=== PATIENT | male | born 1955 | race Caucasian/White ===

== ENCOUNTER → 2017-03-07 | Day surgery (SDC) | payer OTHER ==
[~2017-03-07] VITALS: Ht 182.9 cm; Wt 75.0 kg
[~2017-03-07] MED LIST: AMLO10TA2 PO; AMPICILLIN/SULBAC 3 GM/NS 100 ML IV SCH; ASPI81TA23 PO; CHLORHEXIDINE GLUCONATE 2 % 1 PACK (2 CLOTHS) TOPICAL PRN; FAMOTIDINE 20 MG/2 ML VIAL ONE; FISH500C PO; IBUP200T47 PO; INSULIN HUMAN REGULAR 1,000 UNITS/10 ML VIAL SQ PRN; LACTATED RINGER'S 1000 ML IV PRN; LIPI40TA PO; METOPROLOL TARTRATE 25 MG TAB PO PRN; MIDAZOLAM HCL 2 MG/2 ML VIAL ONE; OXYMETAZOLINE HCL 0.05% 15 ML NASAL SPRAY ONE; POVIDONE IODINE 5% (ANTISEPSIS KIT) 4 APPLICATIONS EACH NARE PRN; SODIUM CHLORID 0.9% 500 ML IV PRN
[2017-03-07 09:01] VITALS: PULSE 84
[2017-03-07 10:00] VITALS: BP 104/58; PULSE 66; RESP 16; TEMP 98.2; O2SAT 92
--- NOTE | 2017-03-07 14:02 | EKG ---
Date Performed: 03/07/2017 Time Performed: 07:44:49 PTAGE: 61 years EKG: Sinus rhythm WITH FIRST DEGREE AV BLOCK ABNORMAL ECG PREVIOUS TRACING : 12/04/2009 11.01 Compared to prior tracing no significant change DOCTOR: Clint Taylor Interpretating Date/Time 03/07/2017 13:59:42
--- NOTE | 2017-03-09 09:09 | MP ---
cc: SUSAN COELLO M.D. DATE OF SURGERY March 07, [address] Susan Coello PREOPERATIVE DIAGNOSIS Lesion of right pyriform sinus. POSTOPERATIVE DIAGNOSIS Lesion of right pyriform sinus. OPERATION PERFORMED Direct laryngoscopy with biopsies. INDICATIONS Documented in the history and physical. DESCRIPTION OF OPERATION The patient was taken to OR #2 and placed in the supine position. Following induction of general anesthesia and intubation, a shoulder roll and a Matthew head drape were put in place and dental guard was placed in. Using an anterior commissure scope the hypopharynx and larynx were brought into view. The lesion of the apex of the right pyriform sinus was immediately identified. There was neoplastic lesion developing in this location. Biopsy was obtained in three sites from this lesion and were passed off the field for histological examination. Inspection of the remainder the hypopharynx and larynx showed no evidence of other neoplastic changes. The scope was then removed and the procedure was terminated. The patient was reversed from anesthesia and taken to recovery in good condition. There were no complications. Blood loss was less than 10 mL. Susan Coello MD [facility] /7:46 AM /9:05 AM
== END | disposition home or self-care (01) ==
LOC: PHSDC 06:32
PROVIDERS: ATTEND Otolaryngology
DX: C32.9 Malignant neoplasm of larynx, unspecified (principal); R94.31 Abnormal electrocardiogram [ECG] [EKG]
CPT/HCPCS: 00320; 31535; 88305; 88311; 93005; J0295; J2250; J3010; J7120

== ENCOUNTER 2017-09-01 08:47 | Day surgery (SDC) | payer OTHER ==
[~2017-09-01] VITALS: Ht 182.9 cm; Wt 59.1 kg
[~2017-09-01 08:47] MED LIST changes: -AMPICILLIN/SULBAC 3 GM/NS 100 ML IV SCH; -CHLORHEXIDINE GLUCONATE 2 % 1 PACK (2 CLOTHS) TOPICAL PRN; -FAMOTIDINE 20 MG/2 ML VIAL ONE; -INSULIN HUMAN REGULAR 1,000 UNITS/10 ML VIAL SQ PRN; -LACTATED RINGER'S 1000 ML IV PRN; -METOPROLOL TARTRATE 25 MG TAB PO PRN; -MIDAZOLAM HCL 2 MG/2 ML VIAL ONE; -OXYMETAZOLINE HCL 0.05% 15 ML NASAL SPRAY ONE; -POVIDONE IODINE 5% (ANTISEPSIS KIT) 4 APPLICATIONS EACH NARE PRN; -SODIUM CHLORID 0.9% 500 ML IV PRN
[2017-09-01] MEDS ORDERED: IOHEXOL 350 MG/ML 50 ML BTL (for RAD DIAG) G-TUBE ONE (08:48)
[2017-09-01] MEDS ORDERED: SODIUM CHLORIDE 0.9% 1000 ML IV SCH (09:00)
[2017-09-01 09:43] VITALS: BP 123/58; PULSE 75; RESP 18; TEMP 98.1; O2SAT 95
[2017-09-01 10:00] LABS: AUTOMATED NEUTROPHIL # 9.4 TH/MM3 (1.8-7.7); BASOPHIL # 0.1 TH/MM3 (0-0.2); BASOPHIL % 0.5 % (0.0-2.0); EOSINOPHIL % 0.2 % (0.0-4.0); HEMATOCRIT 36.9 % (39.0-51.0); HEMOGLOBIN 12.6 GM/DL (13.0-17.0); LYMPH % 4.3 % (9.0-44.0); LYMPHOCYTE # 0.5 TH/MM3 (1.0-4.8); MEAN CELL VOLUME 83.4 FL (80.0-100.0); MEAN CORPUSCULAR HEMOGLOBIN 28.4 PG (27.0-34.0); MEAN PLATELET VOLUME 7.3 FL (7.0-11.0); MONO % 9.3 % (0.0-8.0); NEUT % 85.7 % (16.0-70.0); PLATELET COUNT 379 TH/MM3 (150-450); RED BLOOD COUNT 4.43 MIL/MM3 (4.50-5.90); RED CELL DISTRIBUTION WIDTH 13.7 % (11.6-17.2); WHITE BLOOD COUNT 10.9 TH/MM3 (4.0-11.0)
[2017-09-01] MEDS ORDERED: AMLO10TA2 PO (10:03)
[2017-09-01 10:08] LABS: INTERNATIONAL NORMALIZED RATIO 1.1 RATIO; PROTHROMBIN TIME - PATIENT 11.4 SEC (9.8-11.6)
[2017-09-01] MEDS ORDERED: NAPR220C22 PO (10:08)
[2017-09-01] MEDS ORDERED: PENT400T PO (10:09)
[2017-09-01] MEDS ORDERED: HYDR1SOL3 PO (10:10)
[2017-09-01] MEDS ORDERED: CEFP250T PO (10:11)
[2017-09-01] MEDS ORDERED: fentaNYL CITRATE 250 MCG/5 ML AMP ONE (10:31)
[2017-09-01] MEDS ORDERED: GLUCAGON 1 MG/ML VIAL ONE (10:31)
[2017-09-01] MEDS ORDERED: MIDAZOLAM HCL 5 MG/5 ML VIAL ONE (10:31)
--- NOTE | 2017-09-01 11:10 | PD.RAD ---
Post Procedure Progress Note Pre Procedure Diagnosis: (1) Post radiation pharyngitis (2) Head and neck cancer Post Procedure Diagnosis: (1) Head and neck cancer (2) Post radiation pharyngitis Procedure Date: September 01, 2017 Supervising Radiologist: Kavon Malik Proceduralist/Assist: Mary Aguilar, RT(R)(WILVER), Colleen Delgado, RT(R), Other (Valeriy) Anesthesia: Local, Analgesia, Conscious Sedation Plan of Activity Patient to Unit: [facility] Patient Condition: Good See PACS Report for procedural detail/treatment Feeding Tube Gastrostomy Placement [place] Citizen: 16 Kavon Malik MD September 01, 2017 11:10
[2017-09-01 11:15] VITALS: BP 110/57; PULSE 80; RESP 18; TEMP 98.2; O2SAT 94
[2017-09-01 11:30] VITALS: BP 97/51; PULSE 73; RESP 18; O2SAT 93
[2017-09-01] MEDS: ceFAZolin 2 GM PREMIX 50 ML - gastrostomy and jejunostomy initial insertion IV SCH ×2 (11:50→12:33)
[2017-09-01 12:00] VITALS: BP 94/51; PULSE 67; RESP 18; O2SAT 93
[2017-09-01 12:30] VITALS: BP 111/36; PULSE 70; RESP 18; O2SAT 93
[2017-09-01 13:00] VITALS: BP 108/57; PULSE 70; RESP 18; O2SAT 93
--- NOTE | 2017-09-01 13:50 | RADRPT ---
EXAM DATE/TIME: 09/01/2017 10:34 [facility] COMPARISON: No previous studies available for comparison. INDICATIONS : Patient presents with sinus cancer in need of gastrostomy tube placement for nutrition. MEDICAL HISTORY : Arthritis HTN Hypercholesterolemia ETOH Remote smoking SURGICAL HISTORY : Radiation Right Piriform Sinus ENCOUNTER: Initial ACUITY: 4-6 months PAIN SCORE: 2/10 LOCATION: sinus FLUORO TIME: 4.6 minutes IMAGE SERIES: 1 SEDATION TIME: 30 minutes CONTRAST: 15 cc Omnipaque (iohexol) 350 MEDICATION(S): 1.) 3 mg midazolam (Versed) IV 2.) 150 mcg Fentanyl (Sublimaze) IV DEVICE(S): 1.) 18 Fr gastrostomy tube PROCEDURE : 1. Limited abdominal ultrasound. 2. Fluoroscopically guided gastrostomy tube placement. 3. Conscious sedation with continuous EKG and oximetry monitoring. The risks, benefits and alternatives to the procedure were explained and verbal and written consent w as obtained. The site was prepped in sterile fashion. Full sterile technique was used, including ca p, mask, sterile gloves and gown and a large sterile sheet. Hand hygiene and 2% chlorhexidine and/or betadine/alcohol prep was utilized per protocol for cutaneous antisepsis. The skin and subcutaneous tissues were infiltrated with local anesthetic solution. Sterile gel and sterile probe cover were u tilized for ultrasound guidance. Ultrasound was used to matias the position of the liver. The stomach was insufflated with room air. Th ree percutaneous fasteners were placed to secure the anterior gastric wall. A small incision was made between the fasteners. The stomach was accessed with an 18 gauge needle. A n 0.035 wire was advanced into the small bowel. The tract was dilated. The gastrostomy tube was int roduced through a peel-away sheath. The position was confirmed with an injection of contrast. Conscious sedation was performed with the prescribed dosages and duration as above in the presence of an independent trained radiology nurse to assist in the monitoring of the patient. EKG and oximetry remained stable throughout the procedure. The patient tolerated the procedure well and there were n o complications. The patient was sent to post anesthesia recovery in stable condition. CONCLUSION: Uncomplicated gastrostomy tube placement as above. Kavon Malik MD on September 01, 2017 at 13:48 Board Certified Radiologist. This report was verified electronically.
== END 2017-09-01 13:15 | disposition home or self-care (01) ==
LOC: HROP 08:47 → HRIP 08:49 → HROP 13:15
PROVIDERS: ATTEND Radiology Radiation Oncology
DX: C12 Malignant neoplasm of pyriform sinus (principal); I10 Essential (primary) hypertension; E78.00 Pure hypercholesterolemia, unspecified
CPT/HCPCS: 49440; 85025; 85610; 85730; 99152; 99153; C1769; C1887; J0690; J1610; J2250; J3010; Q9967

== ENCOUNTER 2017-09-22 07:42 | Inpatient (IN) | payer OTHER ==
[~2017-09-22] VITALS: Ht 182.9 cm; Wt 56.8 kg
[2017-09-22] VITALS (10 sets, daily range): BP systolic 120–130; BP diastolic 55–62; PULSE 78–104; RESP 16–22; TEMP 97.6–98.1; O2SAT 93–100
[~2017-09-22 07:42] MED LIST changes: +CEFP250T PO; +HYDR1SOL3 PO; -IBUP200T47 PO; +NAPR220C22 PO; +PENT400T PO
[2017-09-22] MEDS ORDERED: IOHEXOL 350 MG/ML 10 ML VIAL (for RAD DIAG) IVCONTRAST ONE (07:43)
[2017-09-22] MEDS ORDERED: HYDR1SOL3 PO (08:02)
[2017-09-22] MEDS ORDERED: SODIUM CHLOR 0.9% 1000 ML INJ 1,000 ML IV ONE (08:15)
--- NOTE | 2017-09-22 08:57 | PD ---
HPI Chief Complaint: Respiratory Symptoms Time Seen by Provider: 08:08 Travel History International Travel<30 days: No Contact w/Intl Traveler<30days: No Traveled to known affect area: No History of Present Illness HPI This is a 62-year-old male with history of throat cancer, presents today with complaints of shortness of breath and worsening difficulty of swallowing. The patient is status post radiation treatment 2 months ago. He had a recent PET scan and swallowing study done a week and a half ago. The swallowing study showed that he was aspirating. The PET scan showed questionable post radiation inflammation versus new mass. The patient was recommended to come to the ER by his radiation oncologist, Dr. Jake romeo. Dr. Romeo was gracious enough to come in and see the patient and discussed the case with me. Patient denies any fevers, chills. He denies any cough or productive phlegm. He states that he has pain and difficulty swallowing. He states the difficulty swallowing is slightly worse than previous. PFSH Past Medical History Arthritis: Yes Cancer: Yes (throat) Cardiovascular Problems: Yes (ELEV. CHOLESTEROL) High Cholesterol: Yes Diabetes: No Diminished Hearing: No ([place]) Endocrine: No Glaucoma: No Genitourinary: No Hepatitis: No Hiatal Hernia: No Hypertension: Yes Immune Disorder: No Medical other: Yes (NASAL CONGESTION AND DRAINAGE;HOARSENESS) Musculoskeletal: Yes (JOINT PAIN AND STIFFNESS) Neurologic: No Psychiatric: No Respiratory: Yes (INTRASTITUAL LUNG DISEASE; PRODUCTIVE COUGH, PULMONARY FIBROSIS) Thyroid Disease: No Influenza Vaccination: Yes Past Surgical History Abdominal Surgery: Yes (PEG tube) AICD: No Cardiac Surgery: No Ear Surgery: No Endocrine Surgery: No Eye Surgery: No Genitourinary Surgery: No Gynecologic Surgery: No Joint Replacement: No Oral Surgery: Yes (BX BASE OF TONGUE;MULT TOOTH EXT; WISDOM TEETH REMOVED) Pacemaker: No Thoracic Surgery: Yes (LUNG BIOPSY X 3) Other Surgery: Yes Social History Alcohol Use: No (hx of) Tobacco Use: No (2 OR 3 PER DAY X 1 WEEK/ PRIOR 1PPD) Substance Use: No Allergies-Medications (Allergen,Severity, Reaction): Coded Allergies: No Known Allergies (Verified Allergy, Unknown, 09/22/17) Reported Meds & Prescriptions Reported Meds & Active Scripts Active Reported Hydrocodone-Acetaminophen Liq 7.5-325 Mg/15 Ml Soln 15-30 Ml PO Q4-6H PRN Amlodipine (Amlodipine Besylate) 10 Mg Tab 10 Mg PO DAILY Lipitor (Atorvastatin Calcium) 40 Mg Tab 80 Mg PO HS Review of Systems Except as stated in HPI: all other systems reviewed are Neg General / Constitutional: No: Fever, Chills HENT: Positive: Sore Throat, Other, No: Headaches, Lightheadedness Cardiovascular: No: Chest Pain or Discomfort (Difficulty swallowing), Palpitations Respiratory: Positive: Shortness of Breath, No: Cough Gastrointestinal: No: Nausea, Vomiting, Abdominal Pain Genitourinary: No: Dysuria, Decreased Urinary Output Musculoskeletal: Positive: Weakness (Generalized), No: Pain Neurologic: Positive: Weakness, No: Headache Physical Exam Narrative GENERAL: Well-developed well-nourished male in no acute respiratory distress. Patient does have muffled speech. SKIN: Focused skin assessment warm/dry. HEAD: Atraumatic. Normocephalic. EYES: No scleral icterus. No injection or drainage. ENT: No nasal bleeding or discharge. Mucous membranes pink and dry. NECK: Trachea midline. There is some fullness in his neck consistent with previous cancer and previous radiation treatment. CARDIOVASCULAR: Sinus tachycardia with a rate of 101.. No murmur appreciated. RESPIRATORY: No accessory muscle use. Clear to auscultation. Breath sounds equal bilaterally. GASTROINTESTINAL: Abdomen soft, non-tender, nondistended. Hepatic and splenic margins not palpable. MUSCULOSKELETAL: No obvious deformities. No clubbing. No cyanosis. No edema. NEUROLOGICAL: Awake and alert. No obvious cranial nerve deficits. Motor grossly within normal limits. Normal speech. Data Data Last Documented VS Vital Signs Date Time Temp Pulse Resp B/P (MAP) Pulse Ox O2 Delivery O2 Flow Rate FiO2 09/22/17 10:13 84 16 124/61 (82) 99 Room Air 09/22/17 09:34 3.00 09/22/17 07:45 97.6 Orders Orders Complete Blood Count With Diff (09/22/17 08:08) Comprehensive Metabolic Panel (09/22/17 08:08) Iv Access Insert/Monitor (09/22/17 08:08) Ecg Monitoring (09/22/17 08:08) Oximetry (09/22/17 08:08) Sodium Chlor 0.9% 1000 Ml Inj (Ns 1000 M (09/22/17 08:15) Resp Respiratory Parameters (09/22/17 ) Ct Soft Tiss Neck W Iv Cont (09/22/17 ) Iohexol 350 Inj (Omnipaque 350 Inj) (09/22/17 07:43) Comprehensive Metabolic Panel (09/23/17 06:00) Free Thyroxine (T4) (09/23/17 06:00) Hemoglobin (Hgb) A1c (09/23/17 06:00) Magnesium (Mg) (09/23/17 06:00) Phosphorus (Po4) (09/23/17 06:00) Thyroid Stimulating Hormone (09/23/17 06:00) Complete Blood Count With Diff (09/23/17 06:00) Amlodipine (Norvasc) (09/23/17 09:00) Atorvastatin (Lipitor) (09/22/17 21:00) Admit Order (Ed Use Only) (09/22/17 11:04) Acetamin-Hydrocod 325-7.5 Liq (Hycet 325 (09/22/17 11:15) Admit To Inpatient (09/22/17 ) Code Status (09/22/17 11:04) Vital Signs (Adult) Q4H (09/22/17 11:04) Activity Oob With Assistance (09/22/17 11:04) Internal Controls Analyst / Telemetry .CONTINUOUS (09/22/17 11:04) Intake + Output MARY.QSHIFT (09/22/17 11:04) Sodium Chlor 0.9% 1000 Ml Inj (Ns 1000 M (09/22/17 11:04) Sodium Chloride 0.9% Flush (Ns Flush) (09/22/17 11:15) Sodium Chloride 0.9% Flush (Ns Flush) (09/22/17 21:00) Acetaminophen (Tylenol) (09/22/17 11:15) Ondansetron Inj (Zofran Inj) (09/22/17 11:15) Prochlorperazine Supp (Compazine Supp) (09/22/17 11:15) Resp Oxygen Brayden C Titrat 1-4 L (09/22/17 ) Pt Request For Service (09/22/17 11:04) Ot Request For Service (09/22/17 11:04) Speech Therapy Consult-Eval/Tx (09/22/17 11:04) Case Management Consult (09/22/17 11:04) Scd Bilateral/Knee High MARY.BID (09/22/17 11:04) Raul Bilateral/Knee High MARY.QSHIFT (09/22/17 11:15) Acetaminophen (Tylenol) (09/22/17 11:15) Morphine Inj (Morphine Inj) (09/22/17 11:15) Morphine Inj (Morphine Inj) (09/22/17 11:15) Morphine Inj (Morphine Inj) (09/22/17 11:15) Naloxone Inj (Narcan Inj) (09/22/17 11:15) Docusate Sodium-Senna (Nydia-Colace) (09/22/17 21:00) Magnesium Hydroxide Liq (Milk Of Magnesi (09/22/17 11:15) Sennosides (Senokot) (09/22/17 11:15) Bisacodyl Supp (Dulcolax Supp) (09/22/17 11:15) Lactulose Liq (Lactulose Liq) (09/22/17 11:15) Inpatient Certification (09/22/17 ) Consult Ent (09/22/17 11:04) Consult Radiation Oncology (09/22/17 11:04) Tube Feeding 08,20 (09/22/17 11:09) Labs Laboratory Tests Test 09/22/17 08:30 White Blood Count 11.5 TH/MM3 Red Blood Count 4.18 MIL/MM3 Hemoglobin 11.6 GM/DL Hematocrit 34.9 % Mean Corpuscular Volume 83.3 FL Mean Corpuscular Hemoglobin 27.6 PG Mean Corpuscular Hemoglobin Concent 33.2 % Red Cell Distribution Width 14.0 % Platelet Count 351 TH/MM3 Mean Platelet Volume 10.0 FL Neutrophils (%) (Auto) 87.3 % Lymphocytes (%) (Auto) 2.6 % Monocytes (%) (Auto) 9.3 % Eosinophils (%) (Auto) 0.2 % Basophils (%) (Auto) 0.6 % Neutrophils # (Auto) 10.1 TH/MM3 Lymphocytes # (Auto) 0.3 TH/MM3 Monocytes # (Auto) 1.1 TH/MM3 Eosinophils # (Auto) 0.0 TH/MM3 Basophils # (Auto) 0.1 TH/MM3 CBC Comment DIFF FINAL Differential Comment Blood Urea Nitrogen 24 MG/DL Creatinine 0.53 MG/DL Random Glucose 132 MG/DL Total Protein 7.8 GM/DL Albumin 2.5 GM/DL Calcium Level 9.3 MG/DL Alkaline Phosphatase 104 U/L Aspartate Amino Transf (AST/SGOT) 45 U/L Alanine Aminotransferase (ALT/SGPT) 94 U/L Total Bilirubin 0.3 MG/DL Sodium Level 141 MEQ/L Potassium Level 4.1 MEQ/L Chloride Level 105 MEQ/L Carbon Dioxide Level 25.0 MEQ/L Anion Gap 11 MEQ/L Estimat Glomerular Filtration Rate 157 ML/MIN MDM Medical Decision Making Medical Screen Exam Complete: Yes Emergency Medical Condition: Yes Differential Diagnosis Recurrent tumor versus inflammatory process versus infectious process Narrative Course 62-year-old male with history of throat cancer, status post radiation treatment , presents here with complaints of shortness of breath and painful swallowing. Patient had a recent PET scan that showed questionable inflammatory process versus new mass. The patient's called Dr. Jake romeo, patient's radiation oncologist who recommended he come to the emergency department. Dr. Romeo was here and discussed options for evaluation. We discussed that a CT scan of the soft tissue neck would be the best option at this point. He also recommended that we have ENT see the patient and possibly scope him to see if there is been any interval changes. CT scan of the neck shows prominence of the tissue. There is also a fluid collection 0.7 cm x 2 cm in the right paratracheal area. There is questionable necrotic tissue versus infectious tissue noted as well. Diagnosis Primary Impression: Dysphagia Additional Impressions: History of throat cancer Shortness of breath Admitting Information Admitting Physician Requests: Observation Narendra Brown MD Sep 22, 2017 08:57
[2017-09-22 08:58] LABS: AUTOMATED NEUTROPHIL # 10.1 TH/MM3 (1.8-7.7); BASOPHIL # 0.1 TH/MM3 (0-0.2); BASOPHIL % 0.6 % (0.0-2.0); EOSINOPHIL % 0.2 % (0.0-4.0); HEMATOCRIT 34.9 % (39.0-51.0); HEMOGLOBIN 11.6 GM/DL (13.0-17.0); LYMPH % 2.6 % (9.0-44.0); LYMPHOCYTE # 0.3 TH/MM3 (1.0-4.8); MEAN CELL VOLUME 83.3 FL (80.0-100.0); MEAN CORPUSCULAR HEMOGLOBIN 27.6 PG (27.0-34.0); MEAN CORPUSCULAR HGB CONC 33.2 % (32.0-36.0); MONO % 9.3 % (0.0-8.0); MONOCYTE # 1.1 TH/MM3 (0-0.9); NEUT % 87.3 % (16.0-70.0); PLATELET COUNT 351 TH/MM3 (150-450); RED BLOOD COUNT 4.18 MIL/MM3 (4.50-5.90); WHITE BLOOD COUNT 11.5 TH/MM3 (4.0-11.0)
[2017-09-22 09:18] LABS: ALT (GPT) 94 U/L (12-78)
[2017-09-22 09:21] LABS: ALKALINE PHOSPHATASE 104 U/L (45-117); TOTAL BILIRUBIN ADULT 0.3 MG/DL (0.2-1.0); TOTAL PROTEIN 7.8 GM/DL (6.4-8.2)
[2017-09-22 09:31] LABS: ALBUMIN 2.5 GM/DL (3.4-5.0); AST (GOT) 45 U/L (15-37); BLOOD UREA NITROGEN 24 MG/DL (7-18); CALCIUM 9.3 MG/DL (8.5-10.1); CHLORIDE 105 MEQ/L (98-107); CREATININE 0.53 MG/DL (0.60-1.30); GLOMERULAR FILTRATION RATE 157 ML/MIN (>89); GLUCOSE,RANDOM 132 MG/DL (74-106); SODIUM (NA) 141 MEQ/L (136-145)
--- NOTE | 2017-09-22 10:33 | RADRPT ---
EXAM DATE: 09/22/2017 10:15 AM EDT AGE/SEX: 62 years / Male INDICATIONS: Difficulty swallowing with history of throat cancer. CLINICAL DATA: This is the patient's initial encounter. Patient reports that signs and symptoms have been present for 1 day and indicates a pain score of 5/10. MEDICAL/SURGICAL HISTORY: Cardiovascular disease. throat cancer. None. RADIATION DOSE: 12.71 CTDI (mGy) COMPARISON: No prior [place] exams available for comparison. TECHNIQUE: Helical acquisition was performed using a multirow detector CT scanner during the adminis tration of 70 ml Omnipaque 350 (iohexol) nonionic water-soluble contrast as a single exam dose. Usi ng automated exposure control and adjustment of the mA and/or kV according to patient size, radiation dose was kept as low as reasonably achievable to obtain optimal diagnostic quality images. FINDINGS: The limited portion of brain parenchyma visualized is unremarkable. The soft tissues of the nasopharynx and oropharynx are intact. The parapharyngeal space is intact deirdre aterally. More inferiorly, the exam demonstrates abnormal soft tissue thickening diffusely throughout the larynx. There is a small amount of fluid and punctate bubbles of gas within the soft tissues adj acent to the thyroid cartilage on the right. There is moderate narrowing of the airway due to the thi ckening. Primary consideration would be necrotic tumor secondary to radiation and chemotherapy. No significant jugular or posterior cervical adenopathy is identified. The parotid and submandibular glands are intact. The thyroid gland is intact. The limited portion of lung apex visualized demonstrates advanced COPD changes. CONCLUSION: 1. There is a large amount of abnormal soft tissue concentrically within the larynx. There is diffus e soft tissue swelling with a small fluid collection measuring 0.7 x 2.0 cm along the right side of t he thyroid cartilage. There are punctate bubbles of gas within this. Primary consideration would be n ecrotic tumor however, in the appropriate clinical setting superimposed infection in this area could be a consideration. This does result in some moderate concentric narrowing of the trachea with likely mass effect on the upper esophagus as well. Electronically signed by: Vazquez Stearns MD 09/22/2017 10:32 AM EDT
[2017-09-22] MEDS ORDERED: ACETAMINOPHEN 325MG/HYDROcodone 7.5MG/15ML UDC PO PRN (11:15)
[2017-09-22] MEDS ORDERED: SENNOSIDES 8.6 MG TAB PO PRN (11:15)
[2017-09-22] MEDS ORDERED: MAGNESIUM HYDROXIDE SUSP 30 ML CUP PO PRN (11:15)
[2017-09-22] MEDS ORDERED: SODIUM CHLORIDE 0.9% FLUSH 10 ML FLUSH IV FLUSH PRN (11:15)
[2017-09-22] MEDS ORDERED: BISACODYL 10 MG SUPP RECTAL PRN (11:15)
[2017-09-22] MEDS ORDERED: NALOXONE HCL 0.4 MG/ML AMP IV PUSH PRN (11:15)
[2017-09-22] MEDS ORDERED: LACTULOSE SYRUP 20 GM/30 ML CUP PO PRN (11:15)
[2017-09-22] MEDS ORDERED: ACETAMINOPHEN 325 MG TAB PO PRN ×2 (11:15)
[2017-09-22] MEDS ORDERED: PROCHLORPERAZINE 25 MG SUPP RECTAL PRN (11:15)
[2017-09-22] MEDS ORDERED: ONDANSETRON ODT 4 MG TAB PO PRN (11:30)
[2017-09-22] MEDS ORDERED: MORPHINE SULFATE 4 MG/ML INJ IV PUSH PRN ×3 (11:45)
[2017-09-22] MEDS: SODIUM CHLOR 0.9% 1000 ML INJ 1,000 ML IV SCH (13:36)
--- NOTE | 2017-09-22 14:31 | RADRPT ---
EXAM DATE: 09/22/2017 2:26 PM EDT AGE/SEX: 62 years / Male INDICATIONS: Dysphagia. CLINICAL DATA: This is the patient's initial encounter. Patient reports that signs and symptoms have been present for 1 day and indicates a pain score of 0/10. MEDICAL/SURGICAL HISTORY: None. None. COMPARISON: No prior [facility] exams available for comparison. FLUORO TIME: 1.9 IMAGE COUNT: 0 FINDINGS: A modified barium swallow was performed with speech pathology. Patient was given a variety of liquids to swallow. For a full detailed report, see report by the speech pathologist. CONCLUSION: Modified barium swallow. Electronically signed by: Anam Boone MD 09/22/2017 2:30 PM EDT
--- NOTE | 2017-09-22 15:21 | HHI.HP ---
[facility] Amparo Ochoa MD Admission Diagnosis dysphagia, throat cancer, shortness of breath Diagnoses: Chief Complaint: INCREASING SHORTNESS OF BREATH Travel History International Travel<30 Days: No Contact w/Intl Traveler <30 Da: No Traveled to Known Affected Are: No History of Present Illness Patient is a 62-year-old male with a history of thyroid cancer that it was discovered last February. He presents today with shortness of breath and worsening difficulty in swallowing. Patient is status post 35 radiation treatments that finished in May. He had a recent PET scan and swallow study done last week and a half ago. He failed a swallow evaluation and had a PEG tube placed. The PET scan showed post radiation inflammation versus new mass. Patient was recommended to come to the emergency department by Dr. Jake romeo his radiation oncologist. Patient had a swallow evaluation and a barium swallow and failed grossly and is made completely n.p.o. except to use the PEG tube. Review of Systems Constitutional: COMPLAINS OF: Fatigue, Weight loss, Change in appetite, DENIES : Diaphoretic episodes, Fever, Weight gain, Chills, Dizziness, Night Sweats Endocrine: DENIES: Heat/cold intolerance, Polydipsia, Polyuria, Polyphagia Eyes: DENIES: Blurred vision, Diplopia, Eye inflammation, Eye pain, Vision loss , Photosensitivity, Double Vision Ears, nose, mouth, throat: COMPLAINS OF: Throat pain, Hoarseness, DENIES: Tinnitus, Hearing loss, Vertigo, Nasal discharge, Oral lesions, Ear Pain, Running Nose, Epistaxis, Sinus Pain, Toothache, Odynophagia Respiratory: COMPLAINS OF: Shortness of breath, DENIES: Apneas, Cough, Snoring , Wheezing, Hemoptysis, Sputum production Cardiovascular: DENIES: Chest pain, Palpitations, Syncope, Dyspnea on Exertion , PND, Lower Extremity Edema, Orthopnea, Claudication Gastrointestinal: COMPLAINS OF: Difficulty Swallowing, DENIES: Abdominal pain, Black stools, Bloody stools, Constipation, Diarrhea, Nausea, Vomiting, Anorexia Genitourinary: DENIES: Sexual dysfunction, Urinary frequency, Urinary incontinence Musculoskeletal: COMPLAINS OF: Neck pain, DENIES: Joint pain, Muscle aches, Stiffness, Joint Swelling, Back pain Integumentary: DENIES: Abnormal pigmentation, Nail changes, Pruritus, Rash Hematologic/lymphatic: DENIES: Bruising, Lymphadenopathy Immunologic/allergic: DENIES: Eczema, Urticaria Neurologic: COMPLAINS OF: Speech Problems, DENIES: Abnormal gait, Headache, Localized weakness, Paresthesias, Seizures, Tremor, Poor Balance Psychiatric: DENIES: Anxiety, Confusion, Mood changes, Depression, Hallucinations, Agitation, Suicidal Ideation, Homicidal Ideation, Delusions Except as stated in HPI: all other systems reviewed are Neg Past Family Social History Past Medical History Hard of hearing with hearing loss Has history of biopsy of the base of his tongue including multiple tooth extraction wisdom tooth removal Hypercholesterolemia Hypertension Interstitial lung disease Pulmonary fibrosis History of lung biopsies 3 negative for cancer history of PEG tube placement History of osteoarthritis History of alcohol use in the past Prior history of heavy tobacco abuse with 1 pack per day for many years Throat cancer/head and neck cancer Chronic hoarse voice Chronic nasal congestion and drainage Past Surgical History Base of tongue biopsy Recent ENT procedure PEG tube placement Lung biopsies 3 Reported Medications Reported Meds & Active Scripts Active Reported Hydrocodone-Acetaminophen Liq 7.5-325 Mg/15 Ml Soln 15-30 Ml PO Q4-6H PRN Amlodipine (Amlodipine Besylate) 10 Mg Tab 10 Mg PO DAILY Lipitor (Atorvastatin Calcium) 40 Mg Tab 80 Mg PO HS Allergies: Coded Allergies: No Known Allergies (Verified Allergy, Unknown, 09/22/17) Active Ordered Medications Current Medications Sodium Chloride 1,000 ml @ 999 mls/hr BOLUS ONCE IV Last administered on at 08:47; Start 09/22/17 at 08:15; Stop 09/22/17 at 09:15; Status DC Iohexol (Omnipaque 350 Inj) 70 ml STK-MED ONCE IVCONTRAST Last administered on 09/22/17at 10:14; Start 09/22/17 at 07:43; Stop 09/22/17 at 10:09; Status DC Amlodipine Besylate (Norvasc) 10 mg DAILY PO ; Start 09/23/17 at 09:00 Atorvastatin Calcium (Lipitor) 80 mg HS PO ; Start 09/23/17 at 21:00 Acetaminophen/ Hydrocodone Bitart (Hycet 325-7.5 Mg Liq) 15 ml Q4H PRN PO PAIN 3-10; Start 09/22/17 at 11:15 Sodium Chloride 1,000 ml @ 100 mls/hr Q10H IV Last administered on 09/22/17at 13 :36; Start 09/22/17 at 11:30 Sodium Chloride (NS Flush) 2 ml UNSCH PRN IV FLUSH FLUSH AFTER USING IV ACCESS ; Start 09/22/17 at 11:15 Sodium Chloride (NS Flush) 2 ml BID IV FLUSH ; Start 09/22/17 at 21:00 Acetaminophen (Tylenol) 650 mg Q4H PRN PO TEMP > 100.4; Start 09/22/17 at 11:15 Ondansetron HCl (Zofran Odt) 4 mg Q6H PRN PO NAUSEA OR VOMITING; Start at 11:30 Prochlorperazine (Compazine Supp) 25 mg Q12H PRN RECTAL NAUSEA OR VOMITING; Start 09/22/17 at 11:15 Acetaminophen (Tylenol) 650 mg Q6H PRN PO PAIN SCALE 1 TO 2; Start 09/22/17 at 11:15 Morphine Sulfate (Morphine Inj) 2 mg Q3H PRN IV PUSH Pain 3-5; if unable to take PO; Start 09/22/17 at 11:45 Morphine Sulfate (Morphine Inj) 4 mg Q3H PRN IV PUSH Pain 6-10;if unable to take PO; Start 09/22/17 at 11:45 Morphine Sulfate (Morphine Inj) 4 mg Q3H PRN IV PUSH BREAKTHROUGH PAIN; Start 09/22/17 at 11:45 Naloxone HCl (Narcan Inj) 0.4 mg UNSCH PRN IV PUSH SEE LABEL COMMENTS; Start at 11:15 Senna/Docusate Sodium (Nydia-Colace) 1 tab BID PO ; Start 09/22/17 at 21:00 Magnesium Hydroxide (Milk Of Magnesia Liq) 30 ml Q12H PRN PO Mild constipation ; Start 09/22/17 at 11:15 Sennosides (Senokot) 17.2 mg Q12H PRN PO Moderate constipation; Start 09/22/17 at 11:15 Bisacodyl (Dulcolax Supp) 10 mg DAILY PRN RECTAL SEVERE CONSITIPATION; Start at 11:15 Lactulose (Lactulose Liq) 30 ml DAILY PRN PO SEVERE CONSITIPATION; Start at 11:15 Family History Father had lung cancer Family history of tobacco abuse Social History History of alcohol abuse Still smoking a few cigarettes had previously smoked a pack per day for many years Denies any alcohol currently Denies any illicit drug use Physical Exam Vital Signs Vital Signs Date Time Temp Pulse Resp B/P (MAP) Pulse Ox O2 Delivery O2 Flow Rate FiO2 09/22/17 13:20 98.0 78 18 120/56 (77) 98 09/22/17 11:22 100 Nasal Cannula 3.00 09/22/17 10:13 84 16 124/61 (82) 99 Room Air 09/22/17 09:34 100 Nasal Cannula 3.00 09/22/17 09:15 97 Room Air 09/22/17 07:45 97.6 104 22 123/59 (80) 96 Physical Exam GENERAL: This is very thin and cachectic patient, not so well-developed patient , in no apparent distress. Muffled voice with hoarseness SKIN: No rashes, ecchymoses or lesions. Cool and dry. HEAD: Atraumatic. Normocephalic. No temporal or scalp tenderness. EYES: Pupils equal round and reactive. Extraocular motions intact. No scleral icterus. No injection or drainage. ENT: Nose without bleeding, purulent drainage or septal hematoma. Throat without erythema, tonsillar hypertrophy or exudate. Uvula midline. Airway patent. NECK: Trachea midline. No JVD or lymphadenopathy. Supple, nontender, no meningeal signs. CARDIOVASCULAR: Regular rate and rhythm without murmurs, gallops, or rubs. RESPIRATORY: . Breath sounds equal bilaterally. No wheezes, rales, or rhonchi. Coarse breath sounds bilaterally GASTROINTESTINAL: Abdomen soft, non-tender, nondistended. No hepato-splenomegaly , or palpable masses. No guarding. PEG tube in place MUSCULOSKELETAL: Extremities without clubbing, cyanosis, or edema. No joint tenderness, effusion, or edema noted. No calf tenderness. Negative Homans sign bilaterally. NEUROLOGICAL: Awake and alert. Cranial nerves II through XII intact. Motor and sensory grossly within normal limits. 4 out of 5 muscle strength in all muscle groups. ABNormal speech. With hoarseness of voice Insight and judgment is good Mood behaviors appropriate Laboratory Laboratory Tests Test 09/22/17 08:30 White Blood Count 11.5 Red Blood Count 4.18 Hemoglobin 11.6 Hematocrit 34.9 Mean Corpuscular Volume 83.3 Mean Corpuscular Hemoglobin 27.6 Mean Corpuscular Hemoglobin Concent 33.2 Red Cell Distribution Width 14.0 Platelet Count 351 Mean Platelet Volume 10.0 Neutrophils (%) (Auto) 87.3 Lymphocytes (%) (Auto) 2.6 Monocytes (%) (Auto) 9.3 Eosinophils (%) (Auto) 0.2 Basophils (%) (Auto) 0.6 Neutrophils # (Auto) 10.1 Lymphocytes # (Auto) 0.3 Monocytes # (Auto) 1.1 Eosinophils # (Auto) 0.0 Basophils # (Auto) 0.1 CBC Comment DIFF FINAL Differential Comment Blood Urea Nitrogen 24 Creatinine 0.53 Random Glucose 132 Total Protein 7.8 Albumin 2.5 Calcium Level 9.3 Alkaline Phosphatase 104 Aspartate Amino Transf (AST/SGOT) 45 Alanine Aminotransferase (ALT/SGPT) 94 Total Bilirubin 0.3 Sodium Level 141 Potassium Level 4.1 Chloride Level 105 Carbon Dioxide Level 25.0 Anion Gap 11 Estimat Glomerular Filtration Rate 157 Result Diagram: 09/22/17 0830 09/22/17 0830 Imaging Last Impressions Neck CT 09/22/17 0000 Addendum Impressions: CONCLUSION: 1. There is a large amount of abnormal soft tissue concentrically within the l arynx. There is diffuse soft tissue swelling with a small fluid collection marco uring 0.7 x 2.0 cm along the right side of the thyroid cartilage. There are pun ctate bubbles of gas within this. Primary consideration would be necrotic tumor however, in the appropriate clinical setting superimposed infection in this ar ea could be a consideration. This does result in some moderate concentric narro wing of the trachea with likely mass effect on the upper esophagus as well. Modified Barium Swallow 09/22/17 0000 Signed Impressions: CONCLUSION: Modified barium swallow. Caprini VTE Risk Assessment Caprini VTE Risk Assessment: Mod/High Risk (score >= 2) Caprini Risk Assessment Model Point Value = 1 Point Value = 2 Point Value = 3 Point Value = 5 Age 41-60 Minor surgery BMI > 25 kg/m2 Swollen legs Varicose veins or History of unexplained or recurrent spontaneous Oral contraceptives or hormone replacement Sepsis (< 1 month) Serious lung disease, including pneumonia (< 1 month) Abnormal pulmonary function Acute myocardial infarction Congestive heart failure (< 1 month) History of inflammatory bowel disease Medical patient at bed rest Age 61-74 Arthroscopic surgery Major open surgery (> 45 min) Laparoscopic surgery (> 45 min) Malignancy Confined to bed (> 72 hours) Immobilizing plaster cast Central venous access Age >= 75 History of VTE Family history of VTE Factor V Leiden Prothrombin [id number] Lupus anticoagulant Anticardiolipin antibodies Elevated serum homocysteine Heparin-induced thrombocytopenia Other congenital or acquired thrombophilia Stroke (< 1 month) Elective arthroplasty Hip, pelvis, or leg fracture Acute spinal cord injury (< 1 month) Prophylaxis Regimen Total Risk Factor Score Risk Level Prophylaxis Regimen 0-1 Low Early ambulation 2 Moderate Order ONE of the following: *Sequential Compression Device (SCD) *Heparin 5000 units SQ BID 3-4 Higher Order ONE of the following medications: *Heparin 5000 units SQ TID *Enoxaparin/Lovenox 40 mg SQ daily (WT < 150 kg, CrCl > 30 mL/min) *Enoxaparin/Lovenox 30 mg SQ daily (WT < 150 kg, CrCl > 10-29 mL/min) *Enoxaparin/Lovenox 30 mg SQ BID (WT < 150 kg, CrCl > 30 mL/min) AND/OR *Sequential Compression Device (SCD) 5 or more Highest Order ONE of the following medications: *Heparin 5000 units SQ TID (Preferred with Epidurals) *Enoxaparin/Lovenox 40 mg SQ daily (WT < 150 kg, CrCl > 30 mL/min) *Enoxaparin/Lovenox 30 mg SQ daily (WT < 150 kg, CrCl > 10-29 mL/min) *Enoxaparin/Lovenox 30 mg SQ BID (WT < 150 kg, CrCl > 30 mL/min) AND *Sequential Compression Device (SCD) Assessment and Plan Assessment and Plan Head and neck cancer with worsening dysphasia and shortness of breath ENT has been counseled regarding the worsening CAT scans of his head neck Throat cancer with history of extensive tobacco abuse and [address] Jake romeo Dysphasia secondary to the radiation status post PEG tube Completely failed swallow eval made n.p.o. Hypertension continue on his home medications may be crushed via PEG Hyperlipidemia continue on his home medications may be crushed via PEG Pain control continue his home medications via PEG as needed for pain and morphine as needed for breakthrough pain Continue fluids Nutrition to consult regarding tube feeds Cachexia continue on aggressive intake of calories via tube feeds A.m. labs Continue PT and OT Code Status Full code Discussed Condition With RN and patient and and the emergency room physician Physician Certification 2 Midnight Certification Type: Admission for Inpatient Services Order for Inpatient Services The services are ordered in accordance with Medicare regulations or non- Medicare payer requirements, as applicable. In the case of services not specified as inpatient-only, they are appropriately provided as inpatient services in accordance with the 2-midnight benchmark. Estimated LOS (days): 3 days is the estimated time the patient will need to remain in the hospital, assuming treatment plan goals are met and no additional complications. Post-Hospital Plan: Not yet determined Huan Londono DO Sep 22, 2017 15:21
--- NOTE | 2017-09-22 17:16 | HHI.PR ---
Subjective Remarks Prior xrt for pyriform sinus cancer. Concern of worse breathing . Discussed CT results with Dr. Stearns. DDx includes fistula, radiation necrosis, persistent cancer (least likely) Objective Vital Signs Date Time Temp Pulse Resp B/P (MAP) Pulse Ox O2 Delivery O2 Flow Rate FiO2 09/22/17 15:26 98.1 89 18 126/55 (78) 96 09/22/17 13:20 98.0 78 18 120/56 (77) 98 09/22/17 11:22 100 Nasal Cannula 3.00 09/22/17 10:13 84 16 124/61 (82) 99 Room Air 09/22/17 09:34 100 Nasal Cannula 3.00 09/22/17 09:15 97 Room Air 09/22/17 07:45 97.6 104 22 123/59 (80) 96 I/O 09/21/17 09/21/17 09/21/17 09/22/17 09/22/17 09/22/17 07:00 15:00 23:00 07:00 15:00 23:00 Intake Total 1000 ml Balance 1000 ml Intake IV Total 1000 ml Result Diagram: 09/22/17 0830 09/22/17 0830 Objective Remarks Noted vital signs. Breathing. Assessment and Plan Assessment and Plan consider steroids briefly, O2 monitoring. Present with dr oropeza. hold neck exercises for now. Jake Obregon MD Sep 22, 2017 17:16
[2017-09-22] MEDS ORDERED: DEXAMETHASONE SOD PHOS 4 MG/ML VIAL IV PUSH ONE (17:30)
[2017-09-22] MEDS ORDERED: PANTOPRAZOLE SODIUM 40 MG VIAL IV PUSH SCH (18:00)
[2017-09-22] MEDS: SODIUM CHLORIDE 0.9% FLUSH 10 ML FLUSH IV FLUSH SCH (21:00)
[2017-09-22] MEDS: DOCUSATE SODIUM 50 MG/SENNA 8.6 MG TAB PO SCH (21:00)
[2017-09-23] VITALS (9 sets, daily range): BP systolic 118–135; BP diastolic 59–68; PULSE 75–96; RESP 16–22; TEMP 97.8–98.9; O2SAT 95–98
[2017-09-23] MEDS: SODIUM CHLOR 0.9% 1000 ML INJ 1,000 ML IV SCH ×2 (00:05→10:11)
[2017-09-23 05:41] LABS: AUTOMATED NEUTROPHIL # 8.6 TH/MM3 (1.8-7.7); BASOPHIL % 0.4 % (0.0-2.0); HEMATOCRIT 32.6 % (39.0-51.0); HEMOGLOBIN 10.9 GM/DL (13.0-17.0); LYMPH % 2.6 % (9.0-44.0); LYMPHOCYTE # 0.2 TH/MM3 (1.0-4.8); MEAN CELL VOLUME 83.5 FL (80.0-100.0); MEAN CORPUSCULAR HEMOGLOBIN 27.8 PG (27.0-34.0); MEAN CORPUSCULAR HGB CONC 33.3 % (32.0-36.0); MONO % 2.4 % (0.0-8.0); MONOCYTE # 0.2 TH/MM3 (0-0.9); NEUT % 94.6 % (16.0-70.0); PLATELET COUNT 328 TH/MM3 (150-450); RED CELL DISTRIBUTION WIDTH 13.9 % (11.6-17.2); WHITE BLOOD COUNT 9.1 TH/MM3 (4.0-11.0)
[2017-09-23 05:59] LABS: ALBUMIN 2.2 GM/DL (3.4-5.0); ALT (GPT) 97 U/L (12-78); AST (GOT) 46 U/L (15-37); BICARBONATE 25.4 MEQ/L (21.0-32.0); BLOOD UREA NITROGEN 20 MG/DL (7-18); CALCIUM 8.9 MG/DL (8.5-10.1); CHLORIDE 109 MEQ/L (98-107); CREATININE 0.46 MG/DL (0.60-1.30); GLOMERULAR FILTRATION RATE 184 ML/MIN (>89); GLUCOSE,RANDOM 142 MG/DL (74-106); MAGNESIUM 2.5 MG/DL (1.5-2.5); PHOSPHORUS 3.2 MG/DL (2.5-4.9); SODIUM (NA) 144 MEQ/L (136-145)
[2017-09-23 06:07] LABS: ALKALINE PHOSPHATASE 104 U/L (45-117); FREE T4 1.09 NG/DL (0.76-1.46); TOTAL BILIRUBIN ADULT 0.2 MG/DL (0.2-1.0); TOTAL PROTEIN 7.2 GM/DL (6.4-8.2)
[2017-09-23] MEDS: DOCUSATE SODIUM 50 MG/SENNA 8.6 MG TAB PO SCH (09:00)
[2017-09-23] MEDS ORDERED: DEXAMETHASONE SOD PHOS 4 MG/ML VIAL IV PUSH SCH (09:00)
[2017-09-23] MEDS: SODIUM CHLORIDE 0.9% FLUSH 10 ML FLUSH IV FLUSH SCH (10:13)
--- NOTE | 2017-09-23 10:56 | MB ---
cc: Filemon Coello MD, Brad A MD DATE: 09/22/2017 DATE OF CONSULTATION: 09/22/2017 REQUESTING PROVIDER: Dr. Jake Obregon. REASON FOR ENT CONSULTATION: Dyspnea. 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 This was an incidental finding on an exam completed back in 05/2016. At that time, a CT scan that revealed some suspicious area in the nasopharynx, which proved to be nothing; however, hypopharynx revealed a previously unknown malignancy developing in the right piriform sinus. This underwent biopsy on 03/10, which confirmed the cancer diagnosis. He subsequently underwent radiation therapy with Dr. Obregon and no chemotherapy. He did well initially, although he had some throat pain and dysphagia. His initial post-treatment visit on 07/10 showed him to be in good condition, breathing easily. He had a followup on 08/25 following a few weeks of progressive difficulty with swallowing and with pain in his throat. A CT scan was obtained at that time, which had revealed some air in the soft tissue of the neck adjacent to the right side of the larynx suggestive of fistula or possible necrotic tissue in the hypopharynx. There was necrotic odor on his breath. He was begun on hyperbaric oxygen treatment on 09/15 and he subsequently had a PEG placed to assist him in his nutritional intake. He is presently unable to swallow anything. On 09/22,he presented to the emergency room complaining of difficulty with breathing. He is having no stridor. He states the pain in his neck has resolved. His O2 saturation on room air was around 95%. Mr. 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 PAST MEDICAL HISTORY: He has a history of hypertension, hypercholesterolemia, pulmonary fibrosis, osteoarthritis, heavy use of tobacco and alcohol in the past. PAST SURGICAL HISTORY: Includes tongue biopsy with a direct laryngoscopy and PEG tube placement. MEDICATIONS PRIOR TO ADMISSION: Include Lortab, amlodipine and Lipitor. ALLERGIES: HE HAS NO DRUG ALLERGIES. PHYSICAL EXAMINATION: GENERAL: He is alert and cooperative. He is breathing quietly. HEENT: Oral cavity: Mucous membranes are dry. No sign of neoplastic lesions. NECK: The larynx and trachea are midline. There is no significant post-radiation induration. The right neck is nontender. There is no redness or fluctuance. No subcutaneous air is noted. Flexible fiberoptic examination of the hypopharynx shows a very marked edema of the right piriform sinus area and right arytenoid. The swelling of the arytenoid compromises the supraglottic airway, however, it remains adequately patent. The glottis can be inspected through the available space and the vocal cords are mobile and glottis appears normal. CHEST: Auscultation of the neck shows clear air baltazar throughout. No rhonchi or rales noted. Auscultation of the neck reveals no stridor. ASSESSMENT: Post-radiation edema of hypopharynx and larynx with moderate airway compromise. PLAN: Discussed these findings today with the patient and with his radiation oncologist, Dr. Obregon. I advised him that the airway is clearly compromised, but appears safe at this time. Recommend a single dose of Decadron 8 mg IV push and continuous pulse oximetry. If he can maintain safe oximetry levels while asleep on room air, he should be able to be released from the hospital. He is cautioned, however, that any sign of stridor developing would be reason to return to the hospital. Discussed the possibility of tracheotomy if his airway should further deteriorate. MD ALEXIS Jeff/ANIYAH , 09:35 AM , 10:54 AM NEEL
--- NOTE | 2017-09-23 13:18 | HHI.DCPOC ---
Discharge Care Plan Diagnosis: (1) Laryngeal edema (2) Dysphagia (3) Shortness of breath Goals to Promote Your Health * To prevent worsening of your condition and complications * To maintain your health at the optimal level Directions to Meet Your Goals Take your medications as prescribed Follow your dietary instruction Follow activity as directed Keep your appointments as scheduled Take your immunizations and boosters as scheduled If your symptoms worsen call your PCP, if no PCP go to Urgent Care Center or Emergency Room Smoking is Dangerous to Your Health. Avoid second hand smoke Call the 24-hour hour crisis hotline for domestic abuse at Adele Connolly MD Sep 23, 2017 13:18
--- NOTE | 2017-09-23 13:18 | HHI.PR ---
Subjective Remarks Pt seen and examined. AFVSS. No acute events overnight. Maintaining adequate saturations on room air. Denies difficulty breathing. He wants to go home. He has follow-up with Dr. Coello this week. He denies CP, SOB, abdominal pain, N/ V. Endorses chronic cough, unchanged. Objective Vital Signs Date Time Temp Pulse Resp B/P (MAP) Pulse Ox O2 Delivery O2 Flow Rate FiO2 09/23/17 08:34 97.8 82 16 129/68 (88) 98 09/23/17 07:11 96 21 09/23/17 04:26 98.1 85 18 126/62 (83) 96 09/23/17 04:00 96 09/23/17 00:07 98.0 87 22 135/66 (89) 96 09/23/17 00:00 92 09/22/17 21:42 93 21 09/22/17 20:00 98.0 84 22 130/62 (84) 95 09/22/17 20:00 78 09/22/17 15:26 98.1 89 18 126/55 (78) 96 09/22/17 15:00 94 09/22/17 13:20 98.0 78 18 120/56 (77) 98 I/O 09/22/17 09/22/17 09/22/17 09/23/17 09/23/17 09/23/17 07:00 15:00 23:00 07:00 15:00 23:00 Intake Total 1000 ml Output Total 500 ml 875 ml Balance 1000 ml -500 ml -875 ml Intake IV Total 1000 ml Output Urine Total 500 ml 875 ml # Bowel Movements 0 Result Diagram: 09/23/17 0404 09/23/[address] 09/22/17 0000 Addendum Impressions: CONCLUSION: 1. There is a large amount of abnormal soft tissue concentrically within the l arynx. There is diffuse soft tissue swelling with a small fluid collection marco uring 0.7 x 2.0 cm along the right side of the thyroid cartilage. There are pun ctate bubbles of gas within this. Primary consideration would be necrotic tumor however, in the appropriate clinical setting superimposed infection in this ar ea could be a consideration. This does result in some moderate concentric narro wing of the trachea with likely mass effect on the upper esophagus as well. Modified Barium Swallow 09/22/17 0000 Signed Impressions: CONCLUSION: Modified barium swallow. Objective Remarks GENERAL: Thin male resting in bed in NAD. SKIN: Warm and dry. HEENT: AT/NC. Pupils equal and round. MMM. Hoarse voice. NECK: Supple no tender LAD or JVD. HEART: RRR no m/r/g. LUNGS: CTAB without wheezes or crackles. ABDOMEN: +BS, soft, NT, ND. PEG tube in place with no surrounding erythema or drainage. EXTREMITIES: No LE edema. NEURO: Awake and alert. A/P Problem List: (1) Laryngeal edema ICD Code: J38.4 - Edema of larynx (2) Dysphagia ICD Code: R13.10 - Dysphagia, unspecified Status: Acute (3) Shortness of breath ICD Code: R06.02 - Shortness of breath Status: Acute Assessment and Plan 62 YOWM with SCC of right piriform sinus, HTN, HLD, and COPD admitted 09/22 for dysphagia and dyspnea. 1. Post-radiation edema of hypopharynx and larynx with moderate airway compromise - CT neck demonstrating large amount of abnormal soft tissue concentrically within the larynx - S/P Decadron x 2 - Dyspnea has resolved - ST consulted and patient to remain completely NPO with meds and nutrition through PEG - ENT consulted, cleared since he is maintaining adequate oxygenation on room air - Counseled to return to the hospital if stridor develops - Home O2 walk test prior to discharge 2. R piriform sinus squamous cell carcinoma - Followed by Dr. Coello (ENT) and Dr. Obregon (rad onc) 3. HTN - Stable, continue home amlodipine 4. HLD - Continue home statin Discharge Planning D/C once home O2 walk test completed Adele Connolly MD Sep 23, 2017 13:17
[2017-09-23] MEDS ORDERED: ATORVASTATIN 80 MG TAB PO SCH (21:00)
[2017-09-24 10:04] LABS: HEMOGLOBIN A1C 6.5 % (4.3-6.0)
== END 2017-09-23 15:54 | disposition home or self-care (01) | DRG 155 ==
LOC: NEPE 07:42 → NEDA 11:07 → HCIN 13:16
PROVIDERS: ADMIT Family Medicine; ATTEND Family Medicine
DX: J38.4 Edema of larynx (principal); J84.9 Interstitial pulmonary disease, unspecified; R64 Cachexia; J84.10 Pulmonary fibrosis, unspecified; R13.19 Other dysphagia; Z93.1 Gastrostomy status; Z68.1 Body mass index [BMI] 19.9 or less, adult; C31.9 Malignant neoplasm of accessory sinus, unspecified; J44.9 Chronic obstructive pulmonary disease, unspecified; I10 Essential (primary) hypertension; E78.00 Pure hypercholesterolemia, unspecified; R49.0 Dysphonia; E78.5 Hyperlipidemia, unspecified; H91.90 Unspecified hearing loss, unspecified ear; M19.90 Unspecified osteoarthritis, unspecified site; F17.210 Nicotine dependence, cigarettes, uncomplicated; Y84.2 Radiological procedure and radiotherapy as the cause of abnormal reaction of the patient, or of later complication, without mention of misadventure at the time of the procedure; Z92.3 Personal history of irradiation
CPT/HCPCS: 70491; 74230; 80053; 83036; 83735; 84100; 84439; 84443; 85025; 94618; 96360; 96361; C9113; J1100; J7030; Q9967

== ENCOUNTER 2017-10-15 12:26 | Inpatient (IN) ==
[2017-10-22] MEDS ORDERED: Potassium Chlor 20 mEq Premix 20 MEQ/100 ML PIGGYBACK IV.SIG SCH
[2017-10-22] MEDS ORDERED: Potassium Phosphate 500 MG Soluble Tablet PO PRN ×2
[2017-10-22] MEDS ORDERED: Magnesium Oxide 400 MG Tablet PO ONE
[2017-10-22] MEDS ORDERED: Magnesium Sulfate Inj 2 GM in Sodium Chlor 0.9% Inj 96 ML IV.SIG ONE ×2
[2017-10-22] MEDS ORDERED: Dextrose 50% in Water 50 ML Vial IV.PUSH PRN
[2017-10-22] MEDS ORDERED: Chlorhexidine Gluconate 2% 1 Pack (2 Cloths) TOPICAL PRN
[2017-10-22] MEDS ORDERED: Sodium Phosphate Inj 30 MMOL in Sodium Chlor 0.9% Inj 250 ML IV.SIG ONE ×2
[2017-10-22] MEDS ORDERED: Magnesium Sulfate Inj 4 GM in Sodium Chlor 0.9% Inj 92 ML IV.SIG ONE ×2
[2017-10-22] MEDS ORDERED: Potassium Bicarbonate 25 MEQ Effervescent Tablet PO PRN
[2017-10-22] MEDS ORDERED: Potassium Phosphate Inj 30 MMOL in Sodium Chlor 0.9% Inj 250 ML IV.SIG ONE ×2
[2017-10-22] MEDS ORDERED: HYDROmorphone PF Inj 2 MG/ML Vial IV.PUSH PRN (00:01)
[2017-10-22] MEDS ORDERED: Labetalol HCl Inj 100 MG/20 ML Vial IV.PUSH PRN (00:01)
--- NOTE | 2017-10-22 05:10 | XR ---
EXAM DATE: 10/22/2017 4:41 AM EDT AGE/SEX: 62 years / Male INDICATIONS: Follow up respiratory status. CLINICAL DATA: This is the patient's subsequent encounter. Patient reports that signs and symptoms h ave been present for 3 days and indicates a pain score of 6/10. MEDICAL/SURGICAL HISTORY: None. None. COMPARISON: [facility] – [place], CHEST SINGLE AP, 10/20/2017. . FINDINGS: Tracheostomy in good position. Mild basilar airspace disease. No significant effusion. No pneumothora x. CONCLUSION: Basilar opacity similar to October 20. Stable interstitial prominence. Electronically signed by: Cristian Caldwell MD 10/22/2017 5:09 AM EDT
[2017-10-22 06:32] LABS: Baso % (Auto) 0.1 % (0.0-2.0); Hematocrit 34.2 % (39.0-51.0); Hemoglobin 10.9 gm/dL (13.0-17.0); Lymph # (Auto) 0.1 th/mm3 (1.0-4.8); Lymph % (Auto) 0.9 % (9.0-44.0); Mean Corpuscular Hemoglobin 27.1 pg (27.0-34.0); Mean Corpuscular Volume 84.9 fL (80.0-100.0); Mean Platelet Volume 9.2 fL (7.0-11.0); Mono # (Auto) 0.6 th/mm3 (0.0-0.9); Neut # (Auto) 13.1 th/mm3 (1.8-7.7); Platelet Count 276 th/mm3 (150-450); Red Blood Count 4.03 mil/mm3 (4.50-5.90); Red Cell Distribution Width 14.9 % (11.6-17.2); White Blood Count 13.8 th/mm3 (4.0-11.0)
[2017-10-22 06:35] LABS: Anion Gap 8 meq/L (5-15); Blood Urea Nitrogen 20 mg/dL (7-18); Calcium 8.3 mg/dL (8.5-10.1); Carbon Dioxide 29.7 meq/L (21.0-32.0); Chloride 106 meq/L (98-107); Glomerular Filtration Rate Greater Than 89 mL/min (>89); Glucose,Random 97 mg/dL (74-106); Magnesium 2.4 mg/dL (1.5-2.5); Potassium 3.5 meq/L (3.5-5.1); Sodium 144 meq/L (136-145)
[2017-10-22 06:36] LABS: Phosphorus 3.2 mg/dL (2.5-4.9)
[2017-10-22] MEDS: MethylPREDNISolone Sod Succinate Inj 125 MG/2 ML Vial IV.PUSH SCH ×3 (06:38→22:51)
[2017-10-22] MEDS: Piperacil/Tazo 3.375 GM Premix 50 ML IV.SIG SCH ×5 (07:35→22:51)
[2017-10-22] MEDS: Heparin - SQ 10,000 UNITS/ML Vial SQ SCH ×2 (10:13→20:50)
[2017-10-22] MEDS: Famotidine PF Inj 20 MG/2 ML Vial IV.PUSH SCH ×2 (10:13→20:50)
[2017-10-22] MEDS: Chlorhexidine Gluconate 0.12% Liq 15 ML UDC SWISH-SPIT SCH ×2 (10:14→20:50)
--- NOTE | 2017-10-22 10:52 | P.PNIM ---
Subjective Interval history: Deferred entry, the patient was seen earlier at 10:15 AM. As per RN report, the patient's PEG was dislodged overnight. The patient denies any chest pain, shortness of breath, abdominal pain. The patient is nonverbal due to current tracheostomy however can answer nodding with his head. The patient answers no to chest pain, shortness of breath or abdominal pain. Physical Exam Vital signs: Vital Signs 10/22/17 00:04 10/22/17 01:00 10/22/17 02:00 Pulse Rate 78 73 91 H Respiratory Rate Blood Pressure 133/67 Pulse Oximetry 92 L 97 98 10/22/17 02:17 10/22/17 03:00 10/22/17 04:00 Pulse Rate 79 71 68 Respiratory Rate Blood Pressure 126/67 141/67 H Pulse Oximetry 96 98 100 10/22/17 05:00 10/22/17 06:00 10/22/17 07:00 Pulse Rate 73 71 71 Respiratory Rate Blood Pressure 147/70 H 139/69 142/69 H Pulse Oximetry 97 97 98 10/22/17 08:26 10/22/17 10:09 Pulse Rate 76 Respiratory Rate 18 Blood Pressure Pulse Oximetry 93 L Intake & Output 10/21/17 10/22/17 10/22/17 18:59 06:59 18:59 Intake Total 480 / 480 Output Total 900 / 900 Balance -420 / -420 Intake: Oral 480 / 480 Output: Urine 900 / 900 Other: Date of Last Bowel Movement 10/22/17 # Bowel Movements 0 Narrative: General: Middle-aged gentleman, cachectic, chronically ill-appearing, tracheostomy with trach collar sitting up in chair HEENT: Pupils are equal, reactive, sclerae are anicteric, neck is supple, no rigidity, + JVD, no carotid bruit, 8 oh Shiley Insight CV: Regular heart sounds, no murmurs appreciated Chest: Scattered coarse breath sounds bilateral, no wheezes Abdomen: Soft, non-tender, cachectic, non-distended, BS present, PEG tube site does not show PEG tube looks C/D/I. Extremities: Warm and well perfused, no edema, + peripheral pulses, no clubbing Neuro: GCS 11 T, following commands x 4 extremities. Communication by mouthing words and shaking head to yes and no questions. Using a writing board to communicate. Results - Labs CBC & Chem 7: 10/22/17 04:16 10/22/17 04:16 Labs: Laboratory Results - last 24 hr 10/19/17 10/19/17 10/19/17 04:30 04:30 09:45 WBC 16.2 H RBC 3.58 L Hgb 9.6 L Hct 29.8 L MCV 83.4 MCH 26.7 L MCHC 32.1 RDW 14.9 Plt Count 324 MPV 9.7 Neut % (Auto) 95.6 H Lymph % (Auto) 0.8 L [place] % (Auto) 3.3 Eos % (Auto) 0.0 Baso % (Auto) 0.3 Neut # (Auto) 15.5 H Lymph # (Auto) 0.1 L [place] # (Auto) 0.5 Eos # (Auto) 0.0 Baso # (Auto) 0.0 CBC Comment DIFF FINAL WBC Differential Differential Comment Sodium 149 H Potassium 2.7 L* D Chloride 109 H Carbon Dioxide 31.0 Anion Gap 9 BUN 18 Creatinine 0.44 L Estimated GFR 194 Random Glucose 199 H Calcium 8.6 Phosphorus 1.6 L Magnesium 2.3 Total Bilirubin 0.3 AST 77 H ALT 67 Alkaline Phosphatase 92 Total Protein 6.5 Albumin 2.0 L Vancomycin Trough 10.5 H 10/19/17 10/20/17 10/20/17 20:00 06:07 06:07 WBC 17.8 H RBC 3.74 L Hgb 9.9 L Hct 30.8 L MCV 82.4 MCH 26.6 L MCHC 32.3 RDW 14.7 Plt Count 324 MPV 9.6 Neut % (Auto) 94.6 H Lymph % (Auto) 0.9 L [place] % (Auto) 4.2 Eos % (Auto) 0.0 Baso % (Auto) 0.3 Neut # (Auto) 16.8 H Lymph # (Auto) 0.2 L [place] # (Auto) 0.7 Eos # (Auto) 0.0 Baso # (Auto) 0.1 CBC Comment DIFF FINAL WBC Differential Differential Comment Sodium 147 H Potassium 3.1 L 4.1 D Chloride 108 H Carbon Dioxide 30.0 Anion Gap 9 BUN 19 H Creatinine 0.51 L Estimated GFR 164 Random Glucose 156 H Calcium 8.5 Phosphorus 2.5 2.5 Magnesium 2.2 Total Bilirubin 0.3 AST 57 H ALT 68 Alkaline Phosphatase 86 Total Protein 6.3 L Albumin 1.9 L Vancomycin Trough 10/20/17 10/20/17 10/21/17 10:33 10:33 03:45 WBC 13.5 H RBC 3.89 L Hgb 10.3 L Hct 32.4 L MCV 83.4 MCH 26.4 L MCHC 31.6 L RDW 15.2 Plt Count 315 MPV 9.3 Neut % (Auto) 93.5 H Lymph % (Auto) 1.3 L [place] % (Auto) 4.8 Eos % (Auto) 0.0 Baso % (Auto) 0.4 Neut # (Auto) 12.6 H Lymph # (Auto) 0.2 L [place] # (Auto) 0.6 Eos # (Auto) 0.0 Baso # (Auto) 0.1 CBC Comment DIFF FINAL WBC Differential Differential Comment Sodium Potassium 3.9 Chloride Carbon Dioxide Anion Gap BUN Creatinine Estimated GFR Random Glucose Calcium Phosphorus Magnesium Total Bilirubin AST ALT Alkaline Phosphatase Total Protein Albumin Vancomycin Trough 10.3 H 10/21/17 10/22/17 10/22/17 20:15 04:16 04:16 WBC 13.8 H RBC 4.03 L Hgb 10.9 L Hct 34.2 L MCV 84.9 MCH 27.1 MCHC 32.0 RDW 14.9 Plt Count 276 MPV 9.2 Neut % (Auto) 95.0 H Lymph % (Auto) 0.9 L [place] % (Auto) 4.0 Eos % (Auto) 0.0 Baso % (Auto) 0.1 Neut # (Auto) 13.1 H Lymph # (Auto) 0.1 L [place] # (Auto) 0.6 Eos # (Auto) 0.0 Baso # (Auto) 0.0 CBC Comment WBC Differential . Differential Comment Auto diff final Sodium 144 Potassium 3.5 Chloride 106 Carbon Dioxide 29.7 Anion Gap 8 BUN 20 H Creatinine 0.43 L Estimated GFR Greater than 89 Random Glucose 97 Calcium 8.3 L Phosphorus 3.2 Magnesium 2.4 Total Bilirubin AST ALT Alkaline Phosphatase Total Protein Albumin Vancomycin Trough 4.2 L - Imaging Imaging: Impressions Chest X-Ray 10/22/17 00:00 CONCLUSION: Basilar opacity similar to October 20. Stable interstitial prominence. - ABG ABG results: 10/15/17 10/15/17 10/16/17 12:42 16:00 07:35 ABG pH 7.31 L 7.38 ABG pCO2 58 H* 47 H ABG pO2 213 H 94 ABG O2 Content 13.1 14.5 ABG Carboxyhemoglobin 1.6 0.8 ABG Methemoglobin 0.6 1.2 VBG pH 7.24 L* VBG pCO2 75 H* VBG pO2 47 H VBG HCO3 31 H VBG O2 Saturation 69 L VBG Base Excess 4.4 H Assessment and Plan - Plan 1. Acute hypercapnic and hypoxic respiratory failure. 2. Acute COPD exacerbation due to severe emphysema. 3. Moderate to severe upper airway compromise. The patient was initially intubated by anesthesia in the emergency department. The patient then was admitted to the intensive care unit under the care of the director of counterintelligence who treated the patient with IV steroids, supplemental oxygen, ventilation bundle. The patient is status post tracheostomy in OR on 10/17 by general surgery. Continue supplemental oxygen Continue IV steroid taper Continue IV antibiotics as per ID. 4. 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 PEG tube was dislodged overnight. We consulted interventional radiology for replacement of PEG tube. There is no abdominal pain. Keep the patient n.p.o. and start the patient on IV fluids. 5. Suspected aspiration pneumonia. Chest x-ray obtained on 10/20 shows stable exam with interstitial prominence predominantly at the bases. Patient initially started on IV vancomycin IV Zosyn empirically. ID consulted. Vancomycin discontinued. The patient currently on Levaquin via PEG and IV Zosyn. I will switch the patient to IV Levaquin from oral since the patient will be n.p.o. since patient dislodged PEG tube. Code Status: Full code Discussed Condition With: RN and patient. Discharge Planning: Continue to manage in the intensive care unit. Progress Note: Quality - VTE Deep Vein Thrombosis/Pulmonary Embolism Present on Admission: No
[2017-10-22] MEDS: Potassium Chloride Inj 10 MEQ in Dextrose 5%/Lactated Ringer's 1,000 ML IV.CONT SCH (12:07)
[2017-10-22] MEDS: Artificial Tears Opth Drops 15 ML Bottle EACH EYE SCH ×3 (12:13→18:47)
[2017-10-22] MEDS: Insulin NovoLOG Aspart Correctional Sugar Inj SQ SCH ×3 (12:14→19:54)
[2017-10-22] MEDS: Oral Hygiene Kit OROPHARYNG SCH ×3 (18:46→19:55)
[2017-10-22] MEDS: Potassium Chlor 20 mEq Premix 20 MEQ/100 ML PIGGYBACK IV.SIG SCH ×2 (19:53→19:54)
[2017-10-22] MEDS: Chlorhexidine Gluconate 2% 1 Pack (2 Cloths) TOPICAL SCH (19:53)
[2017-10-22] MEDS ORDERED: traZODone 50 MG Tablet G-TUBE PRN (21:00)
[2017-10-23] MEDS: Potassium Chloride Inj 10 MEQ in Dextrose 5%/Lactated Ringer's 1,000 ML IV.CONT SCH ×2
[2017-10-23] MEDS: Insulin NovoLOG Aspart Correctional Sugar Inj SQ SCH ×3 (00:01→13:59)
[2017-10-23] MEDS: Oral Hygiene Kit OROPHARYNG SCH ×2 (00:02→06:20)
[2017-10-23] MEDS: MethylPREDNISolone Sod Succinate Inj 125 MG/2 ML Vial IV.PUSH SCH (06:19)
[2017-10-23] MEDS: Chlorhexidine Gluconate 2% 1 Pack (2 Cloths) TOPICAL SCH (06:20)
[2017-10-23] MEDS: Piperacil/Tazo 3.375 GM Premix 50 ML IV.SIG SCH (06:20)
[2017-10-23] MEDS: Heparin - SQ 10,000 UNITS/ML Vial SQ SCH ×2 (08:21→20:42)
[2017-10-23] MEDS: Famotidine PF Inj 20 MG/2 ML Vial IV.PUSH SCH ×2 (08:22→20:43)
[2017-10-23] MEDS: Artificial Tears Opth Drops 15 ML Bottle EACH EYE SCH ×2 (08:23→14:01)
[2017-10-23 10:40] LABS: Hemoglobin 11.5 gm/dL (13.0-17.0); Mean Corpuscular HGB Conc 31.9 % (32.0-36.0); Mean Corpuscular Hemoglobin 26.3 pg (27.0-34.0); Mean Corpuscular Volume 82.6 fL (80.0-100.0); Mean Platelet Volume 9.5 fL (7.0-11.0); Platelet Count 246 th/mm3 (150-450); Red Blood Count 4.36 mil/mm3 (4.50-5.90); White Blood Count 12.6 th/mm3 (4.0-11.0)
[2017-10-23 10:58] LABS: Alanine Aminotransferase 73 U/L (12-78); Albumin 2.1 g/dL (3.4-5.0); Anion Gap 11 meq/L (5-15); Aspartate Aminotransferase 39 U/L (15-37); Blood Urea Nitrogen 17 mg/dL (7-18); Calcium 8.9 mg/dL (8.5-10.1); Chloride 102 meq/L (98-107); Glomerular Filtration Rate Greater Than 89 mL/min (>89); Glucose,Random 114 mg/dL (74-106); Sodium 141 meq/L (136-145)
[2017-10-23 11:00] LABS: Alkaline Phosphatase 87 U/L (45-117); Total Protein 6.4 g/dL (6.4-8.2)
[2017-10-23 11:19] LABS: Potassium 3.6 meq/L (3.5-5.1)
[2017-10-23] MEDS ORDERED: fentaNYL Citrate Inj 100 MCG/2 ML Ampul ONE (12:54)
[2017-10-23] MEDS ORDERED: Iohexol 350 MG/ML 50 ML Vial (for Rad Diag) G-TUBE ONE (13:48)
--- NOTE | 2017-10-23 13:54 | P.PNID ---
Subjective Remarks: ID Xcover for Chart reviewed briefly. ID consult requested by Dr. Mcgregor on patient for management of pneumonia. Patient with some negative bacteria and has been on piperacillin/tazobactam since 10/15. Increased white blood cell count. Patient presented with shortness of breath is worsening for 2 days. He was intubated. Underwent tracheostomy on 626. 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 Overnight events reviewed. On T-piece. PEG tube dislodged yday. Going to IR for placement of new PEG per RN at bedside. He is awake and alert. He talks in a whisper. Patient is in no acute distress. He has had difficulty swallowing since the radiation. Sputum culture on 10/18 has Citrobacter and Stenotrophomonas maltophilia. Secretions reduced. Past Medical History Squamous cell carcinoma treated with radiation therapy Hypertension Dyslipidemia Pulmonary fibrosis Tube placement Hypercholesteremia Antibiotics: Levaquin Solumedrol Lines: Lines ok Allergies/Adverse Reactions: Allergies No Known Allergies Allergy (Unknown, Uncoded 10/15/17 12:40) Objective Vital Signs 10/22/17 14:00 10/22/17 15:00 10/22/17 16:00 Temperature Pulse Rate 78 76 71 Respiratory Rate Blood Pressure 151/66 H 139/79 121/59 L Pulse Oximetry 91 L 99 100 10/22/17 17:00 10/22/17 18:00 10/22/17 20:00 Temperature 98.5 F Pulse Rate 68 66 Respiratory Rate 20 Blood Pressure 125/62 145/67 H Pulse Oximetry 100 100 10/22/17 20:33 10/22/17 20:37 10/22/17 21:00 Temperature Pulse Rate 66 69 Respiratory Rate 20 Blood Pressure Pulse Oximetry 100 98 10/22/17 21:01 10/22/17 22:00 10/22/17 22:01 Temperature Pulse Rate 68 82 94 H Respiratory Rate Blood Pressure 150/65 H 136/69 Pulse Oximetry 98 98 94 L 10/22/17 23:00 10/23/17 00:00 10/23/17 01:00 Temperature 97.7 F Pulse Rate 70 77 66 Respiratory Rate 16 Blood Pressure 126/61 137/65 126/63 Pulse Oximetry 100 99 97 10/23/17 02:00 10/23/17 03:00 10/23/17 04:00 Temperature Pulse Rate 64 67 69 Respiratory Rate Blood Pressure 127/60 119/57 L Pulse Oximetry 100 100 94 L 10/23/17 04:01 10/23/17 05:00 10/23/17 06:00 Temperature Pulse Rate 74 70 93 H Respiratory Rate Blood Pressure 144/63 H 145/67 H 152/101 H Pulse Oximetry 94 L 95 94 L 10/23/17 06:04 10/23/17 07:00 10/23/17 08:00 Temperature 98.3 F Pulse Rate 81 69 71 Respiratory Rate 18 Blood Pressure 159/72 H 127/65 146/67 H Pulse Oximetry 93 L 90 L 92 L 10/23/17 08:34 10/23/17 08:41 10/23/17 09:00 Temperature 98.3 F Pulse Rate Respiratory Rate Blood Pressure Pulse Oximetry 99 99 94 L 10/23/17 12:00 10/23/17 13:00 Temperature 98.3 F 98.3 F Pulse Rate Respiratory Rate Blood Pressure 136/66 136/66 Pulse Oximetry 98 98 Intake & Output 10/22/17 10/23/17 10/23/17 18:59 06:59 18:59 Intake Total 150 / 150 200 / 200 50 / 50 Output Total 2099 / 2099 1300 / 1300 Balance -1950 / -1950 -1100 / -1100 50 / 50 Intake: IV 150 / 150 200 / 200 50 / 50 Levaquin 750 mg Premix Inj 150 150 / 150 ML @ 100 mls/hr IV.SIG DAILY@ 2000 SEL[facility] Rx#:[id number] Zosyn 3.375 GM Premix 50 ML @ 150 / 150 50 / 50 50 / 50 100 mls/hr IV.SIG Q6H SEL[facility] Rx#: [id number] Output: Urine 2099 / 2099 1300 / 1300 Other: Date of Last Bowel Movement 10/22/17 10/23/17 10/23/17 # Bowel Movements 2 1 Lab - Hematology Results 10/19/17 10/20/17 10/21/17 04:30 06:07 03:45 WBC 16.2 H 17.8 H 13.5 H RBC 3.58 L 3.74 L 3.89 L Hgb 9.6 L 9.9 L 10.3 L Hct 29.8 L 30.8 L 32.4 L MCV 83.4 82.4 83.4 MCH 26.7 L 26.6 L 26.4 L MCHC 32.1 32.3 31.6 L RDW 14.9 14.7 15.2 Plt Count 324 324 315 MPV 9.7 9.6 9.3 Neut % (Auto) 95.6 H 94.6 H 93.5 H Lymph % (Auto) 0.8 L 0.9 L 1.3 L [place] % (Auto) 3.3 4.2 4.8 Eos % (Auto) 0.0 0.0 0.0 Baso % (Auto) 0.3 0.3 0.4 Neut # (Auto) 15.5 H 16.8 H 12.6 H Lymph # (Auto) 0.1 L 0.2 L 0.2 L [place] # (Auto) 0.5 0.7 0.6 Eos # (Auto) 0.0 0.0 0.0 Baso # (Auto) 0.0 0.1 0.1 CBC Comment DIFF FINAL DIFF FINAL DIFF FINAL WBC Differential Differential Comment 10/22/17 10/23/17 04:16 10:01 WBC 13.8 H 12.6 H RBC 4.03 L 4.36 L Hgb 10.9 L 11.5 L Hct 34.2 L 36.0 L MCV 84.9 82.6 MCH 27.1 26.3 L MCHC 32.0 31.9 L RDW 14.9 15.0 Plt Count 276 246 MPV 9.2 9.5 Neut % (Auto) 95.0 H Lymph % (Auto) 0.9 L [place] % (Auto) 4.0 Eos % (Auto) 0.0 Baso % (Auto) 0.1 Neut # (Auto) 13.1 H Lymph # (Auto) 0.1 L [place] # (Auto) 0.6 Eos # (Auto) 0.0 Baso # (Auto) 0.0 CBC Comment WBC Differential . Differential Comment Auto diff final Lab - Chemistry Results 10/19/17 10/19/17 10/20/17 04:30 20:00 06:07 Sodium 149 H 147 H Potassium 2.7 L* D 3.1 L 4.1 D Chloride 109 H 108 H Carbon Dioxide 31.0 30.0 Anion Gap 9 9 BUN 18 19 H Creatinine 0.44 L 0.51 L Estimated GFR 194 164 POC Glucose Random Glucose 199 H 156 H Calcium 8.6 8.5 Phosphorus 1.6 L 2.5 2.5 Magnesium 2.3 2.2 Total Bilirubin 0.3 0.3 AST 77 H 57 H ALT 67 68 Alkaline Phosphatase 92 86 Total Protein 6.5 6.3 L Albumin 2.0 L 1.9 L 10/20/17 10/22/17 10/22/17 10:33 04:16 23:58 Sodium 144 Potassium 3.9 3.5 Chloride 106 Carbon Dioxide 29.7 Anion Gap 8 BUN 20 H Creatinine 0.43 L Estimated GFR Greater than 89 POC Glucose 89 Random Glucose 97 Calcium 8.3 L Phosphorus 3.2 Magnesium 2.4 Total Bilirubin AST ALT Alkaline Phosphatase Total Protein Albumin 10/23/17 10:01 Sodium 141 Potassium 3.6 Chloride 102 Carbon Dioxide 28.0 Anion Gap 11 BUN 17 Creatinine 0.51 L Estimated GFR Greater than 89 POC Glucose Random Glucose 114 H Calcium 8.9 Phosphorus Magnesium Total Bilirubin 0.5 AST 39 H ALT 73 Alkaline Phosphatase 87 Total Protein 6.4 Albumin 2.1 L Imaging: ITS Impressions Chest X-Ray 10/22/17 00:00 CONCLUSION: Basilar opacity similar to October 20. Stable interstitial prominence. Physical Exam: GENERAL: Alert and oriented, no acute distress. On O2 via tracheostomy T-piece HEENT: Pupils reactive to light. Extraocular movements intact. No icterus. Moist mucosa. NECK: Supple without adenopathy. No swelling. LUNGS: Decreased breath sounds throughout. HEART: Regular S1 and S2. No murmurs rubs or gallops. ABDOMEN: Bowel sounds present, soft, no tenderness appreciated. EXTREMITIES: No clubbing or cyanosis or edema. SKIN: No rash. NEUROLOGIC: No gross focal finding. Trach site ok PSYCH: Calm and cooperative. Assessment and Plan - Plan Pneumonia due to gram-negative bacteria. 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 Treated with radiation therapy. Leukocytosis secondary to infection versus steroids. Recommendations: Stop vancomycin. DC piperacillin/tazobactam. Continue Levaquin IV Ok to switch to oral levaquin when able to use PEG. Recommend a 10 day course of levaquin Will sign off please call back if any change in clinical condition or questions. dw pt nikki RN
--- NOTE | 2017-10-23 15:46 | P.PNIM ---
Subjective Interval history: Entry, the patient was seen earlier at 10:30 AM. The patient denies chest pain or shortness of breath. The patient is currently on a T-piece trial with an FiO2 40% and good oxygen saturation. Physical Exam Vital signs: Vital Signs 10/22/17 16:00 10/22/17 17:00 10/22/17 18:00 Temperature Pulse Rate 71 68 66 Respiratory Rate Blood Pressure 121/59 L 125/62 145/67 H Pulse Oximetry 100 100 100 10/22/17 20:00 10/22/17 20:33 10/22/17 20:37 Temperature 98.5 F Pulse Rate 66 Respiratory Rate 20 20 Blood Pressure Pulse Oximetry 100 10/22/17 21:00 10/22/17 21:01 10/22/17 22:00 Temperature Pulse Rate 69 68 82 Respiratory Rate Blood Pressure 150/65 H Pulse Oximetry 98 98 98 10/22/17 22:01 10/22/17 23:00 10/23/17 00:00 Temperature 97.7 F Pulse Rate 94 H 70 77 Respiratory Rate 16 Blood Pressure 136/69 126/61 137/65 Pulse Oximetry 94 L 100 99 10/23/17 01:00 10/23/17 02:00 10/23/17 03:00 Temperature Pulse Rate 66 64 67 Respiratory Rate Blood Pressure 126/63 127/60 119/57 L Pulse Oximetry 97 100 100 10/23/17 04:00 10/23/17 04:01 10/23/17 05:00 Temperature Pulse Rate 69 74 70 Respiratory Rate Blood Pressure 144/63 H 145/67 H Pulse Oximetry 94 L 94 L 95 10/23/17 06:00 10/23/17 06:04 10/23/17 07:00 Temperature Pulse Rate 93 H 81 69 Respiratory Rate Blood Pressure 152/101 H 159/72 H 127/65 Pulse Oximetry 94 L 93 L 90 L 10/23/17 08:00 10/23/17 08:34 10/23/17 08:41 Temperature 98.3 F Pulse Rate 71 Respiratory Rate 18 Blood Pressure 146/67 H Pulse Oximetry 92 L 99 99 10/23/17 09:00 10/23/17 09:01 10/23/17 09:28 Temperature 98.3 F Pulse Rate 73 72 78 Respiratory Rate Blood Pressure 182/70 H 117/59 L Pulse Oximetry 94 L 99 96 10/23/17 10:00 10/23/17 11:00 10/23/17 12:00 Temperature 98.3 F Pulse Rate 74 70 72 Respiratory Rate Blood Pressure 119/58 L 109/54 L 136/60 Pulse Oximetry 96 97 97 10/23/17 13:00 10/23/17 13:30 10/23/17 13:34 Temperature 98.3 F Pulse Rate 78 76 Respiratory Rate Blood Pressure 136/66 136/64 Pulse Oximetry 98 96 10/23/17 14:00 10/23/17 15:00 Temperature Pulse Rate 74 71 Respiratory Rate Blood Pressure 124/82 109/55 L Pulse Oximetry 98 97 Intake & Output 10/22/17 10/23/17 10/23/17 18:59 06:59 18:59 Intake Total 150 / 150 200 / 200 50 / 50 Output Total 2099 / 2099 1300 / 1300 Balance -1950 / -1950 -1100 / -1100 50 / 50 Intake: IV 150 / 150 200 / 200 50 / 50 Levaquin 750 mg Premix Inj 150 150 / 150 ML @ 100 mls/hr IV.SIG DAILY@ 1999 [facility] Rx#:[id number] Zosyn 3.375 GM Premix 50 ML @ 150 / 150 50 / 50 50 / 50 100 mls/hr IV.SIG Q6H [facility] Rx#: [id number] Output: Urine 2099 1300 / 1300 Other: Date of Last Bowel Movement 10/22/17 10/23/17 10/23/17 # Bowel Movements 2 1 Narrative: General: Middle-aged gentleman, cachectic, chronically ill-appearing, tracheostomy with trach collar sitting up in chair HEENT: Pupils are equal, reactive, sclerae are anicteric, neck is supple, no rigidity, + JVD, no carotid bruit, 8 oh Shiley Insight CV: Regular heart sounds, no murmurs appreciated Chest: Scattered coarse breath sounds bilateral, no wheezes Abdomen: Soft, non-tender, cachectic, non-distended, BS present, PEG tube site does not show PEG tube looks C/D/I. Extremities: Warm and well perfused, no edema, + peripheral pulses, no clubbing Neuro: GCS 11 T, following commands x 4 extremities. Communication by mouthing words and shaking head to yes and no questions. Using a writing board to communicate. Results - Labs CBC & Chem 7: 10/23/17 10:01 10/23/17 10:01 Laboratory Results - last 24 hr 10/22/17 10/23/17 10/23/17 23:58 10:01 10:01 WBC 12.6 H RBC 4.36 L Hgb 11.5 L Hct 36.0 L MCV 82.6 MCH 26.3 L MCHC 31.9 L RDW 15.0 Plt Count 246 MPV 9.5 Sodium 141 Potassium 3.6 Chloride 102 Carbon Dioxide 28.0 Anion Gap 11 BUN 17 Creatinine 0.51 L Estimated GFR Greater than 89 POC Glucose 89 Random Glucose 114 H Calcium 8.9 Total Bilirubin 0.5 AST 39 H ALT 73 Alkaline Phosphatase 87 Total Protein 6.4 Albumin 2.1 L - Procedures Percutaneous tracheostomy with bronchoscopy. Assessment and Plan - Plan 1. Acute hypercapnic and hypoxic respiratory failure. 2. Acute COPD exacerbation due to severe emphysema. 3. Moderate to severe upper airway compromise. The patient was initially intubated by anesthesia in the emergency department. The patient then was admitted to the intensive care unit under the care of the turbine engineer who treated the patient with IV steroids, supplemental oxygen, ventilation bundle. The patient is status post tracheostomy in OR on 10/17 by general surgery. Continue supplemental oxygen Continue IV steroid taper Continue IV antibiotics as per ID. 4. 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 PEG tube was dislodged overnight. We consulted interventional radiology for replacement of PEG tube. There is no abdominal pain. Keep the patient n.p.o. and continue Iv fluids. 5. Suspected aspiration pneumonia. Chest x-ray obtained on 10/20 shows stable exam with interstitial prominence predominantly at the bases. Patient initially started on IV vancomycin IV Zosyn empirically. ID consulted. Vancomycin discontinued. The patient currently on Levaquin via PEG and IV Zosyn. Continue Iv Levaquin - may switch to oral once Peg tube replaced. 6. Dislodged PEG tube. Continue to keep the patient n.p.o., continue IV fluids. The patient for PEG tube replacement today by interventional radiology. May resume tube feedings after the patient has a PEG tube replaced. Code Status: Full code Discussed Condition With: RN, patient. Discharge Planning: Continue to manage in the intensive care unit. Progress Note: Quality - VTE Deep Vein Thrombosis/Pulmonary Embolism Present on Admission: No
[2017-10-23] MEDS: Chlorhexidine Gluconate 0.12% Liq 15 ML UDC SWISH-SPIT SCH (20:00)
[2017-10-23] MEDS: MethylPREDNISolone Sod Succinate Inj 40 MG/ML Vial IV.PUSH SCH (20:42)
[2017-10-24] MEDS: Potassium Chloride Inj 10 MEQ in Dextrose 5%/Lactated Ringer's 1,000 ML IV.CONT SCH ×3 (00:11→13:41)
[2017-10-24] MEDS: Insulin NovoLOG Aspart Correctional Sugar Inj SQ SCH ×5 (00:14→18:34)
[2017-10-24] MEDS: Oral Hygiene Kit OROPHARYNG SCH ×5 (03:28→17:13)
[2017-10-24] MEDS: Chlorhexidine Gluconate 2% 1 Pack (2 Cloths) TOPICAL SCH (03:29)
[2017-10-24 05:37] LABS: Baso % (Auto) 0.2 % (0.0-2.0); Hematocrit 35.1 % (39.0-51.0); Hemoglobin 11.2 gm/dL (13.0-17.0); Lymph # (Auto) 0.2 th/mm3 (1.0-4.8); Lymph % (Auto) 1.7 % (9.0-44.0); Mean Corpuscular HGB Conc 31.8 % (32.0-36.0); Mean Corpuscular Hemoglobin 26.6 pg (27.0-34.0); Mean Corpuscular Volume 83.5 fL (80.0-100.0); Mean Platelet Volume 9.2 fL (7.0-11.0); Mono # (Auto) 0.6 th/mm3 (0.0-0.9); Mono % (Auto) 6.1 % (0.0-8.0); Neut # (Auto) 9.3 th/mm3 (1.8-7.7); Platelet Count 297 th/mm3 (150-450); Red Cell Distribution Width 14.5 % (11.6-17.2); White Blood Count 10.1 th/mm3 (4.0-11.0)
[2017-10-24 05:57] LABS: Alanine Aminotransferase 63 U/L (12-78); Albumin 1.9 g/dL (3.4-5.0); Anion Gap 9 meq/L (5-15); Aspartate Aminotransferase 23 U/L (15-37); Blood Urea Nitrogen 16 mg/dL (7-18); Calcium 8.4 mg/dL (8.5-10.1); Carbon Dioxide 28.9 meq/L (21.0-32.0); Chloride 107 meq/L (98-107); Glomerular Filtration Rate Greater Than 89 mL/min (>89); Glucose,Random 98 mg/dL (74-106); Magnesium 2.2 mg/dL (1.5-2.5); Phosphorus 2.6 mg/dL (2.5-4.9); Potassium 3.5 meq/L (3.5-5.1); Sodium 145 meq/L (136-145)
[2017-10-24 06:00] LABS: Alkaline Phosphatase 76 U/L (45-117); Total Protein 5.6 g/dL (6.4-8.2)
[2017-10-24] MEDS: Artificial Tears Opth Drops 15 ML Bottle EACH EYE SCH ×4 (06:03→17:17)
[2017-10-24] MEDS: Chlorhexidine Gluconate 0.12% Liq 15 ML UDC SWISH-SPIT SCH ×3 (06:04→20:34)
--- NOTE | 2017-10-24 07:31 | IR ---
EXAM DATE: 10/23/2017 1:46 PM EDT AGE/SEX: 62 years / Male INDICATIONS: Patient with history of squamous cell carcinoma of right piriform sinus . G tube fell o ut over night. CLINICAL DATA: This is the patient's subsequent encounter. Patient reports that signs and symptoms h ave been present for 1 day and indicates a pain score of 0/10. MEDICAL/SURGICAL HISTORY: Hypertension. cancer of piriform sinus, pulmonary fibrosis Peg tube, pulmonary nodule bx, COMPARISON: No prior exams available for comparison. FLUORO TIME (min): 0.46 IMAGE SERIES: 1 SEDATION TIME (min): 30 CONTRAST (cc): 20 Omnipaque (iohexol) 350 MEDICATION(S): 25 mcg fentanyl (Sublimaze) IV DEVICE(S): 18 [place] gastrostomy tube . . PROCEDURE: 1. Fluoroscopically guided gastrostomy tube placement. 2. Conscious sedation with continuous EKG and oximetry monitoring. The risks, benefits and alternatives to the procedure were explained and verbal and written consent w as obtained. The site was prepped in sterile fashion. Full sterile technique was used, including ca p, mask, sterile gloves and gown and a large sterile sheet. Hand hygiene and 2% chlorhexidine and/or betadine/alcohol prep was utilized per protocol for cutaneous antisepsis. The skin and subcutaneous tissues were infiltrated with local anesthetic solution. Under direct fluoroscopic guidance, an angled Glidewire and vessel dilator combination was used to ma nipulate back through the patient's existing gastrostomy tract. Contrast injection confirmed position ing in the stomach. The tract was serially dilated to accept an 18 [place] gastrostomy tube which was positioned with retention balloon in the body of the stomach. Injection confirmed good positioning wi th no leakage of contrast into the peritoneal cavity. Conscious sedation was performed with the prescribed dosages and duration as above in the presence of an independent trained radiology nurse to assist in the monitoring of the patient. EKG and oximetry remained stable throughout the procedure. The patient tolerated the procedure well and there were n o complications. The patient was sent to post anesthesia recovery in stable condition. CONCLUSION: Uncomplicated fluoroscopic guided gastrostomy tube replacement as described above. Electronically signed by: Aurelio Duron MD 10/24/2017 7:30 AM EDT
[2017-10-24] MEDS: MethylPREDNISolone Sod Succinate Inj 40 MG/ML Vial IV.PUSH SCH (08:24)
[2017-10-24] MEDS: Heparin - SQ 10,000 UNITS/ML Vial SQ SCH ×2 (08:24→20:34)
[2017-10-24] MEDS: Famotidine PF Inj 20 MG/2 ML Vial IV.PUSH SCH ×2 (08:25→20:33)
--- NOTE | 2017-10-24 09:53 | P.PNIM ---
Subjective Interval history: As per RN report, the patient has not been tolerating tube feedings. The patient denies any nausea, vomiting or abdominal pain at this time. Denies fevers or chills. Complains of mild cough. Patient with T piece satting 100% on FiO2 of 40%. Physical Exam Vital signs: Vital Signs 10/23/17 10:00 10/23/17 11:00 10/23/17 12:00 Temperature 98.3 F Pulse Rate 74 70 72 Respiratory Rate Blood Pressure 119/58 L 109/54 L 136/60 Pulse Oximetry 96 97 97 10/23/17 13:00 10/23/17 13:30 10/23/17 13:34 Temperature 98.3 F Pulse Rate 78 76 Respiratory Rate Blood Pressure 136/66 136/64 Pulse Oximetry 98 96 10/23/17 14:00 10/23/17 15:00 10/23/17 16:00 Temperature 97.8 F Pulse Rate 74 71 74 Respiratory Rate Blood Pressure 124/82 109/55 L 126/63 Pulse Oximetry 98 97 97 10/23/17 17:00 10/23/17 18:00 10/23/17 19:00 Temperature 98.1 F Pulse Rate 69 99 H 80 Respiratory Rate Blood Pressure 133/62 128/68 137/85 Pulse Oximetry 100 99 96 10/23/17 20:00 10/23/17 20:47 10/23/17 20:52 Temperature 98.1 F Pulse Rate 69 73 Respiratory Rate 16 Blood Pressure 125/60 Pulse Oximetry 95 96 10/23/17 21:00 10/23/17 22:00 10/23/17 23:00 Temperature Pulse Rate 80 69 67 Respiratory Rate Blood Pressure 141/82 H 119/57 L 153/68 H Pulse Oximetry 98 100 100 10/24/17 00:00 10/24/17 04:00 10/24/17 06:00 Temperature 98.6 F 98.3 F Pulse Rate 72 62 Respiratory Rate Blood Pressure 128/64 114/54 L Pulse Oximetry 98 96 100 Intake & Output 10/23/17 10/24/17 10/24/17 18:59 06:59 18:59 Intake Total 350 / 350 250 / 250 Output Total 1200 / 1200 700 / 700 Balance -850 / -850 -450 / -450 Intake: IV 50 / 50 150 / 150 Levaquin 750 mg Premix Inj 150 150 / 150 ML @ 100 mls/hr IV.SIG DAILY@ 1999 [facility] Rx#:[id number] Zosyn 3.375 GM Premix 50 ML @ 50 / 50 100 mls/hr IV.SIG Q6H [facility] Rx#: [id number] Oral 100 / 100 Tube Feeding 200 / 200 0 / 0 Tube Irrigant 100 / 100 0 / 0 Output: Urine 1200 / 1200 700 / 700 Pleural Fluid 0 / 0 Peritoneal Amount 0 / 0 Gastric Drainage 0 / 0 Left Lower Quadrant 0 / 0 Other: # Voids 3 Date of Last Bowel Movement 10/23/17 10/23/17 Narrative: General: Middle-aged gentleman, cachectic, chronically ill-appearing, tracheostomy with trach collar sitting up in chair HEENT: Pupils are equal, reactive, sclerae are anicteric, neck is supple, no rigidity, - JVD. Trach in place C/D/I. CV: Regular heart sounds, no murmurs appreciated Chest: Scattered coarse breath sounds bilateral, no wheezes Abdomen: Soft, non-tender, cachectic, non-distended, BS present, PEG in place, C /D/I Extremities: Warm and well perfused, no edema, + peripheral pulses, no clubbing Neuro: GCS 11 T, following commands x 4 extremities. Communication by mouthing words and shaking head to yes and no questions. Using a writing board to communicate. Results - Labs CBC & Chem 7: 10/24/17 04:33 10/24/17 04:33 Laboratory Results - last 24 hr 10/23/17 10/23/17 10/23/17 10:01 10:01 17:16 WBC 12.6 H RBC 4.36 L Hgb 11.5 L Hct 36.0 L MCV 82.6 MCH 26.3 L MCHC 31.9 L RDW 15.0 Plt Count 246 MPV 9.5 Neut % (Auto) Lymph % (Auto) [place] % (Auto) Eos % (Auto) Baso % (Auto) Neut # (Auto) Lymph # (Auto) [place] # (Auto) Eos # (Auto) Baso # (Auto) WBC Differential Differential Comment Sodium 141 Potassium 3.6 Chloride 102 Carbon Dioxide 28.0 Anion Gap 11 BUN 17 Creatinine 0.51 L Estimated GFR Greater than 89 POC Glucose 111 H Random Glucose 114 H Calcium 8.9 Phosphorus Magnesium Total Bilirubin 0.5 AST 39 H ALT 73 Alkaline Phosphatase 87 Total Protein 6.4 Albumin 2.1 L 10/24/17 10/24/17 10/24/17 00:10 04:33 04:33 WBC 10.1 RBC 4.20 L Hgb 11.2 L Hct 35.1 L MCV 83.5 MCH 26.6 L MCHC 31.8 L RDW 14.5 Plt Count 297 MPV 9.2 Neut % (Auto) 92.0 H Lymph % (Auto) 1.7 L [place] % (Auto) 6.1 Eos % (Auto) 0.0 Baso % (Auto) 0.2 Neut # (Auto) 9.3 H Lymph # (Auto) 0.2 L [place] # (Auto) 0.6 Eos # (Auto) 0.0 Baso # (Auto) 0.0 WBC Differential . Differential Comment Auto diff final Sodium 145 Potassium 3.5 Chloride 107 Carbon Dioxide 28.9 Anion Gap 9 BUN 16 Creatinine 0.38 L Estimated GFR Greater than 89 POC Glucose 101 Random Glucose 98 Calcium 8.4 L Phosphorus 2.6 Magnesium 2.2 Total Bilirubin 0.4 AST 23 ALT 63 Alkaline Phosphatase 76 Total Protein 5.6 L D Albumin 1.9 L - Imaging Impressions Gastrostomy Tube Placement 10/23/17 00:00 CONCLUSION: Uncomplicated fluoroscopic guided gastrostomy tube replacement as described above. - Procedures Percutaneous tracheostomy with bronchoscopy. - ABG ABG results: 10/15/17 10/15/17 10/16/17 12:42 16:00 07:35 ABG pH 7.31 L 7.38 ABG pCO2 58 H* 47 H ABG pO2 213 H 94 ABG O2 Content 13.1 14.5 ABG Carboxyhemoglobin 1.6 0.8 ABG Methemoglobin 0.6 1.2 VBG pH 7.24 L* VBG pCO2 75 H* VBG pO2 47 H VBG HCO3 31 H VBG O2 Saturation 69 L VBG Base Excess 4.4 H Assessment and Plan - Assessment (1) Acute respiratory failure with hypoxia and hypercapnia Code(s): J96.01 - Acute respiratory failure with hypoxia; J96.02 - Acute respiratory failure with hypercapnia Status: Acute (2) COPD with exacerbation Code(s): J44.1 - Chronic obstructive pulmonary disease with (acute) exacerbation Status: Resolved (3) Squamous cell carcinoma of pyriform sinus Code(s): C12 - Malignant neoplasm of pyriform sinus Status: Chronic (4) Aspiration pneumonia Code(s): J69.0 - Pneumonitis due to inhalation of food and vomit Status: Acute (5) Dislodged gastrostomy tube Code(s): Z43.1 - Encounter for attention to gastrostomy Status: Resolved - Plan 1. Acute hypercapnic and hypoxic respiratory failure. 2. Acute COPD exacerbation due to severe emphysema. 3. Moderate to severe upper airway compromise. The patient was initially intubated by anesthesia in the emergency department. The patient then was admitted to the intensive care unit under the care of the greaser helper who treated the patient with IV steroids, supplemental oxygen, ventilation bundle. The patient is status post tracheostomy in OR on 10/17 by general surgery. Continue supplemental oxygen Continue IV steroid taper Continue IV antibiotics as per ID. 4. 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 PEG tube was dislodged overnight on . Interventional radiology was consulted for placement of PEG tube. 10/24 PEG tube successfully replaced on 10/23, however patient as per RN report has not been tolerating bolus tube feedings. I will DC bolus tube feedings and start the patient on continuous tube feedings at 20 mL's per hour and we consult dietitian for further recommendations regarding appropriate goal. 5. Suspected aspiration pneumonia. Chest x-ray obtained on 10/20 shows stable exam with interstitial prominence predominantly at the bases. Patient initially started on IV vancomycin IV Zosyn empirically. ID consulted. Vancomycin discontinued. The patient currently on Levaquin IV since patient lost his PEG. 10/24 switch Levaquin from IV to via PEG. 6. Dislodged PEG tube. The patient was placed n.p.o. and placed on IV fluids. Interventional radiology consulted for PEG tube placement. PEG tube replaced on 10/23. Code Status: Full code Discussed Condition With: RN, patient. Discharge Planning: Continue to manage in the intensive care unit.
--- NOTE | 2017-10-24 14:56 | P.DIET ---
Nutritional Evaluation Type of nutrition evaluation: follow-up Nutrition consult regarding: Tube Feeding ([facility] [place] TF - Pt not tolerating bolus feedings) Subjective Subjective Comments: Nursing states pt not tolerating bolus tube feeds Objective - Diagnosis Hypercapneic/Hypoxic Respiratory Failure - Indications of Malnutrition Classification: Chronic disease or injury-related Malnutrition Characteristics: Weight loss - Objective % IBW: 74 Body Weight Used for Calculations: IBW Energy Needs - Lower Range (kCal/kg): 28 Energy Needs - Upper Range (kCal/kg): 33 Lower Limit kCal/kg (kCals): 2,268 Upper Limit kCal/kg (kCals): 2,673 Lower Limit Protein Factor (Grams per Kg): 1.2 Upper Limit Protein Factor (Grams per Kg): 1.5 Lower Protein Needs (Protein): 97 Upper Protein Needs (Protein): 122 Dietitian Reviewed in Medical Record: Curent medications, Intake & Output, Labs , Tube feeding Diet Order: TF only Objective Comments: Pt's nutritional needs based on 81kg PMH: PMH: 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 Pt with trach, s/p PEG placed 10/23. Per nursing, pt was not tolerating bolus feedings. Pt 's nutritional needs as assessed above. Pt is currently on Jevity 1.5 at 30 ml/ hr and is tolerating it well. A goal rate of 70 ml/hr will meet his nutritional needs providing 2520 kcals, 107 gms protein and 1277 mls free water. This is the equivalent of what pt takes at home in bolus feedings. Will continue to monitor TF tolerance, clinical course. Recommendations: TF Jevity 1.5 continuous with goal rate 70 ml/hr Dietitian to monitor TF tolerance, clinical course Dietitian to Monitor: Lab values, Intake & Output, Tube feeding tolerance, Weight change, Medical course
--- NOTE | 2017-10-24 20:21 | P.PN ---
Subjective Interval history: alert nad Physical Exam Vital signs: Vital Signs 10/23/17 20:47 10/23/17 20:52 10/23/17 21:00 Temperature Pulse Rate 73 80 Respiratory Rate 16 Blood Pressure 141/82 H Pulse Oximetry 96 98 10/23/17 22:00 10/23/17 23:00 10/24/17 00:00 Temperature 98.6 F Pulse Rate 69 67 72 Respiratory Rate Blood Pressure 119/57 L 153/68 H 128/64 Pulse Oximetry 100 100 98 10/24/17 04:00 10/24/17 06:00 10/24/17 08:00 Temperature 98.3 F 97.7 F Pulse Rate 62 66 Respiratory Rate 18 Blood Pressure 114/54 L 120/58 L Pulse Oximetry 96 100 100 10/24/17 12:00 10/24/17 12:06 10/24/17 16:00 Temperature 98.1 F 98.1 F Pulse Rate 75 85 Respiratory Rate 22 18 Blood Pressure 127/58 L 113/58 L Pulse Oximetry 94 L 95 90 L 10/24/17 18:00 Temperature Pulse Rate Respiratory Rate Blood Pressure Pulse Oximetry 90 L Intake & Output 10/24/17 10/24/17 10/25/17 06:59 18:59 06:59 Intake Total 250 / 250 306 / 306 Output Total 700 / 700 950 / 950 Balance -450 / -450 -644 / -644 Intake: IV 150 / 150 Levaquin 750 mg Premix Inj 150 150 / 150 ML @ 100 mls/hr IV.SIG DAILY@ 1999 [facility] Rx#:[id number] Oral 100 / 100 0 / 0 Tube Feeding 0 / 0 231 / 231 Tube Irrigant 0 / 0 75 / 75 Output: Urine 700 / 700 850 / 850 Stool 100 / 100 Other: # Voids 6 Date of Last Bowel Movement 10/23/17 10/24/17 # Bowel Movements 1 - Constitutional no acute distress - Routine HEENT Exam Head: Present: normocephalic ENT: Present: mucous membranes moist - Routine Neck Exam Present: supple - Routine Cardiovascular Exam Present: RRR - Routine Abdominal Exam Present: soft Results - Labs CBC & Chem 7: 10/24/17 04:33 10/24/17 04:33 Laboratory Results - last 24 hr 10/24/17 10/24/17 10/24/17 00:10 04:33 04:33 WBC 10.1 RBC 4.20 L Hgb 11.2 L Hct 35.1 L MCV 83.5 MCH 26.6 L MCHC 31.8 L RDW 14.5 Plt Count 297 MPV 9.2 Neut % (Auto) 92.0 H Lymph % (Auto) 1.7 L [place] % (Auto) 6.1 Eos % (Auto) 0.0 Baso % (Auto) 0.2 Neut # (Auto) 9.3 H Lymph # (Auto) 0.2 L [place] # (Auto) 0.6 Eos # (Auto) 0.0 Baso # (Auto) 0.0 WBC Differential . Differential Comment Auto diff final Sodium 145 Potassium 3.5 Chloride 107 Carbon Dioxide 28.9 Anion Gap 9 BUN 16 Creatinine 0.38 L Estimated GFR Greater than 89 POC Glucose 101 Random Glucose 98 Calcium 8.4 L Phosphorus 2.6 Magnesium 2.2 Total Bilirubin 0.4 AST 23 ALT 63 Alkaline Phosphatase 76 Total Protein 5.6 L D Albumin 1.9 L 10/24/17 10/24/17 11:26 16:55 WBC RBC Hgb Hct MCV MCH MCHC RDW Plt Count MPV Neut % (Auto) Lymph % (Auto) [place] % (Auto) Eos % (Auto) Baso % (Auto) Neut # (Auto) Lymph # (Auto) [place] # (Auto) Eos # (Auto) Baso # (Auto) WBC Differential Differential Comment Sodium Potassium Chloride Carbon Dioxide Anion Gap BUN Creatinine Estimated GFR POC Glucose 109 125 H Random Glucose Calcium Phosphorus Magnesium Total Bilirubin AST ALT Alkaline Phosphatase Total Protein Albumin - Imaging Impressions Gastrostomy Tube Placement 10/23/17 00:00 CONCLUSION: Uncomplicated fluoroscopic guided gastrostomy tube replacement as described above. - Procedures Percutaneous tracheostomy with bronchoscopy. Assessment and Plan - Plan laryngeal CA Post tracheostomy PLAN O2 NEEDED PULMONARY TOILET INCREASE ACTIVITY
--- NOTE | 2017-10-24 21:34 | ECG ---
Date Performed: 10/24/2017 Time Performed: 13:45:11 PTAGE: 62 years EKG: Sinus rhythm INDETERMINATE AXIS INCOMPLETE RIGHT BUNDLE BRANCH BLOCK BORDERLINE ECG Since the PREVIOUS TRACING , no significant change noted DOCTOR: Hardeep Major Interpretating Date/Time 10/24/2017 21:33:00
[2017-10-25] MEDS: Insulin NovoLOG Aspart Correctional Sugar Inj SQ SCH ×4 (00:24→18:43)
[2017-10-25] MEDS: Oral Hygiene Kit OROPHARYNG SCH ×4 (00:24→17:32)
[2017-10-25] MEDS: Potassium Chloride Inj 10 MEQ in Dextrose 5%/Lactated Ringer's 1,000 ML IV.CONT SCH ×2 (02:55→16:27)
[2017-10-25] MEDS: Chlorhexidine Gluconate 2% 1 Pack (2 Cloths) TOPICAL SCH (04:34)
[2017-10-25] MEDS: Heparin - SQ 10,000 UNITS/ML Vial SQ SCH ×2 (08:18→21:30)
[2017-10-25] MEDS: predniSONE 20 MG Tablet G-TUBE SCH (08:18)
[2017-10-25] MEDS: levoFLOXacin 750 MG Tablet PO SCH (08:18)
[2017-10-25] MEDS: Chlorhexidine Gluconate 0.12% Liq 15 ML UDC SWISH-SPIT SCH ×2 (08:18→21:31)
[2017-10-25] MEDS: Famotidine PF Inj 20 MG/2 ML Vial IV.PUSH SCH ×2 (08:19→21:31)
[2017-10-25] MEDS: Artificial Tears Opth Drops 15 ML Bottle EACH EYE SCH ×3 (08:20→18:44)
--- NOTE | 2017-10-25 15:42 | P.PNIM ---
Subjective Interval history: The patient states he is coughing a little bit. Denies fevers or chills. Tolerating tube feeding well. On trach collar. Physical Exam Vital signs: Vital Signs 10/24/17 16:00 10/24/17 18:00 10/24/17 20:00 Temperature 98.1 F 98.2 F Pulse Rate 85 69 Respiratory Rate 18 20 Blood Pressure 113/58 L 136/60 Pulse Oximetry 90 L 90 L 96 10/24/17 21:05 10/24/17 22:00 10/24/17 23:25 Temperature Pulse Rate 68 67 74 Respiratory Rate 18 Blood Pressure Pulse Oximetry 10/25/17 00:00 10/25/17 02:22 10/25/17 04:00 Temperature 98.7 F 97.9 F Pulse Rate 81 61 67 Respiratory Rate 18 20 Blood Pressure 114/58 L 150/65 H Pulse Oximetry 100 96 10/25/17 06:00 10/25/17 08:00 10/25/17 08:47 Temperature 98.0 F Pulse Rate 62 85 78 Respiratory Rate 18 16 Blood Pressure 141/81 H Pulse Oximetry 96 90 L 99 10/25/17 10:00 10/25/17 12:00 10/25/17 12:02 Temperature 97.7 F Pulse Rate 76 80 77 Respiratory Rate 18 16 Blood Pressure 119/60 Pulse Oximetry 94 L Intake & Output 10/24/17 10/25/17 10/25/17 18:59 06:59 18:59 Intake Total 306 / 306 1238 / 1238 Output Total 950 / 950 600 / 600 Balance -644 / -644 638 / 638 Intake: IV 1005 / 1005 KCl Inj 10 MEQ In D5W/LR Inj 1, 1005 / 1005 000 ML @ 84 mls/hr IV.CONT . [id number] [facility] Rx#:[id number] Oral 0 / 0 Tube Feeding 231 / 231 233 / 233 Tube Irrigant 75 / 75 Output: Urine 850 / 850 600 / 600 Stool 100 / 100 Other: # Voids 6 Date of Last Bowel Movement 10/24/17 10/23/17 10/23/17 # Bowel Movements 1 Narrative: General: Middle-aged gentleman, cachectic, chronically ill-appearing, tracheostomy with trach collar sitting up in chair HEENT: Pupils are equal, reactive, sclerae are anicteric, neck is supple, no rigidity, - JVD. Trach in place C/D/I. CV: Regular heart sounds, no murmurs appreciated Chest: Scattered coarse breath sounds bilateral, no wheezes Abdomen: Soft, non-tender, cachectic, non-distended, BS present, PEG in place, C /D/I Extremities: Warm and well perfused, no edema, + peripheral pulses, no clubbing Neuro: GCS 11 T, following commands x 4 extremities. Communication by mouthing words and shaking head to yes and no questions. Using a writing board to communicate. Results - Labs CBC & Chem 7: 10/24/17 04:33 10/24/17 04:33 Laboratory Results - last 24 hr 10/24/17 10/25/17 10/25/17 16:55 00:23 06:04 POC Glucose 125 H 125 H 130 H 10/25/17 12:15 POC Glucose 116 H - Procedures Percutaneous tracheostomy with bronchoscopy. 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 Acute hypercapnic and hypoxic respiratory failure. 2. Acute COPD exacerbation due to severe emphysema. 3. Moderate to severe upper airway compromise. The patient was initially intubated by anesthesia in the emergency department. The patient then was admitted to the intensive care unit under the care of the chair pad maker who treated the patient with IV steroids, supplemental oxygen, ventilation bundle. The patient is status post tracheostomy in OR on 10/17 by general surgery. Continue supplemental oxygen Continue IV steroid taper Continue IV antibiotics as per ID. 4. 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 PEG tube was dislodged overnight on . Interventional radiology was consulted for placement of PEG tube. 10/24 PEG tube successfully replaced on 10/23, however patient as per RN report has not been tolerating bolus tube feedings. I will DC bolus tube feedings and start the patient on continuous tube feedings at 20 mL's per hour and we consult dietitian for further recommendations regarding appropriate goal. 10/25 dietitian recommended to continue Jevity 1.5 to a goal rate of 70 mL's per hour. 5. Suspected aspiration pneumonia. Chest x-ray obtained on 10/20 shows stable exam with interstitial prominence predominantly at the bases. Patient initially started on IV vancomycin IV Zosyn empirically. ID consulted. Vancomycin discontinued. The patient currently on Levaquin IV since patient lost his PEG. Continue p.o. Levaquin via PEG. 6. Dislodged PEG tube. The patient was placed n.p.o. and placed on IV fluids. Interventional radiology consulted for PEG tube placement. PEG tube replaced on 10/23. Discharge Planning: Continue to manage in the intensive care unit.
[2017-10-26] MEDS: Insulin NovoLOG Aspart Correctional Sugar Inj SQ SCH ×4 (01:20→18:18)
[2017-10-26] MEDS: Oral Hygiene Kit OROPHARYNG SCH ×4 (01:21→17:52)
[2017-10-26] MEDS: Potassium Chloride Inj 10 MEQ in Dextrose 5%/Lactated Ringer's 1,000 ML IV.CONT SCH ×2 (04:09→11:57)
[2017-10-26] MEDS: predniSONE 20 MG Tablet G-TUBE SCH (08:44)
[2017-10-26] MEDS: levoFLOXacin 750 MG Tablet PO SCH (08:44)
[2017-10-26] MEDS: Artificial Tears Opth Drops 15 ML Bottle EACH EYE SCH ×3 (08:45→18:08)
[2017-10-26] MEDS: Heparin - SQ 10,000 UNITS/ML Vial SQ SCH ×2 (08:45→20:29)
[2017-10-26] MEDS: Chlorhexidine Gluconate 0.12% Liq 15 ML UDC SWISH-SPIT SCH ×2 (08:45→20:30)
[2017-10-26] MEDS: Famotidine PF Inj 20 MG/2 ML Vial IV.PUSH SCH ×2 (09:18→20:29)
[2017-10-26 09:38] LABS: Baso % (Auto) 0.2 % (0.0-2.0); Eos % (Auto) 0.1 % (0.0-4.0); Hematocrit 34.7 % (39.0-51.0); Hemoglobin 11.1 gm/dL (13.0-17.0); Lymph # (Auto) 0.3 th/mm3 (1.0-4.8); Lymph % (Auto) 2.5 % (9.0-44.0); Mean Corpuscular Hemoglobin 26.3 pg (27.0-34.0); Mean Corpuscular Volume 82.4 fL (80.0-100.0); Mean Platelet Volume 8.9 fL (7.0-11.0); Mono # (Auto) 0.8 th/mm3 (0.0-0.9); Mono % (Auto) 6.5 % (0.0-8.0); Neut # (Auto) 11.5 th/mm3 (1.8-7.7); Neut % (Auto) 90.7 % (16.0-70.0); Platelet Count 252 th/mm3 (150-450); Red Blood Count 4.21 mil/mm3 (4.50-5.90); Red Cell Distribution Width 15.4 % (11.6-17.2); White Blood Count 12.7 th/mm3 (4.0-11.0)
[2017-10-26 10:08] LABS: Alanine Aminotransferase 62 U/L (12-78); Albumin 1.9 g/dL (3.4-5.0); Alkaline Phosphatase 86 U/L (45-117); Anion Gap 10 meq/L (5-15); Aspartate Aminotransferase 19 U/L (15-37); Blood Urea Nitrogen 9 mg/dL (7-18); Calcium 8.4 mg/dL (8.5-10.1); Carbon Dioxide 27.4 meq/L (21.0-32.0); Chloride 105 meq/L (98-107); Glomerular Filtration Rate Greater Than 89 mL/min (>89); Glucose,Random 103 mg/dL (74-106); Magnesium 2.1 mg/dL (1.5-2.5); Phosphorus 2.2 mg/dL (2.5-4.9); Sodium 142 meq/L (136-145); Total Protein 5.6 g/dL (6.4-8.2)
[2017-10-26 10:11] LABS: Potassium 2.9 meq/L (3.5-5.1)
--- NOTE | 2017-10-26 10:38 | P.PNIM ---
Physical Exam Vital signs: Vital Signs 10/25/17 12:00 10/25/17 12:02 10/25/17 14:00 Temperature 97.7 F Pulse Rate 80 77 84 Respiratory Rate 18 16 Blood Pressure 119/60 Pulse Oximetry 94 L 10/25/17 16:00 10/25/17 17:26 10/25/17 17:31 Temperature 97.8 F Pulse Rate 82 66 Respiratory Rate 20 Blood Pressure 130/62 Pulse Oximetry 90 L 91 L 10/25/17 20:00 10/25/17 21:52 10/25/17 22:00 Temperature 98.2 F Pulse Rate 92 H 73 Respiratory Rate 20 Blood Pressure 121/67 Pulse Oximetry 98 98 10/25/17 22:40 10/26/17 00:00 10/26/17 02:40 Temperature 98.1 F Pulse Rate 73 74 63 Respiratory Rate 20 Blood Pressure 129/67 Pulse Oximetry 92 L 10/26/17 04:00 10/26/17 06:00 10/26/17 08:42 Temperature 98.1 F Pulse Rate 67 82 83 Respiratory Rate 18 18 Blood Pressure 110/55 L Pulse Oximetry 94 L 94 L 95 Intake & Output 10/25/17 10/26/17 10/26/17 18:59 06:59 18:59 Intake Total 1045 / 1045 1836 / 1836 Output Total 1170 / 1170 Balance 1045 / 1045 666 / 666 Weight 58.1 kg Intake: IV 985 / 985 1606 / 1606 KCl Inj 10 MEQ In D5W/LR Inj 1, 985 / 985 1606 / 1606 000 ML @ 84 mls/hr IV.CONT . [id number] [facility] Rx#:[id number] Oral 0 / 0 0 / 0 Tube Feeding 60 / 60 200 / 200 Water Bolus Amount 30 / 30 Output: Urine 1050 / 1050 Stool 120 / 120 Pleural Fluid 0 / 0 Peritoneal Amount 0 / 0 Other: Date of Last Bowel Movement 10/25/17 10/26/17 # Bowel Movements 1 Results - Labs CBC & Chem 7: 10/26/17 09:14 10/26/17 09:14 Laboratory Results - last 24 hr 10/25/17 10/25/17 10/26/17 12:15 18:37 00:46 WBC RBC Hgb Hct MCV MCH MCHC RDW Plt Count MPV Prelim Diff (Auto) Neut % (Auto) Lymph % (Auto) [place] % (Auto) Eos % (Auto) Baso % (Auto) Neut # (Auto) Lymph # (Auto) [place] # (Auto) Eos # (Auto) Baso # (Auto) Differential Comment Sodium Potassium Chloride Carbon Dioxide Anion Gap BUN Creatinine Estimated GFR POC Glucose 116 H 140 H 99 Random Glucose Calcium Phosphorus Magnesium Total Bilirubin AST ALT Alkaline Phosphatase Total Protein Albumin 10/26/17 10/26/17 10/26/17 06:01 09:14 09:14 WBC 12.7 H RBC 4.21 L Hgb 11.1 L Hct 34.7 L MCV 82.4 MCH 26.3 L MCHC 32.0 RDW 15.4 Plt Count 252 MPV 8.9 Prelim Diff (Auto) Slide review pending Neut % (Auto) 90.7 H Lymph % (Auto) 2.5 L [place] % (Auto) 6.5 Eos % (Auto) 0.1 Baso % (Auto) 0.2 Neut # (Auto) 11.5 H Lymph # (Auto) 0.3 L [place] # (Auto) 0.8 Eos # (Auto) 0.0 Baso # (Auto) 0.0 Differential Comment . Sodium 142 Potassium 2.9 L* Chloride 105 Carbon Dioxide 27.4 Anion Gap 10 BUN 9 Creatinine 0.45 L Estimated GFR Greater than 89 POC Glucose 88 Random Glucose 103 Calcium 8.4 L Phosphorus 2.2 L Magnesium 2.1 Total Bilirubin 0.4 AST 19 ALT 62 Alkaline Phosphatase 86 Total Protein 5.6 L Albumin 1.9 L - Procedures Percutaneous tracheostomy with bronchoscopy. 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 Acute hypercapnic and hypoxic respiratory failure. 2. Acute COPD exacerbation due to severe emphysema. 3. Moderate to severe upper airway compromise. The patient was initially intubated by anesthesia in the emergency department. The patient then was admitted to the intensive care unit under the care of the tool checker who treated the patient with IV steroids, supplemental oxygen, ventilation bundle. The patient is status post tracheostomy in OR on 10/17 by general surgery. Continue supplemental oxygen Continue IV steroid taper Continue IV antibiotics as per ID. 4. 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 PEG tube was dislodged overnight on . Interventional radiology was consulted for placement of PEG tube. 10/24 PEG tube successfully replaced on 10/23, however patient as per RN report has not been tolerating bolus tube feedings. I will DC bolus tube feedings and start the patient on continuous tube feedings at 20 mL's per hour and we consult dietitian for further recommendations regarding appropriate goal. 10/25 dietitian recommended to continue Jevity 1.5 to a goal rate of 70 mL's per hour. 5. Suspected aspiration pneumonia. Chest x-ray obtained on 10/20 shows stable exam with interstitial prominence predominantly at the bases. Patient initially started on IV vancomycin IV Zosyn empirically. ID consulted. Vancomycin discontinued. The patient currently on Levaquin IV since patient lost his PEG. Continue p.o. Levaquin via PEG. 6. Dislodged PEG tube. The patient was placed n.p.o. and placed on IV fluids. Interventional radiology consulted for PEG tube placement. PEG tube replaced on 10/23. Discharge Planning: Continue to manage in the intensive care unit.
[2017-10-26 11:04] LABS: Lymphocytes 7 % (9-44); Monocytes 7 % (0-8); Platelet Estimate Normal (Normal); Platelet Morphology Normal (Normal)
[2017-10-26] MEDS: Potassium Chlor 20 mEq Premix 20 MEQ/100 ML PIGGYBACK IV.SIG SCH ×4 (11:30→17:53)
--- NOTE | 2017-10-26 13:05 | P.PNIM ---
Subjective Interval history: is at bedside. The patient denies chest pain or shortness of breath. On T piece, 28% FiO2 satting 95%. Denies fevers or chills. Physical Exam Vital signs: Vital Signs 10/25/17 14:00 10/25/17 16:00 10/25/17 17:26 Temperature 97.8 F Pulse Rate 84 82 66 Respiratory Rate 20 Blood Pressure 130/62 Pulse Oximetry 90 L 10/25/17 17:31 10/25/17 20:00 10/25/17 21:52 Temperature 98.2 F Pulse Rate 92 H Respiratory Rate 20 Blood Pressure 121/67 Pulse Oximetry 91 L 98 98 10/25/17 22:00 10/25/17 22:40 10/26/17 00:00 Temperature 98.1 F Pulse Rate 73 73 74 Respiratory Rate 20 Blood Pressure 129/67 Pulse Oximetry 92 L 10/26/17 02:40 10/26/17 04:00 10/26/17 06:00 Temperature 98.1 F Pulse Rate 63 67 82 Respiratory Rate 18 Blood Pressure 110/55 L Pulse Oximetry 94 L 94 L 10/26/17 08:42 Temperature Pulse Rate 83 Respiratory Rate 18 Blood Pressure Pulse Oximetry 95 Intake & Output 10/25/17 10/26/17 10/26/17 18:59 06:59 18:59 Intake Total 1045 / 1045 1836 / 1836 1105 / 1105 Output Total 1170 / 1170 Balance 1045 / 1045 666 / 666 1105 / 1105 Weight 58.1 kg Intake: IV 985 / 985 1606 / 1606 1105 / 1105 KCl Inj 10 MEQ In D5W/LR Inj 1, 985 / 985 1606 / 1606 1005 / 1005 000 ML @ 84 mls/hr IV.CONT . [id number] SELMA Rx#:[id number] KCl 20 mEq Premix Inj 20 meq In 100 / 100 100 ml @ 50 mls/hr IV.SIG Q2H SELMA Rx#:[id number] Oral 0 / 0 0 / 0 Tube Feeding 60 / 60 200 / 200 Water Bolus Amount 30 / 30 Output: Urine 1050 / 1050 Stool 120 / 120 Pleural Fluid 0 / 0 Peritoneal Amount 0 / 0 Other: Date of Last Bowel Movement 10/25/17 10/26/17 # Bowel Movements 1 Narrative: General: Middle-aged gentleman, cachectic, chronically ill-appearing, tracheostomy with trach collar sitting up in chair HEENT: Pupils are equal, reactive, sclerae are anicteric, neck is supple, no rigidity, - JVD. Trach in place C/D/I. CV: Regular heart sounds, no murmurs appreciated Chest: Scattered coarse breath sounds bilateral, no wheezes Abdomen: Soft, non-tender, cachectic, non-distended, BS present, PEG in place, C /D/I Extremities: Warm and well perfused, no edema, + peripheral pulses, no clubbing Neuro: Awake and alert, following commands x 4 extremities. Communication by mouthing words and shaking head to yes and no questions. Using a writing board to communicate. Results - Labs CBC & Chem 7: 10/26/17 09:14 10/26/17 09:14 Laboratory Results - last 24 hr 10/25/17 10/26/17 10/26/17 18:37 00:46 06:01 WBC RBC Hgb Hct MCV MCH MCHC RDW Plt Count MPV Prelim Diff (Auto) Neut % (Auto) Lymph % (Auto) [place] % (Auto) Eos % (Auto) Baso % (Auto) Neut # (Auto) Lymph # (Auto) [place] # (Auto) Eos # (Auto) Baso # (Auto) WBC Differential Seg Neuts % (Manual) Band Neuts % (Manual) Lymphocytes % (Manual) Monocytes % (Manual) Abs Neuts (Manual) Differential Comment Platelet Estimate Platelet Morphology Sodium Potassium Chloride Carbon Dioxide Anion Gap BUN Creatinine Estimated GFR POC Glucose 140 H 99 88 Random Glucose Calcium Phosphorus Magnesium Total Bilirubin AST ALT Alkaline Phosphatase Total Protein Albumin 10/26/17 10/26/17 10/26/17 09:14 09:14 11:40 WBC 12.7 H RBC 4.21 L Hgb 11.1 L Hct 34.7 L MCV 82.4 MCH 26.3 L MCHC 32.0 RDW 15.4 Plt Count 252 MPV 8.9 Prelim Diff (Auto) Slide review pending Neut % (Auto) 90.7 H Lymph % (Auto) 2.5 L Ray % (Auto) 6.5 Eos % (Auto) 0.1 Baso % (Auto) 0.2 Neut # (Auto) 11.5 H Lymph # (Auto) 0.3 L Ray # (Auto) 0.8 Eos # (Auto) 0.0 Baso # (Auto) 0.0 WBC Differential Manual diff final Seg Neuts % (Manual) 78 H Band Neuts % (Manual) 8 H Lymphocytes % (Manual) 7 L Monocytes % (Manual) 7 Abs Neuts (Manual) 10.9 H Differential Comment . Platelet Estimate Normal Platelet Morphology Normal Sodium 142 Potassium 2.9 L* Chloride 105 Carbon Dioxide 27.4 Anion Gap 10 BUN 9 Creatinine 0.45 L Estimated GFR Greater than 89 POC Glucose 113 H Random Glucose 103 Calcium 8.4 L Phosphorus 2.2 L Magnesium 2.1 Total Bilirubin 0.4 AST 19 ALT 62 Alkaline Phosphatase 86 Total Protein 5.6 L Albumin 1.9 L - Procedures Percutaneous tracheostomy with bronchoscopy. 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 Acute hypercapnic and hypoxic respiratory failure. 2. Acute COPD exacerbation due to severe emphysema. 3. Moderate to severe upper airway compromise. The patient was initially intubated by anesthesia in the emergency department. The patient then was admitted to the intensive care unit under the care of the hash slinger who treated the patient with IV steroids, supplemental oxygen, ventilation bundle. The patient is status post tracheostomy in OR on 10/17 by general surgery. Continue supplemental oxygen Continue IV steroid taper Continue IV antibiotics as per ID. 10/26 continue Levaquin via PEG. I will start the patient on furosemide via PEG. Monitor BMP. Continue prednisone taper. 4. 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 PEG tube was dislodged overnight on . Interventional radiology was consulted for placement of PEG tube. 10/24 PEG tube successfully replaced on 10/23, however patient as per RN report has not been tolerating bolus tube feedings. I will DC bolus tube feedings and start the patient on continuous tube feedings at 20 mL's per hour and we consult dietitian for further recommendations regarding appropriate goal. 10/26 dietitian recommended to continue Jevity 1.5 to a goal rate of 70 mL's per hour. 5. Suspected aspiration pneumonia. Chest x-ray obtained on 10/20 shows stable exam with interstitial prominence predominantly at the bases. Patient initially started on IV vancomycin IV Zosyn empirically. ID consulted. Vancomycin discontinued. The patient currently on Levaquin IV since patient lost his PEG. Continue p.o. Levaquin via PEG. 6. Dislodged PEG tube. The patient was placed n.p.o. and placed on IV fluids. Interventional radiology consulted for PEG tube placement. PEG tube replaced on 10/23. 7. Severe hypokalemia. Replace with IV potassium chloride and continue to monitor BMP. Discharge Planning: Continue to monitor in the chronic vent unit. The patient still on high oxygen but improving. The patient could be discharged once he reaches the tube feeding rate at 70 mL's per hour. Patient also still with high levels of oxygen. Will need pulmonary clearance.
--- NOTE | 2017-10-26 16:44 | P.PN ---
Subjective Interval history: ALERT TRACH IN PLACE NO SOB HEAM STAINING AROUND TRACH Physical Exam Vital signs: Vital Signs 10/25/17 17:26 10/25/17 17:31 10/25/17 20:00 Temperature 98.2 F Pulse Rate 66 92 H Respiratory Rate 20 Blood Pressure 121/67 Pulse Oximetry 91 L 98 10/25/17 21:52 10/25/17 22:00 10/25/17 22:40 Temperature Pulse Rate 73 73 Respiratory Rate Blood Pressure Pulse Oximetry 98 10/26/17 00:00 10/26/17 02:40 10/26/17 04:00 Temperature 98.1 F 98.1 F Pulse Rate 74 63 67 Respiratory Rate 20 18 Blood Pressure 129/67 110/55 L Pulse Oximetry 92 L 94 L 10/26/17 06:00 10/26/17 08:42 Temperature Pulse Rate 82 83 Respiratory Rate 18 Blood Pressure Pulse Oximetry 94 L 95 Intake & Output 10/25/17 10/26/17 10/26/17 18:59 06:59 18:59 Intake Total 1045 / 1045 1836 / 1836 1105 / 1105 Output Total 1170 / 1170 Balance 1045 / 1045 666 / 666 1105 / 1105 Weight 58.1 kg Intake: IV 985 / 985 1606 / 1606 1105 / 1105 KCl Inj 10 MEQ In D5W/LR Inj 1, 985 / 985 1606 / 1606 1005 / 1005 000 ML @ 84 mls/hr IV.CONT . [id number] SELMA Rx#:[id number] KCl 20 mEq Premix Inj 20 meq In 100 / 100 100 ml @ 50 mls/hr IV.SIG Q2H SELMA Rx#:[id number] Oral 0 / 0 0 / 0 Tube Feeding 60 / 60 200 / 200 Water Bolus Amount 30 / 30 Output: Urine 1050 / 1050 Stool 120 / 120 Pleural Fluid 0 / 0 Peritoneal Amount 0 / 0 Other: Date of Last Bowel Movement 10/25/17 10/26/17 # Bowel Movements 1 Narrative: General: Middle-aged gentleman, cachectic, chronically ill-appearing, tracheostomy with trach collar sitting up in chair HEENT: Pupils are equal, reactive, sclerae are anicteric, neck is supple, no rigidity, - JVD. Trach in place C/D/I. CV: Regular heart sounds, no murmurs appreciated Chest: Scattered coarse breath sounds bilateral, no wheezes Abdomen: Soft, non-tender, cachectic, non-distended, BS present, PEG in place, C /D/I Extremities: Warm and well perfused, no edema, + peripheral pulses, no clubbing Neuro: Awake and alert, following commands x 4 extremities. Communication by mouthing words and shaking head to yes and no questions. Using a writing board to communicate. Results - Labs CBC & Chem 7: 10/26/17 09:14 10/26/17 09:14 Laboratory Results - last 24 hr 10/25/17 10/26/17 10/26/17 18:37 00:46 06:01 WBC RBC Hgb Hct MCV MCH MCHC RDW Plt Count MPV Prelim Diff (Auto) Neut % (Auto) Lymph % (Auto) [place] % (Auto) Eos % (Auto) Baso % (Auto) Neut # (Auto) Lymph # (Auto) [place] # (Auto) Eos # (Auto) Baso # (Auto) WBC Differential Seg Neuts % (Manual) Band Neuts % (Manual) Lymphocytes % (Manual) Monocytes % (Manual) Abs Neuts (Manual) Differential Comment Platelet Estimate Platelet Morphology Sodium Potassium Chloride Carbon Dioxide Anion Gap BUN Creatinine Estimated GFR POC Glucose 140 H 99 88 Random Glucose Calcium Phosphorus Magnesium Total Bilirubin AST ALT Alkaline Phosphatase Total Protein Albumin 10/26/17 10/26/17 10/26/17 09:14 09:14 11:40 WBC 12.7 H RBC 4.21 L Hgb 11.1 L Hct 34.7 L MCV 82.4 MCH 26.3 L MCHC 32.0 RDW 15.4 Plt Count 252 MPV 8.9 Prelim Diff (Auto) Slide review pending Neut % (Auto) 90.7 H Lymph % (Auto) 2.5 L [place] % (Auto) 6.5 Eos % (Auto) 0.1 Baso % (Auto) 0.2 Neut # (Auto) 11.5 H Lymph # (Auto) 0.3 L [place] # (Auto) 0.8 Eos # (Auto) 0.0 Baso # (Auto) 0.0 WBC Differential Manual diff final Seg Neuts % (Manual) 78 H Band Neuts % (Manual) 8 H Lymphocytes % (Manual) 7 L Monocytes % (Manual) 7 Abs Neuts (Manual) 10.9 H Differential Comment . Platelet Estimate Normal Platelet Morphology Normal Sodium 142 Potassium 2.9 L* Chloride 105 Carbon Dioxide 27.4 Anion Gap 10 BUN 9 Creatinine 0.45 L Estimated GFR Greater than 89 POC Glucose 113 H Random Glucose 103 Calcium 8.4 L Phosphorus 2.2 L Magnesium 2.1 Total Bilirubin 0.4 AST 19 ALT 62 Alkaline Phosphatase 86 Total Protein 5.6 L Albumin 1.9 L - Procedures Percutaneous tracheostomy with bronchoscopy. Assessment and Plan - Plan laryngeal CA Post tracheostomy PLAN O2 NEEDED PULMONARY TOILET INCREASE ACTIVITY
[2017-10-27] MEDS: Oral Hygiene Kit OROPHARYNG SCH ×4 (00:09→20:08)
[2017-10-27] MEDS: Insulin NovoLOG Aspart Correctional Sugar Inj SQ SCH ×4 (00:09→18:00)
[2017-10-27] MEDS: Potassium Chloride Inj 10 MEQ in Dextrose 5%/Lactated Ringer's 1,000 ML IV.CONT SCH ×3 (09:25→21:09)
[2017-10-27] MEDS: predniSONE 20 MG Tablet G-TUBE SCH (09:27)
[2017-10-27] MEDS: levoFLOXacin 750 MG Tablet PO SCH (09:27)
[2017-10-27] MEDS: Famotidine PF Inj 20 MG/2 ML Vial IV.PUSH SCH ×2 (09:27→20:36)
[2017-10-27] MEDS: Artificial Tears Opth Drops 15 ML Bottle EACH EYE SCH ×3 (09:27→18:00)
[2017-10-27] MEDS: Heparin - SQ 10,000 UNITS/ML Vial SQ SCH ×2 (09:27→20:36)
--- NOTE | 2017-10-27 14:09 | P.PN ---
Subjective Interval history: ALERT NO SOB NO HEAM AT TRACH SITE Physical Exam Vital signs: Vital Signs 10/26/17 16:00 10/26/17 17:32 10/26/17 17:33 Temperature 99.0 F Pulse Rate 89 85 Respiratory Rate 14 18 Blood Pressure 120/78 Pulse Oximetry 100 10/26/17 18:00 10/26/17 20:00 10/26/17 20:18 Temperature 98.2 F Pulse Rate 80 76 Respiratory Rate 18 20 Blood Pressure 123/60 Pulse Oximetry 98 99 97 10/26/17 22:00 10/27/17 00:00 10/27/17 02:00 Temperature 98.1 F Pulse Rate 78 82 76 Respiratory Rate 16 Blood Pressure 97/44 L Pulse Oximetry 98 10/27/17 04:00 10/27/17 06:00 10/27/17 08:00 Temperature 97.7 F 98.8 F Pulse Rate 78 77 82 Respiratory Rate 16 18 Blood Pressure 101/64 126/67 Pulse Oximetry 96 96 99 10/27/17 08:04 Temperature Pulse Rate 89 Respiratory Rate 19 Blood Pressure Pulse Oximetry 99 Intake & Output 10/26/17 10/27/17 10/27/17 18:59 06:59 18:59 Intake Total 1675 / 1675 1176 / 1176 330 / 330 Output Total 900 / 900 900 / 900 Balance 775 / 775 276 / 276 330 / 330 Weight 57.1 kg Intake: IV 1305 / 1305 649 / 649 330 / 330 KCl Inj 10 MEQ In D5W/LR Inj 1, 1005 / 1005 649 / 649 330 / 330 000 ML @ 84 mls/hr IV.CONT . [id number] SELMA Rx#:[id number] KCl 20 mEq Premix Inj 20 meq In 300 / 300 100 ml @ 50 mls/hr IV.SIG Q2H SELMA Rx#:[id number] Oral 0 / 0 0 / 0 Tube Feeding 320 / 320 477 / 477 Tube Irrigant 30 / 30 Water Bolus Amount 50 / 50 20 / 20 Output: Urine 900 / 900 900 / 900 Pleural Fluid 0 / 0 0 / 0 Peritoneal Amount 0 / 0 0 / 0 Other: Date of Last Bowel Movement 10/26/17 10/26/17 # Bowel Movements 1 Narrative: General: Middle-aged gentleman, cachectic, chronically ill-appearing, tracheostomy with trach collar sitting up in chair HEENT: Pupils are equal, reactive, sclerae are anicteric, neck is supple, no rigidity, - JVD. Trach in place C/D/I. CV: Regular heart sounds, no murmurs appreciated Chest: Scattered coarse breath sounds bilateral, no wheezes Abdomen: Soft, non-tender, cachectic, non-distended, BS present, PEG in place, C /D/I Extremities: Warm and well perfused, no edema, + peripheral pulses, no clubbing Neuro: Awake and alert, following commands x 4 extremities. Communication by mouthing words and shaking head to yes and no questions. Using a writing board to communicate. Results - Labs CBC & Chem 7: 10/26/17 09:14 10/26/17 09:14 Laboratory Results - last 24 hr 10/26/17 10/26/17 10/27/17 18:18 23:54 05:19 POC Glucose 138 H 147 H 144 H Assessment and Plan - Plan laryngeal CA Post tracheostomy PLAN O2 NEEDED PULMONARY TOILET INCREASE ACTIVITY
--- NOTE | 2017-10-27 17:26 | P.PN ---
Subjective Interval history: Patient is seen lying in bed surrounded by family. Well with no concerns. Tells me that his diarrhea has decreased and he has had no episodes today. Is tolerating his tube feeds at goal-denies any nausea vomiting or abdominal discomfort. He feels that he is breathing well. He would like to go home as soon as possible. Physical Exam Vital signs: Vital Signs 10/26/17 17:32 10/26/17 17:33 10/26/17 18:00 Temperature Pulse Rate 85 Respiratory Rate 18 Blood Pressure Pulse Oximetry 100 98 10/26/17 20:00 10/26/17 20:18 10/26/17 22:00 Temperature 98.2 F Pulse Rate 80 76 78 Respiratory Rate 18 20 Blood Pressure 123/60 Pulse Oximetry 99 97 10/27/17 00:00 10/27/17 02:00 10/27/17 04:00 Temperature 98.1 F 97.7 F Pulse Rate 82 76 78 Respiratory Rate 16 16 Blood Pressure 97/44 L 101/64 Pulse Oximetry 98 96 10/27/17 06:00 10/27/17 08:00 10/27/17 08:04 Temperature 98.8 F Pulse Rate 77 82 89 Respiratory Rate 18 19 Blood Pressure 126/67 Pulse Oximetry 96 99 99 10/27/17 15:41 Temperature Pulse Rate 85 Respiratory Rate 16 Blood Pressure Pulse Oximetry Intake & Output 10/26/17 10/27/17 10/27/17 18:59 06:59 18:59 Intake Total 1675 / 1675 1176 / 1176 330 / 330 Output Total 900 / 900 900 / 900 Balance 775 / 775 276 / 276 330 / 330 Weight 57.1 kg Intake: IV 1305 / 1305 649 / 649 330 / 330 KCl Inj 10 MEQ In D5W/LR Inj 1, 1005 / 1005 649 / 649 330 / 330 000 ML @ 84 mls/hr IV.CONT . [id number] SELMA Rx#:[id number] KCl 20 mEq Premix Inj 20 meq In 300 / 300 100 ml @ 50 mls/hr IV.SIG Q2H SELMA Rx#:[id number] Oral 0 / 0 0 / 0 Tube Feeding 320 / 320 477 / 477 Tube Irrigant 30 / 30 Water Bolus Amount 50 / 50 20 / 20 Output: Urine 900 / 900 900 / 900 Pleural Fluid 0 / 0 0 / 0 Peritoneal Amount 0 / 0 0 / 0 Other: Date of Last Bowel Movement 10/26/17 10/26/17 # Bowel Movements 1 Narrative: GENERAL: Well-developed and well-nourished male SKIN: Warm and dry. HEAD: Atraumatic. Normocephalic. EYES: Pupils equal and round. No scleral icterus. No injection or drainage. ENT: No nasal bleeding or discharge. Mucous membranes pink and moist. NECK: Trachea midline. No JVD. Trach in place. No active bleeding. Patient has strong cough and good clearance CARDIOVASCULAR: Regular rate and rhythm. RESPIRATORY: No accessory muscle use. Clear to auscultation. Breath sounds equal bilaterally. GASTROINTESTINAL: Abdomen soft, non-tender, nondistended. Hepatic and splenic margins not palpable. MUSCULOSKELETAL: Extremities without clubbing, cyanosis, or edema. No obvious deformities. NEUROLOGICAL: Awake and alert. No obvious cranial nerve deficits. Motor grossly within normal limits. PSYCHIATRIC: Appropriate mood and affect; insight and judgment normal. 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 The patient then was admitted to the intensive care unit under the care of the fisher sponge hooking who treated the patient with IV steroids, supplemental oxygen, ventilation bundle. The patient is status post tracheostomy in OR on 10/17 by general surgery. Continue prednisone taper. ? 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 PEG tube was dislodged overnight on . Interventional radiology was consulted for placement of PEG tube. 10/24 PEG tube successfully replaced on 10/23, however patient as per RN report has not been tolerating bolus tube feedings. DC'd bolus tube feedings and start the patient on continuous tube feedings at 20 mL's per hour and we consult dietitian for further recommendations regarding appropriate goal. 10/26 dietitian recommended to continue Jevity 1.5 to a goal rate of 70 mL's per hour. Suspected aspiration pneumonia. Chest x-ray obtained on 10/20 shows stable exam with interstitial prominence predominantly at the bases. Patient initially started on IV vancomycin IV Zosyn empirically. ID consulted. Vancomycin discontinued. Continue p.o. Levaquin via PEG. Severe hypokalemia. Replace with IV potassium chloride and continue to monitor BMP. Discharge Planning: Continue to monitor in the chronic vent unit. The patient could be discharged once he reaches the tube feeding rate at 70 mL's per hour. Patient also still with high levels of oxygen. Will need pulmonary clearance.
[2017-10-27 17:27] LABS: Anion Gap 9 meq/L (5-15); Blood Urea Nitrogen 11 mg/dL (7-18); Calcium 8.1 mg/dL (8.5-10.1); Carbon Dioxide 26.8 meq/L (21.0-32.0); Chloride 106 meq/L (98-107); Glomerular Filtration Rate Greater Than 89 mL/min (>89); Glucose,Random 155 mg/dL (74-106); Potassium 3.7 meq/L (3.5-5.1); Sodium 142 meq/L (136-145)
[2017-10-27] MEDS: Chlorhexidine Gluconate 0.12% Liq 15 ML UDC SWISH-SPIT SCH (20:09)
[2017-10-28] MEDS: Insulin NovoLOG Aspart Correctional Sugar Inj SQ SCH ×4 (00:16→16:02)
[2017-10-28] MEDS: Oral Hygiene Kit OROPHARYNG SCH ×4 (00:16→16:00)
--- NOTE | 2017-10-28 06:00 | XR ---
EXAM DATE: 10/28/2017 5:52 AM EDT AGE/SEX: 62 years / Male INDICATIONS: Hemoptysis. CLINICAL DATA: This is the patient's initial encounter. Patient reports that signs and symptoms have been present for 1 day and indicates a pain score of 0/10. MEDICAL/SURGICAL HISTORY: None. None. COMPARISON: [facility] – [place], CHEST 1V SINGLE AP, 10/22/2017. . FINDINGS: 2 AP views of the chest. Tracheostomy tube remains in place. Mild bilateral pulmonary opacity right g reater than left not significantly changed. No evidence of pleural effusion or pneumothorax. Cardiome diastinal silhouette unchanged. CONCLUSION: Right greater than left diffuse pulmonary opacity unchanged. Electronically signed by: Audi Olivarez MD 10/28/2017 5:58 AM EDT
[2017-10-28 06:11] LABS: Eos % (Auto) 0.2 % (0.0-4.0); Hemoglobin 10.4 gm/dL (13.0-17.0); Lymph # (Auto) 0.3 th/mm3 (1.0-4.8); Lymph % (Auto) 2.3 % (9.0-44.0); Mean Corpuscular HGB Conc 32.6 % (32.0-36.0); Mean Corpuscular Hemoglobin 26.9 pg (27.0-34.0); Mean Corpuscular Volume 82.4 fL (80.0-100.0); Mono # (Auto) 0.8 th/mm3 (0.0-0.9); Mono % (Auto) 5.7 % (0.0-8.0); Neut # (Auto) 13.1 th/mm3 (1.8-7.7); Neut % (Auto) 91.8 % (16.0-70.0); Platelet Count 242 th/mm3 (150-450); Red Blood Count 3.88 mil/mm3 (4.50-5.90); Red Cell Distribution Width 15.4 % (11.6-17.2); White Blood Count 14.3 th/mm3 (4.0-11.0)
[2017-10-28 07:19] LABS: Alkaline Phosphatase 92 U/L (45-117); Total Protein 5.7 g/dL (6.4-8.2)
[2017-10-28 07:26] LABS: Alanine Aminotransferase 53 U/L (12-78); Anion Gap 8 meq/L (5-15); Aspartate Aminotransferase 23 U/L (15-37); Blood Urea Nitrogen 10 mg/dL (7-18); Calcium 8.2 mg/dL (8.5-10.1); Carbon Dioxide 27.7 meq/L (21.0-32.0); Chloride 107 meq/L (98-107); Glomerular Filtration Rate Greater Than 89 mL/min (>89); Glucose,Random 102 mg/dL (74-106); Potassium 3.7 meq/L (3.5-5.1); Sodium 143 meq/L (136-145)
[2017-10-28] MEDS: Potassium Chloride Inj 10 MEQ in Dextrose 5%/Lactated Ringer's 1,000 ML IV.CONT SCH ×2 (08:05→10:55)
[2017-10-28] MEDS: levoFLOXacin 750 MG Tablet NG/OG SCH (09:00)
[2017-10-28] MEDS: predniSONE 20 MG Tablet G-TUBE SCH (09:00)
[2017-10-28] MEDS: Artificial Tears Opth Drops 15 ML Bottle EACH EYE SCH ×3 (10:13→18:00)
[2017-10-28] MEDS: Famotidine PF Inj 20 MG/2 ML Vial IV.PUSH SCH ×2 (10:13→21:20)
--- NOTE | 2017-10-28 10:32 | P.PNCC ---
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 Coello, status post 35 sessions of radiation therapy, followed by Dr. Obregon, complicated by progressive difficulty swallowing and pain in his throat. 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 He underwent PEG tube placement and he began hyperbaric oxygen. Mr. Acuna presents today to emergency department complaining of worsening shortness of breath over the last 2 days, gradually worsening. This morning, upon awakening, patient started complaining of severe shortness of breath, associated with epistaxis and spitting up blood. Per there was no fever, chills, chest pain, palpitations, abdominal pain, diarrhea, dysuria. Patient was coughing, mostly dry and it is chronic. Of note, patient was recently treated for a possible URI by Dr. Coello with a cephalosporin. On ED arrival patient was hypoxic down to 50% on room air in severe distress. Patient was placed on BiPAP with slow improvement in his O2 saturation. Due to increased work of breathing and tachypnea patient was emergently intubated by anesthesia. He was given 1 dose of hydrocortisone, 1 L of saline and anti-nausea medication. Patient is currently intubated and sedated, family is present at bedside. Bloody secretions coming out of the ET tube are being noticed. 10/16: Per nursing staff, over the night patient had a brief moment of asystole. Unclear if it was lead related but lasted less than 30 seconds. No CPR was done per report since patient regained a rhythm right away. Sedation with propofol was changed to Versed infusion. Currently patient is on Versed and fentanyl. He sedated and intubated, unresponsive. T-max of 98.1, urine output over the last 24 hours 950 mL. FiO2 down 0.4. No family present at bedside. 10/17: No acute events overnight. The patient is status post tracheostomy in the OR this am. The patient continues to be on FiO2 40% with O2 saturation of 92% the patient continues on steroids and antibiotics, currently. Jevity 1.5 tube feeds initiated the patient normally is on Isosource at home. 10/18: CPAP trials initiated this a.m.. After several hours the patient became agitated requiring Ativan 1 mg IV with resolution of symptoms. Dietary requirements change to home dosing Jevity 1.5 240 cc every 3 hours bolus dosing , with free water. Patient awake and alert nodding yes and no to questions denies any discomfort. Tracheostomy site without erythema bruising or drainage. 10/19: The patient was initiated on trach collar trials today, and continues on trach collar in no distress. Patient received bolus feedings today one episode of nausea resolved with Zofran. Patient denies pain. 10/20: Patient placed back on CPAP last evening, patient resumed on trach collar trials this afternoon. Sputum culture resulted gram-negative rods the patient continues on Zosyn slight elevation in WBC count, steroids possibly contributory. ID has been consulted. Steroid taper in progress. 10/21: Patient continues on trach collar since yesterday afternoon. No respiratory distress. The patient up out of bed sitting in chair without difficulty noted Klebsiella pneumoniae was noted in the sputum the patient continues on Zosyn and vancomycin was discontinued. ID is following. Plan transfer out of the ICU today possibly, Dr. Kelly adobe maker is following patient. FiO2 requirements decreased patient currently on humidified oxygen 40% . 10/28: Critical CARE REconsulted for hemoptysis this morning by Dr. Lamonte Kelly. Patient reportedly had trinity blood suctioned out of tracheostomy about 200 cc and was placed on 100% FiO2 via T-piece. stat chest x-raY revealed clear lung baltazar. When I evaluated the patient he was resting comfortably in bed not in any acute distress not using accessory muscles of respiration. He did not have any active bleeding from tracheostomy at the time of my evaluation. His FiO2 was decreased to 50% via T piece which he tolerated well. CT soft tissues neck and chest with IV contrast ordered for further evaluation. Patient tells me that his ENT physician is Dr. Culp who will be consulted for further evaluation. Objective Vital Signs / I&O: Vital Signs 10/27/17 12:00 10/27/17 15:41 10/27/17 16:00 Temperature Pulse Rate 85 Respiratory Rate 16 Blood Pressure Pulse Oximetry 99 99 10/27/17 18:00 10/27/17 20:00 10/28/17 00:00 Temperature 98.9 F 97.4 F L Pulse Rate 90 89 Respiratory Rate 16 16 Blood Pressure 105/59 L 100/48 L Pulse Oximetry 99 99 99 10/28/17 04:00 10/28/17 05:15 10/28/17 06:00 Temperature 97.8 F Pulse Rate 93 H Respiratory Rate 18 Blood Pressure 120/57 L Pulse Oximetry 99 98 98 10/28/17 07:15 10/28/17 08:00 10/28/17 08:30 Temperature 99.9 F H Pulse Rate 110 H Respiratory Rate 20 Blood Pressure 131/60 Pulse Oximetry 100 100 97 10/28/17 08:44 10/28/17 09:05 Temperature 99.8 F H Pulse Rate 104 H Respiratory Rate 20 18 Blood Pressure 144/69 H Pulse Oximetry 99 99 Intake & Output 10/27/17 10/28/17 10/28/17 18:59 06:59 18:59 Intake Total 1570 / 1570 2070 / 2070 Output Total 1400 / 1400 1070 / 1070 Balance 170 / 170 1000 / 1000 Weight 56.1 kg Intake: IV 330 / 330 1100 / 1100 KCl Inj 10 MEQ In D5W/LR Inj 1, 330 / 330 1000 / 1000 000 ML @ 84 mls/hr IV.CONT . [id number] [facility] Rx#:[id number] Oral 0 / 0 Tube Feeding 840 / 840 840 / 840 Tube Irrigant 400 / 400 30 / 30 Water Bolus Amount 100 / 100 Output: Blood Draw 220 / 220 Urine 1400 / 1400 850 / 850 Pleural Fluid 0 / 0 Peritoneal Amount 0 / 0 Other: Date of Last Bowel Movement 10/26/17 10/28/17 10/28/17 # Bowel Movements 1 Result Diagrams: 10/28/17 05:35 10/28/17 05:35 Imaging: ITS Impressions Chest X-Ray 10/22/17 00:00 CONCLUSION: Basilar opacity similar to October 20. Stable interstitial prominence. Gastrostomy Tube Placement 10/23/17 00:00 CONCLUSION: Uncomplicated fluoroscopic guided gastrostomy tube replacement as described above. Chest X-Ray 10/28/17 05:28 CONCLUSION: Right greater than left diffuse pulmonary opacity unchanged. Objective Remarks: General: Middle-aged gentleman, cachectic, chronically ill-appearing, tracheostomy with trach collar laying in bed, not in any acute distress HEENT: Pupils are equal, reactive, sclerae are anicteric Neck: tracheostomy in place, blood noted in trach tubing. CV: Regular heart sounds, no murmurs appreciated Chest: On T-piece 50% FiO2, good air entry bilaterally no wheezing or crackles. Abdomen: Soft, non-tender, cachectic, non-distended, BS present, + PEG Extremities: Warm and well perfused, no edema, + peripheral pulses, no clubbing Neuro: AAO x3, following commands x 4 extremities. Communication by mouthing words and shaking head to yes and no questions. Using a writing board to communicate. Assessment and Plan - Assessment and Plan Plan: Assessment and Plan 1. Acute hypercapnic and hypoxic respiratory failure 2. Acute COPD exacerbation -severe emphysema 3. Moderate to severe upper airway compromise 4. 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 Bloody secretions coming from tracheostomy tube -it is unclear if the blood represents hemoptysis versus blood from the upper airway tracking down into the lower airway 6. Possible aspiration pneumonia 7. Lactic acidosis -resolved 8. Recent Klebsiella pneumonia Neuro: Follow neuro status. Pain medications as needed. Cardiovascular: Watch for hypotension. IV hydration. Pulmonary: Remains on T-piece. Will use mechanical ventilation if needed. Chest x-ray appears clear, awaiting CT soft tissues neck and chest for further evaluation of bleeding from tracheostomy. Dr. Culp from ENT who follows patient for his pyriform sinus cancer consulted for further evaluation. Dr. Huan Kelly from pulmonary following. GI/liver: On PEG feeds. Minimal amount of dark blood suctioned out of PEG tube site probably from trickling down the esophagus from site of bleeding from his laryngeal CA. Renal/: IV hydration, strict intake output, monitor and replete electrodes, follow BUN/creatinine. Hemonc: Follow CBC. Transfuse to keep hemoglobin above 8 g percent. Consult to Dr. meeks for further evaluation of hemoptysis which is probably from laryngeal CA site. Endocrine: Watch for hyperglycemia, SSI for glycemic control if needed. Prophylaxis: Pepcid/SCDs. Hold Lovenox/heparin in view of hemoptysis Further recommendations per ENT/pulmonary.
[2017-10-28] MEDS: Sod Chloride 0.9% Inj 1,000 ML IV.CONT SCH (10:45)
--- NOTE | 2017-10-28 12:12 | CT ---
EXAM DATE: 10/28/2017 12:05 PM EDT AGE/SEX: 62 years / Male INDICATIONS: Hemoptysis, history of sinus and laryngeal cancer. CLINICAL DATA: This is the patient's initial encounter. Patient reports that signs and symptoms have been present for 1 day and indicates a pain score of 0/10. MEDICAL/SURGICAL HISTORY: Chronic obstructive pulmonary disease. sinus and laryngeal cancer . G-tu be, tracheotomy. RADIATION DOSE: 12.18 CTDI (mGy) COMPARISON: [facility] – [place], CT SOFT TISSUE NECK W CONTRAST, 09/22/2017. . TECHNIQUE: Helical acquisition was performed using a multirow detector CT scanner during the adminis tration of 81 ml Omnipaque 350 (iohexol) nonionic water-soluble contrast as a cumulative dose for mu ltiple exams. Using automated exposure control and adjustment of the mA and/or kV according to patie nt size, radiation dose was kept as low as reasonably achievable to obtain optimal diagnostic quality images. DICOM format image data is available electronically for review and comparison. FINDINGS: Nasopharynx: The nasopharyngeal airway has a normal configuration. No mucosal thickening or mass is seen. Oropharynx: The intrinsic muscles of the tongue are symmetric. The tonsillar pillars are intact. T he prevertebral soft tissues are not thickened. Larynx: Diffuse soft tissue prominence within the larynx. The thyroid cartilage is again noted to be displaced on the right with air again seen. Parapharyngeal: The parapharyngeal space is intact. Salivary Glands: The parotid and submandibular glands are intact. Lymph Nodes: No enlarged or necrotic-appearing nodes. Thyroid: Homogeneous enhancement with the exception of 11 mm left thyroid nodule. Bones: Tracheostomy tube is seen. CONCLUSION: 1. Tracheostomy tube. 2. Soft tissue prominence throughout the larynx with displacement of the right thyroid cartilage and adjacent air again seen. 3. Left thyroid nodule. Electronically signed by: Michael Santiago MD 10/28/2017 12:10 PM EDT
--- NOTE | 2017-10-28 12:15 | CT ---
EXAM DATE: 10/28/2017 12:07 PM EDT AGE/SEX: 62 years / Male INDICATIONS: Hemoptysis, history of sinus and laryngeal cancer. CLINICAL DATA: This is the patient's initial encounter. Patient reports that signs and symptoms have been present for 1 day and indicates a pain score of 0/10. MEDICAL/SURGICAL HISTORY: Chronic obstructive pulmonary disease. sinus and laryngeal cancer . G-tu be, tracheotomy RADIATION DOSE: 10.51 CTDI (mGy) COMPARISON: [facility] – [place], CT PULMONARY ANGIOGRAM, 10/15/2017. . TECHNIQUE: Multiple contiguous axial images were obtained through the chest during bolus infusion of 81 ml Omnipaque 350 (iohexol) nonionic water-soluble contrast as a cumulative dose for multiple exa ms. Images were obtained in suspended respiration using multiple row detector helical technique. U sing automated exposure control and adjustment of the mA and/or kV according to patient size, radiati on dose was kept as low as reasonably achievable to obtain optimal diagnostic quality images. DICOM format image data is available electronically for review and comparison. FINDINGS: Lungs: Severe centrilobular emphysema. Slight interstitial densities in the lower lobes and right up per lobe. Majority of airspace disease left lower lobe has resolved. Mediastinum: There is good visualization of the great vessels of the middle mediastinum. No evidenc e of mediastinal or hilar adenopathy/mass. Pleurae: No evidence of focal thickening or pleural effusion. Axillae: Unremarkable. Bony Structures: Unremarkable. Miscellaneous: The examination was extended to include the upper abdomen, and both adrenal glands ar e normal in size and configuration. Tracheostomy tube in good position. CONCLUSION: 1. Severe emphysema with prominent interstitial densities in the lower lobes and right upper lobe. T he overall appearance has improved from previous study. 2. Tracheostomy tube. Electronically signed by: Michael Santiago MD 10/28/2017 12:13 PM EDT
[2017-10-29] MEDS: Insulin NovoLOG Aspart Correctional Sugar Inj SQ SCH ×3 (06:00→12:00)
[2017-10-29] MEDS: Famotidine PF Inj 20 MG/2 ML Vial IV.PUSH SCH ×2 (09:00→21:05)
[2017-10-29] MEDS: levoFLOXacin 750 MG Tablet NG/OG SCH (09:00)
[2017-10-29] MEDS: Artificial Tears Opth Drops 15 ML Bottle EACH EYE SCH ×2 (09:00→13:00)
[2017-10-29] MEDS: predniSONE 20 MG Tablet G-TUBE SCH (09:00)
--- NOTE | 2017-10-29 09:51 | P.PNCC ---
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 Coello, status post 35 sessions of radiation therapy, followed by Dr. Obregon, complicated by progressive difficulty swallowing and pain in his throat. 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 He underwent PEG tube placement and he began hyperbaric oxygen. Mr. Acuna presents today to emergency department complaining of worsening shortness of breath over the last 2 days, gradually worsening. This morning, upon awakening, patient started complaining of severe shortness of breath, associated with epistaxis and spitting up blood. Per there was no fever, chills, chest pain, palpitations, abdominal pain, diarrhea, dysuria. Patient was coughing, mostly dry and it is chronic. Of note, patient was recently treated for a possible URI by Dr. Coello with a cephalosporin. On ED arrival patient was hypoxic down to 50% on room air in severe distress. Patient was placed on BiPAP with slow improvement in his O2 saturation. Due to increased work of breathing and tachypnea patient was emergently intubated by anesthesia. He was given 1 dose of hydrocortisone, 1 L of saline and anti-nausea medication. Patient is currently intubated and sedated, family is present at bedside. Bloody secretions coming out of the ET tube are being noticed. 10/16: Per nursing staff, over the night patient had a brief moment of asystole. Unclear if it was lead related but lasted less than 30 seconds. No CPR was done per report since patient regained a rhythm right away. Sedation with propofol was changed to Versed infusion. Currently patient is on Versed and fentanyl. He sedated and intubated, unresponsive. T-max of 98.1, urine output over the last 24 hours 950 mL. FiO2 down 0.4. No family present at bedside. 10/17: No acute events overnight. The patient is status post tracheostomy in the OR this am. The patient continues to be on FiO2 40% with O2 saturation of 92% the patient continues on steroids and antibiotics, currently. Jevity 1.5 tube feeds initiated the patient normally is on Isosource at home. 10/18: CPAP trials initiated this a.m.. After several hours the patient became agitated requiring Ativan 1 mg IV with resolution of symptoms. Dietary requirements change to home dosing Jevity 1.5 240 cc every 3 hours bolus dosing , with free water. Patient awake and alert nodding yes and no to questions denies any discomfort. Tracheostomy site without erythema bruising or drainage. 10/19: The patient was initiated on trach collar trials today, and continues on trach collar in no distress. Patient received bolus feedings today one episode of nausea resolved with Zofran. Patient denies pain. 10/20: Patient placed back on CPAP last evening, patient resumed on trach collar trials this afternoon. Sputum culture resulted gram-negative rods the patient continues on Zosyn slight elevation in WBC count, steroids possibly contributory. ID has been consulted. Steroid taper in progress. 10/21: Patient continues on trach collar since yesterday afternoon. No respiratory distress. The patient up out of bed sitting in chair without difficulty noted Klebsiella pneumoniae was noted in the sputum the patient continues on Zosyn and vancomycin was discontinued. ID is following. Plan transfer out of the ICU today possibly, Dr. Kelly senior teradata developer is following patient. FiO2 requirements decreased patient currently on humidified oxygen 40% . 10/28: Critical CARE REconsulted for hemoptysis this morning by Dr. Lamonte Kelly. Patient reportedly had trinity blood suctioned out of tracheostomy about 200 cc and was placed on 100% FiO2 via T-piece. stat chest x-raY revealed clear lung baltazar. When I evaluated the patient he was resting comfortably in bed not in any acute distress not using accessory muscles of respiration. He did not have any active bleeding from tracheostomy at the time of my evaluation. His FiO2 was decreased to 50% via T piece which he tolerated well. CT soft tissues neck and chest with IV contrast ordered for further evaluation. Patient tells me that his ENT physician is Dr. Culp who will be consulted for further evaluation. 10/29: Minimal blood suctioned out from tracheostomy overnight. Patient did have some oozing during daytime. Discussed with Dr. meeks yesterday as well as with Dr. Lamonte Kelly and interventional radiology. If patient has major rebleeding will plan on getting CTA and attempt possible embolization by IR. This morning patient is on 28% FiO2 T-piece. He appears comfortable and not in any acute distress. Objective Vital Signs / I&O: Vital Signs 10/28/17 10:00 10/28/17 12:00 10/28/17 14:00 Temperature 97.9 F 98.4 F 98.9 F Pulse Rate 90 86 95 H Respiratory Rate 20 20 20 Blood Pressure 125/66 135/64 118/58 L Pulse Oximetry 98 99 96 10/28/17 15:30 10/28/17 16:00 10/28/17 18:00 Temperature 99.5 F 99.1 F Pulse Rate 93 H 110 H 120 H Respiratory Rate 20 20 20 Blood Pressure 131/60 150/71 H Pulse Oximetry 100 95 10/28/17 20:00 10/28/17 21:00 10/28/17 22:00 Temperature 98.2 F 98.2 F Pulse Rate 95 H 95 H Respiratory Rate 11 L 11 L Blood Pressure 150/71 H 150/71 H Pulse Oximetry 97 100 100 10/28/17 23:00 10/28/17 23:55 10/28/17 23:56 Temperature 98.4 F Pulse Rate 93 H Respiratory Rate 12 Blood Pressure 109/48 L Pulse Oximetry 100 100 100 10/29/17 01:00 10/29/17 01:48 10/29/17 01:49 Temperature 98.8 F Pulse Rate 108 H Respiratory Rate 12 Blood Pressure 112/52 L Pulse Oximetry 100 97 97 10/29/17 03:00 10/29/17 04:00 10/29/17 05:00 Temperature 98.6 F Pulse Rate 91 H Respiratory Rate 11 L Blood Pressure 134/65 Pulse Oximetry 96 97 97 10/29/17 06:00 10/29/17 08:38 Temperature 97.7 F Pulse Rate 92 H 85 Respiratory Rate 11 L 17 Blood Pressure 114/51 L Pulse Oximetry 96 97 Intake & Output 10/28/17 10/29/17 10/29/17 18:59 06:59 18:59 Intake Total 2230 / 2230 292 / 292 Output Total 1550 / 1550 1470 / 1470 Balance 680 / 680 -1178 / -1178 Weight 64.3 kg Intake: IV 1240 / 1240 KCl Inj 10 MEQ In D5W/LR Inj 1, 1240 / 1240 000 ML @ 84 mls/hr IV.CONT . [id number] [facility] Rx#:[id number] Oral 0 / 0 Tube Feeding 840 / 840 262 / 262 Tube Irrigant 30 / 30 Water Bolus Amount 150 / 150 0 / 0 Output: Blood Draw 250 / 250 250 / 250 Urine 1300 / 1300 1000 / 1000 Stool 120 / 120 Emesis 100 / 100 Pleural Fluid 0 / 0 Peritoneal Amount 0 / 0 Other: # Voids 4 4 Date of Last Bowel Movement 10/28/17 10/28/17 # Bowel Movements 1 # Emeses 1 Result Diagrams: 10/28/17 05:35 10/28/17 05:35 Objective Remarks: General: Middle-aged gentleman, cachectic, chronically ill-appearing, tracheostomy with trach collar laying in bed, not in any acute distress HEENT: Pupils are equal, reactive, sclerae are anicteric Neck: tracheostomy in place, blood-tinged secretions noted in trach tubing. CV: Regular heart sounds, no murmurs appreciated Chest: On T-piece 50% FiO2, good air entry bilaterally no wheezing or crackles. Abdomen: Soft, non-tender, cachectic, non-distended, BS present, + PEG Extremities: Warm and well perfused, no edema, + peripheral pulses, no clubbing Neuro: AAO x3, following commands x 4 extremities. Communication by mouthing words and shaking head to yes and no questions. Using a writing board to communicate. Assessment and Plan - Assessment and Plan Plan: Assessment and Plan 1. Acute hypercapnic and hypoxic respiratory failure 2. Acute COPD exacerbation -severe emphysema 3. Moderate to severe upper airway compromise 4. 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 Bloody secretions coming from tracheostomy tube -it is unclear if the blood represents hemoptysis versus blood from the upper airway tracking down into the lower airway 6. Possible aspiration pneumonia 7. Lactic acidosis -resolved 8. Recent Klebsiella pneumonia Neuro: Follow neuro status. Pain medications as needed. Cardiovascular: Watch for hypotension. IV hydration. Pulmonary: Remains on T-piece. Will use mechanical ventilation if needed. Chest x-ray appears clear, awaiting CT soft tissues neck and chest for further evaluation of bleeding from tracheostomy. Dr. Culp from ENT who follows patient for his pyriform sinus cancer consulted for further evaluation. Dr. Huan Kelly from pulmonary following. Per discussion with Dr. Culp and Dr. Kelly on 10/28, if patient has major rebleeding will consider obtaining CTA and angiogram with possible embolization of bleeding site by interventional radiology GI/liver: On PEG feeds. Minimal amount of dark blood suctioned out of PEG tube site probably from trickling down the esophagus from site of bleeding from his laryngeal CA. Renal/: IV hydration, strict intake output, monitor and replete electrodes, follow BUN/creatinine. Hemonc: Follow CBC. Transfuse to keep hemoglobin above 8 g percent. Consult to Dr. meeks for further evaluation of hemoptysis which is probably from laryngeal CA site. Endocrine: Watch for hyperglycemia, SSI for glycemic control if needed. Prophylaxis: Pepcid/SCDs. Hold Lovenox/heparin in view of hemoptysis Further recommendations per ENT/pulmonary.
[2017-10-29 10:34] LABS: Baso % (Auto) 0.1 % (0.0-2.0); Eos # (Auto) 0.1 th/mm3 (0.0-0.4); Eos % (Auto) 0.5 % (0.0-4.0); Hematocrit 31.4 % (39.0-51.0); Hemoglobin 9.9 gm/dL (13.0-17.0); Lymph # (Auto) 0.3 th/mm3 (1.0-4.8); Lymph % (Auto) 2.2 % (9.0-44.0); Mean Corpuscular HGB Conc 31.5 % (32.0-36.0); Mean Corpuscular Hemoglobin 26.5 pg (27.0-34.0); Mean Corpuscular Volume 84.3 fL (80.0-100.0); Mean Platelet Volume 8.7 fL (7.0-11.0); Mono # (Auto) 0.8 th/mm3 (0.0-0.9); Mono % (Auto) 6.6 % (0.0-8.0); Neut # (Auto) 10.7 th/mm3 (1.8-7.7); Neut % (Auto) 90.6 % (16.0-70.0); Platelet Count 235 th/mm3 (150-450); Red Blood Count 3.72 mil/mm3 (4.50-5.90); Red Cell Distribution Width 16.1 % (11.6-17.2); White Blood Count 11.8 th/mm3 (4.0-11.0)
[2017-10-29] MEDS: Oral Hygiene Kit OROPHARYNG SCH ×3 (12:00→19:55)
[2017-10-29 12:20] LABS: Albumin 1.9 g/dL (3.4-5.0); Anion Gap 10 meq/L (5-15); Aspartate Aminotransferase 19 U/L (15-37); Blood Urea Nitrogen 9 mg/dL (7-18); Calcium 8.5 mg/dL (8.5-10.1); Carbon Dioxide 24.7 meq/L (21.0-32.0); Chloride 108 meq/L (98-107); Glomerular Filtration Rate Greater Than 89 mL/min (>89); Glucose,Random 104 mg/dL (74-106); Potassium 3.1 meq/L (3.5-5.1); Sodium 143 meq/L (136-145)
[2017-10-29 12:25] LABS: Alanine Aminotransferase 52 U/L (12-78); Alkaline Phosphatase 87 U/L (45-117); Total Protein 5.7 g/dL (6.4-8.2)
[2017-10-29] MEDS ORDERED: Potassium Chloride 25 MEQ Effervescent Tablet G-TUBE ONE (16:21)
[2017-10-29] MEDS: KCL 20 mEq/NACL 0.45% Inj 1,000 ML IV.CONT SCH (18:45)
[2017-10-29] MEDS: Potassium Chloride Inj 10 MEQ in Dextrose 5%/Lactated Ringer's 1,000 ML IV.CONT SCH ×2 (19:55→19:56)
[2017-10-29] MEDS: Sod Chloride 0.9% Inj 1,000 ML IV.CONT SCH (19:55)
[2017-10-30] MEDS: Famotidine PF Inj 20 MG/2 ML Vial IV.PUSH SCH ×2 (09:08→21:41)
[2017-10-30] MEDS: predniSONE 20 MG Tablet G-TUBE SCH (09:09)
[2017-10-30 09:12] LABS: Alanine Aminotransferase 46 U/L (12-78); Alkaline Phosphatase 86 U/L (45-117); Anion Gap 12 meq/L (5-15); Aspartate Aminotransferase 30 U/L (15-37); Blood Urea Nitrogen 8 mg/dL (7-18); Calcium 8.7 mg/dL (8.5-10.1); Carbon Dioxide 22.1 meq/L (21.0-32.0); Chloride 106 meq/L (98-107); Glomerular Filtration Rate Greater Than 89 mL/min (>89); Glucose,Random 69 mg/dL (74-106); Potassium 4.2 meq/L (3.5-5.1)
[2017-10-30 09:17] LABS: Sodium 140 meq/L (136-145)
[2017-10-30 11:45] LABS: Baso # (Auto) 0.1 th/mm3 (0.0-0.2); Baso % (Auto) 0.9 % (0.0-2.0); Eos % (Auto) 0.1 % (0.0-4.0); Hematocrit 32.8 % (39.0-51.0); Hemoglobin 10.7 gm/dL (13.0-17.0); Lymph # (Auto) 0.2 th/mm3 (1.0-4.8); Lymph % (Auto) 1.3 % (9.0-44.0); Mean Corpuscular HGB Conc 32.4 % (32.0-36.0); Mean Corpuscular Hemoglobin 26.8 pg (27.0-34.0); Mean Corpuscular Volume 82.7 fL (80.0-100.0); Mean Platelet Volume 8.7 fL (7.0-11.0); Mono # (Auto) 0.9 th/mm3 (0.0-0.9); Mono % (Auto) 6.4 % (0.0-8.0); Neut # (Auto) 12.6 th/mm3 (1.8-7.7); Neut % (Auto) 91.3 % (16.0-70.0); Platelet Count 249 th/mm3 (150-450); Red Blood Count 3.97 mil/mm3 (4.50-5.90); Red Cell Distribution Width 16.4 % (11.6-17.2); White Blood Count 13.9 th/mm3 (4.0-11.0)
--- NOTE | 2017-10-30 16:35 | P.PN ---
Subjective Interval history: alert no SOB Physical Exam Vital signs: Vital Signs 10/29/17 16:36 10/29/17 16:37 10/29/17 18:00 Temperature 98.7 F Pulse Rate 87 100 H Respiratory Rate 18 18 Blood Pressure 110/58 L Pulse Oximetry 94 L 10/29/17 20:00 10/29/17 20:07 10/30/17 00:00 Temperature 98.3 F 98.3 F Pulse Rate 89 100 H 81 Respiratory Rate 18 22 18 Blood Pressure 119/60 121/62 Pulse Oximetry 100 98 10/30/17 04:00 10/30/17 08:00 10/30/17 08:03 Temperature 97.7 F 98.2 F Pulse Rate 81 97 H Respiratory Rate 18 14 Blood Pressure 157/75 H 130/64 Pulse Oximetry 98 99 95 10/30/17 08:05 10/30/17 12:00 10/30/17 12:59 Temperature 98.4 F Pulse Rate 92 H 89 90 Respiratory Rate 18 14 18 Blood Pressure 116/65 Pulse Oximetry 98 Intake & Output 10/29/17 10/30/17 10/30/17 18:59 06:59 18:59 Intake Total 1300 / 1300 0 / 0 Output Total 500 / 500 2200 / 2200 Balance 800 / 800 -2200 / -2200 Weight 58 kg Intake: IV 1000 / 1000 NS Inj 1,000 ML @ 84 mls/hr IV. 1000 / 1000 CONT .[id number] [facility] Rx#:[id number] Oral 0 / 0 Tube Feeding 200 / 200 0 / 0 Tube Irrigant 100 / 100 Water Bolus Amount 0 / 0 Output: Urine 500 / 500 2200 / 2200 Pleural Fluid 0 / 0 Peritoneal Amount 0 / 0 Other: # Voids 2 Date of Last Bowel Movement 10/29/17 10/29/17 Narrative: GENERAL: Well-developed and well-nourished male SKIN: Warm and dry. HEAD: Atraumatic. Normocephalic. EYES: Pupils equal and round. No scleral icterus. No injection or drainage. ENT: No nasal bleeding or discharge. Mucous membranes pink and moist. NECK: Trachea midline. No JVD. Trach in place. No active bleeding. Patient has strong cough and good clearance CARDIOVASCULAR: Regular rate and rhythm. RESPIRATORY: No accessory muscle use. Clear to auscultation. Breath sounds equal bilaterally. GASTROINTESTINAL: Abdomen soft, non-tender, nondistended. Hepatic and splenic margins not palpable. MUSCULOSKELETAL: Extremities without clubbing, cyanosis, or edema. No obvious deformities. NEUROLOGICAL: Awake and alert. No obvious cranial nerve deficits. Motor grossly within normal limits. PSYCHIATRIC: Appropriate mood and affect; insight and judgment normal. Results - Labs CBC & Chem 7: 10/30/17 11:27 10/30/17 08:21 Laboratory Results - last 24 hr 10/30/17 10/30/17 08:21 11:27 WBC 13.9 H RBC 3.97 L Hgb 10.7 L Hct 32.8 L MCV 82.7 MCH 26.8 L MCHC 32.4 RDW 16.4 Plt Count 249 MPV 8.7 Neut % (Auto) 91.3 H Lymph % (Auto) 1.3 L [place] % (Auto) 6.4 Eos % (Auto) 0.1 Baso % (Auto) 0.9 Neut # (Auto) 12.6 H Lymph # (Auto) 0.2 L [place] # (Auto) 0.9 Eos # (Auto) 0.0 Baso # (Auto) 0.1 WBC Differential . Differential Comment Auto diff final Sodium 140 Potassium 4.2 D Chloride 106 Carbon Dioxide 22.1 Anion Gap 12 BUN 8 Creatinine 0.46 L Estimated GFR Greater than 89 Random Glucose 69 L Calcium 8.7 Total Bilirubin 0.6 AST 30 ALT 46 Alkaline Phosphatase 86 Total Protein 6.0 L Albumin 2.0 L Assessment and Plan - Plan laryngeal CA Post tracheostomy sutures removed PLAN O2 NEEDED PULMONARY TOILET INCREASE ACTIVITY
[2017-10-30] MEDS ORDERED: predniSONE 20 MG Tablet G-TUBE SCH (16:57)
[2017-10-30] MEDS: KCL 20 mEq/NACL 0.45% Inj 1,000 ML IV.CONT SCH ×2 (16:59→17:00)
--- NOTE | 2017-10-30 17:12 | P.PN ---
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 Patient seen and examined. Patient states he feels well. He denies any recurrence of bleeding from the trach site. He denies any fever chills. He denies any cough, chest pain or shortness of breath. He denies any nausea, vomiting or abdominal pain. He reports chronic loose stools that he attributes to the tube feeding. Discussed with nursing staff, no acute issues overnight. Physical Exam Vital signs: Vital Signs 10/29/17 18:00 10/29/17 20:00 10/29/17 20:07 Temperature 98.7 F 98.3 F Pulse Rate 100 H 89 100 H Respiratory Rate 18 18 22 Blood Pressure 110/58 L 119/60 Pulse Oximetry 100 10/30/17 00:00 10/30/17 04:00 10/30/17 08:00 Temperature 98.3 F 97.7 F 98.2 F Pulse Rate 81 81 97 H Respiratory Rate 18 18 14 Blood Pressure 121/62 157/75 H 130/64 Pulse Oximetry 98 98 99 10/30/17 08:03 10/30/17 08:05 10/30/17 12:00 Temperature 98.4 F Pulse Rate 92 H 89 Respiratory Rate 18 14 Blood Pressure 116/65 Pulse Oximetry 95 98 10/30/17 12:59 10/30/17 16:00 10/30/17 16:41 Temperature 98.5 F Pulse Rate 90 90 Respiratory Rate 18 12 15 Blood Pressure 128/82 Pulse Oximetry 99 Intake & Output 10/29/17 10/30/17 10/30/17 18:59 06:59 18:59 Intake Total 1300 / 1300 0 / 0 Output Total 500 / 500 2200 / 2200 Balance 800 / 800 -2200 / -2200 Weight 58 kg Intake: IV 1000 / 1000 NS Inj 1,000 ML @ 84 mls/hr IV. 1000 / 1000 CONT .[id number] [facility] Rx#:[id number] Oral 0 / 0 Tube Feeding 200 / 200 0 / 0 Tube Irrigant 100 / 100 Water Bolus Amount 0 / 0 Output: Urine 500 / 500 2200 / 2200 Pleural Fluid 0 / 0 Peritoneal Amount 0 / 0 Other: # Voids 2 Date of Last Bowel Movement 10/29/17 10/29/17 Narrative: GENERAL: This is a thin cachectic appearing middle-aged male, INAD. Awake and alert. SKIN: Warm and dry. No generalized rash. HEAD: Atraumatic. Normocephalic. EYES: EOMI. No scleral icterus. No injection or drainage. ENT: No nasal bleeding or discharge. Mucous membranes pink and moist. NECK: Trachea midline. Trach in place. No active bleeding. CARDIOVASCULAR: Regular rate and rhythm. RESPIRATORY: No accessory muscle use. Clear to auscultation. Breath sounds equal bilaterally. Trach in place. GASTROINTESTINAL: Abdomen soft, non-tender, nondistended. Hepatic and splenic margins not palpable. MUSCULOSKELETAL: Extremities without clubbing, cyanosis, or edema. No obvious deformities. NEUROLOGICAL: Awake and alert. No obvious cranial nerve deficits. Motor grossly within normal limits. Patient is able to effectively communicate by mouthing words, shaking his head yes or no and using a writing board. PSYCHIATRIC: Appropriate mood and affect; insight and judgment normal. Results - Labs CBC & Chem 7: 10/30/17 11:27 10/30/17 08:21 Laboratory Results - last 24 hr 10/30/17 10/30/17 08:21 11:27 WBC 13.9 H RBC 3.97 L Hgb 10.7 L Hct 32.8 L MCV 82.7 MCH 26.8 L MCHC 32.4 RDW 16.4 Plt Count 249 MPV 8.7 Neut % (Auto) 91.3 H Lymph % (Auto) 1.3 L [place] % (Auto) 6.4 Eos % (Auto) 0.1 Baso % (Auto) 0.9 Neut # (Auto) 12.6 H Lymph # (Auto) 0.2 L [place] # (Auto) 0.9 Eos # (Auto) 0.0 Baso # (Auto) 0.1 WBC Differential . Differential Comment Auto diff final Sodium 140 Potassium 4.2 D Chloride 106 Carbon Dioxide 22.1 Anion Gap 12 BUN 8 Creatinine 0.46 L Estimated GFR Greater than 89 Random Glucose 69 L Calcium 8.7 Total Bilirubin 0.6 AST 30 ALT 46 Alkaline Phosphatase 86 Total Protein 6.0 L Albumin 2.0 L Assessment and Plan - Assessment (1) Acute respiratory failure with hypoxia and hypercapnia Code(s): J96.01 - Acute respiratory failure with hypoxia; J96.02 - Acute respiratory failure with hypercapnia Status: Acute (2) COPD with exacerbation Code(s): J44.1 - Chronic obstructive pulmonary disease with (acute) exacerbation Status: Resolved (3) Squamous cell carcinoma of pyriform sinus Code(s): C12 - Malignant neoplasm of pyriform sinus Status: Chronic (4) Aspiration pneumonia Code(s): J69.0 - Pneumonitis due to inhalation of food and vomit Status: Acute (5) Dislodged gastrostomy tube Code(s): Z43.1 - Encounter for attention to gastrostomy Status: Resolved - Plan 62-year-old male with 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 He was initially intubated by anesthesia in the emergency department. The patient then was admitted to the intensive care unit under the care of the pad machine feeder who treated the patient with IV steroids , supplemental oxygen, ventilation bundle. The patient is status post tracheostomy in OR on 10/17 by general surgery. Recent episode of hemoptysis 10/28 Evaluated by critical care service Much improved. Per critical care service, if major rebleeding recurs, recommends CTA and possible embolization by IR. 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 PEG tube was dislodged overnight on . Interventional radiology was consulted for placement of PEG tube. 10/24 PEG tube successfully replaced on 10/23, however patient as per RN report has not been tolerating bolus tube feedings. DC'd bolus tube feedings and start the patient on continuous tube feedings at 20 mL's per hour and we consult dietitian for further recommendations regarding appropriate goal. 10/26 dietitian recommended to continue Jevity 1.5 to a goal rate of 70 mL's per hour. Suspected aspiration pneumonia. Chest x-ray obtained on 10/20 shows stable exam with interstitial prominence predominantly at the bases. Patient initially started on IV vancomycin IV Zosyn empirically. ID consulted. Vancomycin discontinued. On tapering dose of p.o. steroids Continue p.o. Levaquin via PEG. Severe hypokalemia. Replace with IV potassium chloride and continue to monitor BMP.
--- NOTE | 2017-10-31 07:32 | MB ---
cc: Kenton Lorenz MD DATE: 10/29/2017 CHIEF COMPLAINT: Hemoptysis. HISTORY OF PRESENT ILLNESS: This is a 62-year-old male known to [facility]. He is a patient of Dr. Culp. 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 He was subsequently treated with radiation therapy to this region. 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 The patient ended up having a feeding tube placed recently and then within the last 2 weeks ended up having a tracheostomy placed due to significant edema of his airway. A consult was placed again to ENT during the evening time because of bleeding around the trach site. The patient reports to me aware of other than what recently has been happening, for which he has been following closely with Dr. Obregon and Dr. Coello. PAST MEDICAL HISTORY: Significant for hypercholesterolemia, hypertension, laryngeal reflux disease, as well as the above-mentioned laryngeal cancer. PAST SURGICAL HISTORY: Significant for an oral surgery, as well as the direct laryngoscopy with biopsy, as well as recent tracheostomy, as well as feeding tube placement. SOCIAL HISTORY: The patient is currently not smoking. He was a former smoker and drank a large amount of alcohol prior to his diagnosis. REVIEW OF SYSTEMS: As above. PHYSICAL EXAMINATION: The patient is alert and oriented. He is in no acute distress. He is resting comfortably, visiting with family in the room. The patient's tracheostomy is in place. There is no bleeding noted around the tracheostomy, cannula is clean. The patient reports he has not bled in 1 day, but yesterday he did bleed significantly. Flexible laryngoscopy to the right naris reveals a normal-appearing nasopharynx and oropharynx, the hypopharynx, as well as the endolarynx shows significant edema. No obvious lesions or ulcerations are noted. No obvious masses are noted. There is no evidence of old blood noted. I am unable to see through the patient's glottis as there is significant amount of edema. The flexible scope was removed. It was then passed through the tracheostomy after the inner cannula was removed. The patient's mainstem, as well as right and left mainstem bronchi and trachea were free without any obvious bleeding, old blood, dry blood or ulcerations or lesions noted. Neck: Flat with no lymphadenopathy noted. ASSESSMENT AND PLAN: The patient with recent bleeding has not bled in 24 hours. I went over in detail with both his parks and recreation worker, as well as his nurse that there are several possibilities here. I will discuss things with his primary physicians including Dr. Obregon and Dr. 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 My recommendation at this time is that if the patient bleeds again, he should have an angiogram with possible embolization and continue to follow with his physicians for further treatment options for possible radionecrosis versus recurrence of his piriform sinus cancer. I did discuss this with Dr. Obregon via the phone and told him my concerns as well, as well as other possible treatment options for the patient should his larynx no longer be viable. They will continue to go over these with the patient in length. Otherwise, no recommendation again as if the patient bleeds, he should undergo an angiogram with possible embolization. Thank you for this consultation. Kenton Lorenz MD ATT/TL , 11:34 AM , 12:04 PM
[2017-10-31] MEDS: predniSONE 10 MG Tablet G-TUBE SCH (08:33)
[2017-10-31] MEDS: Famotidine PF Inj 20 MG/2 ML Vial IV.PUSH SCH ×2 (08:36→21:40)
[2017-10-31] MEDS: KCL 20 mEq/NACL 0.45% Inj 1,000 ML IV.CONT SCH (08:36)
--- NOTE | 2017-10-31 11:15 | P.PNIM ---
Subjective Interval history: Follow-up for bleeding from tracheostomy There allegedly was scant blood after suctioning yesterday and Monday but none today. Patient feels good, no pain on the trachea site. Has mild nausea but no vomiting. Also has mild diarrhea. Had hypoglycemia yesterday when tube feeds were held. Physical Exam Vital signs: Vital Signs 10/30/17 12:00 10/30/17 12:59 10/30/17 16:00 Temperature 98.4 F 98.5 F Pulse Rate 89 90 Respiratory Rate 14 18 12 Blood Pressure 116/65 128/82 Pulse Oximetry 98 99 10/30/17 16:41 10/30/17 20:00 10/31/17 00:00 Temperature 97.8 F 98.2 F Pulse Rate 90 100 H 96 H Respiratory Rate 15 16 14 Blood Pressure 114/64 118/58 L Pulse Oximetry 100 95 10/31/17 04:00 10/31/17 08:00 Temperature 97.4 F L 98.5 F Pulse Rate 90 90 Respiratory Rate 14 12 Blood Pressure 129/62 121/59 L Pulse Oximetry 97 96 Intake & Output 10/30/17 10/31/17 10/31/17 18:59 06:59 18:59 Intake Total 3340 / 3340 940 / 940 1000 / 1000 Output Total 1300 / 1300 1200 / 1200 Balance 2040 / 2040 -260 / -260 1000 / 1000 Weight 56.9 kg Intake: IV 1999 / 1999 1000 / 1000 Potassium Chlor 20 mEq/NACL 0. 2000 / 1999 1000 / 1000 45% Inj 1,000 ML @ 84 mls/hr IV .CONT .[id number] [facility] Rx#:[id number] Tube Feeding 140 / 140 840 / 840 Tube Irrigant 100 / 100 Other 1200 / 1200 Output: Urine 1300 / 1300 1200 / 1200 Other: Date of Last Bowel Movement 10/30/17 10/30/17 10/30/17 # Bowel Movements 1 Narrative: GENERAL: This is a thin cachectic appearing middle-aged male, INAD. Awake and alert. ENT: No nasal bleeding or discharge. Mucous membranes pink and moist. NECK: Trachea midline. Trach in place. No active bleeding. CARDIOVASCULAR: Regular rate and rhythm. RESPIRATORY: No accessory muscle use. Clear to auscultation. Breath sounds equal bilaterally. Trach in place. GASTROINTESTINAL: Abdomen soft, non-tender, nondistended. Hepatic and splenic margins not palpable. MUSCULOSKELETAL: Extremities without clubbing, cyanosis, or edema. No obvious deformities. NEUROLOGICAL: Awake and alert. No obvious cranial nerve deficits. Motor grossly within normal limits. Patient is able to effectively communicate by mouthing words. Results - Labs CBC & Chem 7: 10/31/17 11:23 10/31/17 12:18 Laboratory Results - last 24 hr 10/30/17 11:27 WBC 13.9 H RBC 3.97 L Hgb 10.7 L Hct 32.8 L MCV 82.7 MCH 26.8 L MCHC 32.4 RDW 16.4 Plt Count 249 MPV 8.7 Neut % (Auto) 91.3 H Lymph % (Auto) 1.3 L [place] % (Auto) 6.4 Eos % (Auto) 0.1 Baso % (Auto) 0.9 Neut # (Auto) 12.6 H Lymph # (Auto) 0.2 L [place] # (Auto) 0.9 Eos # (Auto) 0.0 Baso # (Auto) 0.1 WBC Differential . Differential Comment Auto diff final Assessment and Plan - Assessment (1) Acute respiratory failure with hypoxia and hypercapnia Code(s): J96.01 - Acute respiratory failure with hypoxia; J96.02 - Acute respiratory failure with hypercapnia Status: Acute (2) COPD with exacerbation Code(s): J44.1 - Chronic obstructive pulmonary disease with (acute) exacerbation Status: Resolved (3) Squamous cell carcinoma of pyriform sinus Code(s): C12 - Malignant neoplasm of pyriform sinus Status: Chronic (4) Aspiration pneumonia Code(s): J69.0 - Pneumonitis due to inhalation of food and vomit Status: Acute (5) Dislodged gastrostomy tube Code(s): Z43.1 - Encounter for attention to gastrostomy Status: Resolved - Plan 62-year-old male with 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 He was initially intubated by anesthesia in the emergency department. The patient then was admitted to the intensive care unit under the care of the air transport professionals who treated the patient with IV steroids , supplemental oxygen, ventilation bundle. The patient is status post tracheostomy in OR on 6/26 by general surgery. Recent episode of hemoptysis - presently bleeding appears to have stopped, Hgb is stable. Recheck CBC today, s/p direct laryngscopy by Dr. Lorenz 10/30, he also went down through the tracheostomy, no obvious source of bleeding, but unable to see through the glottis because of significant edema. Discussed with Dr. Coello, might need a laryngectomy. Will keep n.p.o. and hold tube feeds for now. Discussed with . If major bleeding occurs while awaiting surgery, might need CTA with embolization by IR care. 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 Continue tube feeds, currently on Jevity 1.5, has been having diarrhea, consult dietitian to change tube feeds. Suspected aspiration pneumonia. Chest x-ray obtained on 10/20 shows stable exam with interstitial prominence predominantly at the bases. Patient initially started on IV vancomycin IV Zosyn empirically. ID consulted. Antibiotics stopped, continue steroid taper. Severe hypokalemia. -Replace with IV potassium chloride and continue to monitor BMP. - Heparin DVT prophylaxis: Pharmacological prophylaxis contraindicated because of bleeding to tracheostomy. Consult case management, per Dr. Coello, patient will be transferred to [facility] celebration. Resume tube feeding.
[2017-10-31 11:53] LABS: Baso # (Auto) 0.2 th/mm3 (0.0-0.2); Baso % (Auto) 1.4 % (0.0-2.0); Eos % (Auto) 0.2 % (0.0-4.0); Hematocrit 33.2 % (39.0-51.0); Hemoglobin 10.7 gm/dL (13.0-17.0); Lymph # (Auto) 0.2 th/mm3 (1.0-4.8); Lymph % (Auto) 1.9 % (9.0-44.0); Mean Corpuscular HGB Conc 32.3 % (32.0-36.0); Mean Corpuscular Hemoglobin 27.1 pg (27.0-34.0); Mean Corpuscular Volume 83.8 fL (80.0-100.0); Mono # (Auto) 0.8 th/mm3 (0.0-0.9); Neut # (Auto) 11.7 th/mm3 (1.8-7.7); Neut % (Auto) 90.5 % (16.0-70.0); Platelet Count 264 th/mm3 (150-450); Red Blood Count 3.96 mil/mm3 (4.50-5.90); White Blood Count 12.9 th/mm3 (4.0-11.0)
[2017-10-31 12:36] LABS: INR 1.1 Ratio; Prothrombin Time 10.7 sec (9.8-11.6)
[2017-10-31 12:50] LABS: Anion Gap 9 meq/L (5-15); Blood Urea Nitrogen 9 mg/dL (7-18); Calcium 8.3 mg/dL (8.5-10.1); Carbon Dioxide 28.5 meq/L (21.0-32.0); Chloride 104 meq/L (98-107); Glomerular Filtration Rate Greater Than 89 mL/min (>89); Glucose,Random 111 mg/dL (74-106); Potassium 4.1 meq/L (3.5-5.1); Sodium 141 meq/L (136-145)
[2017-10-31] MEDS: Dextrose 5% in Water Inj 1,000 ML IV.CONT SCH (17:28)
[2017-11-01] MEDS: Dextrose 5% in Water Inj 1,000 ML IV.CONT SCH ×2 (04:27→12:15)
[2017-11-01] MEDS: Famotidine PF Inj 20 MG/2 ML Vial IV.PUSH SCH ×2 (08:53→20:51)
[2017-11-01] MEDS: predniSONE 10 MG Tablet G-TUBE SCH (08:53)
--- NOTE | 2017-11-01 09:11 | P.PN ---
Physical Exam Vital signs: Vital Signs 10/31/17 11:41 10/31/17 12:00 10/31/17 13:14 Temperature 37.1 C Pulse Rate 78 91 H Respiratory Rate 14 16 Blood Pressure 120/82 Pulse Oximetry 95 99 10/31/17 16:00 10/31/17 19:47 10/31/17 19:48 Temperature 37.1 C Pulse Rate 74 74 Respiratory Rate 14 16 Blood Pressure 118/78 Pulse Oximetry 98 98 10/31/17 20:00 11/01/17 00:00 11/01/17 04:00 Temperature 36.8 C 36.9 C 36.7 C Pulse Rate 95 H 93 H 90 Respiratory Rate 12 12 16 Blood Pressure 117/58 L 114/58 L 103/48 L Pulse Oximetry 99 98 95 11/01/17 09:03 Temperature Pulse Rate 96 H Respiratory Rate 18 Blood Pressure Pulse Oximetry Intake & Output 10/31/17 11/01/17 11/01/17 18:59 06:59 18:59 Intake Total 3040 / 3040 2840 / 2840 Output Total 1400 / 1400 1750 / 1750 Balance 1640 / 1640 1090 / 1090 Weight 56.7 kg Intake: IV 1000 / 1000 1000 / 1000 D5W Inj 1,000 ML @ 84 mls/hr IV 1000 / 1000 .CONT .[id number] [facility] Rx#:[id number] Potassium Chlor 20 mEq/NACL 0. 1000 / 1000 45% Inj 1,000 ML @ 84 mls/hr IV .CONT .[id number] [facility] Rx#:[id number] Oral 0 / 0 Tube Feeding 840 / 840 840 / 840 Tube Irrigant 0 / 0 0 / 0 Water Bolus Amount 0 / 0 0 / 0 Other 1200 / 1200 1000 / 1000 Output: Urine 1400 / 1400 1750 / 1750 Other: Date of Last Bowel Movement 10/30/17 10/30/17 10/30/17 Results - Labs CBC & Chem 7: 10/31/17 11:23 10/31/17 12:18 Laboratory Results - last 24 hr 10/31/17 10/31/17 10/31/17 11:23 12:18 12:18 WBC 12.9 H RBC 3.96 L Hgb 10.7 L Hct 33.2 L MCV 83.8 MCH 27.1 MCHC 32.3 RDW 16.0 Plt Count 264 MPV 9.0 Neut % (Auto) 90.5 H Lymph % (Auto) 1.9 L [place] % (Auto) 6.0 Eos % (Auto) 0.2 Baso % (Auto) 1.4 Neut # (Auto) 11.7 H Lymph # (Auto) 0.2 L [place] # (Auto) 0.8 Eos # (Auto) 0.0 Baso # (Auto) 0.2 WBC Differential . Differential Comment Auto diff final PT 10.7 INR 1.1 Sodium 141 Potassium 4.1 Chloride 104 Carbon Dioxide 28.5 Anion Gap 9 BUN 9 Creatinine 0.45 L Estimated GFR Greater than 89 Random Glucose 111 H Calcium 8.3 L Assessment and Plan - Assessment (1) Acute respiratory failure with hypoxia and hypercapnia Code(s): J96.01 - Acute respiratory failure with hypoxia; J96.02 - Acute respiratory failure with hypercapnia Status: Acute (2) COPD with exacerbation Code(s): J44.1 - Chronic obstructive pulmonary disease with (acute) exacerbation Status: Resolved (3) Squamous cell carcinoma of pyriform sinus Code(s): C12 - Malignant neoplasm of pyriform sinus Status: Chronic (4) Aspiration pneumonia Code(s): J69.0 - Pneumonitis due to inhalation of food and vomit Status: Acute (5) Dislodged gastrostomy tube Code(s): Z43.1 - Encounter for attention to gastrostomy Status: Resolved
--- NOTE | 2017-11-01 09:33 | P.DCO ---
- Home Health Nursing Order: Signs/symptoms of disease process (proper trach care.), Oxygen administration education - Certification I have seen patient Alon Acuna on 11/01/17. My clinical findings support the need for the requested home health care services because: Limited mobility due to disease progression I certify that my clinical findings support that this patient is homebound because: Impaired cognitive ability/safety (Trach with O2 needs.)
--- NOTE | 2017-11-01 13:08 | P.PNIM ---
Subjective Interval history: Discussed with Dr. Coello yesterday, patient may be discharged once cleared by pulmonary with a tracheostomy in. He will follow-up as outpatient with Dr. Calixto from [facility] in celebration. If there is however any bleeding , patient needs to be transferred from [place] directly to [facility]. Since patient has not had any bleeding, will discharge the patient today. Discussed with Dr. Rodriguez he is okay with discharge. Per pulmonary, Leave the tracheostomy as it is and perform regular trach care. This was discussed with the patient's . Physical Exam Vital signs: Vital Signs 10/31/17 13:14 10/31/17 16:00 10/31/17 19:47 Temperature 98.7 F Pulse Rate 91 H 74 Respiratory Rate 16 14 Blood Pressure 118/78 Pulse Oximetry 98 98 10/31/17 19:48 10/31/17 20:00 11/01/17 00:00 Temperature 98.2 F 98.5 F Pulse Rate 74 95 H 93 H Respiratory Rate 16 12 12 Blood Pressure 117/58 L 114/58 L Pulse Oximetry 99 98 11/01/17 04:00 11/01/17 08:00 11/01/17 09:03 Temperature 98.1 F 98.4 F Pulse Rate 90 89 96 H Respiratory Rate 16 12 18 Blood Pressure 103/48 L 107/57 L Pulse Oximetry 95 99 11/01/17 12:00 Temperature 98.2 F Pulse Rate 101 H Respiratory Rate 14 Blood Pressure 107/57 L Pulse Oximetry Intake & Output 10/31/17 11/01/17 11/01/17 18:59 06:59 18:59 Intake Total 3040 / 3040 2840 / 2840 1000 / 1000 Output Total 1400 / 1400 1750 / 1750 Balance 1640 / 1640 1090 / 1090 1000 / 1000 Weight 56.7 kg Intake: IV 1000 / 1000 1000 / 1000 1000 / 1000 D5W Inj 1,000 ML @ 84 mls/hr IV 1000 / 1000 1000 / 1000 .CONT .[id number] [facility] Rx#:[id number] Potassium Chlor 20 mEq/NACL 0. 1000 / 1000 45% Inj 1,000 ML @ 84 mls/hr IV .CONT .[id number] [facility] Rx#:[id number] Oral 0 / 0 Tube Feeding 840 / 840 840 / 840 Tube Irrigant 0 / 0 0 / 0 Water Bolus Amount 0 / 0 0 / 0 Other 1200 / 1200 1000 / 1000 Output: Urine 1400 / 1400 1750 / 1750 Other: Date of Last Bowel Movement 10/30/17 10/30/17 10/30/17 Results - Labs CBC & Chem 7: 10/31/17 11:23 10/31/17 12:18 Assessment and Plan - Assessment (1) Acute respiratory failure with hypoxia and hypercapnia Code(s): J96.01 - Acute respiratory failure with hypoxia; J96.02 - Acute respiratory failure with hypercapnia Status: Acute (2) COPD with exacerbation Code(s): J44.1 - Chronic obstructive pulmonary disease with (acute) exacerbation Status: Resolved (3) Squamous cell carcinoma of pyriform sinus Code(s): C12 - Malignant neoplasm of pyriform sinus Status: Chronic (4) Aspiration pneumonia Code(s): J69.0 - Pneumonitis due to inhalation of food and vomit Status: Acute (5) Dislodged gastrostomy tube Code(s): Z43.1 - Encounter for attention to gastrostomy Status: Resolved - Plan 62-year-old male with 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 He was initially intubated by anesthesia in the emergency department. The patient then was admitted to the intensive care unit under the care of the elevator tender who treated the patient with IV steroids , supplemental oxygen, ventilation bundle. The patient is status post tracheostomy in OR on 10/17 by general surgery. Recent episode of hemoptysis - presently bleeding appears to have stopped, Hgb is stable. Recheck CBC today, s/p direct laryngscopy by Dr. Lorenz 10/30, he also went down through the tracheostomy, no obvious source of bleeding, but unable to see through the glottis because of significant edema. Discussed with Dr. Coello, might need a laryngectomy. Will keep n.p.o. and hold tube feeds for now. Discussed with . If major bleeding occurs while awaiting surgery, might need CTA with embolization by [facility]. 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 Continue tube feeds, currently on Jevity 1.5, has been having diarrhea, consult dietitian to change tube feeds. Suspected aspiration pneumonia. Chest x-ray obtained on 10/20 shows stable exam with interstitial prominence predominantly at the bases. Patient initially started on IV vancomycin IV Zosyn empirically. ID consulted. Antibiotics stopped, continue steroid taper. Severe hypokalemia. -Replace with IV potassium chloride and continue to monitor BMP. - Heparin DVT prophylaxis: Pharmacological prophylaxis contraindicated because of bleeding to tracheostomy. Consult case management, per Dr. Coello, patient will be transferred to [facility] celebration. Resume tube feeding.
--- NOTE | 2017-11-01 16:28 | P.DS ---
Date of admission: 10/15/17 15:00 Primary care physician: Amparo Ochoa MD Attending physician on discharge: Vickey Cooper Anticipated date of discharge: 11/02/17 Brief History from admission: 62-year-old gentleman with history of squamous cell carcinoma of right piriform sinus diagnosed in May 2011, followed by Dr. Coello, status post 35 sessions of radiation therapy, followed by Dr. Obregon, complicated by progressive difficulty swallowing and pain in his throat. 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 He underwent PEG tube placement and he began hyperbaric oxygen. Mr. Acuna presents today to emergency department complaining of worsening shortness of breath over the last 2 days, gradually worsening. This morning, upon awakening, patient started complaining of severe shortness of breath, associated with epistaxis and spitting up blood. Per there was no fever, chills, chest pain, palpitations, abdominal pain, diarrhea, dysuria. Patient was coughing, mostly dry and it is chronic. Of note, patient was recently treated for a possible URI by Dr. Coello with a cephalosporin. On ED arrival patient was hypoxic down to 50% on room air in severe distress. Patient was placed on BiPAP with slow improvement in his O2 saturation. Due to increased work of breathing and tachypnea patient was emergently intubated by anesthesia. He was given 1 dose of hydrocortisone, 1 L of saline and anti-nausea medication. Patient is currently intubated and sedated, family is present at bedside. Bloody secretions coming out of the ET tube are being noticed. DS: Diagnosis - Discharge Diagnosis (1) Acute respiratory failure with hypoxia and hypercapnia Status: Acute (2) COPD with exacerbation Status: Resolved (3) Squamous cell carcinoma of pyriform sinus Status: Chronic (4) Aspiration pneumonia Status: Acute (5) Dislodged gastrostomy tube Status: Resolved DS: Medications - Discharge Medications Prescriptions: albuterol sulfate 2.5 mg NEB Q2HR NEB PRN 30 Days box PRN Reason: Wheezing famotidine [Pepcid] 20 mg PO BID #1 bottle ipratropium-albuterol 1 amp NEB Q6HR WHILE AWAKE NEB #1 box ondansetron 4 mg PO Q4H PRN #15 tab PRN Reason: Nausea Or Vomiting prednisone 10 mg G-TUBE DAILY #7 tab prednisone 5 mg FEEDING TUBE DAILY #7 tab prednisone 2.5 mg FEEDING TUBE Q OTHER DAY #3 tab DS: Summary Hospital Course: 62-year-old male with 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 Coello ENT and Dr. Obregon s/p 35 sessions of radiation therapy. 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 Patient was initially admitted and intubated in the emergency department by anesthesia. He was admitted to the intensive care unit and received IV steroids and followed by critical care. He underwent tracheostomy placement on 10/17 by general surgery in the OR due to a difficult airway. Following tracheostomy placement patient developed hemoptysis, Dr. Lorenz evaluated patient and on 10/29 he underwent direct laryngoscopy visualization, Dr. Lorenz unable to visualize patient's glottis due to significant edema. Visualization through the tracheostomy was also performed with no findings of obvious bleeding or ulceration. Patient's H&H and coagulation levels remained stable. During patient's hospitalization he was also treated for possible aspiration pneumonia empirically with IV vancomycin and Zosyn. Infectious disease was consulted and recommendations were made to discontinue antibiotics and continue steroid taper. Patient with no noted tracheostomy bleeding in the past 48 hours with respiratory status stable. Initially patient was to be transferred from [place] to [facility] as previously recommended by ENT. made contact with at [facility] who recommended patient be discharged home as long as there is no more active bleeding and follow-up with him for possible laryngotomy. Patient was cleared from pulmonary services for discharge, discussed with case management for appropriate equipment at home including home health care. Patient will be discharged home once home oxygen has been arranged and delivered. Patient is aware that he will need to follow-up with [facility], also made aware previously. - Time Spent with Patient Total time spent providing and/or coordinating discharge services: - Quality: VTE Deep Vein Thrombosis/Pulmonary Embolism Present on Admission: No Exam Vital signs: Vital Signs 10/31/17 19:47 10/31/17 19:48 10/31/17 20:00 Temperature 36.8 C Pulse Rate 74 95 H Respiratory Rate 16 12 Blood Pressure 117/58 L Pulse Oximetry 98 99 Pulse Oximetry [Exertion on Room Air] Pulse Oximetry [Exertion with Oxygen] Pulse Oximetry [Resting on Room Air] Pulse Oximetry [Resting with Oxygen] 11/01/17 00:00 11/01/17 04:00 11/01/17 08:00 Temperature 36.9 C 36.7 C 36.9 C Pulse Rate 93 H 90 89 Respiratory Rate 12 16 12 Blood Pressure 114/58 L 103/48 L 107/57 L Pulse Oximetry 98 95 99 Pulse Oximetry [Exertion on Room Air] Pulse Oximetry [Exertion with Oxygen] Pulse Oximetry [Resting on Room Air] Pulse Oximetry [Resting with Oxygen] 11/01/17 09:03 11/01/17 12:00 11/01/17 13:57 Temperature 36.8 C Pulse Rate 96 H 101 H Respiratory Rate 18 14 Blood Pressure 107/57 L Pulse Oximetry Pulse Oximetry [Exertion on Room Air] Pulse Oximetry [Exertion with Oxygen] Pulse Oximetry [Resting on Room Air] Pulse Oximetry [Resting with Oxygen] 98 11/01/17 13:58 11/01/17 15:52 Temperature Pulse Rate 68 Respiratory Rate 18 Blood Pressure Pulse Oximetry Pulse Oximetry [Exertion on Room Air] 83 L Pulse Oximetry [Exertion with Oxygen] 92 L Pulse Oximetry [Resting on Room Air] 93 L Pulse Oximetry [Resting with Oxygen] 95 Intake & Output 10/31/17 11/01/17 11/01/17 18:59 06:59 18:59 Intake Total 3040 / 3040 2840 / 2840 1000 / 1000 Output Total 1400 / 1400 1750 / 1750 Balance 1640 / 1640 1090 / 1090 1000 / 1000 Weight 56.7 kg Intake: IV 1000 / 1000 1000 / 1000 1000 / 1000 D5W Inj 1,000 ML @ 84 mls/hr IV 1000 / 1000 1000 / 1000 .CONT .[id number] [facility] Rx#:[id number] Potassium Chlor 20 mEq/NACL 0. 1000 / 1000 45% Inj 1,000 ML @ 84 mls/hr IV .CONT .[id number] [facility] Rx#:[id number] Oral 0 / 0 Tube Feeding 840 / 840 840 / 840 Tube Irrigant 0 / 0 0 / 0 Water Bolus Amount 0 / 0 0 / 0 Other 1200 / 1200 1000 / 1000 Output: Urine 1400 / 1400 1750 / 1750 Other: Date of Last Bowel Movement 10/30/17 10/30/17 10/30/17 Narrative: GENERAL: This is a thin cachectic appearing middle-aged male, INAD. Awake and alert. SKIN: Warm and dry. HEAD: Atraumatic. Normocephalic. EYES: EOMI. No scleral icterus. No injection or drainage. ENT: No nasal bleeding or discharge. Mucous membranes pink and moist. NECK: Trachea midline. BRAKE REPAIRER in place with scant amount of clear secretions, no bleeding noted. CARDIOVASCULAR: Regular rate and rhythm. RESPIRATORY: No accessory muscle use. Clear to auscultation. Breath sounds equal bilaterally. Trach in place to T-piece. GASTROINTESTINAL: Abdomen soft, non-tender, nondistended. Peg-tube with D/I/D, + bowel sounds in all quadrants MUSCULOSKELETAL: Extremities without clubbing, cyanosis, or edema. No obvious deformities. NEUROLOGICAL: Awake and alert. No obvious cranial nerve deficits. Motor grossly within normal limits. Patient is able to effectively communicate by mouthing words along with using dry erase board. PSYCHIATRIC: Appropriate mood and affect; insight and judgment normal. Results Procedures completed during hospitalization: 10/17 percutaneous trach placement 10/24 PEG tube reinsertion - Impressions ITS Impressions Gastrostomy Tube Placement 10/23/17 00:00 CONCLUSION: Uncomplicated fluoroscopic guided gastrostomy tube replacement as described above. Chest CT 10/28/17 00:00 CONCLUSION: 1. Severe emphysema with prominent interstitial densities in the lower lobes and right upper lobe. The overall appearance has improved from previous study. 2. Tracheostomy tube. Soft Tissue Neck CT 10/28/17 00:00 CONCLUSION: 1. Tracheostomy tube. 2. Soft tissue prominence throughout the larynx with displacement of the right thyroid cartilage and adjacent air again seen. 3. Left thyroid nodule. Chest X-Ray 10/28/17 05:28 CONCLUSION: Right greater than left diffuse pulmonary opacity unchanged. Discharge Plan - Discharge Disposition Patient Disposition: 01 Discharge Home - Discharge Condition Condition: Stable - Discharge Order Discharge Orders: Discharge Order (Routine); Ordered 11/01/17 Ordered By: Vickey Cooper - Discharge Details Anticipated Discharge Date: 11/01/17 - Physicians Team Primary Care Provider: Amparo Ochoa Attending Provider: Bijan Dupont Other Providers: Filemon Coello MD ; Michael Rodriguez MD ; Kailash Manzanares MD ; Kenton Lorenz MD ; [employer] ; Thelma Drake ARNP ; Alejandro Burks ARNP ; Bogdan Neumann MD - Rxs /Orders / Referrals /Forms Prescriptions: New albuterol sulfate 2.5 mg /3 mL (0.083 %) Solution For Nebulization 2.5 mg NEB Q2HR NEB PRN (Reason: Wheezing) 30 Days RF: 0 famotidine [Pepcid] 40 mg/5 mL (8 mg/mL) Suspension 20 mg PO BID Qty: 1 RF: 0 ipratropium-albuterol 0.5 mg-3 mg(2.5 mg base)/3 mL Solution For Nebulization 1 amp NEB Q6HR WHILE AWAKE NEB Qty: 1 RF: 0 ondansetron 4 mg Tablet,Disintegrating 4 mg PO Q4H PRN (Reason: Nausea Or Vomiting) Qty: 15 RF: 0 prednisone 10 mg Tablet 10 mg G-Tube DAILY Qty: 7 RF: 0 prednisone 5 mg Tablet 5 mg Feeding Tube DAILY Qty: 7 RF: 0 prednisone 2.5 mg Tablet 2.5 mg Feeding Tube Q OTHER DAY Qty: 3 RF: 0 Continue atorvastatin 80 mg PO DAILY hydrocodone-acetaminophen 15 - 30 ml PO Q4-6H PRN (Reason: Pain) Discontinued amlodipine 10 mg PO DAILY aspirin 81 mg PO DAILY pilocarpine HCl 5 mg PO BID trazodone 50 mg PO HS Ambulatory Orders / Order Sets / DME: Oxygen Tank (2-5 liter) (DAILY) (1) Location: Determined by Patient Ordered By: Vickey Cooper Referrals: Amparo Ochoa MD [Primary Care Provider] - See Instructions - Discharge Instructions Additional Instructions: Will need to make appointment with at [facility].
--- NOTE | 2017-11-02 01:58 | XR ---
EXAM DATE: 11/02/2017 1:37 AM EDT AGE/SEX: 62 years / Male INDICATIONS: Short of breath. Congestion. CLINICAL DATA: This is the patient's subsequent encounter. Patient reports that signs and symptoms h ave been present for 1 week and indicates a pain score of 0/10. MEDICAL/SURGICAL HISTORY: None. . Trachestomy. COMPARISON: C, CHEST 1V SINGLE AP, 10/28/2017. . FINDINGS: Stable tracheostomy. Diffuse interstitial opacities. Cardiomediastinal contours are stable. Remainder of the exam is unchanged. CONCLUSION: 1. Persistent diffuse interstitial prominence. 2. No significant interval change. Electronically signed by: Ezequiel Mckoy MD 11/02/2017 1:57 AM EDT
[2017-11-02 02:05] LABS: Bilirubin,Urine Negative (Negative); Clarity,Urine Clear (Clear); Color,Urine Yellow (Yellw/Straw); Glucose,Urine (UA) Negative (Negative); Leukocyte Esterase,Urine Negative (Negative); Mucus,Urine Few /lpf (Occasional); Nitrite,Urine Negative (Negative); Specific Gravity,Urine 1.009 (1.002-1.035); Urobilinogen,Urine 4 or Greater mg/dL (Less than 2)
[2017-11-02] MEDS: Dextrose 5% in Water Inj 1,000 ML IV.CONT SCH (04:29)
[2017-11-02] MEDS: predniSONE 10 MG Tablet G-TUBE SCH (08:24)
[2017-11-02] MEDS: Famotidine PF Inj 20 MG/2 ML Vial IV.PUSH SCH (08:24)
--- NOTE | 2017-11-02 10:46 | P.PN ---
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 Plan was for patient to be discharged today, however developed fever overnight of T-max of 101.3. Chest x-ray and BC ordered overnight. He was also seen by pulmonary this morning and started of p.o Levaquin. Patient is seen and examined resting comfortably in bed, appears to be in no acute respiratory distress. Some cough, no blood, clear to light yellow secretions, patient denies any shortness of breath, nausea, vomiting, diarrhea, headaches, dizziness, chest pain. Patient also denies any calf tenderness or leg swelling. Patient states "I feel fine", understand why his discharge has to be held. Around noon called by nurse once again to report patient was having hypotension when going from a lying position to a sitting and standing position along with symptoms of dizziness. BP while lying was 90/45, symptoms resolved when he was went back to a lying position. Physical Exam Vital signs: Vital Signs 11/01/17 12:00 11/01/17 13:57 11/01/17 13:58 Temperature 36.8 C Pulse Rate 101 H 68 Respiratory Rate 14 18 Blood Pressure 107/57 L Pulse Oximetry Pulse Oximetry [Exertion on Room Air] Pulse Oximetry [Exertion with Oxygen] Pulse Oximetry [Resting on Room Air] Pulse Oximetry [Resting with Oxygen] 98 11/01/17 15:52 11/01/17 16:00 11/01/17 19:59 Temperature 36.8 C Pulse Rate 78 Respiratory Rate 12 Blood Pressure 118/98 H Pulse Oximetry 95 Pulse Oximetry [Exertion on Room Air] 83 L Pulse Oximetry [Exertion with Oxygen] 92 L Pulse Oximetry [Resting on Room Air] 93 L Pulse Oximetry [Resting with Oxygen] 95 11/01/17 20:00 11/01/17 23:42 11/01/17 23:59 Temperature 38.0 C H 38.5 C H Pulse Rate 101 H 107 H Respiratory Rate 20 20 Blood Pressure 110/53 L 105/42 L Pulse Oximetry 94 L 98 97 Pulse Oximetry [Exertion on Room Air] Pulse Oximetry [Exertion with Oxygen] Pulse Oximetry [Resting on Room Air] Pulse Oximetry [Resting with Oxygen] 11/02/17 03:01 11/02/17 04:00 Temperature 38.1 C H 38.1 C H Pulse Rate 66 Respiratory Rate 20 Blood Pressure 110/52 L Pulse Oximetry 99 Pulse Oximetry [Exertion on Room Air] Pulse Oximetry [Exertion with Oxygen] Pulse Oximetry [Resting on Room Air] Pulse Oximetry [Resting with Oxygen] Intake & Output 11/01/17 11/02/17 11/02/17 18:59 06:59 18:59 Intake Total 3040 / 3040 1904 / 1904 Output Total 1250 / 1250 900 / 900 Balance 1790 / 1790 1004 / 1004 Weight 57.4 kg Intake: IV 1000 / 1000 1000 / 1000 D5W Inj 1,000 ML @ 84 mls/hr IV 1000 / 1000 1000 / 1000 .CONT .[id number] [facility] Rx#:[id number] Tube Feeding 840 / 840 844 / 844 Tube Irrigant 60 / 60 Other 1200 / 1200 Output: Blood Draw 250 / 250 Urine 1000 / 1000 900 / 900 Other: Date of Last Bowel Movement 10/30/17 Narrative: GENERAL: This is a thin cachectic appearing middle-aged male, INAD. Awake and alert. ENT: No nasal bleeding or discharge. Mucous membranes pink and moist. NECK: Trachea midline, small amount of clear and light yellow secretions noted. Trach in place. No active bleeding. CARDIOVASCULAR: Regular rate and rhythm. RESPIRATORY: No accessory muscle use. Clear to auscultation. Breath sounds equal bilaterally. Trach in place. GASTROINTESTINAL: Abdomen soft, non-tender, nondistended. Positive bowel sounds in all quadrants. MUSCULOSKELETAL: Extremities without clubbing, cyanosis, or edema. No obvious deformities. No calf tenderness with palpation. NEUROLOGICAL: Awake and alert. No obvious cranial nerve deficits. Motor grossly within normal limits. Patient is able to effectively communicate by mouthing words. Results - Labs CBC & Chem 7: 11/02/17 11:01 11/02/17 11:01 Laboratory Results - last 24 hr 11/02/17 01:30 Urine Color Yellow Urine Clarity Clear Urine pH 8.0 Ur Specific [place] 1.009 Urine Protein Negative Urine Glucose (UA) Negative Urine Ketones Negative Urine Occult Blood Negative Urine Nitrate Negative Urine Bilirubin Negative Urine Urobilinogen 4 or greater Ur Leukocyte Esterase Negative Urine WBC 1 Urine Mucus Few H Micro UA Comment Culture not ind Urine Culture Comments Culture not ind - Imaging Impressions Chest X-Ray 11/02/17 00:54 CONCLUSION: 1. Persistent diffuse interstitial prominence. 2. No significant interval change. Assessment and Plan - Assessment (1) Acute respiratory failure with hypoxia and hypercapnia Code(s): J96.01 - Acute respiratory failure with hypoxia; J96.02 - Acute respiratory failure with hypercapnia Status: Acute (2) COPD with exacerbation Code(s): J44.1 - Chronic obstructive pulmonary disease with (acute) exacerbation Status: Resolved (3) Squamous cell carcinoma of pyriform sinus Code(s): C12 - Malignant neoplasm of pyriform sinus Status: Chronic (4) Aspiration pneumonia Code(s): J69.0 - Pneumonitis due to inhalation of food and vomit Status: Acute (5) Dislodged gastrostomy tube Code(s): Z43.1 - Encounter for attention to gastrostomy Status: Resolved - Plan 62-year-old male with 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 He was initially intubated by anesthesia in the emergency department. The patient then was admitted to the intensive care unit under the care of the superintendent maintenance who treated the patient with IV steroids , supplemental oxygen, ventilation bundle. The patient is status post tracheostomy in OR on 10/17 by general surgery. Recent episode of hemoptysis -s/p direct laryngscopy by Dr. Lorenz 10/30, he also went down through the tracheostomy, no obvious source of bleeding, but unable to see through the glottis because of significant edema. -Dr. Coello believed patient may need a laryngectomy. discussed with [facility] Dr. Calixto and patient can be DC home and follow up at [facility] as outpatient for surgery as long as no further bleeding. - presently bleeding appears to have stopped, Hgb is stable, slight drop to 9.5/29.4, but no active bleeding noted, patient was on IVF and could be dilution related. 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 -Continue tube feeds, currently on Jevity 1.5, tolerating well, no diarrhea Suspected aspiration pneumonia. Chest x-ray obtained on 10/20 shows stable exam with interstitial prominence predominantly at the bases. - Patient initially started on IV vancomycin IV Zosyn empirically. - ID consulted. Antibiotics stopped, continue steroid taper. Fever -Patient developed a temperature overnight of 100.3, blood cultures 2 pending, chest x-ray with persistent diffuse interstitial prominence, no significant interval change. - has started patient on p.o. Levaquin -CBC this morning with resolved leukocytosis, lactic acid normal, UA negative -We will also check bilateral leg for possible DVTs Symptomatic hypotension + Positive orthostatics -2L NS x1 now - Monitor for improvement Severe hypokalemia. Mild hyponatremia -Status post IV replacement, potassium this morning 4.4 -Mild hyponatremia most likely secondary to recent D5W fluids, will be receiving normal saline boluses. Heparin DVT prophylaxis: Pharmacological prophylaxis contraindicated because of bleeding to tracheostomy. Discussed Condition With: Patient, nursing staff, [facility] [employer] case manager, Discharge Planning: [facility] [employer] case manager is working on gathering oxygen as well as needed equipment for home. Scripts have been entered in the computer, sent electronically, and manually written. Discharged on hold secondary to fever overnight and symptomatic hypotension.
[2017-11-02] MEDS ORDERED: levoFLOXacin 500 MG Tablet G-TUBE SCH (11:00)
[2017-11-02 11:13] LABS: Hematocrit 29.4 % (39.0-51.0); Hemoglobin 9.5 gm/dL (13.0-17.0); Mean Corpuscular HGB Conc 32.4 % (32.0-36.0); Mean Corpuscular Hemoglobin 26.7 pg (27.0-34.0); Mean Corpuscular Volume 82.4 fL (80.0-100.0); Mean Platelet Volume 8.2 fL (7.0-11.0); Platelet Count 236 th/mm3 (150-450); Red Blood Count 3.57 mil/mm3 (4.50-5.90); Red Cell Distribution Width 16.5 % (11.6-17.2)
[2017-11-02 11:32] LABS: Anion Gap 10 meq/L (5-15); Blood Urea Nitrogen 11 mg/dL (7-18); Calcium 8.6 mg/dL (8.5-10.1); Chloride 98 meq/L (98-107); Glomerular Filtration Rate Greater Than 89 mL/min (>89); Glucose,Random 127 mg/dL (74-106); Potassium 4.4 meq/L (3.5-5.1); Sodium 135 meq/L (136-145)
[2017-11-02] MEDS ORDERED: Sod Chloride 0.9% Inj 2,000 ML IV.SIG ONE (12:12)
--- NOTE | 2017-11-02 14:30 | P.PN ---
Subjective Interval history: alertno sob low grade temp Physical Exam Vital signs: Vital Signs 11/01/17 15:52 11/01/17 16:00 11/01/17 19:59 Temperature 98.2 F Pulse Rate 78 Respiratory Rate 12 Blood Pressure 118/98 H Pulse Oximetry 95 Pulse Oximetry [Exertion on Room Air] 83 L Pulse Oximetry [Exertion with Oxygen] 92 L Pulse Oximetry [Resting on Room Air] 93 L Pulse Oximetry [Resting with Oxygen] 95 11/01/17 20:00 11/01/17 23:42 11/01/17 23:59 Temperature 100.4 F H 101.3 F H Pulse Rate 101 H 107 H Respiratory Rate 20 20 Blood Pressure 110/53 L 105/42 L Pulse Oximetry 94 L 98 97 Pulse Oximetry [Exertion on Room Air] Pulse Oximetry [Exertion with Oxygen] Pulse Oximetry [Resting on Room Air] Pulse Oximetry [Resting with Oxygen] 11/02/17 03:01 11/02/17 04:00 Temperature 100.5 F H 100.5 F H Pulse Rate 66 Respiratory Rate 20 Blood Pressure 110/52 L Pulse Oximetry 99 Pulse Oximetry [Exertion on Room Air] Pulse Oximetry [Exertion with Oxygen] Pulse Oximetry [Resting on Room Air] Pulse Oximetry [Resting with Oxygen] Intake & Output 11/01/17 11/02/17 11/02/17 18:59 06:59 18:59 Intake Total 3040 / 3040 1904 / 1904 Output Total 1250 / 1250 900 / 900 Balance 1790 / 1790 1004 / 1004 Weight 57.4 kg Intake: IV 1000 / 1000 1000 / 1000 D5W Inj 1,000 ML @ 84 mls/hr IV 1000 / 1000 1000 / 1000 .CONT .[id number] [facility] Rx#:[id number] Tube Feeding 840 / 840 844 / 844 Tube Irrigant 60 / 60 Other 1200 / 1200 Output: Blood Draw 250 / 250 Urine 1000 / 1000 900 / 900 Other: Date of Last Bowel Movement 10/30/17 Narrative: GENERAL: This is a thin cachectic appearing middle-aged male, INAD. Awake and alert. ENT: No nasal bleeding or discharge. Mucous membranes pink and moist. NECK: Trachea midline. Trach in place. No active bleeding. CARDIOVASCULAR: Regular rate and rhythm. RESPIRATORY: No accessory muscle use. Clear to auscultation. Breath sounds equal bilaterally. Trach in place. GASTROINTESTINAL: Abdomen soft, non-tender, nondistended. Hepatic and splenic margins not palpable. MUSCULOSKELETAL: Extremities without clubbing, cyanosis, or edema. No obvious deformities. NEUROLOGICAL: Awake and alert. No obvious cranial nerve deficits. Motor grossly within normal limits. Patient is able to effectively communicate by mouthing words. Results - Labs CBC & Chem 7: 11/02/17 11:01 11/02/17 11:01 Laboratory Results - last 24 hr 11/02/17 11/02/17 11/02/17 01:30 11:01 11:01 WBC 11.0 RBC 3.57 L Hgb 9.5 L Hct 29.4 L MCV 82.4 MCH 26.7 L MCHC 32.4 RDW 16.5 Plt Count 236 MPV 8.2 Sodium 135 L Potassium 4.4 Chloride 98 Carbon Dioxide 27.0 Anion Gap 10 BUN 11 Creatinine 0.52 L Estimated GFR Greater than 89 Random Glucose 127 H Lactic Acid Calcium 8.6 Urine Color Yellow Urine Clarity Clear Urine pH 8.0 Ur Specific [place] 1.009 Urine Protein Negative Urine Glucose (UA) Negative Urine Ketones Negative Urine Occult Blood Negative Urine Nitrate Negative Urine Bilirubin Negative Urine Urobilinogen 4 or greater Ur Leukocyte Esterase Negative Urine WBC 1 Urine Mucus Few H Micro UA Comment Culture not ind Urine Culture Comments Culture not ind 11/02/17 11:01 WBC RBC Hgb Hct MCV MCH MCHC RDW Plt Count MPV Sodium Potassium Chloride Carbon Dioxide Anion Gap BUN Creatinine Estimated GFR Random Glucose Lactic Acid 1.5 Calcium Urine Color Urine Clarity Urine pH Ur Specific [place] Urine Protein Urine Glucose (UA) Urine Ketones Urine Occult Blood Urine Nitrate Urine Bilirubin Urine Urobilinogen Ur Leukocyte Esterase Urine WBC Urine Mucus Micro UA Comment Urine Culture Comments - Imaging Impressions Chest X-Ray 11/02/17 00:54 CONCLUSION: 1. Persistent diffuse interstitial prominence. 2. No significant interval change. Assessment and Plan - Plan laryngeal CA Post tracheostomy sutures removed fever PLAN O2 NEEDED Levaquin CXRAY
[2017-11-02] MEDS: Famotidine 20 MG Tablet G-TUBE SCH (20:26)
--- NOTE | 2017-11-02 22:29 | US ---
EXAM DATE: 11/02/2017 10:25 PM EDT AGE/SEX: 62 years / Male INDICATIONS: Bilateral leg swelling. CLINICAL DATA: This is the patient's initial encounter. Patient reports that signs and symptoms have been present for 1 day and indicates a pain score of 0/10. MEDICAL/SURGICAL HISTORY: Chronic obstructive pulmonary disease. Sinus and Laryngeal cancer. . G-tube, tracheotomy. COMPARISON: No prior exams available for comparison. TECHNIQUE: Venous ultrasound of both lower extremities was performed from the inguinal ligament to t he proximal calf. Real-time, color Doppler and spectral tracing, compression and augmentation techni ques were used. FINDINGS: Right Leg: Normal compression of the deep venous system from the inguinal region to the proximal per f. No echogenic clot is seen. Normal response of the venous system to augmentation and respiration. Left Leg: Normal compression of the deep venous system from the inguinal region to the proximal calf . No echogenic clot is seen. Normal response of the venous system to augmentation and respiration. Other: None. CONCLUSION: No DVT is identified within either lower extremity. Electronically signed by: Aurelio Guido MD 11/02/2017 10:28 PM EDT
--- NOTE | 2017-11-03 08:16 | P.PN ---
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 Nurse reports patient hand an uneventful night. Patient was able to up to the BSC and tolerated this fine with no symptoms such as dizziness or lightheadedness, no reports of drop in BP or fevers overnight. Patient denies any chills, N/V/D, cough, or SOB, some salazar thick secretions from trach. Nurse reports that PEG tub needs to be replaced as the cap off the end was cut off. Called by nurse also regarding + BC. Briefly discussed with , will start IV Zosyn and reconsult due to bacteremia. Return later in the day to discuss this with both patient and who is at bedside, both understand and agree with plan. Physical Exam Vital signs: Vital Signs 11/02/17 11:35 11/02/17 11:40 11/02/17 12:00 Temperature 38.5 C H Pulse Rate 111 H Respiratory Rate 12 Blood Pressure 85/47 L 50/29 L 91/45 L Pulse Oximetry 98 11/02/17 14:47 11/02/17 16:00 11/02/17 20:00 Temperature 36.9 C 37.1 C Pulse Rate 100 H 95 H 90 Respiratory Rate 15 14 16 Blood Pressure 94/51 L 105/54 L Pulse Oximetry 93 L 99 97 11/02/17 21:25 11/02/17 21:30 11/03/17 00:00 Temperature 36.9 C Pulse Rate 95 H 96 H Respiratory Rate 17 20 Blood Pressure 108/51 L Pulse Oximetry 99 96 11/03/17 04:00 11/03/17 07:47 11/03/17 07:50 Temperature 36.6 C Pulse Rate 96 H 91 H Respiratory Rate 19 20 Blood Pressure 110/51 L Pulse Oximetry 95 97 Intake & Output 11/02/17 11/03/17 11/03/17 18:59 06:59 18:59 Intake Total 3640 / 3640 1070 / 1070 Output Total 750 / 750 920 / 920 Balance 2890 / 2890 150 / 150 Weight 57.2 kg Intake: Oral 0 / 0 Tube Feeding 840 / 840 1000 / 1000 Tube Irrigant 70 / 70 Water Bolus Amount 0 / 0 Other 2800 / 2800 Output: Urine 750 / 750 800 / 800 Stool 120 / 120 Pleural Fluid 0 / 0 Peritoneal Amount 0 / 0 Other: # Voids 0 0 Date of Last Bowel Movement 10/30/17 10/30/17 # Bowel Movements 0 Narrative: GENERAL: This is a thin cachectic appearing middle-aged male, INAD. Awake and alert. ENT: No nasal bleeding or discharge. Mucous membranes pink and moist. NECK: Trachea midline, small amount of clear and light yellow secretions noted. Trach in place. No active bleeding. CARDIOVASCULAR: Regular rate and rhythm. RESPIRATORY: No accessory muscle use. Clear to auscultation. Breath sounds equal bilaterally. Trach in place. GASTROINTESTINAL: Abdomen soft, non-tender, nondistended. Positive bowel sounds in all quadrants. MUSCULOSKELETAL: Extremities without clubbing, cyanosis, or edema. No obvious deformities. No calf tenderness with palpation. NEUROLOGICAL: Awake and alert. No obvious cranial nerve deficits. Motor grossly within normal limits. Patient is able to effectively communicate by mouthing words. Results - Labs CBC & Chem 7: 11/02/17 11:01 11/02/17 11:01 Laboratory Results - last 24 hr 11/02/17 11/02/17 11/02/17 11:01 11:01 11:01 WBC 11.0 RBC 3.57 L Hgb 9.5 L Hct 29.4 L MCV 82.4 MCH 26.7 L MCHC 32.4 RDW 16.5 Plt Count 236 MPV 8.2 Sodium 135 L Potassium 4.4 Chloride 98 Carbon Dioxide 27.0 Anion Gap 10 BUN 11 Creatinine 0.52 L Estimated GFR Greater than 89 Random Glucose 127 H Lactic Acid 1.5 Calcium 8.6 - Imaging Impressions Venous Doppler Study 11/02/17 00:00 CONCLUSION: No DVT is identified within either lower extremity. Assessment and Plan - Assessment (1) Acute respiratory failure with hypoxia and hypercapnia Code(s): J96.01 - Acute respiratory failure with hypoxia; J96.02 - Acute respiratory failure with hypercapnia Status: Acute (2) COPD with exacerbation Code(s): J44.1 - Chronic obstructive pulmonary disease with (acute) exacerbation Status: Resolved (3) Squamous cell carcinoma of pyriform sinus Code(s): C12 - Malignant neoplasm of pyriform sinus Status: Chronic (4) Aspiration pneumonia Code(s): J69.0 - Pneumonitis due to inhalation of food and vomit Status: Acute (5) Dislodged gastrostomy tube Code(s): Z43.1 - Encounter for attention to gastrostomy Status: Resolved - Plan 62-year-old male with 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 He was initially intubated by anesthesia in the emergency department. The patient then was admitted to the intensive care unit under the care of the algorithm design engineer who treated the patient with IV steroids , supplemental oxygen, ventilation bundle. The patient is status post tracheostomy in OR on 10/17 by general surgery. Recent episode of hemoptysis -s/p direct laryngscopy by Dr. Lorenz 10/30, he also went down through the tracheostomy, no obvious source of bleeding, but unable to see through the glottis because of significant edema. -Dr. Coello believed patient may need a laryngectomy. discussed with [facility] Dr. Calixto and patient can be DC home and follow up at [facility] as outpatient for surgery as long as no further bleeding. - presently bleeding appears to have stopped, Hgb is stable, slight drop to 9.5/29.4, but no active bleeding noted, patient was on IVF and could be dilution related. 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 -Continue tube feeds, currently on Jevity 1.5, tolerating well, no diarrhea Suspected aspiration pneumonia. Chest x-ray obtained on 10/20 shows stable exam with interstitial prominence predominantly at the bases. - Patient initially started on IV vancomycin IV Zosyn empirically. - ID consulted. Antibiotics stopped, continue steroid taper. Fever, +BC Bacteremia -+fever, blood cultures 2 with gram negative rods growing in aerobic bottles , chest x-ray with persistent diffuse interstitial prominence, no significant interval change. - previously started on p.o. Levaquin. Will DC Levaquin and start IV Zosy, reconsult ID, greatly appreciate assistance. - bilateral leg US negative for DVT Symptomatic hypotension + Positive orthostatics Possibly also related to bacteremia -s/p 2L NS, BS stable overnight and this am Severe hypokalemia. Mild hyponatremia -Status post IV replacement, potassium 4.4 -Mild hyponatremia most likely secondary to recent D5W fluids, s/p normal saline boluses. Patient will also have PEG tube exchanged by IR today. Heparin DVT prophylaxis: Pharmacological prophylaxis contraindicated because of bleeding to tracheostomy. Discussed Condition With: Nursing staff, patient, , and . Discharge Planning: Tu top case assembler is working on gathering oxygen as well as needed equipment for home. Scripts have been entered in the computer, sent electronically, and manually written. Discharged on hold secondary bacteremia.
[2017-11-03] MEDS: Famotidine 20 MG Tablet G-TUBE SCH ×2 (09:29→21:45)
[2017-11-03] MEDS: predniSONE 10 MG Tablet G-TUBE SCH (09:29)
[2017-11-03] MEDS: Piperacil/Tazo 4.5 GM Premix 4.5 GM/100 ML BAG IV.SIG SCH ×2 (12:11→18:39)
[2017-11-03] MEDS ORDERED: fentaNYL Citrate Inj 100 MCG/2 ML Ampul ONE (13:02)
--- NOTE | 2017-11-03 13:50 | P.RAD ---
Post Procedure Progress Note - Pre Procedure Diagnosis (1) Dislodged gastrostomy tube - Post Procedure Diagnosis (1) Dislodged gastrostomy tube - Procedure Information Procedure Date: 11/03/17 Supervising Radiologist: Connor Hahn Jr, MD Estimated blood loss (mL): 0 Anesthesia: Other - Plan of Activity Patient to Unit: Nursing Unit Patient Condition: Good See PACS Report for procedural detail/treatment. Feeding Tube Feeding Tube: Gastrostomy Procedure: Replacement Czech Tube Size: 18 Findings: Original G tube broken. Replaced with new tube.
[2017-11-03] MEDS ORDERED: Iohexol 350 MG/ML 50 ML Vial (for Rad Diag) IVCONTRAST ONE (13:55)
--- NOTE | 2017-11-03 14:40 | IR ---
EXAM DATE: 11/03/2017 2:08 PM EDT AGE/SEX: 62 years / Male INDICATIONS: Patient presents with cracked gastrostomy tube in need of exchange for nutrition. CLINICAL DATA: This is the patient's subsequent encounter. Patient reports that signs and symptoms h ave been present for 2 weeks and indicates a pain score of 0/10. MEDICAL/SURGICAL HISTORY: . Cancer of piriform sinus HTN . PEG tube Pulmonary nodule biopsy COMPARISON: No prior exams available for comparison. FLUORO TIME (min): 0.38 IMAGE SERIES: 2 SEDATION TIME (min): 15 CONTRAST (cc): 10 cc Omnipaque (iohexol) 350 MEDICATION(S): 2 mg lorazepam (Ativan) IV 100 mcg fentanyl (Sublimaze) IV DEVICE(S): 18 [place] gastrostomy tube . . PROCEDURE: 1. Fluoroscopically guided gastrostomy tube exchange. 2. Conscious sedation with continuous EKG and oximetry monitoring. The risks, benefits and alternatives to the procedure were explained and verbal and written consent w as obtained. The site was prepped in sterile fashion. Full sterile technique was used, including ca p, mask, sterile gloves and gown and a large sterile sheet. Hand hygiene and 2% chlorhexidine and/or betadine/alcohol prep was utilized per protocol for cutaneous antisepsis. The skin and subcutaneous tissues were infiltrated with local anesthetic solution. The existing tube was accessed using sterile technique. The tube was removed over a 0.035 wire. A ne w tube was advanced over the wire and positioned into the stomach without difficulty. The balloon wa s inflated with appropriate volume of saline. Injection of positive contrast demonstrates good posit ion of the gastrostomy tube. Conscious sedation was performed with the prescribed dosages and duration as above in the presence of an independent trained radiology nurse to assist in the monitoring of the patient. EKG and oximetry remained stable throughout the procedure. The patient tolerated the procedure well and there were n o complications. The patient was sent to post anesthesia recovery in stable condition. CONCLUSION: 1. Uncomplicated gastrostomy tube exchange as above. Electronically signed by: Connor Hahn MD 11/03/2017 2:38 PM EDT
--- NOTE | 2017-11-03 16:07 | P.PNID ---
Subjective Remarks: Asked to see patient for new positive blood culture. Notes reviewed. Patient had a temperature up to 101 yesterday. Blood culture has gram-negative rods in both sets collected. Patient indicates that he feels okay. he is awake and alert and oriented. Denies chills. Receiving oxygen via T-piece. Reported to have bleeding from the tracheostomy site. RN reports that the bleeding has ceased. Reported to have tenacious yellow tracheal secretions. Treated earlier this admission for pneumonia due to gram-negative bacteria. Completed p.o. Levaquin course. 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 He has had difficulty swallowing since the radiation. Sputum culture on 10/18 has Citrobacter and Stenotrophomonas maltophilia. Past Medical History Squamous cell carcinoma treated with radiation therapy Hypertension Dyslipidemia Pulmonary fibrosis Tube placement Hypercholesteremia Lines: Lines ok Allergies/Adverse Reactions: Allergies No Known Allergies Allergy (Unknown, Uncoded 10/15/17 12:40) Objective Vital Signs 11/02/17 16:00 11/02/17 20:00 11/02/17 21:25 Temperature 98.4 F 98.7 F Pulse Rate 95 H 90 95 H Respiratory Rate 14 16 17 Blood Pressure 94/51 L 105/54 L Pulse Oximetry 99 97 11/02/17 21:30 11/03/17 00:00 11/03/17 04:00 Temperature 98.4 F 97.9 F Pulse Rate 96 H 96 H Respiratory Rate 20 19 Blood Pressure 108/51 L 110/51 L Pulse Oximetry 99 96 95 11/03/17 07:47 11/03/17 07:50 Temperature Pulse Rate 91 H Respiratory Rate 20 Blood Pressure Pulse Oximetry 97 Intake & Output 11/02/17 11/03/17 11/03/17 18:59 06:59 18:59 Intake Total 3640 / 3640 1070 / 1070 100 / 100 Output Total 750 / 750 920 / 920 Balance 2890 / 2890 150 / 150 100 / 100 Weight 57.2 kg Intake: IV 100 / 100 Zosyn 4.5 GM Premix 4.5 gm In 100 / 100 100 ml @ 200 mls/hr IV.SIG Q6H [facility] Rx#:[id number] Oral 0 / 0 Tube Feeding 840 / 840 1000 / 1000 Tube Irrigant 70 / 70 Water Bolus Amount 0 / 0 Other 2800 / 2800 Output: Urine 750 / 750 800 / 800 Stool 120 / 120 Pleural Fluid 0 / 0 Peritoneal Amount 0 / 0 Other: # Voids 0 0 Date of Last Bowel Movement 10/30/17 10/30/17 # Bowel Movements 0 11/02/17 01:35 Blood - Peripheral Aerobic Blood Culture - Preliminary gram negative rods 11/02/17 01:35 Blood - Peripheral Anaerobic Blood Culture - Preliminary No growth in 1 day 11/02/17 01:30 Blood - Peripheral Aerobic Blood Culture - Preliminary gram negative rods 11/02/17 01:30 Blood - Peripheral Anaerobic Blood Culture - Preliminary No growth in 1 day Lab - Hematology Results 11/02/17 11:01 WBC 11.0 RBC 3.57 L Hgb 9.5 L Hct 29.4 L MCV 82.4 MCH 26.7 L MCHC 32.4 RDW 16.5 Plt Count 236 MPV 8.2 Lab - Chemistry Results 11/02/17 11/02/17 11:01 11:01 Sodium 135 L Potassium 4.4 Chloride 98 Carbon Dioxide 27.0 Anion Gap 10 BUN 11 Creatinine 0.52 L Estimated GFR Greater than 89 Random Glucose 127 H Lactic Acid 1.5 Calcium 8.6 Imaging: ITS Impressions Gastrostomy Tube Placement 10/23/17 00:00 CONCLUSION: Uncomplicated fluoroscopic guided gastrostomy tube replacement as described above. Chest CT 10/28/17 00:00 CONCLUSION: 1. Severe emphysema with prominent interstitial densities in the lower lobes and right upper lobe. The overall appearance has improved from previous study. 2. Tracheostomy tube. Soft Tissue Neck CT 10/28/17 00:00 CONCLUSION: 1. Tracheostomy tube. 2. Soft tissue prominence throughout the larynx with displacement of the right thyroid cartilage and adjacent air again seen. 3. Left thyroid nodule. Venous Doppler Study 11/02/17 00:00 CONCLUSION: No DVT is identified within either lower extremity. Chest X-Ray 11/02/17 00:54 CONCLUSION: 1. Persistent diffuse interstitial prominence. 2. No significant interval change. Catheter Change 11/03/17 00:00 CONCLUSION: 1. Uncomplicated gastrostomy tube exchange as above. Physical Exam: GENERAL: Alert, no acute distress. HEENT: Pupils reactive to light. Extraocular movements intact. No icterus. No conjunctival erythema. NECK: Supple without adenopathy. No swelling. Tracheostomy site appears intact. LUNGS: Decreased breath sounds bilateral. HEART: Regular S1 and S2 without murmurs rubs or gallops. ABDOMEN: Bowel sounds present, soft, nontender. EXTREMITIES: No clubbing cyanosis or edema. SKIN: No diffuse rash. NEUROLOGIC: Awake. Alert. Nonfocal. PSYCH: Calm and cooperative. Assessment and Plan - Plan Gram-negative pneumonia in patient with fever. New sepsis. 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 Treated with radiation therapy. Recommendations: Continue piperacillin/tazobactam and monitor the blood cultures. Monitor the clinical status. Monitor secretions.
--- NOTE | 2017-11-03 20:18 | P.PN ---
Subjective Interval history: ALERT NO DISTRESS GRAM NEGATIVE QUESADA IN BLOOD Physical Exam Vital signs: Vital Signs 11/02/17 21:25 11/02/17 21:30 11/03/17 00:00 Temperature 98.4 F Pulse Rate 95 H 96 H Respiratory Rate 17 20 Blood Pressure 108/51 L Pulse Oximetry 99 96 11/03/17 04:00 11/03/17 07:47 11/03/17 07:50 Temperature 97.9 F Pulse Rate 96 H 91 H Respiratory Rate 19 20 Blood Pressure 110/51 L Pulse Oximetry 95 97 11/03/17 08:00 11/03/17 12:00 11/03/17 16:00 Temperature 98.7 F 98.7 F 98.6 F Pulse Rate 88 80 90 Respiratory Rate 20 16 20 Blood Pressure 111/68 110/58 L 130/71 Pulse Oximetry 98 98 100 Intake & Output 11/03/17 11/03/17 11/04/17 06:59 18:59 06:59 Intake Total 1070 / 1070 100 / 100 Output Total 920 / 920 Balance 150 / 150 100 / 100 Weight 57.2 kg Intake: IV 100 / 100 Zosyn 4.5 GM Premix 4.5 gm In 100 / 100 100 ml @ 200 mls/hr IV.SIG Q6H [facility] Rx#:[id number] Oral 0 / 0 Tube Feeding 1000 / 1000 Tube Irrigant 70 / 70 Water Bolus Amount 0 / 0 Output: Urine 800 / 800 Stool 120 / 120 Pleural Fluid 0 / 0 Peritoneal Amount 0 / 0 Other: # Voids 0 Date of Last Bowel Movement 10/30/17 10/30/17 # Bowel Movements 0 Narrative: GENERAL: This is a thin cachectic appearing middle-aged male, INAD. Awake and alert. ENT: No nasal bleeding or discharge. Mucous membranes pink and moist. NECK: Trachea midline, small amount of clear and light yellow secretions noted. Trach in place. No active bleeding. CARDIOVASCULAR: Regular rate and rhythm. RESPIRATORY: No accessory muscle use. Clear to auscultation. Breath sounds equal bilaterally. Trach in place. GASTROINTESTINAL: Abdomen soft, non-tender, nondistended. Positive bowel sounds in all quadrants. MUSCULOSKELETAL: Extremities without clubbing, cyanosis, or edema. No obvious deformities. No calf tenderness with palpation. NEUROLOGICAL: Awake and alert. No obvious cranial nerve deficits. Motor grossly within normal limits. Patient is able to effectively communicate by mouthing words. Results - Labs CBC & Chem 7: 11/02/17 11:01 11/02/17 11:01 Microbiology 11/02/17 01:35 Blood - Peripheral Aerobic Blood Culture - Preliminary gram negative rods 11/02/17 01:35 Blood - Peripheral Anaerobic Blood Culture - Preliminary No growth in 1 day 11/02/17 01:30 Blood - Peripheral Aerobic Blood Culture - Preliminary gram negative rods 11/02/17 01:30 Blood - Peripheral Anaerobic Blood Culture - Preliminary No growth in 1 day - Imaging Impressions Venous Doppler Study 11/02/17 00:00 CONCLUSION: No DVT is identified within either lower extremity. Catheter Change 11/03/17 00:00 CONCLUSION: 1. Uncomplicated gastrostomy tube exchange as above. Assessment and Plan - Plan laryngeal CA Post tracheostomy sutures removed fever BLOOD CULTURE POSITIVE PLAN O2 NEEDED ANTIBIOTICS PER ID CXRAY
[2017-11-04] MEDS: Piperacil/Tazo 4.5 GM Premix 4.5 GM/100 ML BAG IV.SIG SCH ×5 (00:04→23:26)
--- NOTE | 2017-11-04 11:29 | P.DIET ---
Nutritional Evaluation Type of nutrition evaluation: follow-up Nutrition consult regarding: Tube Feeding (MDC TF - change TF due to diarrhea) Subjective Subjective Comments: Nursing states pt not tolerating bolus tube feeds Objective - Diagnosis Hypercapneic/Hypoxic Respiratory Failure - Indications of Malnutrition Classification: Chronic disease or injury-related Malnutrition Characteristics: Weight loss - Objective % IBW: 74 Body Weight Used for Calculations: IBW Energy Needs - Lower Range (kCal/kg): 28 Energy Needs - Upper Range (kCal/kg): 33 Lower Limit kCal/kg (kCals): 2,268 Upper Limit kCal/kg (kCals): 2,673 Lower Limit Protein Factor (Grams per Kg): 1.2 Upper Limit Protein Factor (Grams per Kg): 1.5 Lower Protein Needs (Protein): 97 Upper Protein Needs (Protein): 122 Dietitian Reviewed in Medical Record: Curent medications, Intake & Output, Labs , Tube feeding Diet Order: TF only Objective Comments: Pt's nutritional needs based on 81kg PMH: PMH: 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 wt. remains stable, +UOP and +BM. MDC for diarreha, was mild at the time of consult per MDs note. While on TFing soft to slighly liquid is normal, monitor consistence. If stool amount increases, consider starting Imodium. Gastrostomy tube was exchanged while blood culture came back positive for Gram negative rick. Continue current TFing of Jevity 1.5 @ a goal rate of 70 ml/hr will meet his nutritional needs providing 2520 kcals, 107 gms protein and 1277 mls free water. This is the equivalent of what pt takes at home in bolus feedings. Will continue to monitor TF tolerance, clinical course and stool. Recommendations: 1. Continue current TFing of Jevity 1.5 @ a goal rate of 70 ml/hr will meet his nutritional needs. 2. Will continue to monitor TF tolerance, clinical course and stool. Dietitian to Monitor: Lab values, Intake & Output, Tube feeding tolerance, Weight change, Medical course
[2017-11-04] MEDS: predniSONE 10 MG Tablet G-TUBE SCH (11:30)
[2017-11-04] MEDS ORDERED: Sod Chloride 0.9% Inj 1,000 ML IV.SIG ONE (12:13)
--- NOTE | 2017-11-04 12:18 | P.PNIM ---
Physical Exam Vital signs: Vital Signs 11/03/17 16:00 11/03/17 20:00 11/03/17 21:26 Temperature 98.6 F 97.6 F Pulse Rate 90 86 90 Respiratory Rate 20 18 20 Blood Pressure 130/71 96/53 L Pulse Oximetry 100 98 100 11/04/17 00:00 11/04/17 04:00 11/04/17 08:00 Temperature 97.8 F 98.7 F 98.6 F Pulse Rate 100 H 100 H Respiratory Rate 21 20 18 Blood Pressure 113/66 105/53 L 114/58 L Pulse Oximetry 95 98 99 11/04/17 09:09 Temperature Pulse Rate 87 Respiratory Rate 16 Blood Pressure Pulse Oximetry 97 Intake & Output 11/03/17 11/04/17 11/04/17 18:59 06:59 18:59 Intake Total 100 / 100 1470 / 1470 Output Total 750 / 750 Balance 100 / 100 720 / 720 Weight 56.7 kg Intake: IV 100 / 100 300 / 300 Zosyn 4.5 GM Premix 4.5 gm In 100 / 100 300 / 300 100 ml @ 200 mls/hr IV.SIG Q6H [facility] Rx#:[id number] Tube Feeding 770 / 770 Tube Irrigant 400 / 400 Output: Urine 750 / 750 Other: Date of Last Bowel Movement 10/30/17 11/03/17 11/03/17 Results - Labs CBC & Chem 7: 11/02/17 11:01 11/02/17 11:01 Microbiology 11/02/17 01:30 Blood - Peripheral Aerobic Blood Culture - Preliminary gram negative rods 11/02/17 01:30 Blood - Peripheral Anaerobic Blood Culture - Preliminary No growth in 2 days 11/02/17 01:35 Blood - Peripheral Aerobic Blood Culture - Preliminary gram negative rods 11/02/17 01:35 Blood - Peripheral Anaerobic Blood Culture - Preliminary No growth in 2 days - Imaging Impressions Catheter Change 11/03/17 00:00 CONCLUSION: 1. Uncomplicated gastrostomy tube exchange as above. Assessment and Plan - Assessment (1) Acute respiratory failure with hypoxia and hypercapnia Code(s): J96.01 - Acute respiratory failure with hypoxia; J96.02 - Acute respiratory failure with hypercapnia Status: Acute (2) COPD with exacerbation Code(s): J44.1 - Chronic obstructive pulmonary disease with (acute) exacerbation Status: Resolved (3) Squamous cell carcinoma of pyriform sinus Code(s): C12 - Malignant neoplasm of pyriform sinus Status: Chronic (4) Aspiration pneumonia Code(s): J69.0 - Pneumonitis due to inhalation of food and vomit Status: Acute (5) Dislodged gastrostomy tube Code(s): Z43.1 - Encounter for attention to gastrostomy Status: Resolved - Plan 62-year-old male with 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 He was initially intubated by anesthesia in the emergency department. The patient then was admitted to the intensive care unit under the care of the historiographer who treated the patient with IV steroids , supplemental oxygen, ventilation bundle. The patient is status post tracheostomy in OR on 10/17 by general surgery. Recent episode of hemoptysis -s/p direct laryngscopy by Dr. Lorenz 10/30, he also went down through the tracheostomy, no obvious source of bleeding, but unable to see through the glottis because of significant edema. -Dr. Coello believed patient may need a laryngectomy. discussed with [facility] Dr. Calixto and patient can be DC home and follow up at [facility] as outpatient for surgery as long as no further bleeding. 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 -Continue tube feeds, currently on Jevity 1.5, tolerating well, no diarrhea Suspected aspiration pneumonia. Chest x-ray obtained on 10/20 shows stable exam with interstitial prominence predominantly at the bases. - Patient initially started on IV vancomycin IV Zosyn empirically. - ID consulted. Antibiotics stopped, continue steroid taper. Fever, +BC Gram-negative bacteremia -+fever, blood cultures 2 with gram negative rods growing in aerobic bottles , chest x-ray with persistent diffuse interstitial prominence, no significant interval change. - previously started on p.o. Levaquin. DC Levaquin and continue IV Zosyn, appreciate infectious disease recommendations. - bilateral leg US negative for DVT Symptomatic hypotension + Positive orthostatics Possibly also related to bacteremia -Bolus another 1 L of normal saline today. Severe hypokalemia. Mild hyponatremia -Status post IV replacement -Mild hyponatremia most likely secondary to recent D5W fluids, s/p normal saline boluses. Heparin DVT prophylaxis: Pharmacological prophylaxis contraindicated because of bleeding to tracheostomy. Discharge Planning: Oxygen and DME needed for home ; discharge with home health care when medically stable.
[2017-11-04] MEDS: Famotidine 20 MG Tablet G-TUBE SCH ×2 (15:41→21:36)
--- NOTE | 2017-11-04 15:59 | P.PN ---
Subjective Interval history: ALERT NO SOB Physical Exam Vital signs: Vital Signs 11/03/17 16:00 11/03/17 20:00 11/03/17 21:26 Temperature 98.6 F 97.6 F Pulse Rate 90 86 90 Respiratory Rate 20 18 20 Blood Pressure 130/71 96/53 L Pulse Oximetry 100 98 100 11/04/17 00:00 11/04/17 04:00 11/04/17 08:00 Temperature 97.8 F 98.7 F 98.6 F Pulse Rate 100 H 100 H Respiratory Rate 21 20 18 Blood Pressure 113/66 105/53 L 114/58 L Pulse Oximetry 95 98 99 11/04/17 09:09 11/04/17 12:00 Temperature 98.6 F Pulse Rate 87 88 Respiratory Rate 16 16 Blood Pressure 110/58 L Pulse Oximetry 97 95 Intake & Output 11/03/17 11/04/17 11/04/17 18:59 06:59 18:59 Intake Total 100 / 100 1470 / 1470 100 / 100 Output Total 750 / 750 Balance 100 / 100 720 / 720 100 / 100 Weight 56.7 kg Intake: IV 100 / 100 300 / 300 100 / 100 Zosyn 4.5 GM Premix 4.5 gm In 100 / 100 300 / 300 100 / 100 100 ml @ 200 mls/hr IV.SIG Q6H [facility] Rx#:[id number] Tube Feeding 770 / 770 Tube Irrigant 400 / 400 Output: Urine 750 / 750 Other: Date of Last Bowel Movement 10/30/17 11/03/17 11/03/17 Narrative: GENERAL: This is a thin cachectic appearing middle-aged male, INAD. Awake and alert. ENT: No nasal bleeding or discharge. Mucous membranes pink and moist. NECK: Trachea midline, small amount of clear and light yellow secretions noted. Trach in place. No active bleeding. CARDIOVASCULAR: Regular rate and rhythm. RESPIRATORY: No accessory muscle use. Clear to auscultation. Breath sounds equal bilaterally. Trach in place. GASTROINTESTINAL: Abdomen soft, non-tender, nondistended. Positive bowel sounds in all quadrants. MUSCULOSKELETAL: Extremities without clubbing, cyanosis, or edema. No obvious deformities. No calf tenderness with palpation. NEUROLOGICAL: Awake and alert. No obvious cranial nerve deficits. Motor grossly within normal limits. Patient is able to effectively communicate by mouthing words. 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
[2017-11-04] MEDS: ALPRAZolam 0.25 MG Tablet G-TUBE PRN (17:33)
[2017-11-05] MEDS: Piperacil/Tazo 4.5 GM Premix 4.5 GM/100 ML BAG IV.SIG SCH ×3 (06:00→18:24)
[2017-11-05] MEDS: predniSONE 10 MG Tablet G-TUBE SCH (09:25)
[2017-11-05] MEDS: Famotidine 20 MG Tablet G-TUBE SCH ×2 (09:25→20:20)
--- NOTE | 2017-11-05 10:16 | P.PNIM ---
Subjective Interval history: NO NEW COMPLAINTS REMAINS ON ANTIBIOTICS PER ID DW NURSING AM LABS Physical Exam Vital signs: Vital Signs 11/04/17 12:00 11/04/17 16:00 11/04/17 20:00 Temperature 98.6 F 98.1 F 97.8 F Pulse Rate 88 83 75 Respiratory Rate 16 16 18 Blood Pressure 110/58 L 102/55 L 102/55 L Pulse Oximetry 95 95 97 11/04/17 21:29 11/05/17 00:00 11/05/17 03:54 Temperature 97.6 F Pulse Rate 81 Respiratory Rate 18 Blood Pressure 95/55 L Pulse Oximetry 98 98 99 11/05/17 04:00 11/05/17 08:00 11/05/17 10:01 Temperature 98.6 F 98.1 F Pulse Rate 88 83 Respiratory Rate 18 16 Blood Pressure 120/62 99/48 L Pulse Oximetry 94 L 99 98 Intake & Output 11/04/17 11/05/17 11/05/17 18:59 06:59 18:59 Intake Total 200 / 200 1410 / 1410 Output Total 1100 / 1100 1200 / 1200 Balance -900 / -900 210 / 210 Weight 54.6 kg Intake: IV 200 / 200 200 / 200 Zosyn 4.5 GM Premix 4.5 gm In 200 / 200 200 / 200 100 ml @ 200 mls/hr IV.SIG Q6H [facility] Rx#:[id number] Oral 0 / 0 Tube Feeding 770 / 770 Tube Irrigant 40 / 40 Water Bolus Amount 400 / 400 Output: Urine 1100 / 1100 1200 / 1200 Emesis 0 / 0 Pleural Fluid 0 / 0 Peritoneal Amount 0 / 0 Other: # Voids 5 Date of Last Bowel Movement 11/04/17 11/05/17 # Bowel Movements 1 1 # Emeses 0 Narrative: GENERAL: This is a thin cachectic appearing middle-aged male, IN NAD. Awake and alert. ENT: No nasal bleeding or discharge. Mucous membranes pink and moist. TONGUE IS MIDLINE NECK: Trachea midline, small amount of clear and light yellow secretions noted. Trach in place. No active bleeding. CARDIOVASCULAR: Regular rate and rhythm. S1, S2 NO S3 OR S4 RESPIRATORY: No accessory muscle use. Clear to auscultation. Breath sounds equal bilaterally. Trach in place. GASTROINTESTINAL: Abdomen soft, non-tender, nondistended. Positive bowel sounds in all quadrants. PEG IN PLACE MUSCULOSKELETAL: Extremities without clubbing, cyanosis, or edema. No obvious deformities. No calf tenderness with palpation. NEUROLOGICAL: Awake and alert. No obvious cranial nerve deficits. Motor grossly within normal limits. Patient is able to effectively communicate by mouthing words. AND USING A WHITE BOARD Results - Labs CBC & Chem 7: 11/02/17 11:01 11/02/17 11:01 Microbiology 11/02/17 01:30 Blood - Peripheral Aerobic Blood Culture - Preliminary gram negative rods 11/02/17 01:30 Blood - Peripheral Anaerobic Blood Culture - Preliminary No growth in 2 days 11/02/17 01:35 Blood - Peripheral Aerobic Blood Culture - Preliminary gram negative rods 11/02/17 01:35 Blood - Peripheral Anaerobic Blood Culture - Preliminary No growth in 2 days - Imaging Chest X-Ray 10/22/17 00:00 CONCLUSION: Basilar opacity similar to October 20. Stable interstitial prominence. Gastrostomy Tube Placement 10/23/17 00:00 CONCLUSION: Uncomplicated fluoroscopic guided gastrostomy tube replacement as described above. Chest CT 10/28/17 00:00 CONCLUSION: 1. Severe emphysema with prominent interstitial densities in the lower lobes and right upper lobe. The overall appearance has improved from previous study. 2. Tracheostomy tube. Soft Tissue Neck CT 10/28/17 00:00 CONCLUSION: 1. Tracheostomy tube. 2. Soft tissue prominence throughout the larynx with displacement of the right thyroid cartilage and adjacent air again seen. 3. Left thyroid nodule. Chest X-Ray 10/28/17 05:28 CONCLUSION: Right greater than left diffuse pulmonary opacity unchanged. Venous Doppler Study 11/02/17 00:00 CONCLUSION: No DVT is identified within either lower extremity. Chest X-Ray 11/02/17 00:54 CONCLUSION: 1. Persistent diffuse interstitial prominence. 2. No significant interval change. Catheter Change 11/03/17 00:00 CONCLUSION: 1. Uncomplicated gastrostomy tube exchange as above. - Procedures SP TRACH AND PEG Assessment and Plan - Assessment (1) Acute respiratory failure with hypoxia and hypercapnia Code(s): J96.01 - Acute respiratory failure with hypoxia; J96.02 - Acute respiratory failure with hypercapnia Status: Acute (2) COPD with exacerbation Code(s): J44.1 - Chronic obstructive pulmonary disease with (acute) exacerbation Status: Resolved (3) Squamous cell carcinoma of pyriform sinus Code(s): C12 - Malignant neoplasm of pyriform sinus Status: Chronic (4) Aspiration pneumonia Code(s): J69.0 - Pneumonitis due to inhalation of food and vomit Status: Acute (5) Dislodged gastrostomy tube Code(s): Z43.1 - Encounter for attention to gastrostomy Status: Resolved - Plan 62-year-old male with 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 He was initially intubated by anesthesia in the emergency department. The patient then was admitted to the intensive care unit under the care of the appraisal technician who treated the patient with IV steroids , supplemental oxygen, ventilation bundle. The patient is status post tracheostomy in OR on 10/17 by general surgery. Recent episode of hemoptysis -s/p direct laryngscopy by Dr. Lorenz 10/30, he also went down through the tracheostomy, no obvious source of bleeding, but unable to see through the glottis because of significant edema. -Dr. Coello believed patient may need a laryngectomy. discussed with [facility] [place] Dr. Calixto and patient can be DC home and follow up at [facility] as outpatient for surgery as long as no further bleeding. 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 -Continue tube feeds, currently on Jevity 1.5, tolerating well, no diarrhea Suspected aspiration pneumonia. Chest x-ray obtained on 10/20 shows stable exam with interstitial prominence predominantly at the bases. - Patient initially started on IV vancomycin IV Zosyn empirically. - ID consulted. Antibiotics stopped, continue steroid taper. Fever, +BC Gram-negative bacteremia -+fever, blood cultures 2 with gram negative rods growing in aerobic bottles , chest x-ray with persistent diffuse interstitial prominence, no significant interval change. - previously started on p.o. Levaquin. DC Levaquin and continue IV Zosyn, appreciate infectious disease recommendations. - bilateral leg US negative for DVT Symptomatic hypotension + Positive orthostatics Possibly also related to bacteremia -Bolus another 1 L of normal saline today. Severe hypokalemia. Mild hyponatremia -Status post IV replacement -Mild hyponatremia most likely secondary to recent D5W fluids, s/p normal saline boluses. Heparin DVT prophylaxis: Pharmacological prophylaxis contraindicated because of bleeding to tracheostomy. Discharge Planning: Oxygen and DME needed for home ; discharge with home health care when medically stable. Code Status: FULL CODE Discussed Condition With: NURSING Discharge Planning: AWAIT CLEARANCE FROM ID FOR DISCHARGE TO HOME
[2017-11-05] MEDS: ALPRAZolam 0.25 MG Tablet G-TUBE PRN ×2 (12:40→20:20)
--- NOTE | 2017-11-05 15:41 | P.PN ---
Subjective Interval history: ALERT NO SOB NO FEVER Physical Exam Vital signs: Vital Signs 11/04/17 16:00 11/04/17 20:00 11/04/17 21:29 Temperature 98.1 F 97.8 F Pulse Rate 83 75 Respiratory Rate 16 18 Blood Pressure 102/55 L 102/55 L Pulse Oximetry 95 97 98 11/05/17 00:00 11/05/17 03:54 11/05/17 04:00 Temperature 97.6 F 98.6 F Pulse Rate 81 88 Respiratory Rate 18 18 Blood Pressure 95/55 L 120/62 Pulse Oximetry 98 99 94 L 11/05/17 08:00 11/05/17 10:01 11/05/17 12:00 Temperature 98.1 F 98.6 F Pulse Rate 83 77 Respiratory Rate 16 16 Blood Pressure 99/48 L 100/56 L Pulse Oximetry 99 98 97 Intake & Output 11/04/17 11/05/17 11/05/17 18:59 06:59 18:59 Intake Total 200 / 200 1410 / 1410 Output Total 1100 / 1100 1200 / 1200 Balance -900 / -900 210 / 210 Weight 54.6 kg Intake: IV 200 / 200 200 / 200 Zosyn 4.5 GM Premix 4.5 gm In 200 / 200 200 / 200 100 ml @ 200 mls/hr IV.SIG Q6H [facility] Rx#:[id number] Oral 0 / 0 Tube Feeding 770 / 770 Tube Irrigant 40 / 40 Water Bolus Amount 400 / 400 Output: Urine 1100 / 1100 1200 / 1200 Emesis 0 / 0 Pleural Fluid 0 / 0 Peritoneal Amount 0 / 0 Other: # Voids 5 Date of Last Bowel Movement 11/04/17 11/05/17 # Bowel Movements 1 1 # Emeses 0 Narrative: GENERAL: This is a thin cachectic appearing middle-aged male, IN NAD. Awake and alert. ENT: No nasal bleeding or discharge. Mucous membranes pink and moist. TONGUE IS MIDLINE NECK: Trachea midline, small amount of clear and light yellow secretions noted. Trach in place. No active bleeding. CARDIOVASCULAR: Regular rate and rhythm. S1, S2 NO S3 OR S4 RESPIRATORY: No accessory muscle use. Clear to auscultation. Breath sounds equal bilaterally. Trach in place. GASTROINTESTINAL: Abdomen soft, non-tender, nondistended. Positive bowel sounds in all quadrants. PEG IN PLACE MUSCULOSKELETAL: Extremities without clubbing, cyanosis, or edema. No obvious deformities. No calf tenderness with palpation. NEUROLOGICAL: Awake and alert. No obvious cranial nerve deficits. Motor grossly within normal limits. Patient is able to effectively communicate by mouthing words. AND USING A WHITE BOARD Results - Labs CBC & Chem 7: 11/02/17 11:01 11/02/17 11:01 Microbiology 11/02/17 01:35 Blood - Peripheral Aerobic Blood Culture - Preliminary gram negative rods 11/02/17 01:35 Blood - Peripheral Anaerobic Blood Culture - Preliminary No growth in 3 days 11/02/17 01:30 Blood - Peripheral Aerobic Blood Culture - Preliminary gram negative rods 11/02/17 01:30 Blood - Peripheral Anaerobic Blood Culture - Preliminary No growth in 3 days - Procedures SP TRACH AND PEG Assessment and Plan - Plan laryngeal CA Post tracheostomy sutures removed fever BLOOD CULTURE POSITIVE PLAN O2 NEEDED INCREASE ACTIVITY
[2017-11-06] MEDS: Piperacil/Tazo 4.5 GM Premix 4.5 GM/100 ML BAG IV.SIG SCH ×3 (00:07→11:47)
[2017-11-06] MEDS: Famotidine 20 MG Tablet G-TUBE SCH ×2 (08:22→21:07)
[2017-11-06] MEDS: predniSONE 10 MG Tablet G-TUBE SCH (08:22)
--- NOTE | 2017-11-06 09:41 | P.PN ---
Physical Exam Vital signs: Vital Signs 11/05/17 10:01 11/05/17 12:00 11/05/17 16:00 Temperature 98.6 F 98.6 F Pulse Rate 77 82 Respiratory Rate 16 16 Blood Pressure 100/56 L 101/55 L Pulse Oximetry 98 97 97 11/05/17 20:00 11/05/17 22:53 11/05/17 23:18 Temperature 97.6 F Pulse Rate 83 Respiratory Rate 12 12 Blood Pressure 123/63 Pulse Oximetry 98 98 11/06/17 00:00 11/06/17 04:00 Temperature 99.8 F H 98.5 F Pulse Rate 83 80 Respiratory Rate 12 12 Blood Pressure 126/62 116/60 Pulse Oximetry 95 97 Intake & Output 11/05/17 11/06/17 11/06/17 18:59 06:59 18:59 Intake Total 1150 / 1150 1540 / 1540 Output Total 850 / 850 650 / 650 Balance 300 / 300 890 / 890 Weight 54.3 kg Intake: IV 100 / 100 300 / 300 Zosyn 4.5 GM Premix 4.5 gm In 100 / 100 300 / 300 100 ml @ 200 mls/hr IV.SIG Q6H [facility] Rx#:[id number] Tube Feeding 750 / 750 840 / 840 Water Bolus Amount 300 / 300 400 / 400 Output: Urine 850 / 850 650 / 650 Other: Date of Last Bowel Movement 11/05/17 Narrative: Subjective Interval history: In bed, with secretions able to suction himself well. Communicates fairly well. No fever or chills. NO chest pain , doesn't feel sob. No n/v/d/c. no fevers overnight. Physical Exam GENERAL: This is a cachectic 62 yo male on trach awake and alert. ENT: Whitish DC on tongue. Mucous membranes pink and moist. NECK: Trachea midline, small amount of clear and light yellow secretions noted. Trach in place. No active bleeding. CARDIOVASCULAR: Regular rate and rhythm. S1, S2 NO S3 OR S4 RESPIRATORY: No accessory muscle use. Clear to auscultation. Breath sounds equal bilaterally. Trach in place. GASTROINTESTINAL: Abdomen soft, non-tender, nondistended. Positive bowel sounds in all quadrants. PEG IN PLACE MUSCULOSKELETAL: Extremities without clubbing, cyanosis, or edema. No obvious deformities. No calf tenderness with palpation. NEUROLOGICAL: Awake and alert. No obvious cranial nerve deficits. Motor grossly within normal limits. Patient is able to effectively communicate by mouthing words, using board. 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 He was initially intubated by anesthesia in the emergency department. The patient then was admitted to the intensive care unit under the care of the patient financial coordinator who treated the patient with IV steroids , supplemental oxygen, ventilation bundle. The patient is status post tracheostomy in OR on 10/17 by general surgery. 11/06/17 No fevers overnight. vSS, some secretions says he is able to suction himself well. Oral candidiasis. Start nystati swish and swallow. Recent episode of hemoptysis -s/p direct laryngscopy by Dr. Lorenz 10/30, he also went down through the tracheostomy, no obvious source of bleeding, but unable to see through the glottis because of significant edema. -Dr. Coello believed patient may need a laryngectomy. discussed with [facility] Dr. Calixto and patient can be DC home and follow up at [facility] as outpatient for surgery as long as no further bleeding. 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 -Continue tube feeds, currently on Jevity 1.5, tolerating well, no diarrhea Suspected aspiration pneumonia. Chest x-ray obtained on 10/20 shows stable exam with interstitial prominence predominantly at the bases. - Patient initially started on IV vancomycin IV Zosyn empirically. - ID consulted. Antibiotics stopped, continue steroid taper. Fever, +BC Gram-negative bacteremia -+fever, blood cultures 2 with gram negative rods growing in aerobic bottles , chest x-ray with persistent diffuse interstitial prominence, no significant interval change. - previously started on p.o. Levaquin. DC Levaquin and continue IV Zosyn, appreciate infectious disease recommendations. - bilateral leg US negative for DVT Symptomatic hypotension + Positive orthostatics Possibly also related to bacteremia -Bolus another 1 L of normal saline today. Severe hypokalemia. Mild hyponatremia -Status post IV replacement -Mild hyponatremia most likely secondary to recent D5W fluids, s/p normal saline boluses. Heparin DVT prophylaxis: Pharmacological prophylaxis contraindicated because of bleeding to tracheostomy. Discharge Planning: Oxygen and DME needed for home ; discharge with home health care when medically stable. Code Status: FULL CODE Discussed Condition With: NURSING Discharge Planning: AWAIT CLEARANCE FROM ID FOR DISCHARGE TO HOME Discussed with the patient, nurse Results - Labs CBC & Chem 7: 11/02/17 11:01 11/02/17 11:01 Microbiology 11/02/17 01:35 Blood - Peripheral Aerobic Blood Culture - Preliminary gram negative rods 11/02/17 01:35 Blood - Peripheral Anaerobic Blood Culture - Preliminary No growth in 3 days 11/02/17 01:30 Blood - Peripheral Aerobic Blood Culture - Preliminary gram negative rods 11/02/17 01:30 Blood - Peripheral Anaerobic Blood Culture - Preliminary No growth in 3 days - Procedures SP TRACH AND PEG Assessment and Plan - Assessment (1) Acute respiratory failure with hypoxia and hypercapnia Code(s): J96.01 - Acute respiratory failure with hypoxia; J96.02 - Acute respiratory failure with hypercapnia Status: Acute (2) COPD with exacerbation Code(s): J44.1 - Chronic obstructive pulmonary disease with (acute) exacerbation Status: Resolved (3) Squamous cell carcinoma of pyriform sinus Code(s): C12 - Malignant neoplasm of pyriform sinus Status: Chronic (4) Aspiration pneumonia Code(s): J69.0 - Pneumonitis due to inhalation of food and vomit Status: Acute (5) Dislodged gastrostomy tube Code(s): Z43.1 - Encounter for attention to gastrostomy Status: Resolved
[2017-11-06 12:32] LABS: Baso % (Auto) 0.3 % (0.0-2.0); Eos # (Auto) 0.1 th/mm3 (0.0-0.4); Eos % (Auto) 1.1 % (0.0-4.0); Hematocrit 28.3 % (39.0-51.0); Hemoglobin 9.2 gm/dL (13.0-17.0); Lymph # (Auto) 0.2 th/mm3 (1.0-4.8); Lymph % (Auto) 3.8 % (9.0-44.0); Mean Corpuscular HGB Conc 32.4 % (32.0-36.0); Mean Corpuscular Hemoglobin 26.7 pg (27.0-34.0); Mean Corpuscular Volume 82.1 fL (80.0-100.0); Mean Platelet Volume 8.3 fL (7.0-11.0); Mono # (Auto) 0.3 th/mm3 (0.0-0.9); Mono % (Auto) 4.9 % (0.0-8.0); Neut # (Auto) 5.2 th/mm3 (1.8-7.7); Neut % (Auto) 89.9 % (16.0-70.0); Platelet Count 261 th/mm3 (150-450); Red Blood Count 3.45 mil/mm3 (4.50-5.90); Red Cell Distribution Width 16.5 % (11.6-17.2); White Blood Count 5.8 th/mm3 (4.0-11.0)
[2017-11-06 12:58] LABS: Anion Gap 9 meq/L (5-15); Aspartate Aminotransferase 23 U/L (15-37); Blood Urea Nitrogen 11 mg/dL (7-18); Calcium 8.5 mg/dL (8.5-10.1); Chloride 104 meq/L (98-107); Glomerular Filtration Rate Greater Than 89 mL/min (>89); Glucose,Random 128 mg/dL (74-106); Magnesium 2.3 mg/dL (1.5-2.5); Potassium 4.2 meq/L (3.5-5.1); Sodium 141 meq/L (136-145)
[2017-11-06 12:59] LABS: Alanine Aminotransferase 58 U/L (12-78)
[2017-11-06 13:02] LABS: Alkaline Phosphatase 102 U/L (45-117); Free T4 (Free Thyroxine) 0.89 ng/dL (0.76-1.46); Total Protein 6.5 g/dL (6.4-8.2)
[2017-11-06] MEDS: Nystatin/Diphenhydramine/Lidocaine Mouthwash (Adult) 120 ML Botttle SWISH-SWAL SCH ×3 (15:36→21:07)
[2017-11-06] MEDS: TRIMETHOPRIM IV.SIG SCH ×4 (15:36→22:00)
[2017-11-06] MEDS: WATER IV.SIG SCH ×4 (15:36→22:00)
[2017-11-06] MEDS: DEXTROSE 5% IV.SIG SCH ×4 (15:36→22:00)
[2017-11-06] MEDS: SULFAMETHOX IV.SIG SCH ×4 (15:36→22:00)
--- NOTE | 2017-11-06 16:02 | P.PNID ---
Subjective Remarks: Notes reviewed. Patient states he feels okay. Blood culture has stenotrophomonas on 11/03/2017. Resistant to Levaquin. Patient indicates that he feels okay. Awake, alert, oriented. Denies chills. Receiving oxygen via T-piece. Treated earlier this admission for pneumonia due to gram-negative bacteria. Completed p.o. Levaquin course. 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 He has had difficulty swallowing since the radiation. Sputum culture on 10/18 has Citrobacter and Stenotrophomonas maltophilia. Antibiotics: Zosyn Lines: Lines ok Past Medical History: Past Medical History Squamous cell carcinoma treated with radiation therapy Hypertension Dyslipidemia Pulmonary fibrosis Tube placement Hypercholesteremia Allergies/Adverse Reactions: Allergies No Known Allergies Allergy (Unknown, Uncoded 10/15/17 12:40) Objective Vital Signs 11/05/17 16:00 11/05/17 20:00 11/05/17 22:53 Temperature 98.6 F 97.6 F Pulse Rate 82 83 Respiratory Rate 16 12 Blood Pressure 101/55 L 123/63 Pulse Oximetry 97 98 98 11/05/17 23:18 11/06/17 00:00 11/06/17 04:00 Temperature 99.8 F H 98.5 F Pulse Rate 83 80 Respiratory Rate 12 12 12 Blood Pressure 126/62 116/60 Pulse Oximetry 95 97 11/06/17 08:00 11/06/17 10:58 11/06/17 12:00 Temperature 98.7 F 99 F Pulse Rate 78 90 Respiratory Rate 14 Blood Pressure 111/55 L 112/60 Pulse Oximetry 97 97 Intake & Output 11/05/17 11/06/17 11/06/17 18:59 06:59 18:59 Intake Total 1150 / 1150 1540 / 1540 Output Total 850 / 850 650 / 650 Balance 300 / 300 890 / 890 Weight 54.3 kg Intake: IV 100 / 100 300 / 300 Zosyn 4.5 GM Premix 4.5 gm In 100 / 100 300 / 300 100 ml @ 200 mls/hr IV.SIG Q6H [facility] Rx#:[id number] Tube Feeding 750 / 750 840 / 840 Water Bolus Amount 300 / 300 400 / 400 Output: Urine 850 / 850 650 / 650 Other: Date of Last Bowel Movement 11/05/17 11/06/17 11/06/17 12:01 Blood - Peripheral Aerobic Blood Culture - Pending 11/06/17 12:01 Blood - Peripheral Anaerobic Blood Culture - Pending 11/06/17 11:54 Blood - Peripheral Aerobic Blood Culture - Pending 11/06/17 11:54 Blood - Peripheral Anaerobic Blood Culture - Pending 11/02/17 01:30 Blood - Peripheral Aerobic Blood Culture - Final Stenotrophomonas maltophilia 11/02/17 01:30 Blood - Peripheral Anaerobic Blood Culture - Preliminary No growth in 4 days 11/02/17 01:35 Blood - Peripheral Aerobic Blood Culture - Final Stenotrophomonas maltophilia 11/02/17 01:35 Blood - Peripheral Anaerobic Blood Culture - Preliminary No growth in 4 days Lab - Hematology Results 11/06/17 11:54 WBC 5.8 RBC 3.45 L Hgb 9.2 L Hct 28.3 L MCV 82.1 MCH 26.7 L MCHC 32.4 RDW 16.5 Plt Count 261 MPV 8.3 Neut % (Auto) 89.9 H Lymph % (Auto) 3.8 L [place] % (Auto) 4.9 Eos % (Auto) 1.1 Baso % (Auto) 0.3 Neut # (Auto) 5.2 Lymph # (Auto) 0.2 L [place] # (Auto) 0.3 Eos # (Auto) 0.1 Baso # (Auto) 0.0 WBC Differential . Differential Comment Auto diff final Lab - Chemistry Results 11/06/17 11:54 Sodium 141 Potassium 4.2 Chloride 104 Carbon Dioxide 28.0 Anion Gap 9 BUN 11 Creatinine 0.50 L Estimated GFR Greater than 89 Random Glucose 128 H Calcium 8.5 Phosphorus 3.0 Magnesium 2.3 Total Bilirubin 0.2 AST 23 ALT 58 Alkaline Phosphatase 102 Total Protein 6.5 Albumin 2.0 L Free T4 0.89 Imaging: ITS Impressions Gastrostomy Tube Placement 10/23/17 00:00 CONCLUSION: Uncomplicated fluoroscopic guided gastrostomy tube replacement as described above. Chest CT 10/28/17 00:00 CONCLUSION: 1. Severe emphysema with prominent interstitial densities in the lower lobes and right upper lobe. The overall appearance has improved from previous study. 2. Tracheostomy tube. Soft Tissue Neck CT 10/28/17 00:00 CONCLUSION: 1. Tracheostomy tube. 2. Soft tissue prominence throughout the larynx with displacement of the right thyroid cartilage and adjacent air again seen. 3. Left thyroid nodule. Venous Doppler Study 11/02/17 00:00 CONCLUSION: No DVT is identified within either lower extremity. Chest X-Ray 11/02/17 00:54 CONCLUSION: 1. Persistent diffuse interstitial prominence. 2. No significant interval change. Catheter Change 11/03/17 00:00 CONCLUSION: 1. Uncomplicated gastrostomy tube exchange as above. Physical Exam: GENERAL: Alert, no acute distress. HEENT: Pupils reactive to light. Extraocular movements intact. No icterus. No conjunctival erythema. NECK: Supple without adenopathy. No swelling. Tracheostomy site appears intact. LUNGS: Decreased breath sounds bilateral. No rhonchi HEART: Regular S1 and S2 without murmurs rubs or gallops. ABDOMEN: Bowel sounds present, soft, nontender. EXTREMITIES: No clubbing cyanosis or edema. SKIN: No diffuse rash. NEUROLOGIC: Awake. Alert. Nonfocal. PSYCH: Calm and cooperative. Assessment and Plan - Plan Gram-negative pneumonia in patient with fever. Sepsis due to stenotrophomonas. Pulmonary source. 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 Treated with radiation therapy. Recommendations: Stop piperacillin/tazobactam Begin IV Bactrim. Monitor kidney function and white blood cell count while on Bactrim Monitor repeat blood cultures. Need to have negative blood cultures before deciding on PICC line and outpatient antibiotic. He needs 10 days of IV antibiotics. Monitor secretions.
[2017-11-06 16:13] LABS: Hemoglobin A1c 5.9 % (4.3-6.0)
--- NOTE | 2017-11-06 17:03 | P.PN ---
Subjective Interval history: ALERT AFEBRILE NO BLEEDING Physical Exam Vital signs: Vital Signs 11/05/17 20:00 11/05/17 22:53 11/05/17 23:18 Temperature 97.6 F Pulse Rate 83 Respiratory Rate 12 12 Blood Pressure 123/63 Pulse Oximetry 98 98 11/06/17 00:00 11/06/17 04:00 11/06/17 08:00 Temperature 99.8 F H 98.5 F 98.7 F Pulse Rate 83 80 78 Respiratory Rate 12 12 14 Blood Pressure 126/62 116/60 111/55 L Pulse Oximetry 95 97 11/06/17 10:58 11/06/17 12:00 11/06/17 16:00 Temperature 99 F 98.9 F Pulse Rate 90 72 Respiratory Rate 14 Blood Pressure 112/60 122/60 Pulse Oximetry 97 97 99 Intake & Output 11/05/17 11/06/17 11/06/17 18:59 06:59 18:59 Intake Total 1150 / 1150 1540 / 1540 2030 / 2030 Output Total 850 / 850 650 / 650 650 / 650 Balance 300 / 300 890 / 890 1380 / 1380 Weight 54.3 kg Intake: IV 100 / 100 300 / 300 Zosyn 4.5 GM Premix 4.5 gm In 100 / 100 300 / 300 100 ml @ 200 mls/hr IV.SIG Q6H [facility] Rx#:[id number] Oral 0 / 0 Tube Feeding 750 / 750 840 / 840 840 / 840 Water Bolus Amount 300 / 300 400 / 400 400 / 400 Other 790 / 790 Output: Urine 850 / 850 650 / 650 650 / 650 Emesis 0 / 0 Pleural Fluid 0 / 0 Peritoneal Amount 0 / 0 Other: Other Intake Source Saline Solution # Voids 5 Date of Last Bowel Movement 11/05/17 11/06/17 # Bowel Movements 1 # Emes[place] 0 Narrative: Subjective Interval history: In bed, with secretions able to suction himself well. Communicates fairly well. No fever or chills. NO chest pain , doesn't feel sob. No n/v/d/c. no fevers overnight. Physical Exam GENERAL: This is a cachectic 62 yo male on trach awake and alert. ENT: Whitish DC on tongue. Mucous membranes pink and moist. NECK: Trachea midline, small amount of clear and light yellow secretions noted. Trach in place. No active bleeding. CARDIOVASCULAR: Regular rate and rhythm. S1, S2 NO S3 OR S4 RESPIRATORY: No accessory muscle use. Clear to auscultation. Breath sounds equal bilaterally. Trach in place. GASTROINTESTINAL: Abdomen soft, non-tender, nondistended. Positive bowel sounds in all quadrants. PEG IN PLACE MUSCULOSKELETAL: Extremities without clubbing, cyanosis, or edema. No obvious deformities. No calf tenderness with palpation. NEUROLOGICAL: Awake and alert. No obvious cranial nerve deficits. Motor grossly within normal limits. Patient is able to effectively communicate by mouthing words, using board. 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 He was initially intubated by anesthesia in the emergency department. The patient then was admitted to the intensive care unit under the care of the principal librarian who treated the patient with IV steroids , supplemental oxygen, ventilation bundle. The patient is status post tracheostomy in OR on 10/17 by general surgery. 11/06/17 No fevers overnight. vSS, some secretions says he is able to suction himself well. Oral candidiasis. Start nystati swish and swallow. Recent episode of hemoptysis -s/p direct laryngscopy by Dr. Lorenz 10/30, he also went down through the tracheostomy, no obvious source of bleeding, but unable to see through the glottis because of significant edema. -Dr. Coello believed patient may need a laryngectomy. discussed with [facility] Dr. Calixto and patient can be DC home and follow up at [facility] as outpatient for surgery as long as no further bleeding. 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 -Continue tube feeds, currently on Jevity 1.5, tolerating well, no diarrhea Suspected aspiration pneumonia. Chest x-ray obtained on 10/20 shows stable exam with interstitial prominence predominantly at the bases. - Patient initially started on IV vancomycin IV Zosyn empirically. - ID consulted. Antibiotics stopped, continue steroid taper. Fever, +BC Gram-negative bacteremia -+fever, blood cultures 2 with gram negative rods growing in aerobic bottles , chest x-ray with persistent diffuse interstitial prominence, no significant interval change. - previously started on p.o. Levaquin. DC Levaquin and continue IV Zosyn, appreciate infectious disease recommendations. - bilateral leg US negative for DVT Symptomatic hypotension + Positive orthostatics Possibly also related to bacteremia -Bolus another 1 L of normal saline today. Severe hypokalemia. Mild hyponatremia -Status post IV replacement -Mild hyponatremia most likely secondary to recent D5W fluids, s/p normal saline boluses. Heparin DVT prophylaxis: Pharmacological prophylaxis contraindicated because of bleeding to tracheostomy. Discharge Planning: Oxygen and DME needed for home ; discharge with home health care when medically stable. Code Status: FULL CODE Discussed Condition With: NURSING Discharge Planning: AWAIT CLEARANCE FROM ID FOR DISCHARGE TO HOME Discussed with the patient, nurse Results - Labs CBC & Chem 7: 11/06/17 11:54 11/06/17 11:54 Laboratory Results - last 24 hr 11/06/17 11/06/17 11/06/17 11:54 11:54 11:54 WBC 5.8 RBC 3.45 L Hgb 9.2 L Hct 28.3 L MCV 82.1 MCH 26.7 L MCHC 32.4 RDW 16.5 Plt Count 261 MPV 8.3 Neut % (Auto) 89.9 H Lymph % (Auto) 3.8 L [place] % (Auto) 4.9 Eos % (Auto) 1.1 Baso % (Auto) 0.3 Neut # (Auto) 5.2 Lymph # (Auto) 0.2 L [place] # (Auto) 0.3 Eos # (Auto) 0.1 Baso # (Auto) 0.0 WBC Differential . Differential Comment Auto diff final Sodium 141 Potassium 4.2 Chloride 104 Carbon Dioxide 28.0 Anion Gap 9 BUN 11 Creatinine 0.50 L Estimated GFR Greater than 89 Random Glucose 128 H Hemoglobin A1c 5.9 Calcium 8.5 Phosphorus 3.0 Magnesium 2.3 Total Bilirubin 0.2 AST 23 ALT 58 Alkaline Phosphatase 102 Total Protein 6.5 Albumin 2.0 L Free T4 0.89 Microbiology 11/02/17 01:30 Blood - Peripheral Aerobic Blood Culture - Final Stenotrophomonas maltophilia 11/02/17 01:30 Blood - Peripheral Anaerobic Blood Culture - Preliminary No growth in 4 days 11/02/17 01:35 Blood - Peripheral Aerobic Blood Culture - Final Stenotrophomonas maltophilia 11/02/17 01:35 Blood - Peripheral Anaerobic Blood Culture - Preliminary No growth in 4 days - Procedures SP TRACH AND PEG Assessment and Plan - 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
[2017-11-07] MEDS: TRIMETHOPRIM IV.SIG SCH ×6 (06:24→23:24)
[2017-11-07] MEDS: DEXTROSE 5% IV.SIG SCH ×6 (06:24→23:24)
[2017-11-07] MEDS: WATER IV.SIG SCH ×6 (06:24→23:24)
[2017-11-07] MEDS: SULFAMETHOX IV.SIG SCH ×6 (06:24→23:24)
[2017-11-07] MEDS: predniSONE 10 MG Tablet G-TUBE SCH (08:24)
[2017-11-07] MEDS: Famotidine 20 MG Tablet G-TUBE SCH ×2 (08:24→20:41)
[2017-11-07] MEDS: Nystatin/Diphenhydramine/Lidocaine Mouthwash (Adult) 120 ML Botttle SWISH-SWAL SCH ×4 (08:24→20:41)
--- NOTE | 2017-11-07 10:32 | P.PNIM ---
Subjective Interval history: in no acute distress. looks fairly comfortable. denies pain. d/w the RN and no acute issues over night. Physical Exam Vital signs: Vital Signs 11/06/17 10:58 11/06/17 12:00 11/06/17 16:00 Temperature 99 F 98.9 F Pulse Rate 90 72 Respiratory Rate 14 Blood Pressure 112/60 122/60 Pulse Oximetry 97 97 99 11/06/17 20:00 11/06/17 21:57 11/07/17 00:00 Temperature 98.2 F 98.6 F Pulse Rate 74 84 Respiratory Rate 16 15 Blood Pressure 129/65 127/65 Pulse Oximetry 98 96 96 11/07/17 04:00 11/07/17 08:00 Temperature 98.6 F 98.2 F Pulse Rate 81 82 Respiratory Rate 12 Blood Pressure 118/57 L 117/55 L Pulse Oximetry 98 Intake & Output 11/06/17 11/07/17 11/07/17 18:59 06:59 18:59 Intake Total 2547 / 2547 4502 / 4502 Output Total 650 / 650 1650 / 1650 Balance 1897 / 1897 2852 / 2852 Weight 55.8 kg Intake: IV 517 / 517 517 / 517 Bactrim Inj 272 MG In D5W Inj 517 / 517 517 / 517 500 ML @ 344.667 mls/hr IV.SIG Q8H [facility] Rx#:[id number] Oral 0 / 0 Tube Feeding 840 / 840 1200 / 1200 Tube Irrigant 60 / 60 Water Bolus Amount 400 / 400 425 / 425 Other 790 / 790 2300 / 2300 Output: Urine 650 / 650 1650 / 1650 Emesis 0 / 0 Pleural Fluid 0 / 0 Peritoneal Amount 0 / 0 Other: Other Intake Source Saline Solution Saline Solution # Voids 5 Date of Last Bowel Movement 11/06/17 11/06/17 11/06/17 # Bowel Movements 1 # Emeses 0 - Constitutional no acute distress - Routine Respiratory Exam Present: CTA bilaterally - Routine Cardiovascular Exam Present: RRR - Routine Abdominal Exam Present: soft - Routine Extremities Exam Comments: no pedal edema. Results - Labs CBC & Chem 7: 11/06/17 11:54 11/06/17 11:54 Laboratory Results - last 24 hr 11/06/17 11/06/17 11/06/17 11:54 11:54 11:54 WBC 5.8 RBC 3.45 L Hgb 9.2 L Hct 28.3 L MCV 82.1 MCH 26.7 L MCHC 32.4 RDW 16.5 Plt Count 261 MPV 8.3 Neut % (Auto) 89.9 H Lymph % (Auto) 3.8 L [place] % (Auto) 4.9 Eos % (Auto) 1.1 Baso % (Auto) 0.3 Neut # (Auto) 5.2 Lymph # (Auto) 0.2 L [place] # (Auto) 0.3 Eos # (Auto) 0.1 Baso # (Auto) 0.0 WBC Differential . Differential Comment Auto diff final Sodium 141 Potassium 4.2 Chloride 104 Carbon Dioxide 28.0 Anion Gap 9 BUN 11 Creatinine 0.50 L Estimated GFR Greater than 89 Random Glucose 128 H Hemoglobin A1c 5.9 Calcium 8.5 Phosphorus 3.0 Magnesium 2.3 Total Bilirubin 0.2 AST 23 ALT 58 Alkaline Phosphatase 102 Total Protein 6.5 Albumin 2.0 L Free T4 0.89 Microbiology 11/02/17 01:30 Blood - Peripheral Aerobic Blood Culture - Final Stenotrophomonas maltophilia 11/02/17 01:30 Blood - Peripheral Anaerobic Blood Culture - Preliminary No growth in 4 days 11/02/17 01:35 Blood - Peripheral Aerobic Blood Culture - Final Stenotrophomonas maltophilia 11/02/17 01:35 Blood - Peripheral Anaerobic Blood Culture - Preliminary No growth in 4 days - Procedures SP TRACH AND PEG Assessment and Plan - Assessment (1) Acute respiratory failure with hypoxia and hypercapnia Code(s): J96.01 - Acute respiratory failure with hypoxia; J96.02 - Acute respiratory failure with hypercapnia Status: Acute (2) COPD with exacerbation Code(s): J44.1 - Chronic obstructive pulmonary disease with (acute) exacerbation Status: Resolved (3) Squamous cell carcinoma of pyriform sinus Code(s): C12 - Malignant neoplasm of pyriform sinus Status: Chronic (4) Aspiration pneumonia Code(s): J69.0 - Pneumonitis due to inhalation of food and vomit Status: Acute (5) Dislodged gastrostomy tube Code(s): Z43.1 - Encounter for attention to gastrostomy Status: Resolved - Plan Recent episode of hemoptysis -s/p direct laryngscopy by Dr. Lorenz 10/30, he also went down through the tracheostomy, no obvious source of bleeding, but unable to see through the glottis because of significant edema. -Dr. Coello believed patient may need a laryngectomy. discussed with [facility] Dr. Calixto and patient can be DC home and follow up at [facility] as outpatient for surgery as long as no further bleeding. - presently bleeding appears to have stopped, Hgb is stable. 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 -Continue tube feeds, currently on Jevity 1.5, tolerating well, no diarrhea Suspected aspiration pneumonia. Chest x-ray obtained on 10/20 shows stable exam with interstitial prominence predominantly at the bases. - Patient initially started on IV vancomycin IV Zosyn empirically. - ID consulted. Gram-negative bacteremia -started on IV Bactrim -repeated blood cultures from 11/06 pending. -ID following. Severe hypokalemia. Mild hyponatremia -Status post IV replacement -Mild hyponatremia most likely secondary to recent D5W fluids, s/p normal saline boluses. Heparin DVT prophylaxis: Pharmacological prophylaxis contraindicated because of bleeding to tracheostomy. Discharge Planning: Oxygen and DME needed for home ; discharge with home health care when medically stable. Code Status: FULL CODE
--- NOTE | 2017-11-07 17:25 | P.DCO ---
Post Hospital Infusion Therapy Location of Infusion Therapy: Home Health Care IV Infusion Order Patient Weight: 55.8 kg - Diagnosis (1) Sepsis Code(s): A41.9 - Sepsis, unspecified organism - Additional Information Venous Access: PICC Line Additional Instructions: [x] Peripheral flush and dressing changes per protocol [x] Implanted port and central hot top liner: * Implanted port: 10 ml Normal Saline followed by 5 ml Heparin 100 units/ml Heparin flush after each use and monthly to maintain. [] May leave port accessed during therapy. [] May leave peripheral site accessed for duration of therapy. [x] If patient has SOB or respiratory distress, check oxygen saturation. If less than 90% or clinical signs of respiratory distress, administer oxygen at 2 L/min. via nasal cannula and notify physician. [x] Anaphylaxis/Reaction orders: * Stop infusion. * Keep IV line open with saline flush. * Notify physician. * Monitor vital signs every 15 minutes until symptoms resolve. * Check Oxygen saturation; Oxygen at 2 L/min. via nasal cannula if less than 90% or clinical signs of respiratory distress. * Administer diphenhydramine (Benadryl) 25 mg IV STAT, (unless patient has received as pre-med). May repeat once, if necessary. * Solu-Cortef 250 mg IVP over 30-60 seconds, use 100 mg vials for each dissolution. * Epinephrine (1mg/1 ml) 0.3 mg subcutaneously or IVP now with any signs of respiratory distress. * Check with physician for new additional pre-med orders if patient is re- challenged or re-treated. [x] May remove PICC line when treatment complete, after confirming with Physician. [x] If the patient is admitted to the hospital, the ED, or transferred via [facility] , complete transfer form including medication reconciliation order sheet. Additional Information: Patient treated in hospital. Allergies No Known Allergies Allergy (Unknown, Uncoded 10/15/17 12:40) (1) Sepsis Qualifiers: Sepsis type: sepsis due to unspecified organism Qualified Code(s): A41.9 - Sepsis, unspecified organism
--- NOTE | 2017-11-07 17:33 | P.PNID ---
Subjective Remarks: Notes reviewed. Patient states he feels okay. Blood culture has stenotrophomonas on 11/03/2017. Resistant to Levaquin. Repeat blood cultures negative times 1 day. Awake, alert, oriented. Denies chills. Receiving oxygen via T-piece. Treated earlier this admission for pneumonia due to gram-negative bacteria. Completed p.o. Levaquin course. 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 He has had difficulty swallowing since the radiation. Sputum culture on 10/18 has Citrobacter and Stenotrophomonas maltophilia. 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 Hypertension Dyslipidemia Pulmonary fibrosis Tube placement Hypercholesteremia Allergies/Adverse Reactions: Allergies No Known Allergies Allergy (Unknown, Uncoded 10/15/17 12:40) Objective Vital Signs 11/06/17 20:00 11/06/17 21:57 11/07/17 00:00 Temperature 98.2 F 98.6 F Pulse Rate 74 84 Respiratory Rate 16 15 Blood Pressure 129/65 127/65 Pulse Oximetry 98 96 96 11/07/17 04:00 11/07/17 08:00 Temperature 98.6 F 98.2 F Pulse Rate 81 82 Respiratory Rate 12 Blood Pressure 118/57 L 117/55 L Pulse Oximetry 98 Intake & Output 11/06/17 11/07/17 11/07/17 18:59 06:59 18:59 Intake Total 2547 / 2547 4502 / 4502 517 / 517 Output Total 650 / 650 1650 / 1650 1200 / 1200 Balance 1897 / 1897 2852 / 2852 -683 / -683 Weight 55.8 kg 55.8 kg Intake: IV 517 / 517 517 / 517 517 / 517 Bactrim Inj 272 MG In D5W Inj 517 / 517 517 / 517 517 / 517 500 ML @ 344.667 mls/hr IV.SIG Q8H [facility] Rx#:[id number] Oral 0 / 0 Tube Feeding 840 / 840 1200 / 1200 Tube Irrigant 60 / 60 Water Bolus Amount 400 / 400 425 / 425 Other 790 / 790 2300 / 2300 Output: Urine 650 / 650 1650 / 1650 1200 / 1200 Emesis 0 / 0 Pleural Fluid 0 / 0 Peritoneal Amount 0 / 0 Other: Other Intake Source Saline Solution Saline Solution # Voids 5 Date of Last Bowel Movement 11/06/17 11/06/17 11/06/17 # Bowel Movements 1 # Emeses 0 11/06/17 12:01 Blood - Peripheral Aerobic Blood Culture - Preliminary No growth in 1 day 11/06/17 12:01 Blood - Peripheral Anaerobic Blood Culture - Preliminary No growth in 1 day 11/06/17 11:54 Blood - Peripheral Aerobic Blood Culture - Preliminary No growth in 1 day 11/06/17 11:54 Blood - Peripheral Anaerobic Blood Culture - Preliminary No growth in 1 day 11/02/17 01:30 Blood - Peripheral Aerobic Blood Culture - Final Stenotrophomonas maltophilia 11/02/17 01:30 Blood - Peripheral Anaerobic Blood Culture - Final No growth in 5 days 11/02/17 01:35 Blood - Peripheral Aerobic Blood Culture - Final Stenotrophomonas maltophilia 11/02/17 01:35 Blood - Peripheral Anaerobic Blood Culture - Final No growth in 5 days Lab - Hematology Results 11/06/17 11:54 WBC 5.8 RBC 3.45 L Hgb 9.2 L Hct 28.3 L MCV 82.1 MCH 26.7 L MCHC 32.4 RDW 16.5 Plt Count 261 MPV 8.3 Neut % (Auto) 89.9 H Lymph % (Auto) 3.8 L [place] % (Auto) 4.9 Eos % (Auto) 1.1 Baso % (Auto) 0.3 Neut # (Auto) 5.2 Lymph # (Auto) 0.2 L [place] # (Auto) 0.3 Eos # (Auto) 0.1 Baso # (Auto) 0.0 WBC Differential . Differential Comment Auto diff final Lab - Chemistry Results 11/06/17 11/06/17 11:54 11:54 Sodium 141 Potassium 4.2 Chloride 104 Carbon Dioxide 28.0 Anion Gap 9 BUN 11 Creatinine 0.50 L Estimated GFR Greater than 89 Random Glucose 128 H Hemoglobin A1c 5.9 Calcium 8.5 Phosphorus 3.0 Magnesium 2.3 Total Bilirubin 0.2 AST 23 ALT 58 Alkaline Phosphatase 102 Total Protein 6.5 Albumin 2.0 L Free T4 0.89 Imaging: ITS Impressions Gastrostomy Tube Placement 10/23/17 00:00 CONCLUSION: Uncomplicated fluoroscopic guided gastrostomy tube replacement as described above. Chest CT 10/28/17 00:00 CONCLUSION: 1. Severe emphysema with prominent interstitial densities in the lower lobes and right upper lobe. The overall appearance has improved from previous study. 2. Tracheostomy tube. Soft Tissue Neck CT 10/28/17 00:00 CONCLUSION: 1. Tracheostomy tube. 2. Soft tissue prominence throughout the larynx with displacement of the right thyroid cartilage and adjacent air again seen. 3. Left thyroid nodule. Venous Doppler Study 11/02/17 00:00 CONCLUSION: No DVT is identified within either lower extremity. Chest X-Ray 11/02/17 00:54 CONCLUSION: 1. Persistent diffuse interstitial prominence. 2. No significant interval change. Catheter Change 11/03/17 00:00 CONCLUSION: 1. Uncomplicated gastrostomy tube exchange as above. Physical Exam: GENERAL: Alert, no acute distress. HEENT: Pupils reactive to light. Extraocular movements intact. No icterus. No conjunctival erythema. NECK: Supple without adenopathy. No swelling. Tracheostomy site appears intact. LUNGS: Clear decreased breath sounds HEART: Regular S1 and S2 without murmurs rubs or gallops. ABDOMEN: Bowel sounds present, soft, nontender. EXTREMITIES: No clubbing cyanosis or edema. SKIN: No diffuse rash. NEUROLOGIC: Awake. Alert. Nonfocal. PSYCH: Calm and cooperative. Assessment and Plan (1) Sepsis Status: Acute Code(s): A41.9 - Sepsis, unspecified organism - Plan Gram-negative pneumonia in patient with fever. Sepsis due to stenotrophomonas. Pulmonary source. 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 Treated with radiation therapy. Recommendations: Continue IV Bactrim until 11/16/2017 if the repeat blood cultures remain negative. Monitor kidney function and white blood cell count every other day while on Bactrim. Monitor repeat blood cultures. Needs to have negative blood cultures before outpatient antibiotic can be arranged. Need to have negative blood cultures and after that PICC line and outpatient antibiotic. (1) Sepsis Qualifiers: Sepsis type: sepsis due to unspecified organism Qualified Code(s): A41.9 - Sepsis, unspecified organism
--- NOTE | 2017-11-07 18:10 | P.PN ---
Subjective Interval history: On a T bar at 35 % FIO2 No complaints . Wants to talk. Physical Exam Vital signs: Vital Signs 11/06/17 20:00 11/06/17 21:57 11/07/17 00:00 Temperature 98.2 F 98.6 F Pulse Rate 74 84 Respiratory Rate 16 15 Blood Pressure 129/65 127/65 Pulse Oximetry 98 96 96 11/07/17 04:00 11/07/17 08:00 11/07/17 12:00 Temperature 98.6 F 98.2 F 98.3 F Pulse Rate 81 82 72 Respiratory Rate 12 12 Blood Pressure 118/57 L 117/55 L 120/68 Pulse Oximetry 98 98 11/07/17 16:00 Temperature 98.7 F Pulse Rate 74 Respiratory Rate 14 Blood Pressure 118/74 Pulse Oximetry Intake & Output 11/06/17 11/07/17 11/07/17 18:59 06:59 18:59 Intake Total 2547 / 2547 4502 / 4502 2797 / 2797 Output Total 650 / 650 1650 / 1650 1800 / 1800 Balance 1897 / 1897 2852 / 2852 997 / 997 Weight 55.8 kg 55.8 kg Intake: IV 517 / 517 517 / 517 517 / 517 Bactrim Inj 272 MG In D5W Inj 517 / 517 517 / 517 517 / 517 500 ML @ 344.667 mls/hr IV.SIG Q8H [facility] Rx#:[id number] Oral 0 / 0 Tube Feeding 840 / 840 1200 / 1200 840 / 840 Tube Irrigant 60 / 60 Water Bolus Amount 400 / 400 425 / 425 400 / 400 Other 790 / 790 2300 / 2300 1040 / 1040 Output: Urine 650 / 650 1650 / 1650 1800 / 1800 Emesis 0 / 0 Pleural Fluid 0 / 0 Peritoneal Amount 0 / 0 Other: Other Intake Source Saline Solution Saline Solution Saline Solution # Voids 5 Date of Last Bowel Movement 11/06/17 11/06/17 11/06/17 # Bowel Movements 1 # Emeses 0 Narrative: Physical Exam GENERAL: This is a cachectic 62 yo male on trach awake and alert. ENT: Whitish coating on tongue. Mucous membranes pink and moist. NECK: Trachea midline, Trach in place. No active bleeding. CARDIOVASCULAR: Regular rate and rhythm. S1, S2 NO S3 OR S4 RESPIRATORY: No accessory muscle use. Occ wheeze heard. Breath sounds equal bilaterally. GASTROINTESTINAL: Abdomen soft, non-tender, nondistended. Positive bowel sounds in all quadrants. PEG IN PLACE MUSCULOSKELETAL: Extremities without clubbing, cyanosis, or edema. Mild deformities. No calf tenderness with palpation. NEUROLOGICAL: Awake and alert. No obvious cranial nerve deficits. Motor grossly within normal limits. Patient is able to effectively communicate by mouthing words, using board. Results - Labs CBC & Chem 7: 11/06/17 11:54 11/06/17 11:54 Microbiology 11/06/17 12:01 Blood - Peripheral Aerobic Blood Culture - Preliminary No growth in 1 day 11/06/17 12:01 Blood - Peripheral Anaerobic Blood Culture - Preliminary No growth in 1 day 11/06/17 11:54 Blood - Peripheral Aerobic Blood Culture - Preliminary No growth in 1 day 11/06/17 11:54 Blood - Peripheral Anaerobic Blood Culture - Preliminary No growth in 1 day 11/02/17 01:30 Blood - Peripheral Aerobic Blood Culture - Final Stenotrophomonas maltophilia 11/02/17 01:30 Blood - Peripheral Anaerobic Blood Culture - Final No growth in 5 days 11/02/17 01:35 Blood - Peripheral Aerobic Blood Culture - Final Stenotrophomonas maltophilia 11/02/17 01:35 Blood - Peripheral Anaerobic Blood Culture - Final No growth in 5 days - Procedures SP TRACH AND PEG Assessment and Plan - Assessment (1) Status post tracheostomy Code(s): Z93.0 - Tracheostomy status Status: Acute Plan: Cont T bar 35 % FIO2 and use a Collar. Will use PM Valve to talk. (2) Status post tracheostomy Code(s): Z93.0 - Tracheostomy status Status: Acute Plan: Trach lavage and suction. (3) Acute respiratory failure with hypoxia and hypercapnia Code(s): J96.01 - Acute respiratory failure with hypoxia; J96.02 - Acute respiratory failure with hypercapnia Status: Acute Plan: Cont antibiotics per ID (4) COPD with exacerbation Code(s): J44.1 - Chronic obstructive pulmonary disease with (acute) exacerbation Status: Resolved Plan: Duonebs q6h, and PRN (5) Squamous cell carcinoma of pyriform sinus Code(s): C12 - Malignant neoplasm of pyriform sinus Status: Chronic (6) Aspiration pneumonia Code(s): J69.0 - Pneumonitis due to inhalation of food and vomit Status: Acute Plan: Antibiotics per ID. Rpt Chest Xray (7) Sepsis Code(s): A41.9 - Sepsis, unspecified organism Status: Acute - Plan Resolved and culture if febrile. (7) Sepsis Qualifiers: Sepsis type: sepsis due to unspecified organism Qualified Code(s): A41.9 - Sepsis, unspecified organism
[2017-11-08] MEDS: TRIMETHOPRIM IV.SIG SCH ×8 (05:53→21:36)
[2017-11-08] MEDS: DEXTROSE 5% IV.SIG SCH ×8 (05:53→21:36)
[2017-11-08] MEDS: WATER IV.SIG SCH ×8 (05:53→21:36)
[2017-11-08] MEDS: SULFAMETHOX IV.SIG SCH ×8 (05:53→21:36)
[2017-11-08 09:04] LABS: Anion Gap 13 meq/L (5-15); Blood Urea Nitrogen 9 mg/dL (7-18); Calcium 9.2 mg/dL (8.5-10.1); Carbon Dioxide 22.3 meq/L (21.0-32.0); Chloride 103 meq/L (98-107); Glomerular Filtration Rate Greater Than 89 mL/min (>89); Glucose,Random 91 mg/dL (74-106); Sodium 138 meq/L (136-145)
[2017-11-08 09:06] LABS: Potassium 3.9 meq/L (3.5-5.1)
[2017-11-08] MEDS: predniSONE 10 MG Tablet G-TUBE SCH (09:08)
[2017-11-08] MEDS: Famotidine 20 MG Tablet G-TUBE SCH ×2 (09:08→21:12)
[2017-11-08] MEDS: Nystatin/Diphenhydramine/Lidocaine Mouthwash (Adult) 120 ML Botttle SWISH-SWAL SCH ×4 (09:09→21:12)
[2017-11-08 09:18] LABS: Baso % (Auto) 0.5 % (0.0-2.0); Eos # (Auto) 0.1 th/mm3 (0.0-0.4); Eos % (Auto) 2.3 % (0.0-4.0); Hematocrit 31.3 % (39.0-51.0); Hemoglobin 9.9 gm/dL (13.0-17.0); Lymph # (Auto) 0.5 th/mm3 (1.0-4.8); Lymph % (Auto) 8.2 % (9.0-44.0); Mean Corpuscular HGB Conc 31.8 % (32.0-36.0); Mean Corpuscular Hemoglobin 26.6 pg (27.0-34.0); Mean Corpuscular Volume 83.6 fL (80.0-100.0); Mean Platelet Volume 8.9 fL (7.0-11.0); Mono # (Auto) 0.4 th/mm3 (0.0-0.9); Mono % (Auto) 6.4 % (0.0-8.0); Neut # (Auto) 4.8 th/mm3 (1.8-7.7); Neut % (Auto) 82.6 % (16.0-70.0); Platelet Count 317 th/mm3 (150-450); Red Blood Count 3.74 mil/mm3 (4.50-5.90); Red Cell Distribution Width 16.8 % (11.6-17.2); White Blood Count 5.8 th/mm3 (4.0-11.0)
--- NOTE | 2017-11-08 10:43 | P.PNIM ---
Subjective Interval history: in no acute distress. sitting on the chair and looks comfortable. no fever. d/w the RN and no acute issues over night. Physical Exam Vital signs: Vital Signs 11/07/17 12:00 11/07/17 16:00 11/07/17 20:00 Temperature 98.3 F 98.7 F Pulse Rate 72 74 Respiratory Rate 12 14 Blood Pressure 120/68 118/74 117/60 Pulse Oximetry 98 96 11/07/17 22:29 11/07/17 23:46 11/08/17 04:00 Temperature 97.9 F 98.4 F Pulse Rate 88 86 Respiratory Rate 18 18 Blood Pressure 112/59 L 129/67 Pulse Oximetry 98 97 98 11/08/17 08:00 Temperature 98.4 F Pulse Rate Respiratory Rate 12 Blood Pressure 118/68 Pulse Oximetry 98 Intake & Output 11/07/17 11/08/17 11/08/17 18:59 06:59 18:59 Intake Total 3314 / 3314 517 / 517 Output Total 1800 / 1800 Balance 1514 / 1514 517 / 517 Weight 55.8 kg Intake: IV 1034 / 1034 517 / 517 Bactrim Inj 272 MG In D5W Inj 1034 / 1034 517 / 517 500 ML @ 344.667 mls/hr IV.SIG Q8H [facility] Rx#:[id number] Tube Feeding 840 / 840 Water Bolus Amount 400 / 400 Other 1040 / 1040 Output: Urine 1800 / 1800 Other: Other Intake Source Saline Solution Date of Last Bowel Movement 11/06/17 11/06/17 11/06/17 - Constitutional no acute distress - Routine Respiratory Exam Present: CTA bilaterally - Routine Cardiovascular Exam Present: RRR - Routine Abdominal Exam Present: soft - Routine Extremities Exam Comments: no pedal edema. - Routine Neurological Exam Present: alert, oriented X3 Results - Labs CBC & Chem 7: 11/08/17 07:47 11/08/17 07:47 Laboratory Results - last 24 hr 11/08/17 11/08/17 07:47 07:47 WBC 5.8 RBC 3.74 L Hgb 9.9 L Hct 31.3 L MCV 83.6 MCH 26.6 L MCHC 31.8 L RDW 16.8 Plt Count 317 MPV 8.9 Neut % (Auto) 82.6 H Lymph % (Auto) 8.2 L [place] % (Auto) 6.4 Eos % (Auto) 2.3 Baso % (Auto) 0.5 Neut # (Auto) 4.8 Lymph # (Auto) 0.5 L [place] # (Auto) 0.4 Eos # (Auto) 0.1 Baso # (Auto) 0.0 WBC Differential . Differential Comment Auto diff final Sodium 138 Potassium 3.9 Chloride 103 Carbon Dioxide 22.3 Anion Gap 13 BUN 9 Creatinine 0.63 Estimated GFR Greater than 89 Random Glucose 91 Calcium 9.2 Microbiology 11/06/17 12:01 Blood - Peripheral Aerobic Blood Culture - Preliminary No growth in 1 day 11/06/17 12:01 Blood - Peripheral Anaerobic Blood Culture - Preliminary No growth in 1 day 11/06/17 11:54 Blood - Peripheral Aerobic Blood Culture - Preliminary No growth in 1 day 11/06/17 11:54 Blood - Peripheral Anaerobic Blood Culture - Preliminary No growth in 1 day 11/02/17 01:30 Blood - Peripheral Aerobic Blood Culture - Final Stenotrophomonas maltophilia 11/02/17 01:30 Blood - Peripheral Anaerobic Blood Culture - Final No growth in 5 days 11/02/17 01:35 Blood - Peripheral Aerobic Blood Culture - Final Stenotrophomonas maltophilia 11/02/17 01:35 Blood - Peripheral Anaerobic Blood Culture - Final No growth in 5 days - Procedures SP TRACH AND PEG Assessment and Plan - Assessment (1) Acute respiratory failure with hypoxia and hypercapnia Code(s): J96.01 - Acute respiratory failure with hypoxia; J96.02 - Acute respiratory failure with hypercapnia Status: Acute (2) COPD with exacerbation Code(s): J44.1 - Chronic obstructive pulmonary disease with (acute) exacerbation Status: Resolved (3) Squamous cell carcinoma of pyriform sinus Code(s): C12 - Malignant neoplasm of pyriform sinus Status: Chronic (4) Aspiration pneumonia Code(s): J69.0 - Pneumonitis due to inhalation of food and vomit Status: Acute (5) Dislodged gastrostomy tube Code(s): Z43.1 - Encounter for attention to gastrostomy Status: Resolved - Plan Recent episode of hemoptysis -s/p direct laryngscopy by Dr. Lorenz 10/30, he also went down through the tracheostomy, no obvious source of bleeding, but unable to see through the glottis because of significant edema. -Dr. Coello believed patient may need a laryngectomy. discussed with [facility] Dr. Calixto and patient can be DC home and follow up at [facility] as outpatient for surgery as long as no further bleeding. - presently bleeding appears to have stopped, Hgb is stable. 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 -Continue tube feeds, currently on Jevity 1.5, tolerating well, no diarrhea Suspected aspiration pneumonia. Chest x-ray obtained on 10/20 shows stable exam with interstitial prominence predominantly at the bases. - Patient initially trated with IV vancomycin IV Zosyn empirically. - ID consulted. bacteremia with Stenotrophomonas -started on IV Bactrim- will continue till 11/16/17 if blood cultures remain negative- -outpatient antibiotic regimen per ID. -ID following. -will monitor CBC/ renal function/electrolytes every other day while on IV Bactrim. Severe hypokalemia. Mild hyponatremia -Status post IV replacement -Mild hyponatremia most likely secondary to recent D5W fluids, s/p normal saline boluses. Heparin DVT prophylaxis: Pharmacological prophylaxis contraindicated because of bleeding to tracheostomy. Discharge Planning: Oxygen and DME needed for home ; discharge with home health care when medically stable. Code Status: FULL CODE
--- NOTE | 2017-11-08 14:15 | XR ---
EXAM DATE: 11/08/2017 1:39 PM EDT AGE/SEX: 62 years / Male INDICATIONS: . Shortness of breath. CLINICAL DATA: This is the patient's subsequent encounter. Patient reports that signs and symptoms h ave been present for 1 day and indicates a pain score of 0/10. MEDICAL/SURGICAL HISTORY: Hypertension. Cancer of piriform sinus. . PEG tube Pulmonary nodule biopsy COMPARISON: [facility] [place], CHEST 1V SINGLE AP, 11/02/2017. . FINDINGS: A single AP view of the chest demonstrates the lungs to be symmetrically aerated without evidence of mass, infiltrate or effusion. There is hyperaeration bilaterally with chronic bilateral interstitial lung disease. This is not significantly changed compared to the prior study. The tracheostomy tube re sourav in place. There is no pneumothorax. The cardiomediastinal contours are unremarkable and stable. Osseous structures are intact and stable. CONCLUSION: No significant interval change compared to the prior examination. Electronically signed by: Rubens Cedeno MD 11/08/2017 2:14 PM EDT
--- NOTE | 2017-11-08 16:04 | P.PNID ---
Subjective Remarks: Notes reviewed. Patient states he feels okay. Blood culture has stenotrophomonas on 11/03/2017. Resistant to Levaquin. Awake, alert, oriented. Denies chills. Receiving oxygen via T-piece. Treated earlier this admission for pneumonia due to gram-negative bacteria. Completed p.o. Levaquin course. 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 He has had difficulty swallowing since the radiation. Sputum culture on 10/18 has Citrobacter and Stenotrophomonas maltophilia. 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 Hypertension Dyslipidemia Pulmonary fibrosis Tube placement Hypercholesteremia Allergies/Adverse Reactions: Allergies No Known Allergies Allergy (Unknown, Uncoded 10/15/17 12:40) Objective Vital Signs 11/07/17 16:00 11/07/17 20:00 11/07/17 22:29 Temperature 98.7 F Pulse Rate 74 Respiratory Rate 14 Blood Pressure 118/74 117/60 Pulse Oximetry 96 98 11/07/17 23:46 11/08/17 04:00 11/08/17 08:00 Temperature 97.9 F 98.4 F 98.4 F Pulse Rate 88 86 Respiratory Rate 18 18 12 Blood Pressure 112/59 L 129/67 118/68 Pulse Oximetry 97 98 98 11/08/17 10:05 11/08/17 11:58 11/08/17 15:36 Temperature 98 F 98.1 F Pulse Rate 89 82 Respiratory Rate 12 12 Blood Pressure 111/56 L 115/57 L Pulse Oximetry 98 96 97 Intake & Output 11/07/17 11/08/17 11/08/17 18:59 06:59 18:59 Intake Total 3314 / 3314 517 / 517 517 / 517 Output Total 1800 / 1800 Balance 1514 / 1514 517 / 517 517 / 517 Weight 55.8 kg Intake: IV 1034 / 1034 517 / 517 517 / 517 Bactrim Inj 272 MG In D5W Inj 1034 / 1034 517 / 517 517 / 517 500 ML @ 344.667 mls/hr IV.SIG Q8H [facility] Rx#:[id number] Tube Feeding 840 / 840 Water Bolus Amount 400 / 400 Other 1040 / 1040 Output: Urine 1800 / 1800 Other: Other Intake Source Saline Solution Date of Last Bowel Movement 11/06/17 11/06/17 11/06/17 11/06/17 12:01 Blood - Peripheral Aerobic Blood Culture - Preliminary No growth in 2 days 11/06/17 12:01 Blood - Peripheral Anaerobic Blood Culture - Preliminary No growth in 2 days 11/06/17 11:54 Blood - Peripheral Aerobic Blood Culture - Preliminary No growth in 2 days 11/06/17 11:54 Blood - Peripheral Anaerobic Blood Culture - Preliminary No growth in 2 days 11/02/17 01:30 Blood - Peripheral Aerobic Blood Culture - Final Stenotrophomonas maltophilia 11/02/17 01:30 Blood - Peripheral Anaerobic Blood Culture - Final No growth in 5 days 11/02/17 01:35 Blood - Peripheral Aerobic Blood Culture - Final Stenotrophomonas maltophilia 11/02/17 01:35 Blood - Peripheral Anaerobic Blood Culture - Final No growth in 5 days Lab - Hematology Results 11/08/17 07:47 WBC 5.8 RBC 3.74 L Hgb 9.9 L Hct 31.3 L MCV 83.6 MCH 26.6 L MCHC 31.8 L RDW 16.8 Plt Count 317 MPV 8.9 Neut % (Auto) 82.6 H Lymph % (Auto) 8.2 L [place] % (Auto) 6.4 Eos % (Auto) 2.3 Baso % (Auto) 0.5 Neut # (Auto) 4.8 Lymph # (Auto) 0.5 L [place] # (Auto) 0.4 Eos # (Auto) 0.1 Baso # (Auto) 0.0 WBC Differential . Differential Comment Auto diff final Lab - Chemistry Results 11/06/17 11/08/17 11:54 07:47 Sodium 138 Potassium 3.9 Chloride 103 Carbon Dioxide 22.3 Anion Gap 13 BUN 9 Creatinine 0.63 Estimated GFR Greater than 89 Random Glucose 91 Hemoglobin A1c 5.9 Calcium 9.2 Imaging: ITS Impressions Gastrostomy Tube Placement 10/23/17 00:00 CONCLUSION: Uncomplicated fluoroscopic guided gastrostomy tube replacement as described above. Chest CT 10/28/17 00:00 CONCLUSION: 1. Severe emphysema with prominent interstitial densities in the lower lobes and right upper lobe. The overall appearance has improved from previous study. 2. Tracheostomy tube. Soft Tissue Neck CT 10/28/17 00:00 CONCLUSION: 1. Tracheostomy tube. 2. Soft tissue prominence throughout the larynx with displacement of the right thyroid cartilage and adjacent air again seen. 3. Left thyroid nodule. Venous Doppler Study 11/02/17 00:00 CONCLUSION: No DVT is identified within either lower extremity. Catheter Change 11/03/17 00:00 CONCLUSION: 1. Uncomplicated gastrostomy tube exchange as above. Chest X-Ray 11/08/17 00:00 CONCLUSION: No significant interval change compared to the prior examination. Physical Exam: GENERAL: Alert, no acute distress. HEENT: Pupils reactive to light. Extraocular movements intact. No icterus. No conjunctival erythema. NECK: Supple without adenopathy. No swelling. Tracheostomy site appears intact. LUNGS: Clear breath sounds HEART: Regular S1 and S2 without murmurs rubs or gallops. ABDOMEN: Bowel sounds present, soft, nontender. EXTREMITIES: No clubbing cyanosis or edema. SKIN: No diffuse rash. NEUROLOGIC: Awake. Alert. Nonfocal. PSYCH: Calm and cooperative. Assessment and Plan (1) Sepsis Status: Acute Code(s): A41.9 - Sepsis, unspecified organism - Plan Sepsis due to stenotrophomonas. Pulmonary source. 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 Treated with radiation therapy. Recommendations: Continue IV Bactrim until 11/16/2017 if the repeat blood cultures remain negative. Monitor kidney function and white blood cell count every other day while on Bactrim. Monitor repeat blood cultures. We need to monitor the patient's kidney function and will have to adjust the IV Bactrim depending on kidney function during treatment. I think it would be safer to administer the IV Bactrim in the hospital. I have communicated that to the patient. (1) Sepsis Qualifiers: Sepsis type: sepsis due to unspecified organism Qualified Code(s): A41.9 - Sepsis, unspecified organism
--- NOTE | 2017-11-08 17:53 | P.PN ---
Subjective Interval history: He is able to talk . On antibiotics. Trach site is clean No Fever. O 2 sats 95 on 35 % FIO2 Physical Exam Vital signs: Vital Signs 11/07/17 20:00 11/07/17 22:29 11/07/17 23:46 Temperature 97.9 F Pulse Rate 88 Respiratory Rate 18 Blood Pressure 117/60 112/59 L Pulse Oximetry 96 98 97 11/08/17 04:00 11/08/17 08:00 11/08/17 10:05 Temperature 98.4 F 98.4 F Pulse Rate 86 Respiratory Rate 18 12 Blood Pressure 129/67 118/68 Pulse Oximetry 98 98 98 11/08/17 11:58 11/08/17 15:36 Temperature 98 F 98.1 F Pulse Rate 89 82 Respiratory Rate 12 12 Blood Pressure 111/56 L 115/57 L Pulse Oximetry 96 97 Intake & Output 11/07/17 11/08/17 11/08/17 18:59 06:59 18:59 Intake Total 3314 / 3314 517 / 517 517 / 517 Output Total 1800 / 1800 Balance 1514 / 1514 517 / 517 517 / 517 Weight 55.8 kg Intake: IV 1034 / 1034 517 / 517 517 / 517 Bactrim Inj 272 MG In D5W Inj 1034 / 1034 517 / 517 517 / 517 500 ML @ 344.667 mls/hr IV.SIG Q8H [facility] Rx#:[id number] Tube Feeding 840 / 840 Water Bolus Amount 400 / 400 Other 1040 / 1040 Output: Urine 1800 / 1800 Other: Other Intake Source Saline Solution Date of Last Bowel Movement 11/06/17 11/06/17 11/06/17 Narrative: Physical Exam GENERAL: This is a cachectic 62 yo male on trach awake and alert. ENT: Whitish coating on tongue. Mucous membranes pink and moist. NECK: Trachea midline, Trach in place. No active bleeding. CARDIOVASCULAR: Regular rate and rhythm. S1, S2 NO S3 OR S4 and no Murmur. RESPIRATORY: No accessory muscle use. Occ wheeze heard. Breath sounds equal bilaterally. GASTROINTESTINAL: Abdomen soft, non-tender, nondistended. Positive bowel sounds in all quadrants. PEG IN PLACE MUSCULOSKELETAL: Extremities without clubbing, cyanosis, or edema. Mild deformities. No calf tenderness with palpation. NEUROLOGICAL: Awake and alert. No obvious cranial nerve deficits. Motor grossly within normal limits. Patient is able to effectively communicate by mouthing words, using board. Results - Labs CBC & Chem 7: 11/08/17 07:47 11/08/17 07:47 Laboratory Results - last 24 hr 11/08/17 11/08/17 07:47 07:47 WBC 5.8 RBC 3.74 L Hgb 9.9 L Hct 31.3 L MCV 83.6 MCH 26.6 L MCHC 31.8 L RDW 16.8 Plt Count 317 MPV 8.9 Neut % (Auto) 82.6 H Lymph % (Auto) 8.2 L [place] % (Auto) 6.4 Eos % (Auto) 2.3 Baso % (Auto) 0.5 Neut # (Auto) 4.8 Lymph # (Auto) 0.5 L [place] # (Auto) 0.4 Eos # (Auto) 0.1 Baso # (Auto) 0.0 WBC Differential . Differential Comment Auto diff final Sodium 138 Potassium 3.9 Chloride 103 Carbon Dioxide 22.3 Anion Gap 13 BUN 9 Creatinine 0.63 Estimated GFR Greater than 89 Random Glucose 91 Calcium 9.2 Microbiology 11/06/17 12:01 Blood - Peripheral Aerobic Blood Culture - Preliminary No growth in 2 days 11/06/17 12:01 Blood - Peripheral Anaerobic Blood Culture - Preliminary No growth in 2 days 11/06/17 11:54 Blood - Peripheral Aerobic Blood Culture - Preliminary No growth in 2 days 11/06/17 11:54 Blood - Peripheral Anaerobic Blood Culture - Preliminary No growth in 2 days - Imaging Impressions Chest X-Ray 11/08/17 00:00 CONCLUSION: No significant interval change compared to the prior examination. - Procedures SP TRACH AND PEG Assessment and Plan - Assessment (1) Status post tracheostomy Code(s): Z93.0 - Tracheostomy status Status: Acute Plan: T collar 35 %. Suction and lavage trach. (2) Status post tracheostomy Code(s): Z93.0 - Tracheostomy status Status: Acute (3) Acute respiratory failure with hypoxia and hypercapnia Code(s): J96.01 - Acute respiratory failure with hypoxia; J96.02 - Acute respiratory failure with hypercapnia Status: Acute Plan: Change trach to # 6 shiley without cuff. (4) COPD with exacerbation Code(s): J44.1 - Chronic obstructive pulmonary disease with (acute) exacerbation Status: Resolved Plan: Duonebs qid. (5) Squamous cell carcinoma of pyriform sinus Code(s): C12 - Malignant neoplasm of pyriform sinus Status: Chronic (6) Aspiration pneumonia Code(s): J69.0 - Pneumonitis due to inhalation of food and vomit Status: Acute Plan: Continue Antibiotics per ID (7) Sepsis Code(s): A41.9 - Sepsis, unspecified organism Status: Acute - Plan 1. Will change trach tube to shiley [address] a PM valve to talk. 2. Continue antibiotics per ID 3. Tube feeds at 50 CC jevity 4. Duonebs qid. 5. BMP ,CBC (7) Sepsis Qualifiers: Sepsis type: sepsis due to unspecified organism Qualified Code(s): A41.9 - Sepsis, unspecified organism
[2017-11-09] MEDS: DEXTROSE 5% IV.SIG SCH ×6 (06:42→22:23)
[2017-11-09] MEDS: TRIMETHOPRIM IV.SIG SCH ×6 (06:42→22:23)
[2017-11-09] MEDS: SULFAMETHOX IV.SIG SCH ×6 (06:42→22:23)
[2017-11-09] MEDS: WATER IV.SIG SCH ×6 (06:42→22:23)
[2017-11-09] MEDS: Nystatin/Diphenhydramine/Lidocaine Mouthwash (Adult) 120 ML Botttle SWISH-SWAL SCH ×4 (08:08→21:01)
[2017-11-09] MEDS: predniSONE 10 MG Tablet G-TUBE SCH (08:08)
[2017-11-09] MEDS: Famotidine 20 MG Tablet G-TUBE SCH ×2 (08:08→21:00)
--- NOTE | 2017-11-09 08:39 | P.PNIM ---
Subjective Interval history: Mr. Acuna was afebrile with stable vital signs overnight. Patient denies new complaints at this time and states he is doing well. No nursing concerns reported. Physical Exam Vital signs: Vital Signs 11/08/17 10:05 11/08/17 11:58 11/08/17 15:36 Temperature 98 F 98.1 F Pulse Rate 89 82 Respiratory Rate 12 12 Blood Pressure 111/56 L 115/57 L Pulse Oximetry 98 96 97 11/08/17 20:00 11/09/17 00:00 11/09/17 05:16 Temperature 98.4 F 98.3 F 98.3 F Pulse Rate 83 81 84 Respiratory Rate 16 16 18 Blood Pressure 114/62 114/58 L 113/64 Pulse Oximetry 95 96 95 Intake & Output 11/08/17 11/09/17 11/09/17 18:59 06:59 18:59 Intake Total 3314 / 3314 517 / 517 Output Total 1700 / 1700 2049 / 2049 Balance 1614 / 1614 -1533 / -1533 Weight 56.4 kg Intake: IV 1034 / 1034 517 / 517 Bactrim Inj 272 MG In D5W Inj 1034 / 1034 517 / 517 500 ML @ 344.667 mls/hr IV.SIG Q8H [facility] Rx#:[id number] Oral 0 / 0 Tube Feeding 840 / 840 Water Bolus Amount 400 / 400 Other 1040 / 1040 Output: Urine 1700 / 1700 2049 / 2049 Emesis 0 / 0 Pleural Fluid 0 / 0 Other: Other Intake Source Saline Solution Date of Last Bowel Movement 11/06/17 11/06/17 # [place] 0 Narrative: GENERAL: No acute distress ENT: Moist oral mucosa NECK: Trach in place. No visible bleeding. CARDIOVASCULAR: Regular rate and rhythm; normal perfusion RESPIRATORY: CTAB; normal rate GASTROINTESTINAL: Abdomen soft, non-tender, nondistended. Normal bowel sounds PEG in place MUSCULOSKELETAL: No calf tenderness or asymmetry NEUROLOGICAL: Awake and alert. No obvious CN deficits. Grossly normal peripheral motor/sensory function Results - Labs CBC & Chem 7: 11/08/17 07:47 11/08/17 07:47 Laboratory Results - last 24 hr 11/08/17 11/08/17 07:47 07:47 WBC 5.8 RBC 3.74 L Hgb 9.9 L Hct 31.3 L MCV 83.6 MCH 26.6 L MCHC 31.8 L RDW 16.8 Plt Count 317 MPV 8.9 Neut % (Auto) 82.6 H Lymph % (Auto) 8.2 L [place] % (Auto) 6.4 Eos % (Auto) 2.3 Baso % (Auto) 0.5 Neut # (Auto) 4.8 Lymph # (Auto) 0.5 L [place] # (Auto) 0.4 Eos # (Auto) 0.1 Baso # (Auto) 0.0 WBC Differential . Differential Comment Auto diff final Sodium 138 Potassium 3.9 Chloride 103 Carbon Dioxide 22.3 Anion Gap 13 BUN 9 Creatinine 0.63 Estimated GFR Greater than 89 Random Glucose 91 Calcium 9.2 Microbiology 11/06/17 12:01 Blood - Peripheral Aerobic Blood Culture - Preliminary No growth in 2 days 11/06/17 12:01 Blood - Peripheral Anaerobic Blood Culture - Preliminary No growth in 2 days 11/06/17 11:54 Blood - Peripheral Aerobic Blood Culture - Preliminary No growth in 2 days 11/06/17 11:54 Blood - Peripheral Anaerobic Blood Culture - Preliminary No growth in 2 days - Imaging Impressions Chest X-Ray 11/08/17 00:00 CONCLUSION: No significant interval change compared to the prior examination. - Procedures SP TRACH AND PEG Assessment and Plan - Assessment (1) Acute respiratory failure with hypoxia and hypercapnia Code(s): J96.01 - Acute respiratory failure with hypoxia; J96.02 - Acute respiratory failure with hypercapnia Status: Acute (2) COPD with exacerbation Code(s): J44.1 - Chronic obstructive pulmonary disease with (acute) exacerbation Status: Resolved (3) 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 Acuna is a 62 yo M with H squamous cell carcinoma s/p radiation therapy, HTN , pulmonary fibrosis who presents with: Recent episode of hemoptysis Impression: s/p direct laryngoscopy by Dr. Lorenz 10/30, he also went down through the tracheostomy, no obvious source of bleeding, but unable to see through the glottis because of significant edema. Per EMR review, Dr. Coello suspected need for laryngectomy; discussed with [facility] Dr. Calixto and patient can be DC home and follow up at [facility] as outpatient for surgery as long as no further bleeding. 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 -Continue tube feeds, currently on Jevity 1.5, tolerating well, no diarrhea ID Impression: 11/03 blood cultures with stenotrophomonas which is Levaquin resistant; prior sputum culture 10/18 with Stenotrophomonas s/p prior treatment w/ Levaquin for gram - bacterial pneumonia following empiric Vancomycin/Zosyn treatment -ID consulted -Monitor repeat blood cultures -Continue IV Bactrim until 11/16 if repeat cultures negative -Monitor WBC, renal function Respiratory Impression: Tracheostomy in place. Saturations >95% on 35% FiO2. Currently under treatment for stenotrophomonas; s/p prior pneumonia treatment 10/20 during hospitalization CXR 11/08 without interval change -Pulmonology consulted -trach change to #6 Shiley; continue suction/lavage -Duonebs qid -ID consulted Heparin DVT prophylaxis: Pharmacological prophylaxis contraindicated because of bleeding to tracheostomy. Code Status: Full code Discharge Planning: Discharge with home health care when stable; IV Bactrim per ID until 11/16
--- NOTE | 2017-11-09 19:12 | P.PN ---
Subjective Interval history: Alert and talking and is able to clear secretions. On a T Collar with a #8 Shiley trach tube. Good output. Physical Exam Vital signs: Vital Signs 11/08/17 20:00 11/09/17 00:00 11/09/17 05:16 Temperature 98.4 F 98.3 F 98.3 F Pulse Rate 83 81 84 Respiratory Rate 16 16 18 Blood Pressure 114/62 114/58 L 113/64 Pulse Oximetry 95 96 95 11/09/17 08:00 11/09/17 08:45 11/09/17 12:00 Temperature 98.2 F 98.2 F Pulse Rate 80 70 Respiratory Rate 20 20 Blood Pressure 132/62 130/75 Pulse Oximetry 99 96 98 11/09/17 16:00 Temperature 98.8 F Pulse Rate 78 Respiratory Rate 20 Blood Pressure 116/68 Pulse Oximetry 99 Intake & Output 11/09/17 11/09/17 11/10/17 06:59 18:59 06:59 Intake Total 517 / 517 3314 / 3314 Output Total 2049 / 2049 1100 / 1100 Balance -1533 / -1533 2214 / 2214 Weight 56.4 kg Intake: IV 517 / 517 1034 / 1034 Bactrim Inj 272 MG In D5W Inj 517 / 517 1034 / 1034 500 ML @ 344.667 mls/hr IV.SIG Q8H [facility] Rx#:[id number] Oral 0 / 0 Tube Feeding 840 / 840 Water Bolus Amount 400 / 400 Other 1040 / 1040 Output: Urine 2049 / 2049 1100 / 1100 Emesis 0 / 0 Pleural Fluid 0 / 0 Peritoneal Amount 0 / 0 Other: Other Intake Source Saline Solution Date of Last Bowel Movement 11/06/17 11/09/17 # Bowel Movements 1 # [place] 0 Narrative: GENERAL: Thin elderly W/M in No acute distress ENT: Moist oral mucosa. RONY NECK: Trach in place. No visible bleeding. CARDIOVASCULAR: Regular rate and rhythm; normal perfusion RESPIRATORY: Occ Basal crackles with wheezing GASTROINTESTINAL: Abdomen soft, non-tender, nondistended. Normal bowel sounds PEG in place MUSCULOSKELETAL: No calf tenderness or asymmetry NEUROLOGICAL: Awake and alert. No obvious deficits. Grossly normal peripheral motor/sensory function Results - Labs CBC & Chem 7: 11/08/17 07:47 11/08/17 07:47 Microbiology 11/06/17 12:01 Blood - Peripheral Aerobic Blood Culture - Preliminary No growth in 3 days 11/06/17 12:01 Blood - Peripheral Anaerobic Blood Culture - Preliminary No growth in 3 days 11/06/17 11:54 Blood - Peripheral Aerobic Blood Culture - Preliminary No growth in 3 days 11/06/17 11:54 Blood - Peripheral Anaerobic Blood Culture - Preliminary No growth in 3 days - Procedures SP TRACH AND PEG Assessment and Plan - Assessment (1) Status post tracheostomy Code(s): Z93.0 - Tracheostomy status Status: Acute (2) Status post tracheostomy Code(s): Z93.0 - Tracheostomy status Status: Acute Plan: Will Change trach to # [address] a PM valve to talk during the day T Collar at 35 % (3) Acute respiratory failure with hypoxia and hypercapnia Code(s): J96.01 - Acute respiratory failure with hypoxia; J96.02 - Acute respiratory failure with hypercapnia Status: Acute (4) COPD with exacerbation Code(s): J44.1 - Chronic obstructive pulmonary disease with (acute) exacerbation Status: Resolved Plan: Duoneb edsons qid. (5) Squamous cell carcinoma of pyriform sinus Code(s): C12 - Malignant neoplasm of pyriform sinus Status: Chronic (6) Aspiration pneumonia Code(s): J69.0 - Pneumonitis due to inhalation of food and vomit Status: Acute Plan: Continue antibiotics per ID (7) Sepsis Code(s): A41.9 - Sepsis, unspecified organism Status: Acute - Plan 1. Will change trach tube to shiley [address] a PM valve to talk. 2. Continue antibiotics per ID 3. Tube feeds at 60 CC jevity 4. Duonebs Neb qid. 5. CBC in am (7) Sepsis Qualifiers: Sepsis type: sepsis due to unspecified organism Qualified Code(s): A41.9 - Sepsis, unspecified organism
[2017-11-10] MEDS: DEXTROSE 5% IV.SIG SCH ×6 (06:00→22:41)
[2017-11-10] MEDS: SULFAMETHOX IV.SIG SCH ×6 (06:00→22:41)
[2017-11-10] MEDS: TRIMETHOPRIM IV.SIG SCH ×6 (06:00→22:41)
[2017-11-10] MEDS: WATER IV.SIG SCH ×6 (06:00→22:41)
--- NOTE | 2017-11-10 07:57 | P.PNIM ---
Subjective Interval history: Mr. Acuna was afebrile with stable vital signs overnight. Discussed with nursing staff; plans to change tracheostomy today per Pulmonary. Patient has had some continued thick secretions Patient states he is doing well; no new complaints. breathing well. Has thick secretions but patient able to clear them well. No bowel or urinary complaints. Physical Exam Vital signs: Vital Signs 11/09/17 08:00 11/09/17 08:45 11/09/17 12:00 Temperature 98.2 F 98.2 F Pulse Rate 80 70 Respiratory Rate 20 20 Blood Pressure 132/62 130/75 Pulse Oximetry 99 96 98 11/09/17 16:00 11/09/17 20:00 11/10/17 00:00 Temperature 98.8 F 98.5 F 98.9 F Pulse Rate 78 76 86 Respiratory Rate 20 16 14 Blood Pressure 116/68 119/62 116/63 Pulse Oximetry 99 96 99 11/10/17 04:00 Temperature 98.5 F Pulse Rate 78 Respiratory Rate 14 Blood Pressure 107/60 Pulse Oximetry 97 Intake & Output 11/09/17 11/10/17 11/10/17 18:59 06:59 18:59 Intake Total 3314 / 3314 2257 / 2257 Output Total 1100 / 1100 1850 / 1850 Balance 2214 / 2214 407 / 407 Weight 55.5 kg Intake: IV 1034 / 1034 517 / 517 Bactrim Inj 272 MG In D5W Inj 1034 / 1034 517 / 517 500 ML @ 344.667 mls/hr IV.SIG Q8H [facility] Rx#:[id number] Oral 0 / 0 Tube Feeding 840 / 840 840 / 840 Water Bolus Amount 400 / 400 400 / 400 Other 1040 / 1040 500 / 500 Output: Urine 1100 / 1100 1850 / 1850 Emesis 0 / 0 Pleural Fluid 0 / 0 Peritoneal Amount 0 / 0 Other: Other Intake Source Saline Solution Date of Last Bowel Movement 11/09/17 11/09/17 # Bowel Movements 1 # Emeses 0 Narrative: GENERAL: No acute distress ENT: Moist oral mucosa NECK: Trach in place CARDIOVASCULAR: Regular rate and rhythm; normal perfusion RESPIRATORY: Normal rate. Some basilar crackling; overall good air movement GASTROINTESTINAL: Abdomen soft, non-tender, nondistended. Normal bowel sounds. PEG in place MUSCULOSKELETAL: No calf tenderness or asymmetry. Grossly normal ROM/strength NEUROLOGICAL: Awake and alert. No obvious CN deficits. Grossly normal peripheral motor/sensory function Results - Labs CBC & Chem 7: 11/08/17 07:47 11/08/17 07:47 Microbiology 11/06/17 12:01 Blood - Peripheral Aerobic Blood Culture - Preliminary No growth in 3 days 11/06/17 12:01 Blood - Peripheral Anaerobic Blood Culture - Preliminary No growth in 3 days 11/06/17 11:54 Blood - Peripheral Aerobic Blood Culture - Preliminary No growth in 3 days 11/06/17 11:54 Blood - Peripheral Anaerobic Blood Culture - Preliminary No growth in 3 days - Procedures SP TRACH AND PEG Assessment and Plan - Assessment (1) Acute respiratory failure with hypoxia and hypercapnia Code(s): J96.01 - Acute respiratory failure with hypoxia; J96.02 - Acute respiratory failure with hypercapnia Status: Acute (2) COPD with exacerbation Code(s): J44.1 - Chronic obstructive pulmonary disease with (acute) exacerbation Status: Resolved (3) 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 Acuna is a 62 yo M with H squamous cell carcinoma s/p radiation therapy, HTN , pulmonary fibrosis who presents with: Recent episode of hemoptysis Impression: s/p direct laryngoscopy by Dr. Lorenz 10/30, he also went down through the tracheostomy, no obvious source of bleeding, but unable to see through the glottis because of significant edema. Per EMR review, Dr. Coello suspected need for laryngectomy; discussed with [facility] Dr. Calixto and patient can be DC home and follow up at [facility] as outpatient for surgery as long as no further bleeding. 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 -Continue tube feeds, currently on Jevity 1.5, tolerating well, no diarrhea ID Impression: 7/13 blood cultures with stenotrophomonas which is Levaquin resistant; prior sputum culture 10/18 with Stenotrophomonas s/p prior treatment w/ Levaquin for gram - bacterial pneumonia following empiric Vancomycin/Zosyn treatment -ID consulted -Monitor repeat blood cultures -Continue IV Bactrim until 11/16 if repeat cultures negative -Monitor WBC, renal function Respiratory Impression: Tracheostomy in place. Saturations >95% on 35% FiO2. Currently under treatment for stenotrophomonas; s/p prior pneumonia treatment 10/20 during hospitalization CXR 11/08 without interval change -Pulmonology consulted -trach change to #6 Shiley today; continue suction/lavage -Duonebs qid -ID consulted Heparin DVT prophylaxis: Pharmacological prophylaxis contraindicated because of bleeding to tracheostomy. Code Status: full code Discussed Condition With: nursing staff Discharge Planning: Discharge with home health care when stable; IV Bactrim per ID until 11/16
[2017-11-10] MEDS: predniSONE 10 MG Tablet G-TUBE SCH (08:28)
[2017-11-10] MEDS: Famotidine 20 MG Tablet G-TUBE SCH ×2 (08:28→20:48)
[2017-11-10] MEDS: Nystatin/Diphenhydramine/Lidocaine Mouthwash (Adult) 120 ML Botttle SWISH-SWAL SCH ×3 (08:28→20:48)
--- NOTE | 2017-11-10 15:54 | P.PN ---
Subjective Interval history: He is feeling OK . Walks in halls. Trach site is clean. On T Bar at 28 % Physical Exam Vital signs: Vital Signs 11/09/17 16:00 11/09/17 20:00 11/10/17 00:00 Temperature 98.8 F 98.5 F 98.9 F Pulse Rate 78 76 86 Respiratory Rate 20 16 14 Blood Pressure 116/68 119/62 116/63 Pulse Oximetry 99 96 99 11/10/17 04:00 11/10/17 08:00 11/10/17 12:00 Temperature 98.5 F 97.8 F 98.6 F Pulse Rate 78 94 H 80 Respiratory Rate 14 16 16 Blood Pressure 107/60 122/64 112/64 Pulse Oximetry 97 98 Intake & Output 11/09/17 11/10/17 11/10/17 18:59 06:59 18:59 Intake Total 3314 / 3314 2257 / 2257 517 / 517 Output Total 1100 / 1100 1850 / 1850 Balance 2214 / 2214 407 / 407 517 / 517 Weight 55.5 kg Intake: IV 1034 / 1034 517 / 517 517 / 517 Bactrim Inj 272 MG In D5W Inj 1034 / 1034 517 / 517 517 / 517 500 ML @ 344.667 mls/hr IV.SIG Q8H [facility] Rx#:[id number] Oral 0 / 0 Tube Feeding 840 / 840 840 / 840 Water Bolus Amount 400 / 400 400 / 400 Other 1040 / 1040 500 / 500 Output: Urine 1100 / 1100 1850 / 1850 Emesis 0 / 0 Pleural Fluid 0 / 0 Peritoneal Amount 0 / 0 Other: Other Intake Source Saline Solution Date of Last Bowel Movement 11/09/17 11/09/17 11/09/17 # Bowel Movements 1 # Emeses 0 Narrative: GENERAL: Thin elderly W/M in No acute distress ENT: Moist oral mucosa. RONY THroat is clear. NECK: Trach in place. No visible bleeding. CARDIOVASCULAR: Regular rate and rhythm; normal perfusion RESPIRATORY: Occ Basal crackles with scattered wheezing GASTROINTESTINAL: Abdomen soft, non-tender, nondistended. Normal bowel sounds PEG in place MUSCULOSKELETAL: No calf tenderness or asymmetry NEUROLOGICAL: Awake and alert. No obvious deficits. Grossly normal peripheral motor/sensory function Results - Labs CBC & Chem 7: 11/08/17 07:47 11/08/17 07:47 Microbiology 11/06/17 12:01 Blood - Peripheral Aerobic Blood Culture - Preliminary No growth in 4 days 11/06/17 12:01 Blood - Peripheral Anaerobic Blood Culture - Preliminary No growth in 4 days 11/06/17 11:54 Blood - Peripheral Aerobic Blood Culture - Preliminary No growth in 4 days 11/06/17 11:54 Blood - Peripheral Anaerobic Blood Culture - Preliminary No growth in 4 days - Procedures SP TRACH AND PEG Assessment and Plan - Assessment (1) Status post tracheostomy Code(s): Z93.0 - Tracheostomy status Status: Acute (2) Status post tracheostomy Code(s): Z93.0 - Tracheostomy status Status: Acute (3) Acute respiratory failure with hypoxia and hypercapnia Code(s): J96.01 - Acute respiratory failure with hypoxia; J96.02 - Acute respiratory failure with hypercapnia Status: Acute (4) COPD with exacerbation Code(s): J44.1 - Chronic obstructive pulmonary disease with (acute) exacerbation Status: Resolved (5) 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 Will change trach tube to shiley [address] a PM valve to talk. 2. Continue antibiotics per ID 3. Tube feeds at 60 CC jevity 4. Duonebs Neb qid. 5. Trach change to be done by Dr Coello /ENT surgeon 6. CBC,BMP in am (7) Sepsis Qualifiers: Sepsis type: sepsis due to unspecified organism Qualified Code(s): A41.9 - Sepsis, unspecified organism
[2017-11-11] MEDS: TRIMETHOPRIM IV.SIG SCH ×6 (06:02→21:47)
[2017-11-11] MEDS: SULFAMETHOX IV.SIG SCH ×6 (06:02→21:47)
[2017-11-11] MEDS: WATER IV.SIG SCH ×6 (06:02→21:47)
[2017-11-11] MEDS: DEXTROSE 5% IV.SIG SCH ×6 (06:02→21:47)
[2017-11-11 07:17] LABS: Baso % (Auto) 0.5 % (0.0-2.0); Eos # (Auto) 0.2 th/mm3 (0.0-0.4); Eos % (Auto) 4.1 % (0.0-4.0); Hematocrit 30.2 % (39.0-51.0); Hemoglobin 9.9 gm/dL (13.0-17.0); Lymph # (Auto) 0.4 th/mm3 (1.0-4.8); Lymph % (Auto) 9.8 % (9.0-44.0); Mean Corpuscular HGB Conc 32.8 % (32.0-36.0); Mean Corpuscular Hemoglobin 27.3 pg (27.0-34.0); Mean Corpuscular Volume 83.1 fL (80.0-100.0); Mono # (Auto) 0.6 th/mm3 (0.0-0.9); Mono % (Auto) 14.9 % (0.0-8.0); Neut % (Auto) 70.7 % (16.0-70.0); Platelet Count 323 th/mm3 (150-450); Red Blood Count 3.63 mil/mm3 (4.50-5.90); Red Cell Distribution Width 18.5 % (11.6-17.2); White Blood Count 4.2 th/mm3 (4.0-11.0)
[2017-11-11 07:41] LABS: Anion Gap 10 meq/L (5-15); Carbon Dioxide 25.9 meq/L (21.0-32.0); Chloride 101 meq/L (98-107); Glomerular Filtration Rate Greater Than 89 mL/min (>89); Glucose,Random 112 mg/dL (74-106); Sodium 137 meq/L (136-145)
[2017-11-11 07:47] LABS: Blood Urea Nitrogen 13 mg/dL (7-18)
--- NOTE | 2017-11-11 09:00 | P.PNIM ---
Subjective Interval history: Mr. Acuna was afebrile with stable VS overnight; receiving O2 via trach with FiO2 28. Patient denies any new complaints today; he states that he is breathing well. No reported chest pain or urinary/bowel concerns. Physical Exam Vital signs: Vital Signs 11/10/17 12:00 11/10/17 16:00 11/10/17 17:43 Temperature 98.6 F 98.7 F Pulse Rate 80 78 Respiratory Rate 16 16 Blood Pressure 112/64 110/62 Pulse Oximetry 98 11/10/17 20:00 11/11/17 00:00 11/11/17 04:00 Temperature 99.2 F 98.7 F 98.4 F Pulse Rate 76 80 77 Respiratory Rate 14 14 14 Blood Pressure 112/63 115/60 113/56 L Pulse Oximetry 95 96 96 11/11/17 04:50 Temperature Pulse Rate Respiratory Rate Blood Pressure Pulse Oximetry 98 Intake & Output 11/10/17 11/11/17 11/11/17 18:59 06:59 18:59 Intake Total 2334 / 2334 1807 / 1807 Output Total 1400 / 1400 1250 / 1250 Balance 934 / 934 557 / 557 Weight 55 kg Intake: IV 1034 / 1034 517 / 517 Bactrim Inj 272 MG In D5W Inj 1034 / 1034 517 / 517 500 ML @ 344.667 mls/hr IV.SIG Q8H [facility] Rx#:[id number] Oral 0 / 0 Tube Feeding 840 / 840 840 / 840 Tube Irrigant 60 / 60 50 / 50 Water Bolus Amount 400 / 400 400 / 400 Output: Urine 1400 / 1400 1250 / 1250 Emesis 0 / 0 Pleural Fluid 0 / 0 Peritoneal Amount 0 / 0 Other: Date of Last Bowel Movement 11/10/17 11/11/17 # Bowel Movements 1 # Emeses 0 Narrative: GENERAL: No acute distress ENT: Moist oral mucosa NECK: Trach in place CARDIOVASCULAR: Regular rate and rhythm; normal perfusion RESPIRATORY: Normal rate. Some basilar crackling; overall good air movement GASTROINTESTINAL: Abdomen soft, non-tender. Normal bowel sounds. PEG in place MUSCULOSKELETAL: No calf tenderness or asymmetry. Grossly normal ROM/strength NEUROLOGICAL: Awake and alert. No CN deficits. Grossly normal peripheral motor/ sensory function Results - Labs CBC & Chem 7: 11/11/17 06:58 11/11/17 06:58 Laboratory Results - last 24 hr 11/11/17 11/11/17 06:58 06:58 WBC 4.2 RBC 3.63 L Hgb 9.9 L Hct 30.2 L MCV 83.1 MCH 27.3 MCHC 32.8 RDW 18.5 H Plt Count 323 MPV 8.0 Prelim Diff (Auto) Slide review pending Neut % (Auto) 70.7 H Lymph % (Auto) 9.8 [place] % (Auto) 14.9 H Eos % (Auto) 4.1 H Baso % (Auto) 0.5 Neut # (Auto) 3.0 Lymph # (Auto) 0.4 L [place] # (Auto) 0.6 Eos # (Auto) 0.2 Baso # (Auto) 0.0 Differential Comment . Sodium 137 Potassium 4.0 Chloride 101 Carbon Dioxide 25.9 Anion Gap 10 BUN 13 Creatinine 0.75 Estimated GFR Greater than 89 Random Glucose 112 H Calcium 9.0 Microbiology 11/06/17 12:01 Blood - Peripheral Aerobic Blood Culture - Preliminary No growth in 4 days 11/06/17 12:01 Blood - Peripheral Anaerobic Blood Culture - Preliminary No growth in 4 days 11/06/17 11:54 Blood - Peripheral Aerobic Blood Culture - Preliminary No growth in 4 days 11/06/17 11:54 Blood - Peripheral Anaerobic Blood Culture - Preliminary No growth in 4 days - Procedures SP TRACH AND PEG Assessment and Plan - Assessment (1) Acute respiratory failure with hypoxia and hypercapnia Code(s): J96.01 - Acute respiratory failure with hypoxia; J96.02 - Acute respiratory failure with hypercapnia Status: Acute (2) COPD with exacerbation Code(s): J44.1 - Chronic obstructive pulmonary disease with (acute) exacerbation Status: Resolved (3) 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 Acuna is a 62 yo M with H squamous cell carcinoma s/p radiation therapy, HTN , pulmonary fibrosis who presents with: Recent episode of hemoptysis Impression: s/p direct laryngoscopy by Dr. Lorenz 10/30, he also went down through the tracheostomy, no obvious source of bleeding, but unable to see through the glottis because of significant edema. Per EMR review, Dr. Coello suspected need for laryngectomy; discussed with [facility] Dr. Calixto and patient can be DC home and follow up at [facility] as outpatient for surgery as long as no further bleeding. 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 -Continue tube feeds, currently on Jevity 1.5, tolerating well, no diarrhea ID Impression: 11/02 blood cultures with stenotrophomonas which is Levaquin resistant; prior sputum culture 10/18 with Stenotrophomonas s/p prior treatment w/ Levaquin for gram - bacterial pneumonia following empiric Vancomycin/Zosyn treatment -ID consulted -Monitor repeat blood cultures -11/06 repeat BC negative x4 days -Continue IV Bactrim until 11/16 if repeat cultures negative -Monitor WBC, renal function Respiratory Impression: Tracheostomy in place. Saturations >95% on 35% FiO2. Currently under treatment for stenotrophomonas; s/p prior pneumonia treatment 10/20 during hospitalization CXR 11/08 without interval change -Pulmonology consulted -s/p trach change to #6; continue suction/lavage -Duonebs qid -ID consulted Heparin DVT prophylaxis: Pharmacological prophylaxis contraindicated because of bleeding to tracheostomy Code Status: Full Discharge Planning: Discharge with home health care when stable; IV Bactrim per ID until 11/16
[2017-11-11] MEDS: predniSONE 10 MG Tablet G-TUBE SCH (09:41)
[2017-11-11] MEDS: Famotidine 20 MG Tablet G-TUBE SCH ×2 (09:41→21:44)
[2017-11-11] MEDS: Nystatin/Diphenhydramine/Lidocaine Mouthwash (Adult) 120 ML Botttle SWISH-SWAL SCH ×4 (09:42→21:45)
[2017-11-11 10:42] LABS: Eosinophils 4 % (0-4); Lymphocytes 10 % (9-44); Metamyelocytes 5 % (0-1); Monocytes 6 % (0-8)
[2017-11-11 10:43] LABS: Platelet Estimate Normal (Normal); Platelet Morphology Normal (Normal); Toxic Granulation 1+
--- NOTE | 2017-11-11 15:20 | P.PN ---
Subjective Interval history: He is better. Now has a #6 trach tube . Will use a PM valve to talk. Tolerates feeds . walks in halls Physical Exam Vital signs: Vital Signs 11/10/17 16:00 11/10/17 17:43 11/10/17 20:00 Temperature 98.7 F 99.2 F Pulse Rate 78 76 Respiratory Rate 16 14 Blood Pressure 110/62 112/63 Pulse Oximetry 98 95 11/11/17 00:00 11/11/17 04:00 11/11/17 04:50 Temperature 98.7 F 98.4 F Pulse Rate 80 77 Respiratory Rate 14 14 Blood Pressure 115/60 113/56 L Pulse Oximetry 96 96 98 11/11/17 08:00 11/11/17 09:49 Temperature 98.2 F Pulse Rate 95 H Respiratory Rate 16 Blood Pressure 152/66 H Pulse Oximetry 96 Intake & Output 11/10/17 11/11/17 11/11/17 18:59 06:59 18:59 Intake Total 2334 / 2334 1807 / 1807 Output Total 1400 / 1400 1250 / 1250 Balance 934 / 934 557 / 557 Weight 55 kg Intake: IV 1034 / 1034 517 / 517 Bactrim Inj 272 MG In D5W Inj 1034 / 1034 517 / 517 500 ML @ 344.667 mls/hr IV.SIG Q8H [facility] Rx#:[id number] Oral 0 / 0 Tube Feeding 840 / 840 840 / 840 Tube Irrigant 60 / 60 50 / 50 Water Bolus Amount 400 / 400 400 / 400 Output: Urine 1400 / 1400 1250 / 1250 Emesis 0 / 0 Pleural Fluid 0 / 0 Peritoneal Amount 0 / 0 Other: Date of Last Bowel Movement 11/10/17 11/11/17 11/10/17 # Bowel Movements 1 # Emeses 0 Narrative: GENERAL: Thin elderly W/M No acute distress ENT: Moist oral mucosa NECK: Trach in place No lymphadenopathy CARDIOVASCULAR: Regular rate and rhythm; normal perfusion RESPIRATORY: Normal rate. Few basilar crackles; overall good air movement GASTROINTESTINAL: Abdomen soft, non-tender. Normal bowel sounds. PEG in place MUSCULOSKELETAL: No calf tenderness or asymmetry. Grossly normal ROM/strength NEUROLOGICAL: Awake and alert. No CN deficits. Results - Labs CBC & Chem 7: 11/11/17 06:58 07/21/18 06:58 Laboratory Results - last 24 hr 11/11/17 11/11/17 06:58 06:58 WBC 4.2 RBC 3.63 L Hgb 9.9 L Hct 30.2 L MCV 83.1 MCH 27.3 MCHC 32.8 RDW 18.5 H Plt Count 323 MPV 8.0 Prelim Diff (Auto) Slide review pending Neut % (Auto) 70.7 H Lymph % (Auto) 9.8 [place] % (Auto) 14.9 H Eos % (Auto) 4.1 H Baso % (Auto) 0.5 Neut # (Auto) 3.0 Lymph # (Auto) 0.4 L [place] # (Auto) 0.6 Eos # (Auto) 0.2 Baso # (Auto) 0.0 WBC Differential Manual diff final Seg Neuts % (Manual) 61 Band Neuts % (Manual) 14 H Lymphocytes % (Manual) 10 Monocytes % (Manual) 6 Eosinophils % (Manual) 4 Metamyelocytes % (Man) 5 H Abs Neuts (Manual) 3.4 Differential Comment . Toxic Granulation 1+ H Platelet Estimate Normal Platelet Morphology Normal Sodium 137 Potassium 4.0 Chloride 101 Carbon Dioxide 25.9 Anion Gap 10 BUN 13 Creatinine 0.75 Estimated GFR Greater than 89 Random Glucose 112 H Calcium 9.0 Microbiology 11/06/17 12:01 Blood - Peripheral Aerobic Blood Culture - Final No growth in 5 days 11/06/17 12:01 Blood - Peripheral Anaerobic Blood Culture - Final No growth in 5 days 11/06/17 11:54 Blood - Peripheral Aerobic Blood Culture - Final No growth in 5 days 11/06/17 11:54 Blood - Peripheral Anaerobic Blood Culture - Final No growth in 5 days - Procedures SP TRACH AND PEG Assessment and Plan - Assessment (1) Status post tracheostomy Code(s): Z93.0 - Tracheostomy status Status: Acute (2) Status post tracheostomy Code(s): Z93.0 - Tracheostomy status Status: Acute (3) Acute respiratory failure with hypoxia and hypercapnia Code(s): J96.01 - Acute respiratory failure with hypoxia; J96.02 - Acute respiratory failure with hypercapnia Status: Acute (4) COPD with exacerbation Code(s): J44.1 - Chronic obstructive pulmonary disease with (acute) exacerbation Status: Resolved (5) 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 Will place a PM valve to talk daytime . 2. Continue antibiotics per ID 3. Tube feeds at 60 CC jevity 4. Duoneb Nebs qid. 5. Chest Xray Monday 6. walk in halls (7) Sepsis Qualifiers: Sepsis type: sepsis due to unspecified organism Qualified Code(s): A41.9 - Sepsis, unspecified organism
[2017-11-12] MEDS: SULFAMETHOX IV.SIG SCH ×10 (06:20→22:00)
[2017-11-12] MEDS: TRIMETHOPRIM IV.SIG SCH ×10 (06:20→22:00)
[2017-11-12] MEDS: DEXTROSE 5% IV.SIG SCH ×10 (06:20→22:00)
[2017-11-12] MEDS: WATER IV.SIG SCH ×10 (06:20→22:00)
--- NOTE | 2017-11-12 07:48 | P.PNIM ---
Subjective Interval history: Mr. Acuna was afebrile with stable vital signs overnight. Per nursing staff, patient has been doing well in terms of his respiration; no new concerns. Patient states he is doing well; no shortness of breath, chest pain, abdominal pain, or urinary/bowel concerns Physical Exam Vital signs: Vital Signs 11/11/17 08:00 11/11/17 09:49 11/11/17 12:00 Temperature 98.2 F 98.4 F Pulse Rate 95 H 81 Respiratory Rate 16 16 Blood Pressure 152/66 H 119/64 Pulse Oximetry 96 11/11/17 16:00 11/11/17 20:00 11/11/17 22:40 Temperature 97.9 F 99.2 F Pulse Rate 88 73 Respiratory Rate 16 18 Blood Pressure 107/62 117/62 Pulse Oximetry 98 11/12/17 00:00 11/12/17 04:00 11/12/17 06:05 Temperature 98.2 F 98.7 F Pulse Rate 81 93 H Respiratory Rate 18 20 Blood Pressure 115/64 106/60 Pulse Oximetry 95 93 L 97 Intake & Output 11/11/17 11/12/17 11/12/17 18:59 06:59 18:59 Intake Total 2927 / 2927 1300 / 1300 Output Total 3570 / 3570 1600 / 1600 Balance -643 / -643 -300 / -300 Weight 55.4 kg Intake: IV 1034 / 1034 Bactrim Inj 272 MG In D5W Inj 1034 / 1034 500 ML @ 344.667 mls/hr IV.SIG Q8H [facility] Rx#:[id number] Oral 0 / 0 Tube Feeding 943 / 943 700 / 700 Tube Irrigant 50 / 50 Water Bolus Amount 400 / 400 600 / 600 Other 500 / 500 Output: Blood Draw 250 / 250 Urine 3200 / 3200 1600 / 1600 Stool 120 / 120 Emesis 0 / 0 Pleural Fluid 0 / 0 Peritoneal Amount 0 / 0 Other: Other Intake Source Saline Solution # Voids 2 3 Date of Last Bowel Movement 11/10/17 11/10/17 # Bowel Movements 1 # Emeses 0 Narrative: GENERAL: No acute distress, resting comfortably ENT: Moist oral mucosa NECK: Trach in place CARDIOVASCULAR: Regular rate and rhythm; normal perfusion RESPIRATORY: Normal rate. good air movement GASTROINTESTINAL: Abdomen soft, non-tender. Normal bowel sounds. PEG in place MUSCULOSKELETAL: No calf tenderness or asymmetry. Grossly normal ROM/strength NEUROLOGICAL: Awake and alert. No CN deficits. Grossly normal peripheral motor/ sensory function Results - Labs CBC & Chem 7: 11/11/17 06:58 11/11/17 06:58 Laboratory Results - last 24 hr 11/11/17 06:58 WBC Differential Manual diff final Seg Neuts % (Manual) 61 Band Neuts % (Manual) 14 H Lymphocytes % (Manual) 10 Monocytes % (Manual) 6 Eosinophils % (Manual) 4 Metamyelocytes % (Man) 5 H Abs Neuts (Manual) 3.4 Toxic Granulation 1+ H Platelet Estimate Normal Platelet Morphology Normal Microbiology 11/06/17 12:01 Blood - Peripheral Aerobic Blood Culture - Final No growth in 5 days 11/06/17 12:01 Blood - Peripheral Anaerobic Blood Culture - Final No growth in 5 days 11/06/17 11:54 Blood - Peripheral Aerobic Blood Culture - Final No growth in 5 days 11/06/17 11:54 Blood - Peripheral Anaerobic Blood Culture - Final No growth in 5 days - Procedures SP TRACH AND PEG Assessment and Plan - Assessment (1) Acute respiratory failure with hypoxia and hypercapnia Code(s): J96.01 - Acute respiratory failure with hypoxia; J96.02 - Acute respiratory failure with hypercapnia Status: Acute (2) COPD with exacerbation Code(s): J44.1 - Chronic obstructive pulmonary disease with (acute) exacerbation Status: Resolved (3) 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 Acuna is a 62 yo M with H squamous cell carcinoma s/p radiation therapy, HTN , pulmonary fibrosis who presents with: Recent episode of hemoptysis Impression: s/p direct laryngoscopy by Dr. Lorenz 10/30, he also went down through the tracheostomy, no obvious source of bleeding, but unable to see through the glottis because of significant edema. Per EMR review, Dr. Coello suspected need for laryngectomy; discussed with [facility] [place] Dr. Calixto and patient can be DC home and follow up at [facility] as outpatient for surgery as long as no further bleeding. 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 -Continue tube feeds, currently on Jevity 1.5, tolerating well, no diarrhea ID Impression: 11/02 blood cultures with stenotrophomonas which is Levaquin resistant; prior sputum culture 10/18 with Stenotrophomonas s/p prior treatment w/ Levaquin for gram - bacterial pneumonia following empiric Vancomycin/Zosyn treatment -ID consulted -Monitor repeat blood cultures -11/06 repeat BC negative x5 days -Continue IV Bactrim until 11/16 if repeat cultures negative -Monitor WBC, renal function Respiratory Impression: Tracheostomy in place. Has been using trach collar; has had normal sats with FiO2 28%. Trach recently changed to #6. Currently under treatment for stenotrophomonas; s/p prior pneumonia treatment 10/20 during hospitalization CXR 11/08 without interval change -Pulmonology consulted -PM valve for daytime talking -Plan for CXR Monday -Ok to walk in halls -Kim QID -continue suction/lavage -ID consulted Heparin DVT prophylaxis: Pharmacological prophylaxis contraindicated because of bleeding to tracheostomy Code Status: Full code Discharge Planning: Discharge with home health care when stable; IV Bactrim per ID until 11/16
[2017-11-12] MEDS: Famotidine 20 MG Tablet G-TUBE SCH ×2 (09:52→20:33)
[2017-11-12] MEDS: predniSONE 10 MG Tablet G-TUBE SCH (09:52)
[2017-11-12] MEDS: Nystatin/Diphenhydramine/Lidocaine Mouthwash (Adult) 120 ML Botttle SWISH-SWAL SCH ×5 (09:53→20:33)
--- NOTE | 2017-11-12 14:23 | P.PN ---
Subjective Interval history: He is stable and off O2 . Trach site is clean. Able to talk with a PM Valve. Physical Exam Vital signs: Vital Signs 11/11/17 16:00 11/11/17 20:00 11/11/17 22:40 Temperature 97.9 F 99.2 F Pulse Rate 88 73 Respiratory Rate 16 18 Blood Pressure 107/62 117/62 Pulse Oximetry 98 11/12/17 00:00 11/12/17 04:00 11/12/17 06:05 Temperature 98.2 F 98.7 F Pulse Rate 81 93 H Respiratory Rate 18 20 Blood Pressure 115/64 106/60 Pulse Oximetry 95 93 L 97 11/12/17 08:00 11/12/17 09:59 11/12/17 12:00 Temperature 97.8 F 98.7 F Pulse Rate 65 64 Respiratory Rate 18 18 Blood Pressure 121/63 157/95 H Pulse Oximetry 100 99 97 Intake & Output 11/11/17 11/12/17 11/12/17 18:59 06:59 18:59 Intake Total 2927 / 2927 1300 / 1300 Output Total 3570 / 3570 1600 / 1600 Balance -643 / -643 -300 / -300 Weight 55.4 kg Intake: IV 1034 / 1034 Bactrim Inj 272 MG In D5W Inj 1034 / 1034 500 ML @ 344.667 mls/hr IV.SIG Q8H [facility] Rx#:[id number] Oral 0 / 0 Tube Feeding 943 / 943 700 / 700 Tube Irrigant 50 / 50 Water Bolus Amount 400 / 400 600 / 600 Other 500 / 500 Output: Blood Draw 250 / 250 Urine 3200 / 3200 1600 / 1600 Stool 120 / 120 Emesis 0 / 0 Pleural Fluid 0 / 0 Peritoneal Amount 0 / 0 Other: Other Intake Source Saline Solution # Voids 2 3 Date of Last Bowel Movement 11/10/17 11/10/17 11/12/17 # Bowel Movements 1 # Emeses 0 Narrative: GENERAL: No acute distress,Alert and oriented. resting comfortably ENT: Moist oral mucosa. NECK: Trach in place CARDIOVASCULAR: Regular rate and rhythm; normal perfusion. RESPIRATORY: Normal rate. good air movement. No wheezes. GASTROINTESTINAL: Abdomen soft, non-tender. Normal bowel sounds. PEG in place MUSCULOSKELETAL: No calf tenderness or asymmetry. Grossly normal ROM/strength NEUROLOGICAL: Awake and alert. No CN deficits. Grossly normal peripheral motor/ sensory function Results - Labs CBC & Chem 7: 11/11/17 06:58 11/11/17 06:58 Microbiology 11/06/17 12:01 Blood - Peripheral Aerobic Blood Culture - Final No growth in 5 days 11/06/17 12:01 Blood - Peripheral Anaerobic Blood Culture - Final No growth in 5 days 11/06/17 11:54 Blood - Peripheral Aerobic Blood Culture - Final No growth in 5 days 11/06/17 11:54 Blood - Peripheral Anaerobic Blood Culture - Final No growth in 5 days - Procedures SP TRACH AND PEG Assessment and Plan - Assessment (1) Status post tracheostomy Code(s): Z93.0 - Tracheostomy status Status: Acute (2) Status post tracheostomy Code(s): Z93.0 - Tracheostomy status Status: Acute (3) Acute respiratory failure with hypoxia and hypercapnia Code(s): J96.01 - Acute respiratory failure with hypoxia; J96.02 - Acute respiratory failure with hypercapnia Status: Acute (4) COPD with exacerbation Code(s): J44.1 - Chronic obstructive pulmonary disease with (acute) exacerbation Status: Resolved (5) 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 Will place a PM valve to talk daytime . 2. Continue antibiotics per ID 3. Tube feeds at 60 CC jevity 4. Duoneb Nebs qid. 5. Chest Xray in am 6.Trach Collar at HS with 28 % FIo2 (7) Sepsis Qualifiers: Sepsis type: sepsis due to unspecified organism Qualified Code(s): A41.9 - Sepsis, unspecified organism
[2017-11-13] MEDS: SULFAMETHOX IV.SIG SCH ×6 (05:19→22:02)
[2017-11-13] MEDS: TRIMETHOPRIM IV.SIG SCH ×6 (05:19→22:02)
[2017-11-13] MEDS: WATER IV.SIG SCH ×6 (05:19→22:02)
[2017-11-13] MEDS: DEXTROSE 5% IV.SIG SCH ×6 (05:19→22:02)
[2017-11-13 07:45] LABS: Baso % (Auto) 0.5 % (0.0-2.0); Eos # (Auto) 0.2 th/mm3 (0.0-0.4); Eos % (Auto) 4.3 % (0.0-4.0); Hemoglobin 10.8 gm/dL (13.0-17.0); Lymph # (Auto) 0.6 th/mm3 (1.0-4.8); Lymph % (Auto) 11.1 % (9.0-44.0); Mean Corpuscular HGB Conc 32.8 % (32.0-36.0); Mean Corpuscular Hemoglobin 27.5 pg (27.0-34.0); Mean Platelet Volume 8.3 fL (7.0-11.0); Mono # (Auto) 0.7 th/mm3 (0.0-0.9); Mono % (Auto) 13.1 % (0.0-8.0); Neut # (Auto) 3.8 th/mm3 (1.8-7.7); Platelet Count 334 th/mm3 (150-450); Red Blood Count 3.93 mil/mm3 (4.50-5.90); Red Cell Distribution Width 19.4 % (11.6-17.2); White Blood Count 5.4 th/mm3 (4.0-11.0)
--- NOTE | 2017-11-13 07:46 | P.PNIM ---
Subjective Interval history: Mr. Acuna was afebrile with stable vital signs overnight. Patient with O2 saturations 93-98% on 28% FiO2. Patient denies complaints at this time; no shortness of breath, urinary, or bowel concerns. Patient looking to try tube feeds like his home regimen per discussion yesterday with patient and his . Physical Exam Vital signs: Vital Signs 11/12/17 08:00 11/12/17 09:59 11/12/17 12:00 Temperature 97.8 F 98.7 F Pulse Rate 65 64 Respiratory Rate 18 18 Blood Pressure 121/63 157/95 H Pulse Oximetry 100 99 97 11/12/17 16:00 11/12/17 20:00 11/12/17 22:32 Temperature 98.2 F 98.3 F Pulse Rate 82 78 Respiratory Rate 18 20 Blood Pressure 124/42 L 110/57 L Pulse Oximetry 94 L 93 L 98 11/13/17 00:00 11/13/17 04:00 Temperature 98.2 F 98.2 F Pulse Rate 68 84 Respiratory Rate 20 20 Blood Pressure 118/62 121/62 Pulse Oximetry 93 L 95 Intake & Output 11/12/17 11/13/17 11/13/17 18:59 06:59 18:59 Intake Total 1857 / 1857 1504 / 1504 Output Total 1250 / 1250 1300 / 1300 Balance 607 / 607 204 / 204 Weight 55.4 kg Intake: IV 517 / 517 517 / 517 Bactrim Inj 272 MG In D5W Inj 517 / 517 517 / 517 500 ML @ 344.667 mls/hr IV.SIG Q8H [facility] Rx#:[id number] Oral 0 / 0 Tube Feeding 840 / 840 702 / 702 Tube Irrigant 100 / 100 60 / 60 Water Bolus Amount 400 / 400 225 / 225 Output: Blood Draw 250 / 250 Urine 1000 / 1000 1300 / 1300 Emesis 0 / 0 Pleural Fluid 0 / 0 Peritoneal Amount 0 / 0 Other: Date of Last Bowel Movement 11/12/17 11/12/17 # Bowel Movements 1 # Emeses 0 Narrative: GENERAL: No acute distress, resting comfortably ENT: Moist oral mucosa NECK: Trach in place CARDIOVASCULAR: Regular rate and rhythm; normal perfusion RESPIRATORY: Normal rate. CTAB; good air movement GASTROINTESTINAL: Abdomen soft, non-tender. Normal bowel sounds. PEG in place MUSCULOSKELETAL: No calf tenderness or asymmetry. Grossly normal ROM/strength NEUROLOGICAL: Awake and alert. No CN deficits. Grossly normal peripheral motor/ sensory function Results - Labs CBC & Chem 7: 11/11/17 06:58 11/11/17 06:58 - Procedures SP TRACH AND PEG Assessment and Plan - Assessment (1) Acute respiratory failure with hypoxia and hypercapnia Code(s): J96.01 - Acute respiratory failure with hypoxia; J96.02 - Acute respiratory failure with hypercapnia Status: Acute (2) COPD with exacerbation Code(s): J44.1 - Chronic obstructive pulmonary disease with (acute) exacerbation Status: Resolved (3) 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 Acuna is a 62 yo M with H squamous cell carcinoma s/p radiation therapy, HTN , pulmonary fibrosis who presents with: Recent episode of hemoptysis Impression: s/p direct laryngoscopy by Dr. Lorenz 10/30, he also went down through the tracheostomy, no obvious source of bleeding, but unable to see through the glottis because of significant edema. Per EMR review, Dr. Coello suspected need for laryngectomy; discussed with [facility] [place] Dr. Calixto and patient can be DC home and follow up at [facility] as outpatient for surgery as long as no further bleeding. 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 -Continue tube feeds on Jevity 1,.5 -Will change to bolus feeds per his home schedule ID Impression: 11/02 blood cultures with stenotrophomonas which is Levaquin resistant; prior sputum culture 10/18 with Stenotrophomonas s/p prior treatment w/ Levaquin for gram - bacterial pneumonia following empiric Vancomycin/Zosyn treatment -ID consulted -Monitor repeat blood cultures -11/06 repeat BC negative x5 days -Continue IV Bactrim until 11/16 if repeat cultures negative -Monitor WBC, renal function Respiratory Impression: Tracheostomy in place. Has been using trach collar; has had normal sats with FiO2 28%. Trach recently changed to #6. Currently under treatment for stenotrophomonas; s/p prior pneumonia treatment 10/20 during hospitalization CXR 11/08 without interval change -Pulmonology consulted -PM valve for daytime talking -Plan for CXR today per Pulmonology -Ok to walk in halls -Kim QID -continue suction/lavage -ID recs Heparin DVT prophylaxis: Pharmacological prophylaxis contraindicated because of bleeding to tracheostomy Code Status: Full code Discharge Planning: Discharge with home health care when stable; IV Bactrim per ID until 11/16
[2017-11-13 08:24] LABS: Anion Gap 6 meq/L (5-15); Blood Urea Nitrogen 14 mg/dL (7-18); Calcium 8.9 mg/dL (8.5-10.1); Carbon Dioxide 30.2 meq/L (21.0-32.0); Chloride 101 meq/L (98-107); Glomerular Filtration Rate Greater Than 89 mL/min (>89); Glucose,Random 104 mg/dL (74-106); Sodium 137 meq/L (136-145)
--- NOTE | 2017-11-13 08:45 | XR ---
EXAM DATE: 11/13/2017 8:32 AM EDT AGE/SEX: 62 years / Male INDICATIONS: Short of breath. CLINICAL DATA: This is the patient's subsequent encounter. Patient reports that signs and symptoms h ave been present for 2 weeks and indicates a pain score of 0/10. MEDICAL/SURGICAL HISTORY: . Hypertension. Cancer of piriform sinus. . PEG tube Pulmonary nodule biopsy . Hypertension. Cancer of piriform sinus. . PEG tube Pulmonary nodule biopsy COMPAR[place]: [facility] [place], 10/15/2017 and chest x-ray 11/08/2017. . FINDINGS: A single AP view of the chest demonstrates the lungs to be symmetrically aerated without evidence of mass, infiltrate or effusion. Interstitial prominence again noted throughout both lungs in a diffuse fashion. This is stable. Tracheostomy tube noted. The cardiomediastinal contours are unremarkable. Osseous structures are intact. CONCLUSION: 1. Stable chronic interstitial change. 2. Tracheostomy tube. Electronically signed by: Connor Hahn MD 11/13/2017 8:44 AM EDT
[2017-11-13] MEDS: Famotidine 20 MG Tablet G-TUBE SCH ×2 (08:46→21:02)
[2017-11-13] MEDS: Nystatin/Diphenhydramine/Lidocaine Mouthwash (Adult) 120 ML Botttle SWISH-SWAL SCH (08:46)
[2017-11-13] MEDS: predniSONE 10 MG Tablet G-TUBE SCH (08:46)
[2017-11-13 09:02] LABS: Eosinophils 6 % (0-4); Lymphocytes 10 % (9-44); Monocytes 8 % (0-8); Myelocytes 1 % (0-0); Platelet Estimate Normal (Normal); Platelet Morphology Normal (Normal); Promyelocyte 4 % (0-0)
--- NOTE | 2017-11-13 18:49 | P.PN ---
Subjective Interval history: He is feeling better. On Room air and sats are 95 Able to use a PM Valve. Physical Exam Vital signs: Vital Signs 11/12/17 20:00 11/12/17 22:32 11/13/17 00:00 Temperature 98.3 F 98.2 F Pulse Rate 78 68 Respiratory Rate 20 20 Blood Pressure 110/57 L 118/62 Pulse Oximetry 93 L 98 93 L 11/13/17 04:00 11/13/17 08:00 11/13/17 09:45 Temperature 98.2 F 98.7 F Pulse Rate 84 89 Respiratory Rate 20 12 Blood Pressure 121/62 109/59 L Pulse Oximetry 95 96 98 11/13/17 12:00 11/13/17 16:00 Temperature 98 F 98.1 F Pulse Rate 56 L 92 H Respiratory Rate 14 14 Blood Pressure 103/60 124/60 Pulse Oximetry 95 97 Intake & Output 11/12/17 11/13/17 11/13/17 18:59 06:59 18:59 Intake Total 1857 / 1857 1504 / 1504 2734 / 2734 Output Total 1250 / 1250 1300 / 1300 850 / 850 Balance 607 / 607 204 / 204 1884 / 1884 Weight 55.4 kg Intake: IV 517 / 517 517 / 517 1034 / 1034 Bactrim Inj 272 MG In D5W Inj 517 / 517 517 / 517 1034 / 1034 500 ML @ 344.667 mls/hr IV.SIG Q8H [facility] Rx#:[id number] Oral 0 / 0 0 / 0 Tube Feeding 840 / 840 702 / 702 960 / 960 Tube Irrigant 100 / 100 60 / 60 0 / 0 Water Bolus Amount 400 / 400 225 / 225 240 / 240 Other 500 / 500 Output: Blood Draw 250 / 250 Urine 1000 / 1000 1300 / 1300 850 / 850 Emesis 0 / 0 0 / 0 Pleural Fluid 0 / 0 0 / 0 Peritoneal Amount 0 / 0 0 / 0 Other: Other Intake Source Saline Solution Date of Last Bowel Movement 11/12/17 11/12/17 11/13/17 # Bowel Movements 1 2 # Emeses 0 0 Narrative: GENERAL: Elderly W/M thin build in No acute distress, resting comfortably ENT: Moist oral mucosa NECK: Trach in place No Nodes CARDIOVASCULAR: Regular rate and rhythm; normal perfusion RESPIRATORY: Occ wheeze heard; good air movement GASTROINTESTINAL: Abdomen soft, non-tender. Normal bowel sounds. PEG in place MUSCULOSKELETAL: No calf tenderness or asymmetry. Grossly normal ROM/strength NEUROLOGICAL: Awake and alert. No CN deficits. Grossly normal peripheral motor/ sensory function Results - Labs CBC & Chem 7: 11/13/17 07:21 11/13/17 07:21 Laboratory Results - last 24 hr 11/13/17 11/13/17 07:21 07:21 WBC 5.4 RBC 3.93 L Hgb 10.8 L Hct 33.0 L MCV 84.0 MCH 27.5 MCHC 32.8 RDW 19.4 H Plt Count 334 MPV 8.3 Prelim Diff (Auto) Slide review pending Neut % (Auto) 71.0 H Lymph % (Auto) 11.1 [place] % (Auto) 13.1 H Eos % (Auto) 4.3 H Baso % (Auto) 0.5 Neut # (Auto) 3.8 Lymph # (Auto) 0.6 L [place] # (Auto) 0.7 Eos # (Auto) 0.2 Baso # (Auto) 0.0 WBC Differential Manual diff final Seg Neuts % (Manual) 68 Band Neuts % (Manual) 3 Lymphocytes % (Manual) 10 Monocytes % (Manual) 8 Eosinophils % (Manual) 6 H Myelocytes % (Man) 1 H Promyelocytes % (Man) 4 H Abs Neuts (Manual) 4.1 Differential Comment . Platelet Estimate Normal Platelet Morphology Normal Sodium 137 Potassium 4.0 Chloride 101 Carbon Dioxide 30.2 Anion Gap 6 BUN 14 Creatinine 0.71 Estimated GFR Greater than 89 Random Glucose 104 Calcium 8.9 - Imaging Impressions Chest X-Ray 11/13/17 00:00 CONCLUSION: 1. Stable chronic interstitial change. 2. Tracheostomy tube. - Procedures SP TRACH AND PEG Assessment and Plan - Assessment (1) Status post tracheostomy Code(s): Z93.0 - Tracheostomy status Status: Acute (2) Status post tracheostomy Code(s): Z93.0 - Tracheostomy status Status: Acute (3) Acute respiratory failure with hypoxia and hypercapnia Code(s): J96.01 - Acute respiratory failure with hypoxia; J96.02 - Acute respiratory failure with hypercapnia Status: Acute (4) COPD with exacerbation Code(s): J44.1 - Chronic obstructive pulmonary disease with (acute) exacerbation Status: Resolved (5) 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 Will place a PM valve PRN to talk. 2. Continue antibiotics per ID 3. Tube feeds at 60 CC / HR 4. Duoneb Nebs qid. 5. CBC,BMP 6.Trach Collar at HS with 28 % FIo2 (7) Sepsis Qualifiers: Sepsis type: sepsis due to unspecified organism Qualified Code(s): A41.9 - Sepsis, unspecified organism
[2017-11-14] MEDS: TRIMETHOPRIM IV.SIG SCH ×6 (06:13→22:44)
[2017-11-14] MEDS: DEXTROSE 5% IV.SIG SCH ×6 (06:13→22:44)
[2017-11-14] MEDS: WATER IV.SIG SCH ×6 (06:13→22:44)
[2017-11-14] MEDS: SULFAMETHOX IV.SIG SCH ×6 (06:13→22:44)
--- NOTE | 2017-11-14 07:42 | P.PNIM ---
Subjective Interval history: Mr. Acuna was afebrile with stable vital signs overnight (Tmax 99.5). Saturations 95-98% on 28% FiO2. Patient denies complaints at this time. He denies shortness of breath, abnormal urination, or bowel changes. Patient has been doing well with self administered bolus feeds. Physical Exam Vital signs: Vital Signs 11/13/17 08:00 11/13/17 09:45 11/13/17 12:00 Temperature 98.7 F 98 F Pulse Rate 89 56 L Respiratory Rate 12 14 Blood Pressure 109/59 L 103/60 Pulse Oximetry 96 98 95 11/13/17 16:00 11/13/17 20:00 11/14/17 00:00 Temperature 98.1 F 98.9 F 98.4 F Pulse Rate 92 H 77 68 Respiratory Rate 14 14 14 Blood Pressure 124/60 109/60 112/74 Pulse Oximetry 97 98 98 11/14/17 04:00 11/14/17 04:24 Temperature 99.5 F Pulse Rate 75 Respiratory Rate 14 Blood Pressure 124/65 Pulse Oximetry 95 96 Intake & Output 11/13/17 11/14/17 11/14/17 18:59 06:59 18:59 Intake Total 2734 / 2734 1317 / 1317 Output Total 850 / 850 1200 / 1200 Balance 1884 / 1884 117 / 117 Weight 55.9 kg Intake: IV 1034 / 1034 517 / 517 Bactrim Inj 272 MG In D5W Inj 1034 / 1034 517 / 517 500 ML @ 344.667 mls/hr IV.SIG Q8H [facility] Rx#:[id number] Oral 0 / 0 Tube Feeding 960 / 960 0 / 0 Tube Irrigant 0 / 0 100 / 100 Water Bolus Amount 240 / 240 200 / 200 Other 500 / 500 500 / 500 Output: Urine 850 / 850 1200 / 1200 Emesis 0 / 0 Pleural Fluid 0 / 0 Peritoneal Amount 0 / 0 Other: Other Intake Source Saline Solution Saline Solution Date of Last Bowel Movement 11/13/17 11/13/17 # Bowel Movements 2 # Emeses 0 Narrative: GENERAL: No acute distress, resting comfortably ENT: Moist oral mucosa NECK: Trach in place CARDIOVASCULAR: Regular rate and rhythm; normal perfusion RESPIRATORY: Normal rate. CTAB; good air movement GASTROINTESTINAL: Abdomen soft, non-tender. Normal bowel sounds. PEG in place MUSCULOSKELETAL: No calf tenderness or asymmetry. Grossly normal ROM/strength NEUROLOGICAL: Awake and alert.Grossly normal CN. Grossly normal peripheral motor /sensory function Results - Labs CBC & Chem 7: 11/13/17 07:21 11/13/17 07:21 Laboratory Results - last 24 hr 11/13/17 11/13/17 07:21 07:21 WBC 5.4 RBC 3.93 L Hgb 10.8 L Hct 33.0 L MCV 84.0 MCH 27.5 MCHC 32.8 RDW 19.4 H Plt Count 334 MPV 8.3 Prelim Diff (Auto) Slide review pending Neut % (Auto) 71.0 H Lymph % (Auto) 11.1 [place] % (Auto) 13.1 H Eos % (Auto) 4.3 H Baso % (Auto) 0.5 Neut # (Auto) 3.8 Lymph # (Auto) 0.6 L [place] # (Auto) 0.7 Eos # (Auto) 0.2 Baso # (Auto) 0.0 WBC Differential Manual diff final Seg Neuts % (Manual) 68 Band Neuts % (Manual) 3 Lymphocytes % (Manual) 10 Monocytes % (Manual) 8 Eosinophils % (Manual) 6 H Myelocytes % (Man) 1 H Promyelocytes % (Man) 4 H Abs Neuts (Manual) 4.1 Differential Comment . Platelet Estimate Normal Platelet Morphology Normal Sodium 137 Potassium 4.0 Chloride 101 Carbon Dioxide 30.2 Anion Gap 6 BUN 14 Creatinine 0.71 Estimated GFR Greater than 89 Random Glucose 104 Calcium 8.9 - Imaging Impressions Chest X-Ray 11/13/17 00:00 CONCLUSION: 1. Stable chronic interstitial change. 2. Tracheostomy tube. - Procedures SP TRACH AND PEG Assessment and Plan - Assessment (1) Acute respiratory failure with hypoxia and hypercapnia Code(s): J96.01 - Acute respiratory failure with hypoxia; J96.02 - Acute respiratory failure with hypercapnia Status: Acute (2) COPD with exacerbation Code(s): J44.1 - Chronic obstructive pulmonary disease with (acute) exacerbation Status: Resolved (3) 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 Acuna is a 62 yo M with PMH squamous cell carcinoma s/p radiation therapy, HTN , pulmonary fibrosis who presents with: Recent episode of hemoptysis Impression: s/p direct laryngoscopy by Dr. Lorenz 10/30, he also went down through the tracheostomy, no obvious source of bleeding, but unable to see through the glottis because of significant edema. Per EMR review, Dr. Coello suspected need for laryngectomy; discussed with [facility] [place] Dr. Calixto and patient can be DC home and follow up at [facility] as outpatient for surgery as long as no further bleeding. 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 -Continue tube feeds on Jevity 1.5 -Bolus feeds ID Impression: 11/02 blood cultures with stenotrophomonas which is Levaquin resistant; prior sputum culture 10/18 with Stenotrophomonas s/p prior treatment w/ Levaquin for gram - bacterial pneumonia following empiric Vancomycin/Zosyn treatment -ID consulted -Monitor repeat blood cultures -11/06 repeat BC negative x5 days -Continue IV Bactrim until 11/16 if repeat cultures negative -Monitor WBC, renal function Respiratory Impression: Tracheostomy in place. Has been using trach collar; has had normal sats with FiO2 28%. Trach recently changed to #6. Currently under treatment for stenotrophomonas; s/p prior pneumonia treatment 10/20 during hospitalization CXR 11/08 without interval change CXR 11/13 with stable chronic interstitial change -Pulmonology consulted -PM valve for daytime talking -Ok to walk in halls -Kim QID -continue suction/lavage -ID recs Heparin DVT prophylaxis: Pharmacological prophylaxis contraindicated because of bleeding to tracheostomy Code Status: Full code Discharge Planning: Discharge with home health care when stable; IV Bactrim per ID until 11/16
[2017-11-14] MEDS: Famotidine 20 MG Tablet G-TUBE SCH ×2 (08:28→20:07)
[2017-11-14] MEDS: predniSONE 10 MG Tablet G-TUBE SCH (08:28)
--- NOTE | 2017-11-14 13:09 | P.PN ---
Subjective Interval history: He is on RA. Sats 96. Able to talk with PM valve. Physical Exam Vital signs: Vital Signs 11/13/17 16:00 11/13/17 20:00 11/14/17 00:00 Temperature 98.1 F 98.9 F 98.4 F Pulse Rate 92 H 77 68 Respiratory Rate 14 14 14 Blood Pressure 124/60 109/60 112/74 Pulse Oximetry 97 98 98 11/14/17 04:00 11/14/17 04:24 11/14/17 08:00 Temperature 99.5 F 97.6 F Pulse Rate 75 105 H Respiratory Rate 14 14 Blood Pressure 124/65 93/60 L Pulse Oximetry 95 96 99 11/14/17 10:05 11/14/17 12:00 Temperature 98.1 F Pulse Rate 93 H Respiratory Rate 14 Blood Pressure 101/60 Pulse Oximetry 95 98 Intake & Output 11/13/17 11/14/17 11/14/17 18:59 06:59 18:59 Intake Total 2734 / 2734 1317 / 1317 517 / 517 Output Total 850 / 850 1200 / 1200 Balance 1884 / 1884 117 / 117 517 / 517 Weight 55.9 kg Intake: IV 1034 / 1034 517 / 517 517 / 517 Bactrim Inj 272 MG In D5W Inj 1034 / 1034 517 / 517 517 / 517 500 ML @ 344.667 mls/hr IV.SIG Q8H [facility] Rx#:[id number] Oral 0 / 0 Tube Feeding 960 / 960 0 / 0 Tube Irrigant 0 / 0 100 / 100 Water Bolus Amount 240 / 240 200 / 200 Other 500 / 500 500 / 500 Output: Urine 850 / 850 1200 / 1200 Emesis 0 / 0 Pleural Fluid 0 / 0 Peritoneal Amount 0 / 0 Other: Other Intake Source Saline Solution Saline Solution Date of Last Bowel Movement 11/13/17 11/13/17 11/14/17 # Bowel Movements 2 # Emeses 0 Narrative: GENERAL: Thin elderly W/M in No acute distress. ENT: Moist oral mucosa NECK: Trach in place No bleeding. CARDIOVASCULAR: Regular rate and rhythm. RESPIRATORY: Clear and good air movement GASTROINTESTINAL: Abdomen soft, non-tender. Normal bowel sounds. PEG in place MUSCULOSKELETAL: No calf tenderness or asymmetry. Grossly normal ROM/strength NEUROLOGICAL: Awake and alert.Grossly normal CN. Grossly normal peripheral motor /sensory function Results - Labs CBC & Chem 7: 11/13/17 07:21 11/13/17 07:21 - Procedures SP TRACH AND PEG Assessment and Plan - Assessment (1) Status post tracheostomy Code(s): Z93.0 - Tracheostomy status Status: Acute (2) Status post tracheostomy Code(s): Z93.0 - Tracheostomy status Status: Acute (3) Acute respiratory failure with hypoxia and hypercapnia Code(s): J96.01 - Acute respiratory failure with hypoxia; J96.02 - Acute respiratory failure with hypercapnia Status: Acute (4) COPD with exacerbation Code(s): J44.1 - Chronic obstructive pulmonary disease with (acute) exacerbation Status: Resolved (5) 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 Will cont PM valve PRN to talk. 2. Continue antibiotics per ID 3. Tube feeds at 60 CC / HR 4. D/C Duoneb and add Ventolin HFA , 2 puffs qid prn. 5. Cap trach next week 6.Trach Collar at HS with 28 % FIo2 (7) Sepsis Qualifiers: Sepsis type: sepsis due to unspecified organism Qualified Code(s): A41.9 - Sepsis, unspecified organism
[2017-11-15] MEDS: SULFAMETHOX IV.SIG SCH ×6 (05:52→21:39)
[2017-11-15] MEDS: DEXTROSE 5% IV.SIG SCH ×6 (05:52→21:39)
[2017-11-15] MEDS: TRIMETHOPRIM IV.SIG SCH ×6 (05:52→21:39)
[2017-11-15] MEDS: WATER IV.SIG SCH ×6 (05:52→21:39)
--- NOTE | 2017-11-15 07:36 | P.PNIM ---
Subjective Interval history: Mr. Acuna was afebrile with stable vital signs overnight. Per nursing staff, discharge planning being prepared. Request for home trach care order in preparation for anticipated discharge tomorrow. Patient is doing well currently. He denies shortness of breath; his mucus production has been stable. Bolus feeds have been going well. No other concerns. Patient has been having BM every ~2 days. Patient eager for discharge home. Physical Exam Vital signs: Vital Signs 11/14/17 08:00 11/14/17 10:05 11/14/17 12:00 Temperature 97.6 F 98.1 F Pulse Rate 105 H 93 H Respiratory Rate 14 14 Blood Pressure 93/60 L 101/60 Pulse Oximetry 99 95 98 11/14/17 16:00 11/14/17 20:00 11/15/17 00:00 Temperature 98.1 F 98.2 F 98.1 F Pulse Rate 95 H 80 84 Respiratory Rate 12 12 12 Blood Pressure 106/56 L 114/57 L 105/52 L Pulse Oximetry 96 96 97 11/15/17 04:00 Temperature 97.8 F Pulse Rate 77 Respiratory Rate 14 Blood Pressure 110/64 Pulse Oximetry 96 Intake & Output 11/14/17 11/15/17 11/15/17 18:59 06:59 18:59 Intake Total 2694 / 2694 1667 / 1667 Output Total 980 / 980 1550 / 1550 Balance 1714 / 1714 117 / 117 Weight 55.2 kg Intake: IV 1034 / 1034 517 / 517 Bactrim Inj 272 MG In D5W Inj 1034 / 1034 517 / 517 500 ML @ 344.667 mls/hr IV.SIG Q8H [facility] Rx#:[id number] Oral 0 / 0 0 / 0 Tube Feeding 960 / 960 350 / 350 Tube Irrigant 0 / 0 100 / 100 Water Bolus Amount 200 / 200 200 / 200 Other 500 / 500 500 / 500 Output: Urine 980 / 980 1550 / 1550 Emesis 0 / 0 0 / 0 Pleural Fluid 0 / 0 Peritoneal Amount 0 / 0 Other: Other Intake Source Saline Solution Date of Last Bowel Movement 11/14/17 11/14/17 # Bowel Movements 1 # Emeses 0 0 Narrative: GENERAL: No acute distress, sitting in bedside chair ENT: Moist oral mucosa NECK: Trach in place CARDIOVASCULAR: Regular rate and rhythm; normal perfusion. Cleared some mucus through trach around time of exam RESPIRATORY: Normal rate. CTAB; good air movement GASTROINTESTINAL: Abdomen soft, non-tender. Normal bowel sounds. PEG in place MUSCULOSKELETAL: No calf tenderness or asymmetry. Grossly normal ROM/strength NEUROLOGICAL: Awake and alert.Grossly normal CN. Grossly normal peripheral motor /sensory function Results - Labs CBC & Chem 7: 11/13/17 07:21 11/13/17 07:21 Assessment and Plan - Assessment (1) Acute respiratory failure with hypoxia and hypercapnia Code(s): J96.01 - Acute respiratory failure with hypoxia; J96.02 - Acute respiratory failure with hypercapnia Status: Acute (2) COPD with exacerbation Code(s): J44.1 - Chronic obstructive pulmonary disease with (acute) exacerbation Status: Resolved (3) 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 Acuna is a 62 yo M with H squamous cell carcinoma s/p radiation therapy, HTN , pulmonary fibrosis who presents with: Recent episode of hemoptysis Impression: s/p direct laryngoscopy by Dr. Lorenz 10/30, he also went down through the tracheostomy, no obvious source of bleeding, but unable to see through the glottis because of significant edema. Per EMR review, Dr. Coello suspected need for laryngectomy; discussed with [facility] Dr. Calixto and patient can be DC home and follow up at [facility] as outpatient for surgery as long as no further bleeding. 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 -Continue tube feeds on Jevity 1.5 -Bolus feeds ID Impression: 11/02 blood cultures with stenotrophomonas which is Levaquin resistant; prior sputum culture 10/18 with Stenotrophomonas s/p prior treatment w/ Levaquin for gram - bacterial pneumonia following empiric Vancomycin/Zosyn treatment -ID consulted -Monitor repeat blood cultures -11/06 repeat BC negative x5 days -Continue IV Bactrim until 11/16 if repeat cultures negative -Monitor WBC, renal function Respiratory Impression: Tracheostomy in place. Has been using trach collar; has had normal sats with FiO2 28%. Trach recently changed to #6. Currently under treatment for stenotrophomonas; s/p prior pneumonia treatment 10/20 during hospitalization CXR 11/08 without interval change CXR 11/13 with stable chronic interstitial change -Pulmonology consulted -PM valve for daytime talking -Ok to walk in halls -Kim QID changed to Proair -trach collar at night with 28% FiO2 -continue suction/lavage -ID recs Heparin DVT prophylaxis: Pharmacological prophylaxis contraindicated because of bleeding to tracheostomy Code Status: Full Discharge Planning: Discharge with home health care when stable; IV Bactrim per ID until 11/16
--- NOTE | 2017-11-15 07:38 | P.DCO ---
- Physical Therapy Order: Evaluate and treat - Occupational Therapy Order: Evaluate and treat - Home Health Nursing Order: Medical education, Wound care and dressing changes, Nursing assessment with vital signs Instructions: Tracheostomy care - [employer] Manager Order: To evaluate: Living conditions/environment, Support services Order: To provide: Long range planning - Case Management Consult No - Certification I have seen patient Alon Acuna on 11/15/17. My clinical findings support the need for the requested home health care services because: Limited mobility due to disease progression, Patient has SOB I certify that my clinical findings support that this patient is homebound because: Hx COPD - exertion dyspnea/weakness, Unsteady gait/balance Attestation/Additional Detail: Patient needs home tracheostomy care
[2017-11-15] MEDS: Famotidine 20 MG Tablet G-TUBE SCH ×2 (08:00→20:38)
[2017-11-15] MEDS: predniSONE 10 MG Tablet G-TUBE SCH (08:00)
--- NOTE | 2017-11-15 14:21 | P.PNID ---
Subjective Remarks: Notes reviewed. Patient feels well. Denies chills. No nausea. Trach collar. No fever. Blood culture had stenotrophomonas on 11/03/2017. Resistant to Levaquin. Sputum culture on 10/18 had Citrobacter and Stenotrophomonas maltophilia. Treated earlier this admission for pneumonia due to gram-negative bacteria. Completed p.o. Levaquin course. 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 He has had difficulty swallowing since the radiation. 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 Hypertension Dyslipidemia Pulmonary fibrosis Tube placement Hypercholesteremia Allergies/Adverse Reactions: Allergies No Known Allergies Allergy (Unknown, Uncoded 10/15/17 12:40) Objective Vital Signs 11/14/17 16:00 11/14/17 20:00 11/15/17 00:00 Temperature 98.1 F 98.2 F 98.1 F Pulse Rate 95 H 80 84 Respiratory Rate 12 12 12 Blood Pressure 106/56 L 114/57 L 105/52 L Pulse Oximetry 96 96 97 11/15/17 04:00 11/15/17 08:00 11/15/17 10:57 Temperature 97.8 F 96.9 F L Pulse Rate 77 93 H Respiratory Rate 14 14 Blood Pressure 110/64 95/52 L Pulse Oximetry 96 97 98 11/15/17 12:00 Temperature 99 F Pulse Rate 98 H Respiratory Rate 12 Blood Pressure 114/59 L Pulse Oximetry 98 Intake & Output 11/14/17 11/15/17 11/15/17 18:59 06:59 18:59 Intake Total 2694 / 2694 1667 / 1667 517 / 517 Output Total 980 / 980 1550 / 1550 Balance 1714 / 1714 117 / 117 517 / 517 Weight 55.2 kg Intake: IV 1034 / 1034 517 / 517 517 / 517 Bactrim Inj 272 MG In D5W Inj 1034 / 1034 517 / 517 517 / 517 500 ML @ 344.667 mls/hr IV.SIG Q8H [facility] Rx#:[id number] Oral 0 / 0 0 / 0 Tube Feeding 960 / 960 350 / 350 Tube Irrigant 0 / 0 100 / 100 Water Bolus Amount 200 / 200 200 / 200 Other 500 / 500 500 / 500 Output: Urine 980 / 980 1550 / 1550 Emesis 0 / 0 0 / 0 Pleural Fluid 0 / 0 Peritoneal Amount 0 / 0 Other: Other Intake Source Saline Solution Date of Last Bowel Movement 11/14/17 11/14/17 # Bowel Movements 1 # Emeses 0 0 Imaging: ITS Impressions Gastrostomy Tube Placement 10/23/17 00:00 CONCLUSION: Uncomplicated fluoroscopic guided gastrostomy tube replacement as described above. Chest CT 10/28/17 00:00 CONCLUSION: 1. Severe emphysema with prominent interstitial densities in the lower lobes and right upper lobe. The overall appearance has improved from previous study. 2. Tracheostomy tube. Soft Tissue Neck CT 10/28/17 00:00 CONCLUSION: 1. Tracheostomy tube. 2. Soft tissue prominence throughout the larynx with displacement of the right thyroid cartilage and adjacent air again seen. 3. Left thyroid nodule. Venous Doppler Study 11/02/17 00:00 CONCLUSION: No DVT is identified within either lower extremity. Catheter Change 11/03/17 00:00 CONCLUSION: 1. Uncomplicated gastrostomy tube exchange as above. Chest X-Ray 11/13/17 00:00 CONCLUSION: 1. Stable chronic interstitial change. 2. Tracheostomy tube. Physical Exam: GENERAL: Alert, no acute distress. HEENT: Pupils reactive to light. Extraocular movements intact. No icterus. No conjunctival erythema. NECK: Supple without adenopathy. No swelling. Tracheostomy site appears intact. LUNGS: Breath sounds decreased. HEART: Regular S1 and S2 without murmurs rubs or gallops. ABDOMEN: Bowel sounds present, soft, nontender. EXTREMITIES: No clubbing cyanosis or edema. SKIN: No diffuse rash. NEUROLOGIC: Nonfocal. PSYCH: Calm and cooperative. Assessment and Plan (1) Sepsis Status: Acute Code(s): A41.9 - Sepsis, unspecified organism - Plan Sepsis due to stenotrophomonas. Pulmonary source. 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 Treated with radiation therapy. Recommendations: Complete IV Bactrim tonight after last dose today. Stop order placed. Okay to discharge tomorrow AM. No additional antibiotics needed on discharge. I have communicated that to the patient. Discussed with RN. (1) Sepsis Qualifiers: Sepsis type: sepsis due to unspecified organism Qualified Code(s): A41.9 - Sepsis, unspecified organism
--- NOTE | 2017-11-15 18:43 | P.PN ---
Subjective Interval history: alert trach ok afebrile no SOB Physical Exam Vital signs: Vital Signs 11/14/17 20:00 11/15/17 00:00 11/15/17 04:00 Temperature 98.2 F 98.1 F 97.8 F Pulse Rate 80 84 77 Respiratory Rate 12 12 14 Blood Pressure 114/57 L 105/52 L 110/64 Pulse Oximetry 96 97 96 11/15/17 08:00 11/15/17 10:57 11/15/17 12:00 Temperature 96.9 F L 99 F Pulse Rate 93 H 98 H Respiratory Rate 14 12 Blood Pressure 95/52 L 114/59 L Pulse Oximetry 97 98 98 11/15/17 16:00 11/15/17 18:04 Temperature 99.3 F Pulse Rate 80 Respiratory Rate 12 Blood Pressure 115/60 Pulse Oximetry 96 98 Intake & Output 11/14/17 11/15/17 11/15/17 18:59 06:59 18:59 Intake Total 2694 / 2694 1667 / 1667 2194 / 2194 Output Total 980 / 980 1550 / 1550 760 / 760 Balance 1714 / 1714 117 / 117 1434 / 1434 Weight 55.2 kg 55.8 kg Intake: IV 1034 / 1034 517 / 517 1034 / 1034 Bactrim Inj 272 MG In D5W Inj 1034 / 1034 517 / 517 1034 / 1034 500 ML @ 344.667 mls/hr IV.SIG Q8H [facility] Rx#:[id number] Oral 0 / 0 0 / 0 Tube Feeding 960 / 960 350 / 350 960 / 960 Tube Irrigant 0 / 0 100 / 100 0 / 0 Water Bolus Amount 200 / 200 200 / 200 200 / 200 Other 500 / 500 500 / 500 Output: Urine 980 / 980 1550 / 1550 760 / 760 Emesis 0 / 0 0 / 0 Pleural Fluid 0 / 0 Peritoneal Amount 0 / 0 Other: Other Intake Source Saline Solution Date of Last Bowel Movement 11/14/17 11/14/17 # Bowel Movements 1 # Emeses 0 0 Narrative: GENERAL: No acute distress, sitting in bedside chair ENT: Moist oral mucosa NECK: Trach in place CARDIOVASCULAR: Regular rate and rhythm; normal perfusion. Cleared some mucus through trach around time of exam RESPIRATORY: Normal rate. CTAB; good air movement GASTROINTESTINAL: Abdomen soft, non-tender. Normal bowel sounds. PEG in place MUSCULOSKELETAL: No calf tenderness or asymmetry. Grossly normal ROM/strength NEUROLOGICAL: Awake and alert.Grossly normal CN. 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
--- NOTE | 2017-11-16 07:51 | P.PNIM ---
Subjective Interval history: Mr. Acuna was afebrile with stable vital signs overnight. Patient does not report shortness of breath or any urinary or bowel concerns. Patient eager to be discharged home; he plans to follow-up with Dr. Coello and Dr. Rodriguez; he also plans to f/u with ENT in [place] in near future. Per nursing staff discussion with Dr. Rodriguez this morning, patient cleared for discharge home. Physical Exam Vital signs: Vital Signs 11/15/17 08:00 11/15/17 10:57 11/15/17 12:00 Temperature 96.9 F L 99 F Pulse Rate 93 H 98 H Respiratory Rate 14 12 Blood Pressure 95/52 L 114/59 L Pulse Oximetry 97 98 98 11/15/17 16:00 11/15/17 18:04 11/15/17 19:58 Temperature 99.3 F 98.4 F Pulse Rate 80 76 Respiratory Rate 12 20 Blood Pressure 115/60 115/64 Pulse Oximetry 96 98 97 11/16/17 00:00 11/16/17 01:41 11/16/17 04:00 Temperature 97.6 F 98.2 F Pulse Rate 78 89 Respiratory Rate 18 18 Blood Pressure 115/63 107/55 L Pulse Oximetry 98 94 L 96 11/16/17 07:19 Temperature 97.9 F Pulse Rate 103 H Respiratory Rate 12 Blood Pressure 133/74 Pulse Oximetry 99 Intake & Output 11/15/17 11/16/17 11/16/17 18:59 06:59 18:59 Intake Total 2194 / 2194 0 / 0 Output Total 760 / 760 1300 / 1300 Balance 1434 / 1434 -1300 / -1300 Weight 55.8 kg 55.6 kg Intake: IV 1034 / 1034 Bactrim Inj 272 MG In D5W Inj 1034 / 1034 500 ML @ 344.667 mls/hr IV.SIG Q8H [facility] Rx#:[id number] Oral 0 / 0 Tube Feeding 960 / 960 Tube Irrigant 0 / 0 Water Bolus Amount 200 / 200 Output: Urine 760 / 760 1300 / 1300 Other: Date of Last Bowel Movement 11/14/17 # Bowel Movements 0 Narrative: GENERAL: No acute distress, sitting in bedside chair ENT: Moist oral mucosa NECK: Trach in place CARDIOVASCULAR: Regular rate and rhythm; normal perfusion RESPIRATORY: Normal rate. CTAB; good air movement GASTROINTESTINAL: Abdomen soft, non-tender. Normal bowel sounds. PEG in place MUSCULOSKELETAL: No calf tenderness or asymmetry. Grossly normal ROM/strength NEUROLOGICAL: Awake and alert.Grossly normal CN. Grossly normal peripheral motor /sensory function Results - Labs CBC & Chem 7: 11/13/17 07:21 11/13/17 07:21 Assessment and Plan - Assessment (1) Acute respiratory failure with hypoxia and hypercapnia Code(s): J96.01 - Acute respiratory failure with hypoxia; J96.02 - Acute respiratory failure with hypercapnia Status: Acute (2) COPD with exacerbation Code(s): J44.1 - Chronic obstructive pulmonary disease with (acute) exacerbation Status: Resolved (3) 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 Acuna is a 62 yo M with H squamous cell carcinoma s/p radiation therapy, HTN , pulmonary fibrosis who presents with: Recent episode of hemoptysis Impression: s/p direct laryngoscopy by Dr. Lorenz 10/30, he also went down through the tracheostomy, no obvious source of bleeding, but unable to see through the glottis because of significant edema. Per EMR review, Dr. Coello suspected need for laryngectomy; discussed with [facility] Dr. Calixto and patient can be DC home and follow up at [facility] as outpatient for surgery as long as no further bleeding. 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 -Continue tube feeds on Jevity 1.5 -Bolus feeds ID Impression: 11/02 blood cultures with stenotrophomonas which is Levaquin resistant; prior sputum culture 10/18 with Stenotrophomonas s/p prior treatment w/ Levaquin for gram - bacterial pneumonia following empiric Vancomycin/Zosyn treatment -ID consulted -Monitor repeat blood cultures -11/06 repeat BC negative x5 days -WBC, renal function stable -Stopped IV Bactrim per ID by 11/16; has completed treatment Respiratory Impression: Tracheostomy in place. Has been using trach collar; has had normal sats with FiO2 28%. Trach recently changed to #6. Currently under treatment for stenotrophomonas; s/p prior pneumonia treatment 10/20 during hospitalization CXR 11/08 without interval change CXR 11/13 with stable chronic interstitial change -Pulmonology consulted -PM valve for daytime talking -Ok to walk in halls -Continue Proair -Tolerating room air well -continue suction/lavage -Patient plans for self-care with trach at home -Will continue his Prednisone 10mg daily at discharge with plans for wean at f/u Heparin DVT prophylaxis: Pharmacological prophylaxis contraindicated because of bleeding to tracheostomy Code Status: Full code Discharge Planning: Discharge with home health care when stable; IV Bactrim per ID until 11/16
[2017-11-16] MEDS: Famotidine 20 MG Tablet G-TUBE SCH (08:32)
[2017-11-16] MEDS: predniSONE 10 MG Tablet G-TUBE SCH (08:32)
--- NOTE | 2017-11-19 15:48 | P.DS ---
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 Coello, status post 35 sessions of radiation therapy, followed by Dr. Obregon, complicated by progressive difficulty swallowing and pain in his throat. 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 He underwent PEG tube placement and he began hyperbaric oxygen. Mr. Acuna presents today to emergency department complaining of worsening shortness of breath over the last 2 days, gradually worsening. This morning, upon awakening, patient started complaining of severe shortness of breath, associated with epistaxis and spitting up blood. Per there was no fever, chills, chest pain, palpitations, abdominal pain, diarrhea, dysuria. Patient was coughing, mostly dry and it is chronic. Of note, patient was recently treated for a possible URI by Dr. Coello with a cephalosporin. On ED arrival patient was hypoxic down to 50% on room air in severe distress. Patient was placed on BiPAP with slow improvement in his O2 saturation. Due to increased work of breathing and tachypnea patient was emergently intubated by anesthesia. He was given 1 dose of hydrocortisone, 1 L of saline and anti-nausea medication. Patient is currently intubated and sedated, family is present at bedside. Bloody secretions coming out of the ET tube are being noticed. DS: Diagnosis - Discharge Diagnosis (1) Acute respiratory failure with hypoxia and hypercapnia Status: Acute (2) Squamous cell carcinoma of pyriform sinus Status: Chronic (3) Aspiration pneumonia Status: Acute DS: Medications - Discharge Medications Prescriptions: albuterol sulfate [Ventolin HFA] 2 puff INH Q6H PRN 30 Days #1 device PRN Reason: Shortness Of Breath famotidine 20 mg G-TUBE BID #60 tab prednisone 10 mg G-TUBE DAILY #30 tab DS: Summary Hospital Course: Mr. 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 Coello, s/p 35 sessions of radiation therapy, followed by Dr. 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 Patient presented with worsening SOB, epistaxis, and hematemesis. Patient found to be hypoxic on ED admission; he was given BIPAP initially but required intubation. Patient underwent tracheostomy placement 10/18. Pulmonology consulted who monitored/managed patient's respiratory status during hospitalization. Patient was treated for pneumonia during hospitalization with Vancomycin and Zosyn. He was found to have sputum culture 10/18 positive for Stenotrophomonas. Patient underwent laryngoscopy 10/30; edema found but no visible bleeding. It was determined that patient would f/u as outpatient with ENT in [place] (Dr. Calixto) for outpatient laryngectomy. Patient was given tube feeds during hospitalization. Patient subsequently found to have blood cultures 11/02 positive for Stenotrophomonas which was Levaquin resistant. ID was consulted; patient was placed on IV Bactrim until 11/16; subsequent blood cultures were found to be negative. Patient's respiratory status improved during hospitalization so that he no longer needed O2 supplementation. After treatment for Stenotrophomonas, patient was discharged home 11/16 with plans to follow-up with Pulmonology and ENT. Patient will continue tracheostomy care at home until follow-up. - Time Spent with Patient Total time spent providing and/or coordinating discharge services: - Quality: VTE Deep Vein Thrombosis/Pulmonary Embolism Present on Admission: No Exam Vital signs: T98.2 HR 89 RR 18 BP 107/55 O2 sat 96% Narrative: GENERAL: No acute distress, sitting in bedside chair ENT: Moist oral mucosa NECK: Trach in place CARDIOVASCULAR: Regular rate and rhythm; normal perfusion RESPIRATORY: Normal rate. CTAB; good air movement GASTROINTESTINAL: Abdomen soft, non-tender. Normal bowel sounds. PEG in place MUSCULOSKELETAL: No calf tenderness or asymmetry. Grossly normal ROM/strength NEUROLOGICAL: Awake and alert.Grossly normal CN. Grossly normal peripheral motor /sensory function Results Procedures completed during hospitalization: Tracheostomy 10/18 G-tube placement 10/23 Laryngoscopy 10/30 G tube replacement 11/03 - Impressions ITS Impressions Gastrostomy Tube Placement 10/23/17 00:00 CONCLUSION: Uncomplicated fluoroscopic guided gastrostomy tube replacement as described above. Chest CT 10/28/17 00:00 CONCLUSION: 1. Severe emphysema with prominent interstitial densities in the lower lobes and right upper lobe. The overall appearance has improved from previous study. 2. Tracheostomy tube. Soft Tissue Neck CT 10/28/17 00:00 CONCLUSION: 1. Tracheostomy tube. 2. Soft tissue prominence throughout the larynx with displacement of the right thyroid cartilage and adjacent air again seen. 3. Left thyroid nodule. Venous Doppler Study 11/02/17 00:00 CONCLUSION: No DVT is identified within either lower extremity. Catheter Change 11/03/17 00:00 CONCLUSION: 1. Uncomplicated gastrostomy tube exchange as above. Chest X-Ray 11/13/17 00:00 CONCLUSION: 1. Stable chronic interstitial change. 2. Tracheostomy tube. Discharge Plan - Discharge Disposition Patient Disposition: /Home Health Service - Discharge Condition Condition: Stable - Discharge Order Discharge Orders: Discharge Order (Routine); Ordered 11/16/17 Ordered By: Edgardo Landrum Pulmonology Clear for Discharge (Routine); Ordered 11/16/17 Ordered By: Michael Rodriguez - Discharge Details Anticipated Discharge Date: 11/01/17 - Physicians Team Primary Care Provider: Amparo Ochoa Attending Provider: Edgardo Landrum Other Providers: Filemon Coello MD ; Michael Rodriguez MD ; Kenton Lorenz MD ; [employer] ; Thelma Drake ARNP ; Alejandro Burks ARNP ; Kailash Manzanares MD ; Aurelio Ballesteros MD - Rxs /Orders / Referrals /Forms Prescriptions: New albuterol sulfate [Ventolin HFA] 90 mcg/actuation Hfa Aerosol Inhaler 2 puff INH Q6H PRN (Reason: Shortness Of Breath) 30 Days Qty: 1 RF: 0 famotidine 20 mg Tablet 20 mg G-Tube BID Qty: 60 RF: 0 prednisone 10 mg Tablet 10 mg G-Tube DAILY Qty: 30 RF: 0 water for injection, sterile Parenteral Solution 200 ml G-Tube Q6HR RF: 0 Continue atorvastatin 80 mg PO DAILY hydrocodone-acetaminophen 15 - 30 ml PO Q4-6H PRN (Reason: Pain) Discontinued amlodipine 10 mg PO DAILY aspirin 81 mg PO DAILY pilocarpine HCl 5 mg PO BID trazodone 50 mg PO HS Ambulatory Orders / Order Sets / DME: Transport Chair Ultralight ( 1 each) (Routine) Location: Determined by Patient Ordered By: Vickey Cooper Walker With Front Wheels (1 each) (Routine) Location: Determined by Patient Ordered By: Vickey Cooper Oxygen Tank (2-5 liter) (DAILY) (1) Location: Determined by Patient Ordered By: Vickey Cooper Referrals: Filemon Coello MD [Physician] - See Instructions (Please follow-up with Dr. Coello next week for follow up at [facility] ) Amparo Ochoa MD [Primary Care Provider] - See Instructions Michael Rodriguez MD [Physician] - See Instructions (Please follow-up with Dr. Rodriguez two weeks [phone]) - Discharge Instructions Patient Printed Instructions: Acute Respiratory Distress Syndrome (GEN), Shortness of Breath (DC) Additional Instructions: Will need to make appointment with at [facility]. [facility] [phone] - Post Discharge Care Plan Care Plan Goals: Your Health Problems: Goals to Promote Your Health: * To prevent worsening of your condition * To maintain your health at the optimal level Directions to Meet Your Goals: * Take your medications as prescribed * Follow your dietary instruction * Follow activity as directed * Keep your appointments as scheduled * Take your immunizations and boosters as scheduled * If your symptoms worsen call your PCP * If no PCP go to Urgent Care or Emergency Room Smoking is dangerous to your health. Avoid second hand smoke. You may reach the 24-hour crisis hotline for domestic abuse at .
== END 2017-11-16 11:15 | disposition home health service (06) ==
LOC: HIMC 15:00 → H4EN 10-25 16:52
PROVIDERS: ADMIT Family Medicine; ATTEND Family Medicine